=== PATIENT | female | born 2005 | race Caucasian/White ===

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

== ENCOUNTER → 2024-01-29 | Outpatient (CLI) | payer OTHER, SELFPAY ==
--- NOTE | 2024-01-29 10:20 | NM_ITS ---
CLINICAL: 18-year-old female with history of chronic diarrhea. SEMI-SOLID PHASE 99m Tc SULFUR COLLOID GASTRIC EMPTYING STUDY COMPARISON: None available FINDINGS: The patient was administered 1.2 mCi of 99m Tc sulfur colloid mixed with oatmeal and consumed per os. Image acquisitions in the anterior-posterior projections were obtained for 60 minutes. There is prompt visualization of the stomach. There is no gastroesophageal reflux identified. The T ? linear fit was calculated to be 44.07 minutes, (Normal: 12-56 minutes). NM/Gastric Emptying Study IMPRESSION: 1. NORMAL 99m Tc sulfur colloid semi-solid phase (oatmeal) gastric emptying imaging examination. A. There is normal and preserved semi-solid phase gastric emptying compared to normal controls. (James et al, J Nucl Med Tech 38: 186, 2010). Electronically Signed: Jignesh Lopez DO at 18:21 EST ,
== END | disposition home or self-care (01) ==
PROVIDERS: PCP Family Medicine; Referring Provider Family Medicine; Visit Provider Family Medicine
DX: R19.7 Diarrhea, unspecified (principal); R14.0 Abdominal distension (gaseous); K82.9 Disease of gallbladder, unspecified
CPT/HCPCS: 78264; A9541

== ENCOUNTER → 2024-01-31 | Outpatient (CLI) | payer OTHER, MEDICAID, SELFPAY ==
--- NOTE | 2024-01-31 13:02 | NM_ITS ---
CLINICAL: 18-year-old female with history of postprandial abdominal pain and diarrhea. RADIONUCLIDE HEPATOBILIARY SCINTIGRAPHY COMPARISON: None available FINDINGS: Following the intravenous administration of 6.0 mCi of 99m Tc Mebrofenin, hepatobiliary images reveal: 1. Relatively prompt and homogeneous radiopharmaceutical concentration is noted by a normal sized liver. No parenchymal defects are identified. 2. Gallbladder activity is identified at 15 minutes post radiopharmaceutical administration. 3. Small intestinal tract is and visualized prior to cholecystokinin administration. Small bowel is observed following CCK administration. 4. Washout of the radiopharmaceutical by the hepatic parenchyma appears qualitatively normal. Cholecystokinin (0.02 ug/kg) was administered intravenously over a 30-minute period. The post CCK gallbladder ejection fraction calculated at 20 minutes following Cholecystokinin administration was noted to be < 5 % (normal greater than 35%). There is scintigraphic evidence of post cholecystokinin duodenal-gastric reflux. AZ/Hepatobilliary Img w/Pharm Int IMPRESSION: 1. ABNORMAL 99m Tc Mebrofenin hepatobiliary imaging examination with Cholecystokinin. A. A gallbladder ejection fraction calculated to be less than 35% following the administration of Cholecystokinin is consistent with the presence of functional hepatobiliary disease (gallbladder and/or sphincter of Oddi dyskinesia) and/or organic hepatobiliary disease (chronic acalculous cholecystitis and/or cystic duct syndrome) in patients with intermediate to high pretest probabilities of hepatobiliary illness. (Raul Sanches et al, Journal of Nuclear Medicine 32:1695, 1990). B. There is scintigraphic evidence of post CCK duodenal-gastric reflux. (Kavita et al, Nucl Med Latoya Charu Press pg. 35, 1980). Electronically Signed: Jignesh Lopez, at 10:32 EST ,
== END | disposition home or self-care (01) ==
LOC: NM 12:58
PROVIDERS: PCP Family Medicine; Referring Provider Family Medicine; Visit Provider Family Medicine
DX: K82.9 Disease of gallbladder, unspecified (principal); R19.7 Diarrhea, unspecified
CPT/HCPCS: 78227; A9537; J2805

== ENCOUNTER 2024-02-04 08:35 | Emergency (ER) | payer OTHER, MEDICAID, SELFPAY ==
[2024-02-04 08:36] VITALS: BP 110/83; PULSE 117; RESP 16; TEMP 36.4; O2SAT 98; BMI 18.0
--- NOTE | 2024-02-04 09:07 | ED.VIS.GI ---
HPI HPI - GI History of Present Illness Chief Complaint: Abd Pain Informant: patient and parent Narrative Narrative: 18-year-old female presenting to the emergency room with vomiting diarrhea. Patient states that she has been experiencing diarrhea with meals for more than a month. She had an abnormal HIDA scan has been referred to general surgery. Last evening developed vomiting as well as a change in diarrhea. Described more now it is mucousy green and chunky. She had continued vomiting and diarrhea this morning. No reported fever. PFSH PFSH Medical History Spider bite COVID-19 Home Medications ?Medication ?Instructions ?Recorded ?Last Taken ?Type albuterol sulfate 90 mcg/actuation 2 inh inhalation Q4H PRN shortness 03/12/23 Unknown History aerosol inhaler of breath or wheezing medroxyprogesterone 150 mg/mL 150 mg IM [id number] #1 mL 03/28/23 Unknown Rx intramuscular suspension (Depo-Provera) doxycycline monohydrate 100 mg 100 mg PO BID #20 caps 06/26/23 Unknown Rx capsule methylprednisolone 4 mg tablets in See Rx Instructions PO PER PKG DIR 06/26/23 Unknown Rx a dose pack (Medrol (Jose)) #21 tabs ondansetron 4 mg disintegrating 4 mg PO Q6H PRN PRN Nausea #15 tabs 02/04/24 Unknown Rx tablet Allergy/AdvReac Type Severity Reaction Status Date / Time No Known Allergies Allergy Verified 02/04/24 08:36 Family History Mother Rheumatoid arthritis Heart palpitations Father Hemochromatosis Hypertension Surgical History History of tonsillectomy and adenoidectomy Social History household members: family housing: house current occupational exposures/hazards: No pets and animals: Yes pets and animals: cat(s), dog(s) and fish sexually active: Yes Smoking Status: Never smoker alcohol intake: never substance use type: does not use and tranquilizers caffeine: Yes seatbelt use: always ROS ROS ED Constitutional Constitutional ED: Denies chills, fever(s) or weight loss Eyes Eyes: Denies change in vision or diplopia ENT ENT ED: Denies ear pain, rhinorrhea or sore throat Cardiovascular Cardiovascular: Denies chest pain, orthopnea, palpitations or racing heartbeat Respiratory/Chest Respiratory/Chest: Denies cough, dyspnea or orthopnea Gastrointestinal Gastrointestinal: Reports abdominal pain, diarrhea, nausea and vomiting Genitourinary Genitourinary ED: Denies dysuria, hematuria or urinary frequency Musculoskeletal Musculoskeletal: Denies arthralgias or myalgias Integumentary Denies abscess or rash Neurologic Neurologic: Denies headache(s) or weakness Psychiatric Psychiatric: Denies anxiety, depression, suicidal ideation or suicidal thoughts Endocrine Endocrinology: Denies polydipsia, polyphagia or polyuria Allergic/Immunologic Allergic/Immunologic ED: Denies mouth swelling, tongue swelling or urticaria EXAM Physical Exam Const Vital Signs: 02/04/24 08:36 Temperature 97.6 F L Temperature Source Oral Pulse Rate 117 H Respiratory Rate 16 Blood Pressure 110/83 H Blood Pressure Mean 92 Pulse Ox 98 Oxygen Delivery Method Room Air Positive well nourished and well developed General Appearance ED: well developed HEENT Reports normocephalic, head/scalp atraumatic and moist mucous membranes Eyes PERRL and EOMs intact bilaterally Neck no lymphadenopathy, supple and no JVD Resp normal respiratory effort and clear to auscultation bilaterally Cardio regular rate, regular rhythm and no murmurs Rate: tachycardic GI non-distended GI Narrative: Abdomen is soft mildly tender. I would not characterize it as surgical Inspection: Negative for abdominal distention Auscultation: hyperactive bowel sounds Palpation: soft and tender LLQ and LUQ; Negative for guarding or rigid Back/Spine no CVA tenderness and normal ROM Extremity normal to inspection General Extremety ED: Negative for edema General Extremity: Negative for edema Neuro oriented x3 and CN's II-XII intact bilaterally Sensorium / Orientation: alert Motor Exam: strength 5/5 throughout Psych mental status grossly normal Mood & Affect: Negative for depressed or tearful Skin no rashes or lesions noted and no wounds MDM MDM MDM Narrative Medical decision making narrative: Differential diagnosis includes gastroenteritis colitis pancreatitis biliary colic dehydration electrolyte abnormalities. CBC BMP liver enzymes and pancreas demonstrated total bilirubin of 1.2 with a direct bilirubin 0.24 test is negative hemoglobin 16. Patient received IV fluids and Zofran. Repeat examination the patient states she feels significantly better. I think she most likely has a viral gastroenteritis. The patient has been unable to provide us a stool specimen while here. I will write for the patient to have Zofran at home. Patient to return if worsening with or concerns orally hydrate History & Record Review Discussion w/independent historian: Patient and Family Additional record(s) reviewed:: Prior outpatient record Lab Data Attestation: I reviewed the patient's lab results. Labs: Laboratory Results - last 24 hr 02/04/24 08:50 WBC 8.3 RBC 5.14 Hgb 16.0 H Hct 47.0 MCV 91.4 MCH 31.1 MCHC 34.0 RDW Std Deviation 39.1 RDW Coeff of Cj 11.6 Plt Count 162 MPV 10.6 Immature Gran % (Auto) 0.200 Neut % (Auto) 76.7 H Lymph % (Auto) 13.8 L Scott % (Auto) 5.3 Eos % (Auto) 3.6 Baso % (Auto) 0.4 Absolute Neuts (auto) 6.3 Absolute Lymphs (auto) 1.14 Nucleated RBC % 0 Sodium 141 Potassium 4.0 Chloride 108 H Carbon Dioxide 25.0 Anion Gap 7 BUN 17 Creatinine 0.95 Estim Creat Clear Calc 78.44 Est GFR (MDRD) Af Amer 97 Est GFR (MDRD) Non-Af 80 BUN/Creatinine Ratio 17.8 Glucose 95 Calcium 9.4 Total Bilirubin 1.20 H Direct Bilirubin 0.24 AST 14 L ALT 15 Alkaline Phosphatase 28 L Total Protein 8.0 Albumin 4.7 Globulin 3.3 Lipase 57 Serum , Qual NEGATIVE Discharge Plan Triage Chief Complaint: Abd Pain ED Provider: Madan Drummond Dx/Rx/DC Orders Clinical Impression: Gastroenteritis Instructions: ED Gastroenteritis, Viral (Adult) Prescriptions: New ondansetron 4 mg tablet,disintegrating 4 mg PO Q6H PRN PRN (Reason: Nausea) Qty: 15 0RF No Action medroxyprogesterone [Depo-Provera] 150 mg/mL suspension 150 mg IM [id number] Qty: 1 3RF methylprednisolone [Medrol (Jose)] 4 mg tablets,dose pack See Rx Instructions PO PER PKG DIR Qty: 21 0RF Rx Instructions: PO PER PKG DIR doxycycline monohydrate 100 mg capsule 100 mg PO BID Qty: 20 0RF albuterol sulfate 90 mcg/actuation HFA aerosol inhaler 2 inh inhalation Q4H PRN (Reason: shortness of breath or wheezing) Primary Care Provider: Elder Soto Referrals: Elder Soto DO [Primary Care Provider] - As Needed Print Language: Irish Disposition Disposition: Home, Self Care
[2024-02-04] MEDS: Ondansetron 4 MG/2 ML Vial IV (09:12)
[2024-02-04] MEDS: 0.9% Normal Saline (1000mL) 1,000 ML 999 ML IV (09:12)
[2024-02-04 09:19] LABS: Absolute Lymphocyte Count 1.14 X10^3/uL (0.83-4.51); Absolute Neutrophil Count 6.3 X10^3/uL (2.0-7.7); Basophil# 0.03 X10^3/uL; Basophil% 0.4 % (0-1); Eosinophils% 3.6 % (0-5); Lymphocyte # 1.14 X10^3/ul (0.83-4.51); Lymphocyte % 13.8 % (19-41); Mean Corpuscular Hgb 31.1 pg (27.0-32.0); Mean Corpuscular Volume 91.4 fL (81-99); Mean Platelet Vol. 10.6 fl (6.2-12.0); Monocyte# 0.44 X10^3/uL; Monocyte% 5.3 % (0-10); NRBC Flagged by Analyzer 0 % (0-5); Neutrophil # 6.33 X10^3/uL (2.7-7.7); Neutrophil % 76.7 % (47-70); Platelet Count 162 K/mm3 (150-450); RBC Distribution Width CV 11.6 % (11.6-14.6); RBC Distribution Width SD 39.1 fl (35.1-43.9); Red Blood Count 5.14 M/mm3 (4.2-5.4); White Blood Count 8.3 K/mm3 (4.4-11.0)
[2024-02-04 09:29] LABS: Internal QC Validated? YES +Cl - CLEAR BKGD; Pregnancy, Serum, hCG Quali. NEGATIVE Negative
[2024-02-04 09:36] LABS: AST(SGOT) 14 U/L (15-37); Alanine Aminotransfer ALT/SGPT 15 U/L (13-56); Albumin, Serum 4.7 g/dL (3.2-5.0); Alkaline Phosphatase 28 U/L (45-117); Anion Gap 7 (5-15); BUN 17 mg/dL (7-18); BUN/Creat Ratio 17.8 RATIO (10-20); Bilirubin, Direct 0.24 mg/dL (0.00-0.30); Calcium,Total 9.4 mg/dL (8.5-10.1); Chloride 108 mmol/L (98-107); Creatinine, Serum 0.95 mg/dL (0.55-1.02); EST Glomerular Filtration Rate 80 mL/min (>60); Est Glom Filt Rate - Afr Amer 97 mL/min (>60); Estimated Creatinine Clearance 78.44 ml/min; Globulin 3.3 g/dL (2.2-4.2); Glucose 95 mg/dL (74-106); Lipase 57 U/L (13-75); Sodium Level 141 mmol/L (136-145)
[2024-02-04 10:54] VITALS: BP 98/65; PULSE 86; RESP 16; TEMP 36.4; O2SAT 98
== END 2024-02-04 10:56 | disposition home or self-care (01) ==
PROVIDERS: Emergency Provider Emergency Medicine; PCP Family Medicine; Visit Provider Emergency Medicine
DX: K52.9 Noninfective gastroenteritis and colitis, unspecified (principal); Z86.16 Personal history of COVID-19
CPT/HCPCS: 80048; 80076; 83690; 84703; 85025; 96361; 96374; 99283; A4216; J2405

== ENCOUNTER 2024-02-25 11:29 | Day surgery (SDC) | payer OTHER, MEDICAID, SELFPAY ==
[2024-02-25] VITALS (11 sets, daily range): BP systolic 105–124; BP diastolic 67–93; PULSE 71–93; RESP 16–18; TEMP 36.3–37; O2SAT 97–100; BMI 18.6
--- NOTE | 2024-02-25 11:43 | HP.PCM_ITS ---
History and Physical Date of Admission: 02/25/24 Date of Service: 02/14/24 MR#: [id number] Acct: [id number] Name: JOAN BURGESS Rep #: [id number] : 2005 Provider: Dr. Norma Buckley MD Age/Sex: 18/F Location: [facility] Status: Signed Intake Vital Signs 02/04/2408:36 02/14/2508:57 Height 5 ft 7 in 5 ft 7 in Weight: 120 lb 4 oz BMI 18.8 BP 103/71 Blood Pressure Location Rt brachial Position Sitting Respiration 18 Pulse 76 Pulse Source Monitor Pulse Oximetry (%) 100 Oxygen Delivery Method room air Intake Visit Reasons: ABNORMAL HIDA Chief Complaint: Chronic diarrhea/biliary dyskinesia Fluid Power Mechanic Required: No Accompanied by: Mother Is patient in pain?: No Allergies No Known Allergies Allergy (Verified 02/14/24 09:59) Medications ?Medication ?Instructions ?Recorded ?Confirmed ?Type albuterol sulfate 90 mcg/actuation 2 inh inhalation Q4H PRN shortness 03/12/23 02/14/24 History aerosol inhaler of breath or wheezing medroxyprogesterone 150 mg/mL 150 mg IM [id number] #1 mL 03/28/23 02/14/24 Rx intramuscular suspension (Depo-Provera) ondansetron 4 mg disintegrating 4 mg PO Q6H PRN PRN Nausea #15 tabs 02/04/24 02/14/24 Rx tablet omeprazole 40 mg capsule,delayed 40 mg PO QDAY #30 caps 02/14/24 02/14/24 Rx release PFSH Medical History (Updated 02/14/24 @ 10:[address] Norma Buckley MD) Anxiety Chronic diarrhea Migraine Asthma Contraception management Abnormal uterine bleeding Biliary dyskinesia Spider bite COVID-19 Surgical History History of tonsillectomy and adenoidectomy Family History Mother Rheumatoid arthritis Heart palpitationsFather Hemochromatosis Hypertension Social History household members: family housing: house current occupational exposures/hazards: No pets and animals: Yes pets and animals: cat(s), dog(s) and fish sexually active: Yes Smoking Status: Never smoker alcohol intake: never substance use type: does not use and tranquilizers caffeine: Yes seatbelt use: always HPI HPI HPI: 18-year-old female presents due to abnormal HIDA scan less than 5% consistent with biliary dyskinesia. Patient also had a gastric emptying study which was normal. Patient has been having issues with diarrhea bloating and abdominal cramping for about 2 years has gotten worse more recently. Patient has not been able to really gain weight but has not lost weight either for the last several years. Patient did states she tried omeprazole for about 2 to 3 weeks and did state it cut her diarrhea down from 4 times a day to about 2 times a day. Patient is currently off omeprazole. Patient does have nausea does not vomit. Patient has been more cramping and bloating abdominal pain near her umbilicus not really right upper quadrant. Patient is in school starting February 17 that most of her classes are remote except for 1. ROS General General: Yes weight change and fatigue; No appetite, colon cancer or breast cancer HEENT HEENT: No difficulty swallowing, eye injury, eye surgery, swollen glands or hoarseness Endo Endocrine: No thyroid disease, diabetes mellitus, thyroid cancer, Hair loss, heat intolerance or cold intolerance Skin Skin: No rash or changing moles Musc Musculoskeletal: Yes back problems; No arthritis, rheumatoid arthritis, gout or joint pain Cardio Cardiovascular: No murmur, pacemaker, heart disease, atrial fibrillation, high blood pressure, heart attack, heart stent, palpitations, shortness of breat with exertion or chest pain Psych Psychiatric: Yes anxiety; No depression or hearing voices Resp Respiratory: No shortness of breath, No sleep apnea, No cough, No COPD, Yes asthma, No emphysema and No wheezing Gastro Gastrointestinal: Yes abdominal pain, Yes nausea or vomiting, Yes diarrhea, Yes constipation, No blood in stool, No acid reflux, Yes hemorrhoids, No ulcers, No gallbladder problem and No black,tarry stools Merrick Hematologic: No blood thinners, No blood disorders, No bleeding, No anemia and No blood clots Neuro Neurologic: No numbness and No tingling Exam Const General: cooperative, healthy appearing, comfortable and no acute distress HENMT Head: normocephalic and atraumatic Neck Neck: supple Resp Effort & Inspection: normal respiratory effort Cardio Rate: regular rate GI Inspection: non-distended Palpation: soft, no hernias and nontender Skin General: no rashes or lesions noted Neuro General: CN's II-XI intact bilaterally Extrem General: normal to inspection Psych Mental Status: mental status grossly normal Attitude: cooperative Assessment and Plan Assessment and Plan (1) Biliary dyskinesia: Status: Acute (2) Bloating symptom: Status: Acute (3) Chronic diarrhea: Status: Chronic Medications: New omeprazole swallow whole; do not crush, chew, dissolve, cut, break 40 mg PO QDAY 30 caps 5RF Plan Discussed with patient that since the omeprazole did improve the numbers of time and diarrhea and she does have the bloating symptoms well would recommend going back on the omeprazole initially. Patient may also need EGD and colonoscopy after a laparoscopic cholecystectomy if she still continues to have diarrhea and bloating. Patient and mom understand that all of her symptoms will likely not be resolved with laparoscopic cholecystectomy. Did review her HIDA scan and the results with patient and her mom. Reviewed the anatomy with the patient and discussed the procedure: laparoscopic cholecystectomy with possible cholangiograms, possible open. Review risks including but not limited to bleeding, infection, hernia, bile leak, retained gallstones requiring another procedure ERCP- Endoscopic Retrograde Cholangiopancreatography, injury to another organ (bile ducts, common bile duct, small bowel, etc.) and conversion to an open procedure. All questions were answered. Norma Buckley M.D. Pager: [phone] [facility] [address] [place] [address], [address] [place] [address] Office: [phone] Coding Level of Care Code Off vis,new,level 3 Diagnoses Biliary dyskinesia K82.8 Bloating symptom R14.0 Chronic diarrhea K52.9 02/14/24 1059 <Electronically signed by Norma Buckley MD> Date Norma Buckley MD
--- NOTE | 2024-02-25 11:46 | EKG12_ITS ---
Test Reason : PREOP Blood Pressure : */* mmHG Vent. Rate : 87 BPM Atrial Rate : 87 BPM P-R Int : 114 ms QRS Dur : 80 ms QT Int : 332 ms P-R-T Axes : 67 83 61 degrees QTcB Int : 399 ms Normal sinus rhythm Normal ECG No previous ECGs available Confirmed by CINDI TAPIA, DARLENE ([id number]), department editor JUAN GREENWOOD ([id number]) on 03/04/2024 6:25:02 AM Referred By: Norma Bucklye Confirmed By: DARLENE PUENTE MD
[2024-02-25 12:19] LABS: Internal QC Validated? YES +Cl - CLEAR BKGD; Pregnancy, Urine Negative Negative
[2024-02-25] MEDS: 0.9% Normal Saline (1000mL) 1,000 ML 15 ML IV (12:20)
--- NOTE | 2024-02-25 12:20 | RAD_ITS ---
STUDY: INTRAOPERATIVE CHOLANGIOGRAM. REASON FOR EXAM: Female, 18 years old. LAP GRETTA W/ IOC FLUOROSCOPY TIME (if supplied): ( 11 seconds ) minutes/seconds. 2.18 mGy. TECHNIQUE: Attempted Intraop Cholangiogram. COMPARISON: None. RAD/Cholangiogram/ O R,Initial IMPRESSION: Attempted intraoperative cholangiogram. Electronically Signed: Victoriano Kerr MD at 15:00 EST ,
--- NOTE | 2024-02-25 12:43 | PCM.PRE.AN2 ---
ASA Classification* ASA Classification ASA Classification: 2 Assessment & Plan Anesthesia* Anesthesia Assessment Anesthesia Assessment: Discussed sedation and/or anesthesia options, risks, benefits, and alternatives with patient/parents/legal guardian/POA. Questions invited. The patient/parents/legal guardian/POA seems to understand and agrees to proceed with anesthesia plan. Reviewed the physical assessment, medical history, allergy history and patient home medications list prior to surgery/procedure/anesthetic and documented any changes. Performed airway and anesthesia risk assessments. Procedural Plan Add'l anesthesia plan details: scop patch for PONV Anesthesia Type Anesthesia Type: General History Source History Obtained from:: Patient, Chart and Parent/ Guardian (mother at bedside, in agreement with plan) Anesthesia Focused Assessment* Temperature: 98.6 F Pulse Rate: 83 Blood Pressure: 111/67 Respiratory Rate: 17 Pulse Ox: 100 Oxygen Delivery Method: Room Air Airway Assessment Mouth opens: >3 cm Mallampati Score: I Teeth Condition: Intact (permanent retainer, underbite) Neck Range of motion (ROM): Full ROM Focused Labs Anesthesia Preop lab: CBC WBC 8.3 K/mm3 (4.4-11.0) 02/04/24 08:50 RBC 5.14 M/mm3 (4.2-5.4) 02/04/24 08:50 Hgb 16.0 g/dL (12.0-15.0) H 02/04/24 08:50 Hct 47.0 % (37-47) 02/04/24 08:50 Plt Count 162 K/mm3 (150-450) 02/04/24 08:50 CHEMISTRY Potassium 4.0 mmol/L (3.5-5.1) 02/04/24 08:50 Sodium 141 mmol/L (136-145) 02/04/24 08:50 BUN 17 mg/dL (7-18) 02/04/24 08:50 Creatinine 0.95 mg/dL (0.55-1.02) 02/04/24 08:50 Glucose 95 mg/dL (74-106) 02/04/24 08:50 TSH 1.790 uIU/mL (0.358-3.740) 10/11/23 14:04 COAG Urine Test Negative Negative 02/25/24 12:00 Tst Clinic Negative 03/28/23 15:29 Pre-Assessment Diagnosis/Proposed Procedure Planned Operative Procedure(s): JULIAN SWEET WITH GRAMS Anesthesia History Anesthesia History - armature winder helper repair: Anesthesia History - armature winder helper repair Hx Hospitalization No 02/21/24 14:51 Any Problems With Anesthesia No 02/21/24 14:51 Cholinesterase deficiency No 02/21/24 14:51 You/Your Family Experience No 02/21/24 14:51 fever (hyperthermia) with Relationship Recent Exposure to Contagious No 02/25/24 12:14 Disease Does patient have nerve No 02/21/24 14:51 stimulator Patient instructed to have device shut off --Does patient have Pacemaker No 02/25/24 12:14 or ICD? When Was Last Pacemaker Check QUESTION #4 FULL TEXT: You/Your Family Experience fever (hyperthermia) with Anesthesia Last Oral Intake Last Oral intake: Last Oral Intake NPO since 00:00 02/25/24 12:14 Meds taken in AM with sips of No 02/25/24 12:14 water? Meds patient instructed to take am of surgery PONV PONV - armature winder helper repair: PONV - armature winder helper repair Female Yes 02/21/24 14:51 HX of Motion Sickness No 02/21/24 14:51 HX of N/V After Surgery No 02/21/24 14:51 Non-Smoker Yes 02/21/24 14:51 Duration of Surgery greater No 02/21/24 14:51 than 60 minutes Number of Risk Factors 2 02/21/24 14:51 PONV Score Moderate Risk 02/21/24 14:51 Any additional information?: Yes Female: Yes HX of Motion Sickness: No HX of N/V After Surgery: Yes Non-Smoker: Yes Duration of Surgery greater than 60 minutes: Yes Number of Risk Factors: 4 PONV Score: Severe Risk Height & Weight Height & Weight: Anesthesia: Height & Weight Height 5 ft 7 in 02/25/24 12:14 Weight: 53.9 kg 02/25/24 12:14 Body Mass Index (BMI) 18.6 02/25/24 12:14 Respiratory Assessment Respiratory Assessment - armature winder helper repair: Respiratory Tract Infection Hx - armature winder helper repair Hx Respiratory Tract Infection No 02/21/24 14:51 STOP Sleep Apnea STOP Sleep Apnea - armature winder helper repair: STOP Sleep Apnea - armature winder helper repair Hx Hypertension No 02/21/24 14:51 Hx Sleep Apnea No 02/21/24 14:51 CPAP BIPAP Do you snore loudly (louder No 02/21/24 14:51 than talking or can be heard Do you often feel tired/ No 02/21/24 14:51 fatigued/ sleepy during daytime? Has anyone observed you stop No 02/21/24 14:51 breathing during sleep? STOP Results Negative 02/21/24 14:51 QUESTION #5 FULL TEXT : Do you snore loudly (louder than talking or can be heard through closed doors)? Tobacco Use History Tobacco Use History - armature winder helper repair: Tobacco Use History - armature winder helper repair Tobacco Use Smoking Status Never smoker 02/21/24 14:51 Hx Tobacco Use No 02/21/24 14:51 Years Smoking Packs Smoked per Day Smoking Cessation Date was within the last 15 years Hx Smoking Cessation Date Hx Smoking Cessation Counseling Hematologic Medial History Hematologic Hx - armature winder helper repair: Hematologic Medical Hx - oral surgery technician Hx of Blood Transfusion No 02/21/24 14:51 Hx of Transfusion in last 3 No 02/21/24 14:51 Months Date of Last Transfusion (if within last 3 months) Ever experience any problems No 02/21/24 14:51 with transfusion(s)? Specify any problems Hx of Preganancy in last 3 No 02/21/24 14:51 Months Nurse Filling Out Transfusion DSCHRIBER 02/21/24 14:51 & Questions: Date: 02/21/24 02/21/24 14:51 Time: 14:52 02/21/24 14:51 Patient unable to answer at this time (ie. confused, unrespo /Reproduction History /Reproductive History - armature winder helper repair: /Reproductive Hx- armature winder helper repair Hx Now No 02/21/24 14:51 Gestational Age (in weeks): EDC: Hx Hx Para Hx Section SAB No 02/21/24 14:51 Active Medications Active Medications: Current Medications Generic Name Dose Route Start Last Admin Trade Name Freq PRN Reason Stop Dose Admin Cefazolin Sodium 2 gm/ N/A 20 mls @ 400 mls/hr 02/25/24 13:20 IV 02/25/24 13:22 PREOP ONE Sodium Chloride 1,000 mls @ 15 mls/hr 02/25/24 11:50 02/25/24 12:20 IV 03/02/24 01:09 15 mls/hr .Q48H XENIA Administration Protocol [facility] Medical History Wears contact lenses Non-smoker Anxiety Chronic diarrhea Biliary dyskinesia Spider bite Abnormal uterine bleeding Contraception management Asthma Migraine COVID-19 Home Medications ?Medication ?Instructions ?Recorded ?Last Taken ?Type albuterol sulfate 90 mcg/actuation 2 inh inhalation Q4H PRN shortness 03/12/23 Unknown History aerosol inhaler of breath or wheezing medroxyprogesterone 150 mg/mL 150 mg IM [id number] #1 mL 03/28/23 Unknown Rx intramuscular suspension (Depo-Provera) omeprazole 40 mg capsule,delayed 40 mg PO QDAY #30 caps 02/14/24 02/25/24 Rx release Allergy/AdvReac Type Severity Reaction Status Date / Time No Known Allergies Allergy Verified 02/25/24 12:13 Family History Mother Rheumatoid arthritis Heart palpitations Father Hemochromatosis Hypertension Surgical History Hx of wisdom tooth extraction History of tonsillectomy and adenoidectomy Social History household members: family housing: house current occupational exposures/hazards: No pets and animals: Yes pets and animals: cat(s), dog(s) and fish sexually active: Yes Smoking Status: Never smoker alcohol intake: never substance use type: does not use and tranquilizers caffeine: Yes seatbelt use: always Review of Systems (Anesthesia) ROS Narrative System reviewed and no additional complaints, except as documented.
--- NOTE | 2024-02-25 13:20 | GALL_PTH ---
PATIENT: JOAN BURGESS LOC: [facility] U#:[id number] AGE/SX: 18/F ROOM: RE02/25/[address]: Dr. Norma Buckley MD : 2005 BED: DIS: 02/25/2024 SPEC #: [id number] RECD: 02/25/24 16:48 STATUS: FELICIA REZina #: [id number] MAHAD: 02/25/24 13:[address]: Norma Buckley DEPT: SURGICAL PATHOLOGY RECD BY: Ila Cruz ENTERED: 02/26/24 10:06 SP TYPE: CEASAR FAM DR: Dr. Elder Soto DO Tissues: Gallbladder, NOS Procedures: Surgery Specimen Level III HEADER OPERATION: Laparoscopic cholecystectomy PRE-OP DIAGNOSIS: Biliary dyskinesia, bloating symptom, chronic diarrhea TISSUE SUBMITTED: Gallbladder MICROSCOPIC DIAGNOSIS Gallbladder, cholecystectomy: Mild chronic cholecystitis. Regional lymph nodes showing reactive changes. PW.mr 02/27/2024 MICROSCOPIC DESCRIPTION Slides are reviewed. GROSS DESCRIPTION Received is one container labeled with the patient's name and designated gallbladder. The specimen consists of a gallbladder measuring 6.5 cm in length and ranging from 2 to 3cm in diameter. The external surface is smooth except where it has been dissected off of the liver. There are no stones floating in the fixative. The cystic duct is identified upon opening the gallbladder. The gallbladder contains dark-green viscous bile. The cystic duct is free of stones. A shave of duct proximal portion is taken. There are no stones present in the gallbladder. The mucosa is bile-stained and without any mass lesions. The gallbladder wall measures up to 0.2cm in thickness. Environmental Marketer sections from the gallbladder and the cystic duct are submitted in one cassette. / PW: 02/26/2024 TC:2 CPT: 05086
[2024-02-25] MEDS: Cefazolin 2 GM in Syringe IV (13:41)
[2024-02-25] MEDS: Bupivacaine Mpf 0.5% 30 ML VIAL (14:35)
--- NOTE | 2024-02-25 14:35 | PCM.OPRPT ---
Operative Report (Standard) Operative Information Date of Procedure: 02/25/24 Pre-Operative Diagnosis: Biliary dyskinesia Post-Operative Diagnosis: Same Surgery/Procedure Performed: Laparoscopic cholecystectomy with attempted cholangiograms community service technician: Yes Solutions Sales Executive: Don Bustos Tasks completed by assistant baseball coach: Opening & closing and Retracting Type of Anesthesia: General/Supplemental RN Documented Start/Stop Times: Operation Date: 02/25/24 13:20 Case Time Into Pre-Op 02/25/24 11:43 Out of Pre-Op 02/25/24 13:25 Anesthesia Start 02/25/24 13:30 Into Room 02/25/24 13:30 Procedure Start 02/25/24 13:49 Procedure End 02/25/24 14:43 Anesthesia End 02/25/24 14:49 Out of Room 02/25/24 14:49 Into Recovery 02/25/24 14:55 Out of Recovery 02/25/24 16:01 Into Phase II Recovery 02/25/24 16:02 Out of Phase II 02/25/24 17:50 Procedure Start Time: 13:49 Procedure Stop Time: 14:43 Select all DRAINS/GRAFTS/IMPLANTS that apply: None Special Medications: Ancef 2 g IV x 1 Estimated Blood Loss: < 10 cc Specimen collected: Yes Description of specimen(s) removed: Gallbladder Description of surgery: Indications: this is a 18 year-old female who developed abdominal pain/nausea/vomiting and on workup was found to have no cholelithiasis, biliary dyskinesia with less than 5% emptying fraction, HIDA, with a normal common bile duct. Laparoscopic cholecystectomy was elected. Description procedure: The patient was placed on operating table in supine position. A timeout was completed verifying correct patient, procedure, site, position and special equipment prior to beginning procedure. General Anesthesia was induced. The abdomen was prepped and draped in usual sterile fashion. An incision was made in the natural skin line below the umbilicus. The fascia was elevated and incised. The peritoneum was elevated and incised. Entry into the peritoneum was confirmed visually and no bowel was noted in the vicinity of the incision. Brown trocar was placed. The abdomen was insufflated with carbon dioxide to a pressure of 12-15 mmHg. Patient tolerated insufflation well. The laparoscope was then inserted and abdomen inspected. No injuries from initial trocar placement were noted. Additional trochars were then inserted in the following locations 5 mm trocar in the epigastrium and 2 more 5 mm trochars along the right costal margin. The abdomen was inspected no abnormalities were found. The table is placed in reverse Trendelenburg position with the right side up. The dome of the gallbladder was grasped with atraumatic grasper passed through the lateral port and retracted over the dome of the liver. Infundibulum was then grasped with atraumatic grasper through the midclavicular port and retracted to the right lower quadrant. This maneuver exposed Calot's triangle. The peritoneum overlying the gallbladder infundibulum was then incised and cystic duct and artery identified and circumferentially dissected. Smart catheter was attempted for cholangiograms; however were not completed due to extravasation of contrast. The cystic duct and artery were then doubly clipped and divided close to the gallbladder. The gallbladder then dissected from its peritoneal attachments by electrocautery. Hemostasis was checked and the gallbladder and contained stones were removed using the endoscopic retrieval bag through the umbilical port. The gallbladder is passed off table as specimen. The gallbladder fossa was irrigated with saline and hemostasis obtained. There is no evidence of bleeding from the gallbladder fossa or cystic artery leakage of bile from the cystic duct stump. Secondary trochars removed under direct vision. No bleeding was noted the trocar sites. The laparoscope was withdrawn and umbilical trocar removed. The abdomen was allowed to collapse. The fascia of the 12 mm trocar was closed with a [id number] 0 Vicryl suture. The skin was closed with sutures of 4-0 Monocryl and Steri-Strips. The patient was extubated. The patient tolerated procedure well and was taken to the postanesthesia care unit in stable condition. Surgical Findings: See operative report Complications Complications: No
--- NOTE | 2024-02-25 14:38 | EX.PCM.DISCH ---
Discharge Instructions Diet Discharge Diet: Light diet - advance as tolerated Activity Discharge Activity: May Not Drive (while taking narcotic pain medications.) May shower in (days): 1 Lifting Restrictions: no lifting >20 lbs x 2 wks, no strenuous exercise for 4 wks Dressing / Incision Call your doctor if your incision/area has: Continuous Slow Oozing, Sudden Increased Bleeding, Increased Pain/ Swelling, Increased Redness, Foul Smelling Discharge and Swelling at the incision site Call your doctor if you observe: Fever of 101 or Higher Remove Dressing in: 2 days Cleanse incision/area with: Soap & Water Additional Dressing/Incision Instructions:: Steri-Strips will fall off in 7 to 10 days, if they do not fall off okay to remove after 10 days. Follow Up Care Please Follow Up With: Norma Buckley MD When: Call the office for a follow-up appointment 2 weeks; after 5 PM and on the weekends call [phone] with any concerns. Test Results: Test results from this visit will be discussed in further detail at your follow-up appointment, if applicable. Discharge Plan Admission Attending Provider: Norma Buckley Primary Care Provider: Elder Soto Instructions Print Language: Setswana Discharge Orders/Prescriptions Prescriptions: New hydrocodone-acetaminophen 5-325 mg tablet 1 tab PO Q6H PRN (Reason: pain) 3 Days Qty: 10 0RF Continued medroxyprogesterone [Depo-Provera] 150 mg/mL suspension 150 mg IM [id number] Qty: 1 3RF omeprazole 40 mg capsule,delayed release(DR/EC) 40 mg PO QDAY Qty: 30 5RF Rx Instructions: swallow whole; do not crush, chew, dissolve, cut, break albuterol sulfate 90 mcg/actuation HFA aerosol inhaler 2 inh inhalation Q4H PRN (Reason: shortness of breath or wheezing) Referrals / Follow Up: Elder Soto DO [Primary Care Provider] - Disposition Disposition (needs filled in before D/C Order can be placed): Home, Self Care
--- NOTE | 2024-02-25 15:09 | PCM.POST.ANE ---
Anesthesia: Postop Eval I Current Vital Signs Temperature: 97.8 F Pulse Rate: 84 Blood Pressure: 115/86 Respiratory Rate: 16 Pulse Ox: 99 Oxygen Delivery Method: Room Air Assessment Airway patent: Yes Spontaneous unlabored respirations: Yes Mental status: Awake nausea: No Vomiting: No Anesthesia Complication: No Fluid Hydration Crystalloid volume administer (ml): 700 Total IV fluid infused: 700 Progress Note Anesthesia document: Postop Eval 1 completed: Yes
[2024-02-25] MEDS: Ketorolac 30 MG/ML Syringe IV (15:16)
[2024-02-25] MEDS: HYDROcodone Bitartrate/Apap 5/325 Tablet PO (16:36)
--- NOTE | 2024-02-25 18:03 | PCM.POSTANE2 ---
Anesthesia Postop Eval I Sum Postop Eval Completion status Anesthesia document: Postop Eval 1 completed: Yes Anesthesia Postop Eval I Summary Anesthesia Postop Eval I Summary: Anesthesia Postop Eval I: Assessment Summary Airway patent Yes 02/25/24 15:10 [email or web address] Spontaneous unlabored Yes 02/25/24 15:10 [email or web address] respirations Mental status Awake 02/25/24 15:10 [email or web address] nausea No 02/25/24 15:10 [email or web address] Vomiting No 02/25/24 15:10 [email or web address] Anesthesia Postop Eval I: Fluid Summary Crystalloid volume administer 700 02/25/24 15:10 [email or web address] (ml) Colloids volume administered ( ml) Blood Product volume administered (ml) Total IV fluid infused 700 02/25/24 15:10 [email or web address] Anesthesia Postop Eval I: Summary Notes Anesthesia Complication No 02/25/24 15:10 [email or web address] Anesthesia Complication Comment: Post-operative progress note Anesthesia: Postop Eval II Evaluation Mental status: Awake and Calm Pain Level: 4 nausea: No Vomiting: No Complications Anesthesia Complication: No
== END 2024-02-25 17:50 | disposition home or self-care (01) ==
LOC: SDC 11:33 → AC 11:35
PROVIDERS: Anesthesiology; PCP Family Medicine; Referring Provider Surgery; Visit Provider Surgery
PROC: (CPT 47610; principal; 2024-02-25 13:00)
DX: K81.1 Chronic cholecystitis (principal); K52.9 Noninfective gastroenteritis and colitis, unspecified
CPT/HCPCS: 47562; 00790; 74300; 76000; 81025; 88304; 93005; J2405

== ENCOUNTER → 2024-05-13 | Outpatient (CLI) | payer OTHER, MEDICAID, SELFPAY | END | disposition home or self-care (01) | LOC: LABSPEC 15:09 | PROVIDERS: PCP Family Medicine; Referring Provider Nurse Practitioner Women's Health; Visit Provider Nurse Practitioner Women's Health | DX: Z11.3 Encounter for screening for infections with a predominantly sexual mode of transmission (principal) | CPT/HCPCS: 87491; 87591 ==

== ENCOUNTER → 2024-05-15 | Outpatient (CLI) | payer OTHER, MEDICAID, SELFPAY ==
[2024-05-15 18:16] LABS: Erythrocyte Sedimentation Rate < 1 mm/hr (0-30)
[2024-05-15 18:17] LABS: Free T3 3.3 pg/mL (2.18-3.98)
[2024-05-15 18:18] LABS: CRP < 3.00 mg/L (0.0-3.0); Rheumatoid Factor < 10.0 IU/mL (<15)
[2024-05-19 08:08] LABS: ANTINUCLEAR ANTIBODIES DIRECT Negative (Negative)
== END | disposition home or self-care (01) ==
PROVIDERS: PCP Family Medicine; Visit Provider Family Medicine
DX: I73.00 Raynaud's syndrome without gangrene (principal); M79.10 Myalgia, unspecified site; M25.50 Pain in unspecified joint; E03.9 Hypothyroidism, unspecified
CPT/HCPCS: 36415; 84432; 84439; 84443; 84481; 85652; 86038; 86140; 86200; 86431; 86800

== ENCOUNTER 2024-06-09 08:24 | Day surgery (SDC) | payer OTHER, MEDICAID, SELFPAY ==
[2024-06-09] VITALS (7 sets, daily range): BP systolic 96–105; BP diastolic 56–74; PULSE 57–82; RESP 16; TEMP 36.2–37.3; O2SAT 97–100; BMI 18.8
[2024-06-09 08:54] LABS: Internal QC Validated? YES +Cl - CLEAR BKGD; Pregnancy, Urine Negative Negative
--- NOTE | 2024-06-09 09:03 | PCM.PRE.AN2 ---
ASA Classification* ASA Classification ASA Classification: 2 (Asthma, GERD, PONV) Assessment & Plan Anesthesia* Anesthesia Assessment Anesthesia Assessment: Discussed sedation and/or anesthesia options, risks, benefits, and alternatives with patient/parents/legal guardian/POA. Questions invited. The patient/parents/legal guardian/POA seems to understand and agrees to proceed with anesthesia plan. Reviewed the physical assessment, medical history, allergy history and patient home medications list prior to surgery/procedure/anesthetic and documented any changes. Performed airway and anesthesia risk assessments. Anesthesia Type Anesthesia Type: General History Source History Obtained from:: Patient and Chart Anesthesia Focused Assessment* Temperature: 99.1 F Pulse Rate: 82 Blood Pressure: 105/56 Respiratory Rate: 16 Pulse Ox: 100 Oxygen Delivery Method: Room Air Airway Assessment Mouth opens: >3 cm Mallampati Score: II Teeth Condition: Intact (braces) Neck Range of motion (ROM): Full ROM Focused Labs Anesthesia Preop lab: CBC WBC 8.3 K/mm3 (4.4-11.0) 02/04/24 08:50 02/04/24 RBC 5.14 M/mm3 (4.2-5.4) 02/04/24 08:50 02/04/24 Hgb 16.0 g/dL (12.0-15.0) H 02/04/24 08:50 02/04/24 Hct 47.0 % (37-47) 02/04/24 08:50 02/04/24 Plt Count 162 K/mm3 (150-450) 02/04/24 08:50 02/04/24 CHEMISTRY Potassium 4.0 mmol/L (3.5-5.1) 02/04/24 08:50 02/04/24 Sodium 141 mmol/L (136-145) 02/04/24 08:50 02/04/24 BUN 17 mg/dL (7-18) 02/04/24 08:50 02/04/24 Creatinine 0.95 mg/dL (0.55-1.02) 02/04/24 08:50 02/04/24 Glucose 95 mg/dL (74-106) 02/04/24 08:50 02/04/24 TSH 1.650 uIU/mL (0.500-4.300) 05/15/24 15:29 05/15/24 COAG Urine Test Negative Negative 06/09/24 08:35 06/09/24 Tst Clinic Negative 05/13/24 13:46 05/13/24 Pre-Assessment Diagnosis/Proposed Procedure Planned Operative Procedure(s): CSCOPE, EGD Anesthesia History Anesthesia History - community living specialist: Anesthesia History - community living specialist Hx Hospitalization No 06/03/24 13:32 Any Problems With Anesthesia No 06/03/24 13:32 Cholinesterase deficiency No 06/03/24 13:32 You/Your Family Experience No 06/03/24 13:32 fever (hyperthermia) with Relationship Recent Exposure to Contagious No 06/09/24 08:44 Disease Does patient have nerve No 06/03/24 13:32 stimulator Patient instructed to have device shut off --Does patient have Pacemaker No 06/09/24 08:44 or ICD? When Was Last Pacemaker Check QUESTION #4 FULL TEXT: You/Your Family Experience fever (hyperthermia) with Anesthesia Last Oral Intake Last Oral intake: Last Oral Intake NPO since Meds taken in AM with sips of water? Meds patient instructed to take am of surgery PONV PONV - community living specialist: PONV - community living specialist Female Yes 06/03/24 13:32 HX of Motion Sickness No 06/03/24 13:32 HX of N/V After Surgery Yes 06/03/24 13:32 Non-Smoker Yes 06/03/24 13:32 Duration of Surgery greater No 06/03/24 13:32 than 60 minutes Number of Risk Factors 3 06/03/24 13:32 PONV Score Moderate Risk 06/03/24 13:32 Height & Weight Height & Weight: Anesthesia: Height & Weight Height 5 ft 7 in 06/09/24 08:44 Weight: 54.522 kg 06/09/24 08:44 Body Mass Index (BMI) 18.8 06/09/24 08:44 Respiratory Assessment Respiratory Assessment - community living specialist: Respiratory Tract Infection Hx - community living specialist Hx Respiratory Tract Infection No 06/03/24 13:32 STOP Sleep Apnea STOP Sleep Apnea - community living specialist: STOP Sleep Apnea - community living specialist Hx Hypertension No 06/03/24 13:32 Hx Sleep Apnea No 06/03/24 13:32 CPAP BIPAP Do you snore loudly (louder No 06/03/24 13:32 than talking or can be heard Do you often feel tired/ No 06/03/24 13:32 fatigued/ sleepy during daytime? Has anyone observed you stop No 06/03/24 13:32 breathing during sleep? STOP Results Negative 06/03/24 13:32 QUESTION #5 FULL TEXT : Do you snore loudly (louder than talking or can be heard through closed doors)? Tobacco Use History Tobacco Use History - community living specialist: Tobacco Use History - community living specialist Tobacco Use Smoking Status Never smoker 06/03/24 13:32 Hx Tobacco Use No 06/03/24 13:32 Years Smoking Packs Smoked per Day Smoking Cessation Date was within the last 15 years Hx Smoking Cessation Date Hx Smoking Cessation Counseling Hematologic Medial History Hematologic Hx - community living specialist: Hematologic Medical Hx - caregivers homecare Hx of Blood Transfusion No 06/03/24 13:32 Hx of Transfusion in last 3 No 06/03/24 13:32 Months Date of Last Transfusion (if within last 3 months) Ever experience any problems No 06/03/24 13:32 with transfusion(s)? Specify any problems Hx of Preganancy in last 3 N/A 06/03/24 13:32 Months Nurse Filling Out Transfusion NBUCHER 06/03/24 13:32 & Questions: Date: 06/03/24 06/03/24 13:32 Time: 13:34 06/03/24 13:32 Patient unable to answer at this time (ie. confused, unrespo /Reproduction History /Reproductive History - community living specialist: /Reproductive Hx- community living specialist Hx Now No 06/03/24 13:32 Gestational Age (in weeks): EDC: Hx Hx Para Hx Section SAB No 06/03/24 13:32 Active Medications Active Medications: Current Medications Generic Name Dose Route Start Last Admin Trade Name Freq PRN Reason Stop Dose Admin Lactated Ringer's 1,000 mls @ 15 mls/hr 06/09/24 08:30 IV .Q48H XENIA PFSH Medical History (Updated 06/03/24 @ 13:35 by Ashley Snyder) PONV (postoperative nausea and vomiting) Wears contact lenses Non-smoker Anxiety Chronic diarrhea Biliary dyskinesia Spider bite Abnormal uterine bleeding Contraception management Asthma Migraine COVID-19 Home Medications ?Medication ?Instructions ?Recorded ?Last Taken ?Type albuterol sulfate 90 mcg/actuation 2 inh inhalation Q4H PRN shortness 03/12/23 Unknown History aerosol inhaler of breath or wheezing omeprazole 40 mg capsule,delayed 40 mg PO QDAY #30 caps 05/14/24 06/08/24 Rx release vitamin #56-iron 35 mg 1 cap PO QDAY 05/14/24 Unknown History and 5 mg-folic acid 1 mg-dha capsule Allergy/AdvReac Type Severity Reaction Status Date / Time No Known Allergies Allergy Verified 06/09/24 08:43 Family History Mother Rheumatoid arthritis Heart palpitations Father Hemochromatosis Hypertension Surgical History (Updated 06/03/24 @ 13:35 by Ashley Snyder) History of cholecystectomy S/P cholecystectomy Hx of wisdom tooth extraction History of tonsillectomy and adenoidectomy Social History household members: family housing: house current occupational exposures/hazards: No pets and animals: Yes pets and animals: cat(s), dog(s) and fish sexually active: Yes Smoking Status: Never smoker alcohol intake: never substance use type: does not use and tranquilizers caffeine: Yes seatbelt use: always Review of Systems (Anesthesia) ROS Narrative System reviewed and no additional complaints, except as documented. Physical Exam Const alert, oriented x3 and average body habitus Resp normal respiratory effort, normal air movement and clear to auscultation bilaterally Cardio regular rate, regular rhythm, no murmurs and diaphoretic
--- NOTE | 2024-06-09 09:17 | PCM.HP.BLA ---
History and Physical Date of Admission: 06/09/24 Date of Service: 05/14/24 MR#: [id number] Acct: [id number] Name: JOAN BURGESS Rep #: [id number] : 2005 Provider: Dr. Norma Buckley MD Age/Sex: 18/F Location: [facility] Status: Signed Intake Vital Signs 02/24/2511:14 05/13/2512:18 05/15/2511:55 Height 5 ft 7 in 5 ft 7 in 5 ft 7 in Weight: 119 lb 2 oz 121 lb BMI 18.6 18.9 BP 102/68 121/70 H Blood Pressure Location Rt brachial Position Sitting Respiration 14 Pulse 87 Pulse Source Monitor Temp 98.1 F Temp Source Oral Pulse Oximetry (%) 100 Oxygen Delivery Method room air Intake Visit Reasons: RECALL DISCUSS UPPER AND LOWER SCOPE Director Utilization Management Required: No Accompanied by: Self Is patient in pain?: No Allergies No Known Allergies Allergy (Verified 05/14/24 12:54) Medications ?Medication ?Instructions ?Recorded ?Confirmed ?Type albuterol sulfate 90 mcg/actuation 2 inh inhalation Q4H PRN shortness 03/12/23 05/14/24 History aerosol inhaler of breath or wheezing medroxyprogesterone 10 mg tablet 10 mg PO QDAY 5 days #5 tabs 05/13/24 05/14/24 Rx omeprazole 40 mg capsule,delayed 40 mg PO QDAY #30 caps 05/14/24 05/14/24 Rx release vitamin #56-iron 35 mg 1 cap PO QDAY 05/14/24 05/14/24 History and 5 mg-folic acid 1 mg-dha capsule PFS Medical History Wears contact lenses Non-smoker Anxiety Chronic diarrhea Biliary dyskinesia Spider bite Abnormal uterine bleeding Contraception management Asthma Migraine COVID-19 Surgical History S/P cholecystectomy Hx of wisdom tooth extraction History of tonsillectomy and adenoidectomy Family History Mother Rheumatoid arthritis Heart palpitationsFather Hemochromatosis Hypertension Social History household members: family housing: house current occupational exposures/hazards: No pets and animals: Yes pets and animals: cat(s), dog(s) and fish sexually active: Yes Smoking Status: Never smoker alcohol intake: never substance use type: does not use and tranquilizers caffeine: Yes seatbelt use: always HPI HPI HPI: 18-year-old female presents due to continued diarrhea and some abdominal burning after eating. Patient is status post laparoscopic cholecystectomy due to biliary dyskinesia. Patient states the nausea did improve after the cholecystectomy. Patient states the diarrhea has not really changed. Patient was initially put on omeprazole thought maybe she had a little less diarrhea at that time currently not on omeprazole. Patient has been able to eat does think she may have gained a little bit of weight since the laparoscopic cholecystectomy. ROS General General: Yes weight change and fatigue; No appetite, colon cancer or breast cancer HEENT HEENT: No difficulty swallowing, eye injury, eye surgery, swollen glands or hoarseness Endo Endocrine: No thyroid disease, diabetes mellitus, thyroid cancer, Hair loss, heat intolerance or cold intolerance Skin Skin: No rash or changing moles Musc Musculoskeletal: Yes back problems; No arthritis, rheumatoid arthritis, gout or joint pain Cardio Cardiovascular: No murmur, pacemaker, heart disease, atrial fibrillation, high blood pressure, heart attack, heart stent, palpitations, shortness of breath with exertion or chest pain Psych Psychiatric: Yes anxiety; No depression or hearing voices Resp Respiratory: No shortness of breath, No sleep apnea, No cough, No COPD, Yes asthma, No emphysema and No wheezing Gastro Gastrointestinal: Yes abdominal pain, Yes nausea or vomiting, Yes diarrhea, Yes constipation, No blood in stool, No acid reflux, Yes hemorrhoids, No ulcers, No gallbladder problem and No black,tarry stools [place] Hematologic: No blood thinners, No blood disorders, No bleeding, No anemia and No blood clots Neuro Neurologic: No numbness and No tingling Exam Const General: cooperative, healthy appearing, comfortable and no acute distress [facility] Head: normocephalic and atraumatic Neck Neck: supple Resp Effort & Inspection: normal respiratory effort Cardio Rate: regular rate GI Inspection: non-distended and incision (Well-healed from laparoscopic cholecystectomy) Palpation: soft, no hernias and nontender Skin General: no rashes or lesions noted Neuro General: CN's II-XI intact bilaterally Extrem General: normal to inspection Psych Mental Status: mental status grossly normal Attitude: cooperative Assessment and Plan Assessment and Plan (1) Chronic diarrhea: Status: Chronic (2) Abdominal discomfort: Status: Acute Comment: Mid abdomen?burning?after eating Medications: New omeprazole swallow whole; do not crush, chew, dissolve, cut, break 40 mg PO QDAY 30 caps 1RF Plan I have discussed the above with the patient. I have offered the patient esophagogastroduodenoscopy and colonoscopy for evaluation. I have explained the risks/benefits of the procedure and described the procedure. I have discussed the risks with the patient, including but not limited to: infection, bleeding, perforation of the GI tract requiring emergency surgery, inability to complete the procedure, injury to any internal organs, complications of anesthesia, etc. - the patient understands and agrees to proceed. I have answered all the patient's questions to the patient's satisfaction and the patient has no further questions. The patient has been given instructions for the colon cleansing preparation. 1 day of clears, MiraLAX Dulcolax prep. Norma Buckley M.D. Pager: [phone] [facility] [address] [place] [address], [facility], [address] [place] [address] Office: [phone] Coding Level of Care Code Off vis,est,level 3 Diagnoses Chronic diarrhea K52.9 Abdominal discomfort R10.9 05/14/24 1317 <Electronically signed by Norma Buckley MD> Date Norma Buckley MD
--- NOTE | 2024-06-09 09:45 | EGD_PTH ---
PATIENT: JOAN BURGESS LOC: EN U#:[id number] AGE/SX: 18/F ROOM: RE06/09/[address]: Dr. Norma Buckley MD : 2005 BED: DIS: 06/09/2024 SPEC #: [id number] RECD: 06/09/24 13:01 STATUS: FELICIA DAVID #: [id number] MAHAD: 06/09/24 09:[address]: Norma Buckley DEPT: SURGICAL PATHOLOGY RECD BY: Saji Bah ENTERED: 06/09/24 13:37 SP TYPE: EGD BIOPSY CRISTEL DR: Dr. Elder Soto DO Tissues: A - Gastric mucous membrane B - Esophagus, NOS C - COLON BIOPSY Procedures: Immunohistochemical Stains Surgery Specimen Level IV HEADER OPERATION: Colonoscopy with biopsy, EGD with biopsy PRE-OP DIAGNOSIS: Chronic diarrhea, abdominal discomfort TISSUE SUBMITTED: A- Antrum biopsy, B- Gastroesophageal junction biopsy, C- Random colon biopsy MICROSCOPIC DIAGNOSIS A. Stomach, antrum, biopsy: * Antral/transitional mucosa with mild chronic inflammation. * IHC negative for H pylori organisms. B. Gastroesophageal junction, biopsy: * Squamous mucosa with mild reactive change. * Columnar mucosa negative for goblet cell metaplasia. * Negative for dysplasia. C. Colon, random, biopsy: * No specific pathologic change. * The histologic features of microscopic colitis are not observed. MICROSCOPIC DESCRIPTION Slides are reviewed. All matched controls reacted appropriately. These tests were developed and their performance characteristics determined by [facility]. They may not have been cleared or approved by the U.S. Food and Drug Administration. The FDA has determined that such clearance or approval is not necessary. The above immunohistochemical/dualISH markers are ordered and reviewed by the Pathologist. GROSS DESCRIPTION A. Received in formalin in a container labeled with the patient's name, date of , and antrum biopsy for H. pylori and path is a 0.6 x 0.3 x 0.2 cm strip of falherty-pink mucosal tissue. Submitted in toto in A1. B. Received in formalin in a container labeled with the patient's name, date of , and GE junction biopsy is a 0.3 x 0.3 x 0.2 cm fragment of flaherty-pink mucosal tissue. Submitted in toto in B1. C. Received in formalin in a container labeled with the patient's name, date of , and random colon biopsy are 3 flaherty-pink fragments of mucosal tissue ranging from 0.3 x 0.2 x 0.2 cm to 0.5 x 0.2 x 0.2 cm. Submitted in toto in C1. [facility] 06-09-2024 CPT:28987y8,24628
--- NOTE | 2024-06-09 10:43 | OP.CCLET_ITS ---
06/09/2024 Elder Soto [address] [place] [address] Re : Upper GI endoscopy procedure for Corrine Moore Dear Dr. Soto This procedure was performed on Sunday, June 09, 2024. My impressions and recommendations are as follows: Impressions : - Z-line irregular, 40 cm from the incisors. Biopsied. - Normal examined duodenum. - Bilious gastric fluid. - Erythematous mucosa in the antrum. Biopsied. Recommendations : - Await pathology results. - Discharge patient to home. - Resume previous diet. - Use sucralfate tablets 1 gram PO QID for 2 weeks. - Continue present medications. My findings are described in the full procedure note, which is enclosed. If I can be of further assistance, please feel free to contact me at Doctor phone number(s): , Work: . Sincerely, MD Norma Ruiz MD 06/09/2024 10:42:48 AM This report has been signed electronically.
--- NOTE | 2024-06-09 10:43 | OP.EGD_ITS ---
Patient Name: Corrine Moore Procedure Date: 06/09/2024 9:58 AM Date of : 2005 Age: 18 Procedure: Upper GI endoscopy Indications: Generalized abdominal pain Providers: Norma Buckley MD Referring MD: Elder Soto Medicines: Monitored Anesthesia Care Patient Profile: This is a 18 year old female. Complications: No immediate complications. Procedure: Pre-Anesthesia Assessment: - Prior to the procedure, a History and Physical was performed, and patient medications and allergies were reviewed. The patient's tolerance of previous anesthesia was also reviewed. The risks and benefits of the procedure and the sedation options and risks were discussed with the patient. All questions were answered, and informed consent was obtained. Prior Anticoagulants: The patient has taken no anticoagulant or antiplatelet agents. ASA Grade Assessment: Per anesthesia. After reviewing the risks and benefits, the patient was deemed in satisfactory condition to undergo the procedure. After obtaining informed consent, the endoscope was passed under direct vision. Throughout the procedure, the patient's blood pressure, pulse, and oxygen saturations were monitored continuously. The Colonoscope was introduced through the mouth, and advanced to the second part of duodenum. The upper GI endoscopy was accomplished without difficulty. The patient tolerated the procedure well. Scope In: 10:05:56 AM Scope Out: 10:11:27 AM Total Procedure Duration Time 0 hours 5 minutes 31 seconds Findings: The Z-line was irregular and was found 40 cm from the incisors. Biopsies were taken with a cold forceps for histology. The cardia and gastric fundus were normal on retroflexion. The examined duodenum was normal. Bilious fluid was found in the entire examined stomach. Diffuse moderately erythematous mucosa without bleeding was found in the gastric antrum. Biopsies were taken with a cold forceps for histology. Biopsies were taken with a cold forceps for Helicobacter pylori cultures. Impression: - Z-line irregular, 40 cm from the incisors. Biopsied. - Normal examined duodenum. - Bilious gastric fluid. - Erythematous mucosa in the antrum. Biopsied. Recommendation: - Await pathology results. - Discharge patient to home. - Resume previous diet. - Use sucralfate tablets 1 gram PO QID for 2 weeks. - Continue present medications. Procedure Code(s): --- Professional --- 09494, PT, Esophagogastroduodenoscopy, flexible, transoral; with biopsy, single or multiple Diagnosis Code(s): --- Professional --- K22.89, Other specified disease of esophagus K31.89, Other diseases of stomach and duodenum R10.84, Generalized abdominal pain CPT copyright 2021 [employer]. All rights reserved. The codes documented in this report are preliminary and upon senior business development manager review may be revised to meet current compliance requirements. MD Norma Ruiz MD 06/09/2024 10:42:48 AM This report has been signed electronically. Number of Addenda: 0 Note Initiated On: 06/09/2024 9:58 AM
--- NOTE | 2024-06-09 10:44 | PCM.POST.ANE ---
Anesthesia: Postop Eval I Current Vital Signs Temperature: 98.2 F Pulse Rate: 57 Blood Pressure: 103/72 Respiratory Rate: 16 Pulse Ox: 98 Oxygen Delivery Method: Room Air Assessment Airway patent: Yes Spontaneous unlabored respirations: Yes Mental status: Asleep nausea: No Vomiting: No Anesthesia Complication: No Fluid Hydration Crystalloid volume administer (ml): 900 Total IV fluid infused: 900 Progress Note Anesthesia document: Postop Eval 1 completed: Yes
--- NOTE | 2024-06-09 10:46 | OP.CCLET_ITS ---
06/09/2024 Elder Soto [address] [place] [address] Re : Colonoscopy procedure for Corrine Moore Dear Dr. Soto This procedure was performed on Sunday, June 09, 2024. My impressions and recommendations are as follows: Impressions : - The entire examined colon is normal on direct and retroflexion views. - No specimens collected. Recommendations : - Discharge patient to home. - Resume previous diet. - Continue present medications. - Await pathology results. - Repeat colonoscopy at age 44. - Return to my office in 2 weeks?call for appointment. My findings are described in the full procedure note, which is enclosed. If I can be of further assistance, please feel free to contact me at Doctor phone number(s): , Work: . Sincerely, MD Norma Ruiz MD 06/09/2024 10:45:47 AM This report has been signed electronically.
--- NOTE | 2024-06-09 10:46 | OP.COLON_ITS ---
Patient Name: Corrine Moore Procedure Date: 06/09/2024 10:11 AM Date of : 2005 Age: 18 Procedure: Colonoscopy Indications: Generalized abdominal pain, Chronic diarrhea Providers: Norma Buckley MD Referring MD: Elder Soto Medicines: Monitored Anesthesia Care Patient Profile: This is a 18 year old female. This is a 18 year old female. Last Colonoscopy: none. The patient's first colonoscopy is today. Patient has symptoms of chronic global abdominal pain and chronic diarrhea. Complications: No immediate complications. Procedure: Pre-Anesthesia Assessment: - Prior to the procedure, a History and Physical was performed, and patient medications and allergies were reviewed. The patient's tolerance of previous anesthesia was also reviewed. The risks and benefits of the procedure and the sedation options and risks were discussed with the patient. All questions were answered, and informed consent was obtained. Prior Anticoagulants: The patient has taken no anticoagulant or antiplatelet agents. ASA Grade Assessment: Per anesthesia. After reviewing the risks and benefits, the patient was deemed in satisfactory condition to undergo the procedure. After I obtained informed consent, the scope was passed under direct vision. Throughout the procedure, the patient's blood pressure, pulse, and oxygen saturations were monitored continuously. The Colonoscope was introduced through the anus and advanced to the cecum, identified by the appendiceal orifice, ileocecal valve and palpation. The colonoscopy was performed without difficulty. The patient tolerated the procedure well. The quality of the bowel preparation was good. Scope In: 10:12:37 AM Scope Withdrawal Time 0 hours 8 minutes 18 seconds Scope Out: 10:33:48 AM Total Procedure Duration Time 0 hours 21 minutes 11 seconds Findings: The perianal and digital rectal examinations were normal. The entire examined colon appeared normal on direct and retroflexion views. Three random biopsies were obtained with cold forceps for histology. Impression: - The entire examined colon is normal on direct and retroflexion views. - No specimens collected. Recommendation: - Discharge patient to home. - Resume previous diet. - Continue present medications. - Await pathology results. - Repeat colonoscopy at age 44. - Return to my office in 2 weeks???call for appointment. MD Norma Ruiz MD 06/09/2024 10:45:47 AM This report has been signed electronically. Number of Addenda: 0 Note Initiated On: 06/09/2024 10:11 AM
--- NOTE | 2024-06-09 10:48 | PCM.POSTANE2 ---
Anesthesia Postop Eval I Sum Postop Eval Completion status Anesthesia document: Postop Eval 1 completed: Yes Anesthesia Postop Eval I Summary Anesthesia Postop Eval I Summary: Anesthesia Postop Eval I: Assessment Summary Airway patent Yes 06/09/24 10:45 [email or web address] Spontaneous unlabored Yes 06/09/24 10:45 [email or web address] respirations Mental status Asleep 06/09/24 10:45 [email or web address] nausea No 06/09/24 10:45 [email or web address] Vomiting No 06/09/24 10:45 [email or web address] Anesthesia Postop Eval I: Fluid Summary Crystalloid volume administer 900 06/09/24 10:45 [email or web address] (ml) Colloids volume administered ( ml) Blood Product volume administered (ml) Total IV fluid infused 900 06/09/24 10:45 [email or web address] Anesthesia Postop Eval I: Summary Notes Anesthesia Complication No 06/09/24 10:45 [email or web address] Anesthesia Complication Comment: Post-operative progress note Anesthesia: Postop Eval II Evaluation Mental status: Awake Pain Level: 0 nausea: No Vomiting: No Complications Anesthesia Complication: No
== END 2024-06-09 11:33 | disposition home or self-care (01) ==
LOC: EN 08:24 → AC 08:25
PROVIDERS: Anesthesiology; PCP Family Medicine; Referring Provider Family Medicine; Visit Provider Surgery
PROC: 0DJD8ZZ Inspection of Lower Intestinal Tract, Via Natural or Artificial Opening Endoscopic (ICD-10-PCS; CPT 45378; principal; 2024-06-09 09:40)
DX: K29.50 Unspecified chronic gastritis without bleeding (principal); K52.9 Noninfective gastroenteritis and colitis, unspecified; R10.84 Generalized abdominal pain; Z90.49 Acquired absence of other specified parts of digestive tract; J45.909 Unspecified asthma, uncomplicated; Z86.19 Personal history of other infectious and parasitic diseases
CPT/HCPCS: 45380; 43239; 81025; 88305; 88342; J2405

== ENCOUNTER → 2024-07-08 | Outpatient (CLI) | payer OTHER, MEDICAID, SELFPAY ==
[2024-07-10 13:08] LABS: Immunoglobulin A 193 mg/dL (87-352); t-Transglutaminase IgA <2 U/mL (0-3)
== END | disposition home or self-care (01) ==
LOC: LAB 11:53
PROVIDERS: PCP Family Medicine; Referring Provider Nurse Practitioner Acute Care; Visit Provider Nurse Practitioner Acute Care
DX: K58.0 Irritable bowel syndrome with diarrhea (principal); K29.60 Other gastritis without bleeding
CPT/HCPCS: 36415; 82784; 83516

== ENCOUNTER → 2024-07-15 | Outpatient (CLI) | payer OTHER, MEDICAID, SELFPAY ==
--- NOTE | 2024-07-15 08:52 | US_ITS ---
PROCEDURE: ABDOMEN LIMITED 07/15/2024 REASON FOR EXAM: ABDOMINAL PAIN COMPARISON: None FINDINGS: Liver: Grossly normal size and echotexture. Gallbladder: Surgically absent. Common bile duct: Normal measuring 3.4 mm . Pancreas: Normal Other: Visualized portions of the right kidney are unremarkable. No right upper quadrant ascites. US/Abdomen Limited IMPRESSION: Status post cholecystectomy. No acute abnormality is seen. Reading Location: [facility]
== END | disposition home or self-care (01) ==
LOC: OPUS 08:51
PROVIDERS: PCP Family Medicine; Referring Provider Nurse Practitioner Acute Care; Visit Provider Nurse Practitioner Acute Care
DX: R10.9 Unspecified abdominal pain (principal)
CPT/HCPCS: 76705

== ENCOUNTER → 2024-09-18 | Outpatient (CLI) | payer OTHER, MEDICAID, SELFPAY | END | disposition home or self-care (01) | LOC: LABSPEC 15:01 | PROVIDERS: PCP Family Medicine; Referring Provider Nurse Practitioner Acute Care; Visit Provider Nurse Practitioner Acute Care | DX: Z00.00 Encounter for general adult medical examination without abnormal findings (principal) ==

== ENCOUNTER → 2024-09-22 | Outpatient (CLI) | payer OTHER, MEDICAID, SELFPAY ==
[2024-09-25 08:09] LABS: Calprotectin, Stool 45 ug/g (0-120); Pancreatic Elastase, Fecal > 800 (>200)
== END | disposition home or self-care (01) ==
LOC: LABSPEC 11:32
PROVIDERS: PCP Family Medicine; Referring Provider Nurse Practitioner Acute Care; Visit Provider Nurse Practitioner Acute Care
DX: K58.9 Irritable bowel syndrome, unspecified (principal); R63.4 Abnormal weight loss; R10.13 Epigastric pain; R14.0 Abdominal distension (gaseous)
CPT/HCPCS: 82653; 83993; 87177; 87209; 87493; 87506

== ENCOUNTER → 2024-09-30 | Outpatient (CLI) | payer OTHER, MEDICAID, SELFPAY ==
--- NOTE | 2024-09-30 06:13 | CT_ITS ---
PROCEDURE: ABDOMEN/PELVIS WITH CONTRAST 09/30/2024 REASON FOR EXAM: LOWER ABDOMINAL PAIN, BLOATING, DIARRHEA TECHNIQUE: ABDOMEN/PELVIS WITH CONTRAST Coronal and Sagittal reconstruction series were provided. CONTRAST: Isovue 370 VOLUME: 100 mL One or more dose reduction techniques were used (e.g., Automated exposure control, adjustment of the mA and/or kV according to patient size, use of iterative reconstruction technique. RADIATION DOSE SUMMARY: CTDlvol: 11.5 mGy DLP: 329.53 mGycm COMPARISON: None FINDINGS: Lung bases: The lung bases are clear. Liver: Normal size. No mass. Gallbladder: Surgically absent. Spleen: Borderline splenomegaly. Pancreas: Normal size without evidence of mass surrounding inflammation or ductal dilation. Adrenals: Unremarkable Kidneys: Normal renal sizes. No hydronephrosis. Bladder: Unremarkable Reproductive Organs: Unremarkable Bowel: Nonspecific bowel gas pattern. Appendix: Unremarkable Lymph nodes: Unremarkable. Vasculature: The abdominal aorta and IVC are normal. Peritoneum / Retroperitoneum: Unremarkable Bones: Unremarkable CT/Abdomen/Pelvis WITH Contrast IMPRESSION: Status post cholecystectomy. Borderline splenomegaly. Reading Location: [id number]
--- OUTSIDE RECORDS SUMMARY | 2024-09-30 06:17 | XMS RPT_ITS | CCD ---
Author Organization [facility] Care Team Providers Care Fish And Wildlife Biologist Name Role Phone Josefina Miranda DO Primary Care Provider REFERRED, SELF Referring Unavailable NYA ALFRED Primary Care Unavailable NYA ALFRED Attending Unavailable JOSEFINA MIRANDA Primary Care Unavailable REFERRED, SELF Referring Unavailable REDICKDARLIN Attending Unavailable REDICKDARLIN Attending Unavailable REDICK, DARLIN Robertson Referring Unavailable JOSEFINA MIRANDA Primary Care Unavailable REFERRED, SELF Referring Unavailable NYA ALFRED Primary Care Unavailable NYA ALFRED Attending Unavailable Dr. Josefina Miranda Referring Provider [phone] ROXIE Hoover Attending Provider Dr. Nya Alfred Primary Care Provider Dr. Nya Alfred Referring Provider Dr. Gayatri Ramires Attending Provider [phone] Dr. Nya Alfred Primary Care Provider Dr. Nya Alfred Referring Provider TISHA George Attending Provider Dr. Nya Alfred Primary Care Provider Dr. Nya Alfred Referring Provider TISHA George Attending Provider Dr. Oliva Ball Primary Care Provider Dr. Oliva Ball Referring Provider Dr. Gayatri Ramires Attending Provider [phone] DR TAPAN MENJIVAR DO Attending Unavailab Dr. Oliva Reyes Primary Care Provider Dr. Oliva Ball Referring Provider Jorge PRICING SPECIALIST, PRICING SPECIALIST-C Margareth Attending Provider Unavailable Primary Care Provider Unavailabl e [facility] [place] Attending Unavailable [facility] [place] Referring Unavailable SELF Referring Unavailable [facility] Attending Unavailable Dr. Tapan Menjivar DO Primary Care Provider Quinn MOYER, Dr. Baptiste Attending Provider Quinn MOYER, Dr. Baptiste Referring Provider Bhanu MOYER, Dr. Hager Attending Provider Bhanu MOYER, Dr. Hager Emergency Provider Charles MOYER, Dr. Friedman Referring Provider Dr. Norma Buckley MD Attending Provider Dr. Norma Buckley MD Referring Provider Marcio TAPIA, Dr. Green Other Provider Petr TAPIA, Dr. Leigh Attending Provider Kingston TAPIA, Dr. Rosenbaum Referring Provider Josefina Camarena PA-C Attending Provider Jorge PRICING SPECIALIST-CMargareth Attending Provider Jorge PRICING SPECIALIST-CMargareth Referring Provider Dr. Tapan Menjivar DO Primary Care Provider Dr. Norma Buckley MD Attending Provider Dr. Tapan Menjivar DO Referring Provider Dr. Oliva Ball DO Attending Provider Dr. Tapan Menjivar DO Primary Care Provider Josefina Camarena PA-C Attending Provider Marcio TAPIA, Dr. Green Attending Provider [phone] Marcio TAPIA, Dr. Green Other Provider Charles MOYER, Dr. Friedman Primary Care Provider [phone] Charles MOYER, Dr. Friedman Referring Provider [phone] Garfield PRICING SPECIALIST-C, Gayatri Attending Provider Garfield PRICING SPECIALIST-C, Gayatri Referring Provider Quinn MOYER, Dr. Baptiste Primary Care Provider [phone] Quinn MOYER, Dr. Baptiste Referring Provider [phone] Trevor George Attending Provider Charles MOYER, Dr. Friedman Primary Care Provider [phone] Charles MYOER, Dr. Friedman Referring Provider [phone] Marcio TAPIA, Dr. Green Attending Provider Charles, Tapan Primary Care Unavailable Robi Onofre Referring Unavailable Reese uHmphreys Attending Unavailabl e Charles, Tapan Primary Care Unavailable Charles, Tapan Referring Unavailable Josefina Wiley Attending Unavailable Charles, Tapan Referring Unavailable Charles, Tapan Primary Care Unavailable Robotham, Norma Attending Unavailable Charles, Tapan Referring Unavailable Charles, Tapan Primary Care Unavailable Garfield, Gayatri Attending Unavailable Garfield, Gayatri Attending Unavailable Garfield, Gayatri Referring Unavailable Malys, Oliva Primary Care Unavailable Garfield, Gayatri Attending Unavailable Garfield, Gayatri Referring Unavailable Malys, Oliva Primary Care Unavailable Charles, Tapan Primary Care Unavailable Madan Drummond Attending Unavailable Charles, Tapan Primary Care Unavailable Robotham, Norma Consulting Unavailable Robotham, Norma Referring Unavailable Robotham, Norma Attending Unavailable Charles, Tapan Primary Care Unavailable Charles, Tapan Referring Unavailable Robotham, Norma Attending Unavailable Charles, Tapan Primary Care Unavailable Garfield, Gayatri Referring Unavailable Garfield, Gayatri Attending Unavailable Malys, Oliva Attending Unavailable Charles, Tapan Primary Care Unavailable Charles, Tapan Primary Care Unavailable Malys, Oliva Referring Unavailable Malys, Oliva Attending Unavailable Garfield, Gayatri Attending Unavailable Garfield, Gayatri Referring Unavailable Malys, Oliva Primary Care Unavailable [place] PRICING SPECIALIST, Margareth Referring Unavailable [place] PRICING SPECIALIST, Margareth Attending Unavailable Charles, Tapan Primary Care Unavailable Charles, Tapan Referring Unavailable Robotham, Norma Attending Unavailable Charles, Tapan Primary Care Unavailable Charles, Tapan Primary Care Unavailable Robotham, Norma Referring Unavailable Robotham, Norma Attending Unavailable Charles, Tapan Attending Unavailable Charles, Tapan Primary Care Unavailable Charles, Tapan Referring Unavailable Charles, Tapan Primary Care Unavailable Charles, Tapan Referring Unavailable Robotham, Norma Attending Unavailable Trevor George Attending Unavailable Malys, Oliva Referring Unavailable Malys, Oliva Primary Care Unavailable Charles, Tapan Primary Care Unavailable Malys, Oliva Referring Unavailable Malys, Oliva Attending Unavailable Gayatri Merrill Attending Unavailable GarfieldGayatri orourke Referring Unavailable Malys, Oliva Primary Care Unavailable Charles, Tapan Referring Unavailable Gayatri Merrill Attending Unavailable Malys, Oliva Primary Care Unavailable Charles, Tapan Primary Care Unavailable Charles, Tapan Referring Unavailable Jorge PRICING SPECIALIST, Margareth Attending Unavailable Charles, Tapan Referring Unavailable Robotham, Norma Attending Unavailable Charles, Tapan Primary Care Unavailable Gayatri Merrill Attending Unavailable Malys, Oliva Primary Care Unavailable Malys, Oliva Referring Unavailable Charles, Tapan Primary Care Unavailable Charles, Tapan Referring Unavailable Robotham, Norma Attending Unavailable Robotham, Norma Consulting Unavailable Medications Current Medications Medication Drug Class(es) Dates Sig (Normalized) Sig (Original) [id number] 200 actuat albuterol 0.09 mg/actuat metered dose inhaler (20 sources) beta2-Adrenergic Agonist Start: 03-12-2023 Albuterol Sulfate 90 mcg/actuation HFA aerosol inhaler Active 2 NMA INHALATION Q4H as needed for shortness of breath or wheezing March 12, 2023 1:00am Start: 03-12-2023 Albuterol Sulf ate Active 2 INH INHALATION Q4H March 12, 2023 1:00am Start: 03-06-2022 End: 01-09-2023 Albuterol Sulfate 90 mcg/act uation aero powdr breath act w/sensor Discontinued 2 NMA INHALATION EVERY 6 HOURS as needed for shortness of breath March 06, 2022 1:00am January 09, 2023 4:32pm Start: 03-06-2022 End: 01-09-2023 Albuterol Sulfate Discontinu ed 2 INH INHALATION EVERY 6 HOURS March 06, 2022 1:00am January 09, 2023 4:32pm Start: 09-06-2015 End: 11-27-2017 Albuterol Sulfate 1 INHALER inhaler Discontinued 1 - 2 NMA INHALATION EVERY 4 HOURS NEEDED as needed for Asthma September 06, 2015 12:00am November 27, 2017 1:17pm Start: 09-06-2015 End: 11-27-2017 take 1 puff(s) by inhalation every four hours as needed Albuterol Sulfate Discontinued 1 - 2 PUFF INHALATION EVERY 4 HOURS NEEDED September 06, 2015 12:00am November 27, 2017 1:17pm Start: 03-23-2011 take 2 puff(s) by in halation every six hours as needed albuterol HFA (PROAIR HFA) 90 mcg/Actuation INHALATION inhaler Inhale 2 Puffs as instructed every 6 hours as needed. 0 03/23/2011 Active Beclomethasone (4 sources) Corticosteroid Start: 03-23-2011 take 2 puff(s) by inhalation twice daily beclomethasone (QVAR) 40 mcg/Actuation INHALATION inhaler Inhale 2 Puffs as instructed twice daily. 0 03/23/2011 Active colestipol hydrochloride 1000 mg oral tablet (3 sources) Bile Acid Sequestrant Start: 09-16-2024 Colestipol 1 gram tablet Active 1 g PO THREE TIMES A DAY 90 1 September 16, 2024 12:00am etonogestrel 68 mg drug implant (1 source) Progestin Start: 03-21-2022 etonogestrel (NEXPLANON) 68 MG subdermal implant Inject 1 Implant (68 mg) into the skin once 0 03/21/2022 Active ferrous sulfate 325 mg oral tablet (3 sources) Start: 09-16-2024 take 1 tablet by mouth once daily Ferrous Sulfate (Feosol) 325 mg (65 mg iron) tablet Active 325 mg PO daily September 16, 2024 12:00am hyoscyamine sulfate 0.125 mg disintegrating oral tablet (11 sources) Start: 07-08-2024 End: 09-16-2024 Hyoscyamine Sulfate 0.125 mg tablet,disintegrat ing Active 0.125 mg SL 2 to 4 times per day as needed for dyspepsia 60 0 September 16, 2024 9:06am MULTI-VITAMIN ORAL (4 sources) take 1 tablet by mouth once daily MULTI-VITAMIN ORAL Take 1 tablet by mouth once daily. Active omeprazole 20 mg delayed release oral capsule (20 sources) Proton Pump Inhibitor Start: 09-16-2024 Omeprazole 20 mg capsule,delayed release(DR/EC) Active 20 mg PO daily 90 1 September 16, 2024 12:00am take once daily on an empty stomach 30 minutes before first meal Start: 02-14-2024 End: 09-16-2024 take 1 capsule by mouth once daily Omeprazole 40 mg capsule,delayed release(DR/EC) Discontinued 40 mg PO daily 30 1 May 14, 2024 12:00am September 16, 2024 8:39am swallow whole; do not crush, chew, dissolve, cut, break Completed/Discontinued Medications Medication Drug Class(es) Dates Sig (Normalized) Sig (Original) acetaminophen 325 mg / HYDROcodone bitartrate 5 mg oral tablet (13 sources) Opioid Agonist Start: 02-25-2024 End: 03-10-2024 Hydrocodone-Acetami nophen 5-325 mg tablet Discontinued 1 {tbl} PO EVERY 6 HOURS as needed for pain 10 3 0 February 25, 2024 March 10, 2024 1:52pm Postoperative pain Other acute postprocedural pain amoxicillin 875 mg / clavulanate 125 mg oral tablet (18 sources) Penicillin-class Antibacterial Start: 06-18-2018 End: 06-28-2018 Amoxicillin-Pot Clavulanate (Augmentin) 875-125 mg tablet Discontinued 1 {tbl} PO Q12H 20 10 0 June 18, 2018 12:00am June 27, 2018 12:00am June 28, 2018 12:08am Acute sinusitis, unspecified cetirizine hydrochloride 10 mg oral capsule (18 sources) Histamine-1 Receptor Antagonist Start: 11-27-2017 End: 07-19-2020 take 1 capsule by mouth once daily Cetirizine (All Day Allergy (Cetirizine)) 10 mg capsule Discontinued 10 mg PO DAILY November 27, 2017 12:00am July 19, 2020 10:56am sugar-free cholestyramine resin 4000 mg powder for oral suspension (13 sources) Bile Acid Sequestrant Start: 07-22-2024 End: 09-16-2024 take 1 dose by mouth once Cholestyramine 4 gram powder Discontinued 4 g PO before meals and at bedtime July 22, 2024 12:00am September 16, 2024 9:05am no meds 1 hr before/4-6 hr after dose Start: 07-08-2024 End: 07-22-2024 take 1 dose by mouth twice daily Cholestyramine (With Sugar) 4 gram powder in packet Discontinued 4 g PO TWICE A DAY 24 14 0 July 08, 2024 12:00am July 21, 2024 12:00am July 22, 2024 12:06am administer w/meal; avoid other meds within 1hr before or 4-6hr after dose dexamethasone 6 mg oral tablet (18 sources) Corticosteroid Start: 03-28-2021 End: 03-06-2022 take 1 tablet by mouth once daily Dexamethasone (Decadron) 6 mg tablet Discontinued 6 mg PO DAILY 5 0 March 28, 2021 1:00am March 06, 2022 4:10pm dicyclomine hydrochloride 20 mg oral tablet (19 sources) Anticholinergic Start: 07-04-2024 End: 07-08-2024 take 1 tablet by mouth four times daily 30 minutes before bedtime Dicyclomine 20 mg tablet Discontinued 20 mg PO .qid 120 July 04, 2024 8:52am July 08, 2024 11:41am Take 30 minutes before meals or at bedtime. Start: 06-20-2024 End: 07-04-2024 take 1 tablet by mouth twice daily 30 minutes before bedtime Dicyclomine 20 mg tablet Discontinued 20 mg PO TWICE A DAY 60 1 June 20, 2024 12:00am July 04, 2024 8:53am Take 30 minutes before meals or at bedtime. Okay to take before breakfast and lunch for lunch and dinner whichever meals seem to affect you the most. doxycycline monohydrate 100 mg oral capsule (13 sources) Tetracycline-class Drug Start: 06-26-2023 End: 02-14-2024 take 1 capsule by mouth twice daily Doxycycline Monohydrate 100 mg capsule Discontinued 100 mg PO TWICE A DAY 20 June 26, 2023 12:00am February 14, 2024 11:00am Norethin-E.Estrad iol Triphasic (18 sources) Estrogen Start: 07-19-2020 End: 03-06-2022 take 1 tablet by mouth once daily Norethin-E.Estrad iol Triphasic (Ortho-Novum (28)) 0.5/0.75/1 mg- 35 mcg tablet Discontinued 1 {tbl} PO DAILY July 19, 2020 12:00am March 06, 2022 4:09pm Start: 07-19-2020 End: 03-06-2022 take 1 tablet by mouth once daily Norethin-E.Estradiol Triphasic (Ortho-Novum (28)) 0.5/0.75/1 mg- 35 mcg tablet Discontinued 1 TABLET PO DAILY July 18, 2020 11:00pm March 06, 2022 3:09pm Start: 07-19-2020 End: 03-06-2022 take 1 tablet by mouth once daily Norethin-E.Estradiol Triphasic (Ortho-Novum (28)) 0.5/0.75/1 mg- 35 mcg tablet Discontinued 1 TABLET PO DAILY July 19, 2020 12:00am March 06, 2022 4:09pm Norgestimate-Ethinyl Estradiol (15 sources) Progestin, Estrogen Start: 01-09-2023 End: 03-28-2023 take 1 tablet by mouth once daily Norgestimate-Ethinyl Estradiol (Tri-Sprintec (28)) 0.18/0.215/0.25 mg-35 mcg (28) tablet Discontinued 1 {tbl} PO DAILY 84 January 09, 2023 1:00am March 28, 2023 4:29pm take active pills only Start: 01-09-2023 End: 03-28-2023 take 1 tablet by mouth once daily Norgestimate-Ethinyl Estradiol (Tri-Sprintec (28)) 0.18/0.215/0.25 mg-35 mcg (28) tablet Discontinued 1 {tbl} PO DAILY 84 January 09, 2023 1:00am March 28, 2023 4:29pm take active pills only Start: 01-09-2023 End: 03-28-2023 take 1 tablet by mouth once daily Norgestimate-Ethinyl Estradiol (Tri-Sprintec (28)) 0.18/0.215/0.25 mg-35 mcg (28) tablet Discontinued 1 TABLET PO DAILY January 09, 2023 1:00am March 28, 2023 4:29pm take active pills only Start: 01-09-2023 take 1 tablet by cisco th once daily Norgestimate-Ethinyl Estradiol (Tri-Sprintec (28)) 0.18/0.215/0.25 mg-35 mcg (28) tablet Active 1 TABLET PO DAILY January 09, 2023 12:00am take active pills only ibuprofen 200 mg oral tablet (20 sources) Nonsteroidal Anti-inflammatory Drug Start: 11-29-2021 End: 01-09-2023 take 1 tablet by mouth every six hours as needed Ibuprofen 200 mg tablet Discontinued 200 mg PO EVERY 6 HOURS as needed November 29, 2021 12:00am January 09, 2023 4:32pm Start: 11-27-2017 End: 07-19-2020 take 1 capsule by mouth three times daily as needed Ibuprofen 200 mg capsule Discontinued 200 mg PO THREE TIMES A DAY as needed November 27, 2017 12:00am July 19, 2020 10:57am medroxyPROGESTERone acetate 10 mg oral tablet (20 sources) Progestin Start: 05-13-2024 End: 05-18-2024 take 1 tablet by mouth once daily Medroxyprogesterone 10 mg tablet Discontinued 10 mg PO daily 5 5 0 May 13, 2024 12:00am May 17, 2024 12:00am May 18, 2024 12:05am Start: 12-18-2023 medroxyPROGEST ERone (DEPO-PROVERA) 150 mg/mL 12/18/2023 Active Start: 03-28-2023 End: 05-13-2024 inject 150 mg by intramuscular injection every three months Medroxyprogesterone (Depo-Provera) 150 mg/mL suspension Discontinued 150 mg IM every 3 months 3 March 28, 2023 1:00am May 13, 2024 1:21pm methylPREDNISolone 4 mg oral tablet (13 sources) Corticosteroid Start: 06-26-2023 End: 01-09-2025 take 1 tablet by mouth once Methylprednisolone (Medrol (Jose)) 4 mg tablets,dose pack Discontinued 0 PO per package directions 21 June 26, 2023 12:00am February 14, 2024 10:59am PO PER PKG DIR nitrofurantoin, macrocrystals 25 mg / nitrofurantoin, monohydrate 75 mg oral capsule (18 sources) Nitrofuran Antibacterial Start: 07-19-2020 End: 07-26-2020 take 1 capsule by mouth every twelve hours at mealtime Nitrofurantoin Monohyd/M-Cryst (Macrobid) 100 mg capsule Discontinued 100 mg PO Q12H 14 7 0 July 19, 2020 12:00am July 25, 2020 12:00am July 26, 2020 12:01am must administer with a meal/food ondansetron 4 mg disintegrating oral tablet (20 sources) Serotonin-3 Receptor Antagonist Start: 02-04-2024 End: 02-21-2024 take 1 tablet by mouth every six hours as needed for nausea Ondansetron 4 mg tablet,disintegrating Discontinued 4 mg PO EVERY 6 HOURS NEEDED as needed for Nausea 15 0 February 04, 2024 1:00am February 21, 2024 3:49pm Start: 10-26-2022 End: 01-09-2023 take 1 tablet by mouth every eight hours as needed for nausea and vomiting Ondansetron Hcl 8 mg tablet Discontinued 8 mg PO Q8H as needed for nausea and vomiting 14 0 October 26, 2022 12:00am January 09, 2023 4:32pm Pnv #[id number] Acid-Dha 35 mg iron-5 mg iron-1 mg capsule (13 sources) Start: 05-14-2024 End: 09-16-2024 Pnv #79-Llgs-[id number] Acid-Dha 35 mg iron-5 mg iron-1 mg capsule Discontinued 1 NMA PO daily May 14, 2024 12:00am September 16, 2024 8:35am Start: 05-14-2024 Pnv #56-Iron-F olic Acid-Dha 35 mg iron-5 mg iron-1 mg capsule Active 1 NMA PO daily May 14, 2024 12:00am predniSONE 10 mg oral tablet (20 sources) Start: 07-17-2024 End: 07-29-2024 Prednisone 10 mg tablet Discontinued 10 mg PO As Directed 30 12 0 July 17, 2024 12:00am July 28, 2024 12:00am July 29, 2024 12:07am Unspecified contact dermatitis, unspecified cause Take 4 tabs once daily days 1-3 3 tabs once daily days 4-6 2 tabs once daily days 7-9 and 1 tab once daily days 10-12. Start: 10-26-2020 End: 11-07-2020 Prednisone 10 mg tablet Disc ontinued 10 mg PO daily 30 12 0 October 26, 2020 12:00am November 06, 2020 12:00am November 07, 2020 12:01am Unspecified contact dermatitis, unspecified cause Take 4 tabs once daily days 1-3 3 tabs once daily days 4-6 2 tabs once daily days 7-9 and 1 tab once daily days -. sucralfate 1000 mg oral tablet (11 sources) Aluminum Complex Start: 06-09-2024 End: 06-20-2024 take 1 tablet by mouth four times daily 1 hour(s) before bedtime Sucralfate 1 gram tablet Discontinued 1 g PO 4 TIMES DAILY 56 0 June 09, 2024 12:00am June 20, 2024 1:22pm Take 1 hour before meals and at bedtime sulfacetamide sodium 100 mg/ml ophthalmic solution (18 sources) Sulfonamide Antibacterial Start: 11-27-2017 End: 12-04-2017 Sulfacetamide Sodium (Bleph-10) 10 % drops Discontinued 1 NMA OPHTHALMIC Q3H 15 7 0 November 27, 2017 12:00am December 03, 2017 12:00am December 04, 2017 12:12am Start: 11-27-2017 End: 12-04-2017 Sulfacetamide Sodium (Bleph- 10) 10 % drops Discontinued 1 DRP OPHTHALMIC Q3H 15 7 November 27, 2017 12:00am December 04, 2017 12:12am SUMAtriptan 25 mg oral tablet (18 sources) Serotonin-1b and Serotonin-1d Receptor Agonist Start: 11-29-2021 End: 03-06-2022 Sumatriptan Succinate (Imitrex) 25 mg tablet Discontinued mg PO November 29, 2021 12:00am March 06, 2022 4:10pm Problems Active Problems Problem Classification Problem Date Documented Da te Episodic/Chronic Abdominal pain (20 sources) Generalized abdominal pain; Translations: [Generalized abdominal pain] Onset: 07-22-2024 04-13-2022 Episodic Comment on above: Mid abdomen burning after eating Allergic reactions (2 sources) Eczema; Translations: [Dermatitis, unspecified] Onset: 12-15-2015 12-15-2015 Episodic Asthma (19 sources) Intermittent asthma; Translations: [Mild intermittent asthma, uncomplicated] Onset: 11-02-2011 03-30-2022 Chronic Comment on above: PRN INHALER Disorders of teeth and jaw (3 sources) Malocclusion of teeth; Translations: [Malocclusion, unspecified] Onset: 02-18-2024 02-18-2024 Episodic Disorders usually diagnosed in infancy, childhood, or adolescence (1 source) Separation anxiety; Translations: [Separation anxiety disorder of childhood] Onset: 02-13-2012 04-28-2012 Chronic Gastritis and duodenitis (20 sources) Bile-induced gastritis; Translations: [Other gastritis without bleeding] Onset: 07-08-2024 06-21-2024 Episodic Headache; including migraine (18 sources) Migraine; Translations: [Migraine, unspecified, not intractable, without status migrainosus] 11-29-2021 Chronic Comment on above: OCC Hemorrhage during ; abruptio placenta; placenta previa (1 source) Antepartum hemorrhage; Translations: [Hemorrhage in early , unspecified] 03-12-2023 Episodic Inflammation; infection of eye (except that caused by tuberculosis or sexually transmitteddisease) (4 sources) Conjunctivitis; Translations: [Unspecified conjunctivitis] 11-27-2017 Episodic Menstrual disorders (1 source) Amenorrhea, unspecified; Translations: [Amenorrhea, unspecified] Onset: 05-14-2024 Chronic Other circulatory disease (3 sources) Raynaud's syndrome without gangrene; Translations: [Raynaud's syndrome without gangrene] Onset: 05-08-2023 Chronic Other female genital disorders (20 sources) Abnormal uterine bleeding; Translations: [Abnormal uterine and vaginal bleeding, unspecified] 01-09-2023 Chronic Other female genital disorders (3 sources) Abnormal uterine and vaginal bleeding, unspecified; Translations: [Unspecified disorders of menstruation and other abnormal bleeding from female genital tract] Onset: 05-14-2024 01-09-2023 Chronic Other gastrointestinal disorders (9 sources) Irritable bowel syndrome; Translations: [Irritable bowel syndrome without diarrhea] Chronic Other gastrointestinal disorders (20 sources) Irritable bowel syndrome with diarrhea; Translations: [Irritable bowel syndrome with diarrhea] 07-08-2024 Chronic Other gastrointestinal disorders (1 source) Irritable bowel syndrome without diarrhea; Translations: [Irritable bowel syndrome, unspecified] Onset: 09-24-2024 Chronic Other gastrointestinal disorders (1 source) Irritable bowel syndrome with diarrhea; Translations: [Irritable bowel syndrome with diarrhea] Onset: 07-10-2024 Chronic Other gastrointestinal disorders (18 sources) Abdominal bloating; Translations: [Abdominal distension (gaseous)] 05-13-2024 Episodic Other gastrointestinal disorders (1 source) Abdominal distension (gaseous); Translations: [Abdominal distension (gaseous)] Onset: 09-16-2024 Episodic Other nervous system disorders (3 sources) Atypical facial pain; Translations: [Atypical facial pain] 02-18-2024 Episodic Other nervous system disorders (1 source) Atypical facial pain; Translations: [Atypical facial pain] Onset: 03-20-2024 Episodic Other nutritional; endocrine; and metabolic disorders (6 sources) Weight decreased; Translations: [Abnormal weight loss] 09-16-2024 Episodic Other nutritional; endocrine; and metabolic disorders (2 sources) Abnormal weight loss; Translations: [Abnormal weight loss] Onset: 09-16-2024 Episodic Other skin disorders (6 sources) Eruption; Translations: [Rash and other nonspecific skin eruption] 07-17-2024 Episodic Other upper respiratory disease (1 source) Allergic rhinitis; Translations: [Allergic rhinitis, unspecified] Onset: 08-29-2010 12-07-2014 Chronic Other upper respiratory infections (12 sources) Acute sinusitis; Translations: [Acute sinusitis, unspecified] 02-06-2019 Episodic Poisoning by nonmedicinal substances (13 sources) Spider bite wound; Translations: [Toxic effect of unspecified spider venom, accidental (unintentional), initial encounter] 05-13-2024 Episodic Thyroid disorders (1 source) Hypothyroidism, unspecified; Translations: [Hypothyroidism, unspecified] Onset: 10-31-2023 Chronic Unclassified (1 source) K58.9 - Irritable bowel syndrome, unspecified Urinary tract infections (4 sources) Urinary tract infectious disease; Translations: [Urinary tract infection, site not specified] 07-19-2020 Episodic Viral infection (20 sources) Disease caused by 2019-nCoV; Translations: [COVID-19] 03-28-2021 Episodic Past or Other Problems Problem Classification Problem Date Documented Da te Episodic/Chronic Biliary tract disease (17 sources) Biliary dyskinesia; Translations: [Other specified diseases of gallbladder] Onset: 02-27-2024 02-14-2024 Episodic Contraceptive and procreative management (20 sources) Patient encounter status; Translations: [Encounter for contraceptive management, unspecified] Onset: 05-14-2024 03-14-2022 Episodic Comment on above: No PA needed for zarina la IUD 05/14/24 Immunizations and screening for infectious disease (13 sources) Contact with and (suspected) exposure to infections with a predominantly sexual mode of transmission; Translations: [Contact with or exposure to venereal diseases] Onset: 05-14-2024 03-28-2023 Episodic Noninfectious gastroenteritis (20 sources) Gastroenteritis; Translations: [Noninfective gastroenteritis and colitis, unspecified] Onset: 06-25-2024 10-26-2022 Episodic Other gastrointestinal disorders (1 source) Diarrhea, unspecified; Translations: [Diarrhea, unspecified] Onset: 02-29-2024 Episodic Results Test Name Value Interpretation Reference Range Facility Calprotectin, Stoolon [address] 45 ug/g Normal 0-120 [facility] Comment on above: Result Comment: Conc entration Interpretation Follow-Up < 5 - 50 ug/g Normal None >50 -120 ug/g Borderline Re-evaluate in 4-6 weeks >120 ug/g Abnormal Repeat as clinically indicated Performed at: - [facility] [id number] [employer] Professor: Gaurav Escalante MD, Phone: [phone] Performed By: #### M [id number] #### [facility] [address] [place], [address] [id number] 09-25-2024 P ELASTASE,FECA > 800 Normal >200 [facility] Comment on above: Result Comment: Resu lt Units: ug Elast./g Severe Pancreatic Insufficiency: <100 Moderate Pancreatic Insufficiency: 100 - 200 Normal: >200 Performed at: [facility] [id number] [employer] Professor: Gaurav Escalante MD, Phone: [phone] Performed By: #### P IMHI #### [facility] [address] [facility] [address] [place], [place], [id number] CDIFF (PCR)on 09-22-2024 CDIFF A positive C. diffic ile molecular test does not differentiate between an active C. difficile infection and C. difficile colonization. Use clinical judgement and paired toxin/antigen testing to identify true infection and need for treatment. C diff DNA Spec Ql LINDA+probe Reference Range: Negative Palingenpert: polymerase chain reaction (PCR) 027 027 [id number] Presumptive Negative *for epidemiolologic???use C. Diff PCR A Positive-Toxigenic C. Difficile Detected A Normal [facility] Comment on above: Performed By: #### P IMHI #### [facility] [address] [facility] [address] [place], [place], [id number] Clostridium Diff Toxin/Agon 09-22-2024 CDIFF (EIA) Interpretation of C. diff by EIA Method C diff Stl Ql POS for Antigen and NEG for Toxin = Positive for toxigenic C. Difficile gene but the active toxin production NOT detected. May be a colonized carrier or toxin level is below limit of detection. C. difficile Antigen A Positive C. diff A/B Antigen A C. difficile Toxin Negative C. diff Toxin Normal [facility] Comment on above: Performed By: #### P IMHI #### [facility] [address] [facility] [address] [place], [place], [id number] Clostridium difficile detect ion by polymerase chain reactionOrdered By: Gayatri Merrill on 09-22-2024 C. difficile DNA LINDA+probe Ql (Unsp spec) [facility] ENTERIC PATHOGEN PANEL STOOL on 09-22-2024 EP PANEL Normal Reference Ran ge = Not Detected Nucleic acid amplification test method Not detected for Campylobacter group, Salmonella species, Shigella species, Vibrio Group, Yersinia enterocolitica, EHEC (Shiga Toxin 1, Shiga Toxin 2), Norovirus Gl/Gll, and Rotavirus A. Other common stool pathogens are not detected on this panel include: Aeromonas/Plesiomonas or parasites. Order testing for these organisms separately if suspected. This is an amplified DNA test which makes it both specific and sensitive. CAMPYLOBACTER Not Detected Norovirus Not Detected Rotavirus Not Detected Salmonella Not Detected Shiga Toxin Not Detected Shigella sp. Not Detected VIBRIO Not Detected Yersinia Not Detected Normal [facility] Comment on above: Performed By: #### P IMHI #### [facility] [address] [place], [address] Stool Clostridium difficile detectionOrdered By: Gayatri Merrill on 09-22-2024 C. difficile Ql (Stl) [facility] Gastroenterology Visit Repor ton 09-16-2024 Gastroenterology Visit Report [facility] [address] [place] [address] OFFICE VISIT Date of Service: 09/16/24 MR#: [id number] Acct: [id number] Name: JOAN MOORE Rep #: [id number] : 2005 Provider: HENRI sosa Age/Sex: 18/F Location: [facility] Status: Signed Intake Vital Signs 07/22/24 11:39 09/16/24 08:41 Height 5 ft 7 in 5 ft 7 in Weight: 127 lb 6 oz 124 lb 4 oz BMI 19.9 19.4 BP 109/75 100/64 Respiration 16 16 Pulse 102 H 70 Temp 97.4 F L 97.4 F L Temp Source Temporal Temporal Pulse Oximetry (%) 98 94 Oxygen Delivery Method room air room air Intake Visit Reasons: MEDICATION NEXT STEPS Chief Complaint: abdominal pain and diarrhea Stroboroma Operator Required: No Accompanied by: Self Is patient in pain?: No Allergies No Known Allergies Allergy (Verified 07/22/24 11:35) Medications ???Medication ???Instructions ???Recorded ???Confirmed ???Type albuterol sulfate 90 mcg/actuation 2 inh inhalation Q4H PRN shortne ss 03/12/23 09/16/24 History aerosol inhaler of breath or wheezing colestipol 1 gram tablet 1 g PO TID #90 tabs 09/16/2409/16 Rx ferrous sulfate 325 mg (65 mg 325 mg PO QDAY 09/16/24 09/16/24 H istory iron) tablet (Feosol) hyoscyamine sulfate 0.125 mg 0.125 mg sublingual BID-QID PRN 09/16/24 Rx disintegrating tablet dyspepsia #60 tabs omeprazole 20 mg capsule,delayed 20 mg PO QDAY #90 caps 09/16/24 Rx release Nurse's Note: Tried the FodMap diet but it didn't really help. She stopped taking the omeprazole completely about a week after she was last here. It's hard for her to take the cholestyramine because of her schedule. [facility] Medical History PONV (postoperative nausea and vomiting) Wears contact lenses Non-smoker Anxiety Chronic diarrhea Biliary dyskinesia Spider bite Abnormal uterine bleeding Contraception management Asthma Migraine COVID-19 Surgical History History of cholecystectomy S/P cholecystectomy Hx of wisdom tooth extraction History of tonsillectomy and adenoidectomy Family History Mother Rheumatoid arthritis Heart palpitations Father Hemochromatosis Hypertension Social History household members: family housing: house current occupational exposures/hazards: No pets and animals: Yes pets and animals: cat(s), dog(s) and fish sexually active: Yes Smoking Status: Never smoker alcohol intake: never substance use type: does not use and tranquilizers caffeine: Yes seatbelt use: always HPI HPI Chief Complaint: abdominal pain and diarrhea Details: OV 07/08/2024 18y/o female presents for consultation with complaints of abdominal pain and diarrhea. Symptoms began approximately two years ago with inability to gain weight and chronic diarrhea; fecal calprotectin borderline (56). GES negative January 2024. HIDA with EF <5% and underwent CCX February 2024. Bidirectional endoscopies were performed 06/09/2024; biopsies negative for Jones's, H. pylori and microscopic colitis. TSH, CRP and ESR were recently unremarkable. She reports an increase in abdominal pain with sucralfate and is uncertain if daily Omeprazole has provided much symptomatic relief. I have ordered an ABD US and she will complete labs to r/o celiac disease. I have also started her on cholestyramine and swapped dicyclomine for hyoscyamine. She will follow-up in two weeks. Note: [employer] speech recognition helicopter technician software was used to create portions of this document. Sound-alike and misspelled words, as well as other helicopter technician errors may be contained in the documentation. Patient Instructions: Complete labs today - r/o celiac disease Complete ABD US - call [phone] to schedule Continue Omeprazole 40mg daily Discontinue Dicyclomine Start Hyoscyamine PRN for abdominal cramping/pain Start Cholestyramine - administer w/meal; avoid other meds within 1hr before or 4-6hr after dose Follow-up in the office in 2 weeks OV 07/22/2024 18y/o female presents for two week follow-up of burning/cramping abdominal pain and diarrhea. She reports 1/2 pkt BID of Cholestyramine has not shown any improvement in symptoms. However, hyoscyamine has slowed down the urgency after melas. Frequency of stools remains 3-4x a day and ranges from loose to soft. She decreased PPI to QOD with no change in symptoms and will now discontinue. I have recommended increasing Cholestyramine to 1pkt BID and trialing a FODMAP diet. She will send portal message in 10 days with symptom update. Patient Instructions: Discontinue Omeprazole FODMAP (more content not included)... Normal [facility] Gastroenterology Visit Repor ton 07-22-2024 Gastroenterology Visit Report [facility]astroenter[facility] [address] [place] [address] OFFICE VISIT Date of Service: 07/22/24 MR#: [id number] Acct: [id number] Name: JOAN MOORE Rep #: [id number] : 2005 Provider: HENRI sosa Age/Sex: 18/F Location: [facility] Status: Signed Intake Vital Signs 07/08/24 11:23 07/22/24 11:39 Height 5 ft 7 in 5 ft 7 in Weight: 127 lb 6 oz BMI 19.9 BP 109/75 Respiration 16 Pulse 102 H Temp 97.4 F L Temp Source Temporal Pulse Oximetry (%) 98 Oxygen Delivery Method room air Intake Visit Reasons: 2 W FU Chief Complaint: abdominal pain and diarrhea Stroboroma Operator Required: No Accompanied by: Self Is patient in pain?: Yes Allergies No Known Allergies Allergy (Verified 07/22/24 11:35) Medications ???Medication ???Instructions ???Recorded ???Confirmed ???Type albuterol sulfate 90 mcg/actuation 2 inh inhalation Q4H PRN shortne ss 03/12/23 07/22/24 History aerosol inhaler of breath or wheezing omeprazole 40 mg capsule,delayed 40 mg PO QDAY #30 caps 05/14/24 Rx release vitamin #56-iron 35 mg 1 cap PO QDAY 05/14/24 07/22/24 Hi story and 5 mg-folic acid 1 mg-dha capsule hyoscyamine sulfate 0.125 mg 0.125 mg sublingual BID-QID PRN 07/22/24 Rx disintegrating tablet dyspepsia #60 tabs prednisone 10 mg tablet 10 mg PO DIRECTED 12 days #30 0 07/17/24 07/22/24 Rx tabs cholestyramine 4 gram oral powder 4 g PO QACHS 07/22/24 07/22/24 Hi story PFSH Medical History PONV (postoperative nausea and vomiting) Wears contact lenses Non-smoker Anxiety Chronic diarrhea Biliary dyskinesia Spider bite Abnormal uterine bleeding Contraception management Asthma Migraine COVID-19 Surgical History History of cholecystectomy S/P cholecystectomy Hx of wisdom tooth extraction History of tonsillectomy and adenoidectomy Family History Mother Rheumatoid arthritis Heart palpitations Father Hemochromatosis Hypertension Social History household members: family housing: house current occupational exposures/hazards: No pets and animals: Yes pets and animals: cat(s), dog(s) and fish sexually active: Yes Smoking Status: Never smoker alcohol intake: never substance use type: does not use and tranquilizers caffeine: Yes seatbelt use: always HPI HPI Chief Complaint: abdominal pain and diarrhea Details: JOAN MOORE, is a 18 F who presents to the office today for OV 07/08/2024 18y/o female presents for consultation with complaints of abdominal pain and diarrhea. Symptoms began approximately two years ago with inability to gain weight and chronic diarrhea; fecal calprotectin borderline (56). GES negative January 2024. HIDA with EF <5% and underwent CCX February 2024. Bidirectional endoscopies were performed 06/09/2024; biopsies negative for Jones's, H. pylori and microscopic colitis. TSH, CRP and ESR were recently unremarkable. She reports an increase in abdominal pain with sucralfate and is uncertain if daily Omeprazole has provided much symptomatic relief. I have ordered an ABD US and she will complete labs to r/o celiac disease. I have also started her on cholestyramine and swapped dicyclomine for hyoscyamine. She will follow-up in two weeks. Note: [employer] speech recognition helicopter technician software was used to create portions of this document. Sound-alike and misspelled words, as well as other helicopter technician errors may be contained in the documentation. Patient Instructions: Complete labs today - r/o celiac disease Complete ABD US - call [phone] to schedule Continue Omeprazole 40mg daily Discontinue Dicyclomine Start Hyoscyamine PRN for abdominal cramping/pain Start Cholestyramine - administer w/meal; avoid other meds within 1hr before or 4-6hr after dose Follow-up in the office in 2 weeks - celiac labs were negative - ABD US was unremarkable - weight is stable - sucralfate caused terrible abdominal cramping and burning - dicyclomine did not help in the past - feels hyoscyamine does work much better - cholestyramine has not shown much improvement in frequency of stools or consistency - burning intestinal pain and cramping before a BM - Hyoscyamine 2-4x a day helped slow down stools, going 4x a day, has a stool almost every meal, not waking at HS - stools range from soft to loose - she was having diarrhea prior to CCX and states this was thought to be due to back up of the bile acid - reports it was her understanding if the GB was removed the diarrhea would improve - sinc (more content not included)... Normal [facility] Urgent Care Visit Reporton 0 07-17-2024 Urgent Care Visit Report [facility] [address], [address] [place] [address] OFFICE VISIT Date of Service: 07/17/24 MR#: [id number] Acct: [id number] Name: JOAN MOORE Rep #: [id number] : 2005 Provider: TISHA Antoine Age/Sex: 18/F Location: [facility] Status: Signed Intake Vital Signs 07/08/24 11:23 07/17/24 12:59 Height 5 ft 7 in Weight: 127 lb 8 oz BMI 20.0 BP 122/75 H 100/62 Blood Pressure Location Lt brachial Position Sitting Respiration 16 15 Pulse 78 92 Pulse Source NIBP Temp 98.1 F Temp Source Oral Pulse Oximetry (%) 98 98 Oxygen Delivery Method room air room air Intake Visit Reasons: Rash Chief Complaint: rash Stroboroma Operator Required: No Is patient in pain?: No Allergies No Known Allergies Allergy (Verified 07/17/24 13:00) Is last menstrual period known: No Post menopausal: No Patient : No Have you fallen in the past year?: No Nurse's Note: flesh colored rash to left neck, left rib area, right collar bone, left leg x 3-4 days and spreading. + itching noted. PFSH Medical History PONV (postoperative nausea and vomiting) Wears contact lenses Non-smoker Anxiety Chronic diarrhea Biliary dyskinesia Spider bite Abnormal uterine bleeding Contraception management Asthma Migraine COVID-19 Surgical History (Updated 06/03/24 @ 13:35 by Ashley Snyder) History of cholecystectomy S/P cholecystectomy Hx of wisdom tooth extraction History of tonsillectomy and adenoidectomy Family History Mother Rheumatoid arthritis Heart palpitations Father Hemochromatosis Hypertension Social History household members: family housing: house current occupational exposures/hazards: No pets and animals: Yes pets and animals: cat(s), dog(s) and fish sexually active: Yes Smoking Status: Never smoker alcohol intake: never substance use type: does not use and tranquilizers caffeine: Yes seatbelt use: always HPI HPI Chief Complaint: rash Details: JOAN MOORE, is a 18 F who presents to the office today for complaint of rash. Patient states that she was going on the [place] and then the next day started having a rash around her flank and abdomen. Patient is unaware of any specific contact with poison sydnie or oak. No new foods, medicines or detergents. She denies shortness of breath, difficulty breathing or chest pain. No lip/tongue/throat swelling. No other associated symptoms or alleviating/aggravating factors. ROS Const Constitutional: No other (As above) Exam Const General: cooperative and healthy appearing [facility] Head: normocephalic and atraumatic Ears: hearing grossly normal bilaterally Nose: external nose normal Face and sinus: normal facial exam and face symmetric Resp Effort Inspection: normal respiratory effort Auscultation: Bilateral: Clear to Auscultation Cardio Rate: regular rate Rhythm: regular rhythm Skin Other: Grouped erythematous lesions from bilateral flanks. Neuro General: patient alert Psych Appearance: grossly normal Mental Status: mental status grossly normal Coding Level of Care Code Off vis,est,level 3 Diagnoses Rash R21 Assessment and Plan Assessment and Plan (1) Rash: Plan: Prednisone as prescribed today. Encouraged to get plenty of rest, drink lots of clear liquids, and use Benadryl for comfort. Patient also educated on other symptomatic management techniques. To be seen in 7-10 days if no improvement; sooner if worsening of symptoms. Patient advised of potential red flags and when appropriate to report to the ED. Patient verbalized understanding and agreement with all the above. Medications: New prednisone Take 4 tabs once daily days 1-3 3 tabs once daily days 4-6 2 tabs once daily days 7-9 and 1 tab once daily days 10-12. 10 mg PO DIRECTED 12 days 30 tabs 0RF L25.9 - Unspecified contact dermatitis, unspecified cause Clinical Quality Measures Falls Risk Screening/Assistive Devices Have you fallen in the past year?: No 07/17/24 1731 Date Trevor GILES Cosigner Signature: Date (if applicable) CC: Normal [facility] Abdomen Limitedon 07-15-2024 Abdomen Limited [facility] [address] [place], [place] [id number] Abdomen Limited MR#: [id number] Acct: [id number] Name: JOAN MOORE Rep #: [id number] : 2005 F 18 From: Victoriano epperson MD PCP: Dr. Oliva Ball DO Status: REG CLI Study: Abdomen Limited Date of Exam: 07/15/24 Exam# [id number] Ordering Dr: Gayatri Merrill PRICING SPECIALISTRishabh Beckwith PROCEDURE: ABDOMEN LIMITED 07/15/2024 REASON FOR EXAM: ABDOMINAL PAIN COMPARISON: None FINDINGS: Liver: Grossly normal size and echotexture. Gallbladder: Surgically absent. Common bile duct: Normal measuring 3.4 mm . Pancreas: Normal Other: Visualized portions of the right kidney are unremarkable. No right upper quadrant ascites. US/Abdomen Limited IMPRESSION: Status post cholecystectomy. No acute abnormality is seen. Reading Location: [place] [address] CC: PRICING SPECIALIST-Amena Merrill; Dr. Oliva Ball DO Hospital Education Coordinator: Signed Normal [facility] Immunoglobulin Aon 5 IMMUNOGLOB A QN 193 mg/dL Normal 87-352 [facility] Comment on above: Order Comment: N Result Comment: Perf ormed at: - [facility] [address] [id number] [employer] Professor: Dm Perez PhD, Phone: [phone] Performed By: #### P IMHI #### [facility] [address] [place], [place], [address] t-Transglutaminase IgAon tTG IGA <2 Normal 0-3 [facility] Comment on above: Result Comment: Nega tive 0 - 3 Weak Positive 4 - 10 Positive >10 Tissue Transglutaminase (tTG) has been identified as the endomysial antigen. Studies have demonstr- ated that endomysial IgA antibodies have over 99% specificity for gluten sensitive enteropathy. Performed By: #### P IMHI #### [facility] [address] [place], [place], [id number] Gastroenterology Visit Repor ton 07-08-2024 Gastroenterology Visit Report [facility] Gastroenterology [address] [place] [address] OFFICE VISIT Date of Service: 07/08/24 MR#: [id number] Acct: [id number] Name: JOAN MOORE Rep #: [id number] : 2005 Provider: HENRI sosa Age/Sex: 18/F Location: [facility] Status: Signed Intake Vital Signs 06/09/24 08:44 07/08/24 11:23 Height 5 ft 7 in 5 ft 7 in Weight: 127 lb 8 oz BMI 20.0 BP 122/75 H Respiration 16 Pulse 78 Pulse Oximetry (%) 98 Oxygen Delivery Method room air Intake Visit Reasons: Irritable bowel syndrome Chief Complaint: diarrhea, abdominal pain Stroboroma Operator Required: No Accompanied by: Self Is patient in pain?: Yes Allergies No Known Allergies Allergy (Verified 07/08/24 11:13) Medications ???Medication ???Instructions ???Recorded ???Confirmed ???Type albuterol sulfate 90 mcg/actuation 2 inh inhalation Q4H PRN shortne ss 03/12/23 07/08/24 History aerosol inhaler of breath or wheezing omeprazole 40 mg capsule,delayed 40 mg PO QDAY #30 caps 05/14/24 Rx release vitamin #56-iron 35 mg 1 cap PO QDAY 05/14/24 07/08/24 Hi story and 5 mg-folic acid 1 mg-dha capsule cholestyramine (with sugar) 4 gram 4 g PO BID 2 weeks #24 ea 07/08/24 Rx powder for susp in a packet hyoscyamine sulfate 0.125 mg 0.125 mg sublingual BID-QID PRN 07/08/24 Rx disintegrating tablet dyspepsia #60 tabs Nurse's Note: LLQ pain, feels like gas moving and is sharp. Bowels go back and forth between constipation and diarrhea. Gaining weight, was 114lbs a month ago. [facility] Medical History PONV (postoperative nausea and vomiting) Wears contact lenses Non-smoker Anxiety Chronic diarrhea Biliary dyskinesia Spider bite Abnormal uterine bleeding Contraception management Asthma Migraine COVID-19 Surgical History (Updated 06/03/24 @ 13:35 by Ashley Snyder) History of cholecystectomy S/P cholecystectomy Hx of wisdom tooth extraction History of tonsillectomy and adenoidectomy Family History Mother Rheumatoid arthritis Heart palpitations Father Hemochromatosis Hypertension Social History household members: family housing: house current occupational exposures/hazards: No pets and animals: Yes pets and animals: cat(s), dog(s) and fish sexually active: Yes Smoking Status: Never smoker alcohol intake: never substance use type: does not use and tranquilizers caffeine: Yes seatbelt use: always HPI HPI Chief Complaint: diarrhea, abdominal pain Details: JOAN MOORE, is a 18 F who presents to the office today for EGD 06/09/2024 neg. Jones's and H. pylori - Z-line irregular, 40 cm from the incisors. Biopsied. - Normal examined duodenum. - Bilious gastric fluid. - Erythematous mucosa in the antrum. Biopsied. Recommendation: - Await pathology results. - Discharge patient to home. - Resume previous diet. - Use sucralfate tablets 1 gram PO QID for 2 weeks. COLON 06/09/2024 neg. for microscopic colitis - The entire examined colon is normal on direct and retroflexion views. - No specimens collected. - symptoms began 2 years ago with inability to gain weight, was having diarrhea 4-5x a day - CCX February 2024 secondary to HIDA with EF <5% GES normal - tenesmus - she reports she is on Omeprazole for bile acid - reports she was instructed to wean herself off in a couple weeks - dicyclomine 20mg 1-2x a day before meals - reports she trialed sucralfate for 1-2 weeks but states this caused stomach to cramp - she is uncertain if Omeprazole has caused any change in symptoms - thinks maybe a slight increase in regurgitation since starting Omeprazole - stabbing, sharp pain, doubled over at times, - other times she has mild cramping - she reports stools have had more form to them in the past week, but still having multiple stools per week - sharp abdominal pain, intermittent, improves with a BM - reports she only eats 1-2x a day - reports she is having stools after meals- denies any nocturnal stools - reports she was having trouble gaining weight on control - reports she has not had a menstrual cycle in the past several months - she is not sexually active - Fecal Calprotectin mildly elevated 56 in 2022 - reports diarrhea dates back this long - TSH, CRP and ESR were recently negative - denies any family h/o celiac disease - denies any family h/o IBD - c/o weight gain in the past few weeks - she has increased her protein intake - 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 Normal [facility] Serum or plasma IgA measurem ent (mass/volume)Ordered By: Gayatri Merrill on 07-08-2024 IgA [Mass/Vol] 193 mg/dL 87-352 [facility] Comment on above: Performed at: [address] [id number] Director: Dm Perez PhD, Phone: [phone] Serum tissue transglutaminas e (tTG) IgA antibody assay (units/volume)Ordered By: Gayatri Merrill on 07-08-2024 tTG IgA Qn (S) <2 U/mL 0-3 [facility] Comment on above: Negative 0 - 3 Weak Positive 4 - 10 Positive >10 Tissue Transglutaminase (tTG) has been identified as the endomysial antigen. Studies have demonstr- ated that endomysial IgA antibodies have over 99% specificity for gluten sensitive enteropathy. Surgery Visit Reporton 07-04 Surgery Visit Report [facility] [address] [place] [address] OFFICE VISIT Date of Service: 07/04/24 MR#: [id number] Acct: [id number] Name: JOAN MOORE Rep #: [id number] : 2005 Provider: Dr. Norma crow MD Age/Sex: 18/F Location: [facility] [address] Status: Signed Intake Vital Signs 06/09/24 08:44 Height 5 ft 7 in Intake Visit Reasons: MED CHECK S/P SCOPES Chief Complaint: med check Is patient in pain?: No Allergies No Known Allergies Allergy (Verified 07/04/24 08:44) Medications ???Medication ???Instructions ???Recorded ???Confirmed ???Type albuterol sulfate 90 mcg/actuation 2 inh inhalation Q4H PRN shortne ss 03/12/23 07/04/24 History aerosol inhaler of breath or wheezing omeprazole 40 mg capsule,delayed 40 mg PO QDAY #30 caps 05/14/24 Rx release vitamin #56-iron 35 mg 1 cap PO QDAY 05/14/24 07/04/24 Hi story and 5 mg-folic acid 1 mg-dha capsule dicyclomine 20 mg tablet 20 mg PO .qid #120 tabs 07/04/24 0 07/04/24 Rx Subjective Details: 18-year-old female presents status post EGD and colonoscopy for follow-up and status post previous laparoscopic cholecystectomy for biliary dyskinesia. Patient continues to be on the omeprazole due to the bile reflux seen during EGD and has started to take the Bentyl takes it 3-4 times a day and states it does decrease her urgency of needing to use the restroom and she has been having some more solid stools with it. But states she still does have the need to go to the bathroom after eating. 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 Chronic diarrhea K52.9 Abdominal discomfort R10.9 [facility] Medical History PONV (postoperative nausea and vomiting) Wears contact lenses Non-smoker Anxiety Chronic diarrhea Biliary dyskinesia Spider bite Abnormal uterine bleeding Contraception management Asthma Migraine COVID-19 Surgical History (Updated 06/03/24 @ 13:35 by Ashley Snyder) History of cholecystectomy S/P cholecystectomy Hx of wisdom tooth extraction History of tonsillectomy and adenoidectomy Family History Mother Rheumatoid arthritis Heart palpitations Father Hemochromatosis Hypertension Social History household members: family housing: house current occupational exposures/hazards: No pets and animals: Yes pets and animals: cat(s), dog(s) and fish sexually active: Yes Smoking Status: Never smoker alcohol intake: never substance use type: does not use and tranquilizers caffeine: Yes seatbelt use: always Assessment and Plan (No Qualifiers) Assessment and Plan (1) Bile reflux gastritis: Status: Acute (2) Chronic diarrhea: Status: Chronic (3) Abdominal discomfort: Status: Acute Comment: Mid abdomen???burning???after eating Plan Patient symptoms have improved after taking Bentyl but still has symptoms. Plan for referral to GI as if there is any other suggestions. Recommend patient stay on the omeprazole for 1 to 2 months due to the bile reflux seen at time of EGD. And then can try coming off of it if first symptoms do not return. Patient is agreeable with plan. Follow-up as needed. Norma Buckley M.D. Pager: [phone] [facility] [address] [place] [address], [address] [place] [address] Office: [phone] 07/04/24 1109 Date Norma Buckley MD Cosigner Signature: Date (if applicable) CC: Dr. Tapan Menjivar, ; Tim Calderon, Normal [facility] Surgery Visit Reporton 06-20 Surgery Visit Report [facility] [address] [place] [address] OFFICE VISIT Date of Service: 06/20/24 MR#: [id number] Acct: [id number] Name: JOAN MOORE Rep #: [id number] : 2005 Provider: Dr. Norma crow MD Age/Sex: 18/F Location: [facility] Status: Signed Intake Vital Signs 06/09/24 08:44 Height 5 ft 7 in Intake Visit Reasons: MED CHECK S/P SCOPES Chief Complaint: med check Accompanied by: Mother Is patient in pain?: Yes (abdominal cramping) Allergies No Known Allergies Allergy (Verified 06/20/24 13:18) Medications ???Medication ???Instructions ???Recorded ???Confirmed ???Type albuterol sulfate 90 mcg/actuation 2 inh inhalation Q4H PRN shortne ss 03/12/23 06/20/24 History aerosol inhaler of breath or wheezing omeprazole 40 mg capsule,delayed 40 mg PO QDAY #30 caps 05/14/24 Rx release vitamin #56-iron 35 mg 1 cap PO QDAY 05/14/24 06/20/24 Hi story and 5 mg-folic acid 1 mg-dha capsule dicyclomine 20 mg tablet 20 mg PO BID #60 tabs 06/20/24 Rx PFSH Medical History PONV (postoperative nausea and vomiting) Wears contact lenses Non-smoker Anxiety Chronic diarrhea Biliary dyskinesia Spider bite Abnormal uterine bleeding Contraception management Asthma Migraine COVID-19 Surgical History (Updated 06/03/24 @ 13:35 by Ashley Snyder) History of cholecystectomy S/P cholecystectomy Hx of wisdom tooth extraction History of tonsillectomy and adenoidectomy Family History Mother Rheumatoid arthritis Heart palpitations Father Hemochromatosis Hypertension Social History household members: family housing: house current occupational exposures/hazards: No pets and animals: Yes pets and animals: cat(s), dog(s) and fish sexually active: Yes Smoking Status: Never smoker alcohol intake: never substance use type: does not use and tranquilizers caffeine: Yes seatbelt use: always HPI HPI HPI: 18-year-old female presents status post EGD and colonoscopy due to abdominal pain and diarrhea. Patient was started on omeprazole as well as Carafate. Patient states her diarrhea has improved but she does seem to still have crampy abdominal pain after eating and multiple looser stools daily. Patient states that she feels like with the Carafate she has some crampy discomfort when she takes at her rectum. Patient's EGD did show bile reflux in her stomach with irritation due to this. Biopsies were negative for H. pylori. Patient states that since March she has been able to gain about 5 pounds. Exam Const General: cooperative, healthy appearing, comfortable and no acute distress Resp Effort Inspection: normal respiratory effort Cardio Rate: regular rate GI Inspection: non-distended Palpation: soft Assessment and Plan Assessment and Plan (1) Abdominal discomfort: Status: Acute Comment: Mid abdomen???burning???after eating (2) Bile reflux gastritis: Status: Acute Medications: New dicyclomine Take 30 minutes before meals or at bedtime. Okay to take before breakfast and lunch for lunch and dinner whichever meals seem to affect you the most. 20 mg PO BID 60 tabs 1RF Discontinued sucralfate Take 1 hour before meals and at bedtime Discontinued Reason: Order Changed 1 g PO 4X/DAY 56 tabs 0RF Plan Discussed with patient and her mom we will plan for trial of dicyclomine as her symptoms seem like IBS. Will have patient follow-up in 2 weeks. Patient agreeable plan. Patient stopped the Carafate but continue the omeprazole. Norma Buckley M.D. Pager: [phone] [facility] [address] [place] [address], [facility] [address] [place] [address] Office: 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 Tapan Menjivar DO Normal [facility] Colonoscopy Reporton 025 Colonoscopy Report [facility] Medical Records Department [address] [place] [address] Colonoscopy Report MR#: [id number] Acct: [id number] Name: JOAN MOORE Rep #: [id number] : 2005 18 From: Norma Buckley MD PCP: Dr. Tapan Menjivar, Status:[facility] Patient Name: Joan Moore Procedure Date: 06/09/2024 10:11 AM Date of : 2005 Age: 18 Procedure: Colonoscopy Indications: Generalized abdominal pain, Chronic diarrhea Providers: Norma Buckley MD Referring MD: Tapan Menjivar Medicines: Monitored Anesthesia Care Patient Profile: This is a 18 year old female. This is a 18 year old female. Last Colonoscopy: none. The patient's first colonoscopy is today. Patient has symptoms of chronic global abdominal pain and chronic diarrhea. Complications: No immediate complications. Procedure: Pre-Anesthesia Assessment: - Prior to the procedure, a History and Physical was performed, and patient medications and allergies were reviewed. The patient's tolerance of previous anesthesia was also reviewed. The risks and benefits of the procedure and the sedation options and risks were discussed with the patient. All questions were answered, and informed consent was obtained. Prior Anticoagulants: The patient has taken no anticoagulant or antiplatelet agents. ASA Grade Assessment: Per anesthesia. After reviewing the risks and benefits, the patient was deemed in satisfactory condition to undergo the procedure. After I obtained informed consent, the scope was passed under direct vision. Throughout the procedure, the patient's blood pressure, pulse, and oxygen saturations were monitored continuously. The Colonoscope was introduced through the anus and advanced to the cecum, identified by the appendiceal orifice, ileocecal valve and palpation. The colonoscopy was performed without difficulty. The patient tolerated the procedure well. The quality of the bowel preparation was good. Scope In: 10:12:37 AM Scope Withdrawal Time 0 hours 8 minutes 18 seconds Scope Out: 10:33:48 AM Total Procedure Duration Time 0 hours 21 minutes 11 seconds Findings: The perianal and digital rectal examinations were normal. The entire examined colon appeared normal on direct and retroflexion views. Three random biopsies were obtained with cold forceps for histology. Impression: - The entire examined colon is normal on direct and retroflexion views. - No specimens collected. Recommendation: - Discharge patient to home. - Resume previous diet. - Continue present medications. - Await pathology results. - Repeat colonoscopy at age 44. - Return to my office in 2 weeks???call for appointment. MD Norma Ruiz MD 06/09/2024 10:45:47 AM This report has been signed electronically. Number of Addenda: 0 Note Initiated On: 06/09/2024 10:11 AM 06/09/24 1046 Date Norma Buckley MD Cosigner Signature: Date (if indicated) CC: Dr. Tapan Menjivar DO; Dr. Norma Buckley MD Date Dictated: 06/09/24 1011 Date Transcribed: Hospital Education Coordinator: TR Signed Normal [facility] EGD Reporton 06-09-2024 EGD Report [facility] Medical Records Department [address] [place] [address] EGD Report MR#: [id number] Acct: [id number] Name: JOAN MOORE Rep #: [id number] : 2005 18 From: Norma Buckley MD PCP: Dr. Tapan Menjivar, DO Status:[facility] Patient Name: Joan Moore Procedure Date: 06/09/2024 9:58 AM Date of : 2005 Age: 18 Procedure: Upper GI endoscopy Indications: Generalized abdominal pain Providers: Norma Buckley MD Referring MD: Tapan Menjivar Medicines: Monitored Anesthesia Care Patient Profile: This is a 18 year old female. Complications: No immediate complications. Procedure: Pre-Anesthesia Assessment: - Prior to the procedure, a History and Physical was performed, and patient medications and allergies were reviewed. The patient's tolerance of previous anesthesia was also reviewed. The risks and benefits of the procedure and the sedation options and risks were discussed with the patient. All questions were answered, and informed consent was obtained. Prior Anticoagulants: The patient has taken no anticoagulant or antiplatelet agents. ASA Grade Assessment: Per anesthesia. After reviewing the risks and benefits, the patient was deemed in satisfactory condition to undergo the procedure. After obtaining informed consent, the endoscope was passed under direct vision. Throughout the procedure, the patient's blood pressure, pulse, and oxygen saturations were monitored continuously. The Colonoscope was introduced through the mouth, and advanced to the second part of duodenum. The upper GI endoscopy was accomplished without difficulty. The patient tolerated the procedure well. Scope In: 10:05:56 AM Scope Out: 10:11:27 AM Total Procedure Duration Time 0 hours 5 minutes 31 seconds Findings: The Z-line was irregular and was found 40 cm from the incisors. Biopsies were taken with a cold forceps for histology. The cardia and gastric fundus were normal on retroflexion. The examined duodenum was normal. Bilious fluid was found in the entire examined stomach. Diffuse moderately erythematous mucosa without bleeding was found in the gastric antrum. Biopsies were taken with a cold forceps for histology. Biopsies were taken with a cold forceps for Helicobacter pylori cultures. Impression: - Z-line irregular, 40 cm from the incisors. Biopsied. - Normal examined duodenum. - Bilious gastric fluid. - Erythematous mucosa in the antrum. Biopsied. Recommendation: - Await pathology results. - Discharge patient to home. - Resume previous diet. - Use sucralfate tablets 1 gram PO QID for 2 weeks. - Continue present medications. Procedure Code(s): --- Professional --- 39210, PT, Esophagogastroduodenoscopy, flexible, transoral; with biopsy, single or multiple Diagnosis Code(s): --- Professional --- K22.89, Other specified disease of esophagus K31.89, Other diseases of stomach and duodenum R10.84, Generalized abdominal pain CPT copyright 2021 [employer]. All rights reserved. The codes documented in this report are preliminary and upon manager employee relations review may be revised to meet current compliance requirements. MD Norma Ruiz MD 06/09/2024 10:42:48 AM This report has been signed electronically. Number of Addenda: 0 Note Initiated On: 06/09/2024 9:58 AM 06/09/24 1042 Date Norma Buckley MD Cosigner Signature: Date (if indicated) CC: Dr. Tapan Menjivar, ; Dr. Norma Buckley MD Date Dictated: 06/09/24 0958 Date Transcribed: Hospital Education Coordinator: JANY Signed [facility] Immunohistochemical Stainson 06-09-2024 Immunohistochemical Stains Patient Age/Sex Location Account Attending Physician JENIFERJOAN ROSENDA EN [id number] Dr. Norma Buckley MD Specimen: [id number] Received: 06/09/24 Status: FELICIA Bustos Num: [id number] Spec Type: EGD BIOPSY Subm Dr: Dr. Norma Buckley MD HEADER OPERATION: Colonoscopy with biopsy, EGD with biopsy PRE-OP DIAGNOSIS: Chronic diarrhea, abdominal discomfort TISSUE SUBMITTED: A- Antrum biopsy, B- Gastroesophageal junction biopsy, C- Random colon biopsy MICROSCOPIC DIAGNOSIS A. Stomach, antrum, biopsy: * Antral/transitional mucosa with mild chronic inflammation. * IHC negative for H pylori organisms. B. Gastroesophageal junction, biopsy: * Squamous mucosa with mild reactive change. * Columnar mucosa negative for goblet cell metaplasia. * Negative for dysplasia. C. Colon, random, biopsy: * No specific pathologic change. * The histologic features of microscopic colitis are not observed. MICROSCOPIC DESCRIPTION Slides are reviewed. All matched controls reacted appropriately. These tests were developed and their performance characteristics determined by [facility]. They may not have been cleared or approved by the U.S. Food and Drug Administration. The FDA has determined that such clearance or approval is not necessary. The above immunohistochemical/dualISH markers are ordered and reviewed by the Pathologist. GROSS DESCRIPTION A. Received in formalin in a container labeled with the patient's name, date of , and antrum biopsy for H. pylori and path is a 0.6 x 0.3 x 0.2 cm strip of flaherty-pink mucosal tissue. Submitted in toto in A1. B. Received in formalin in a container labeled with the patient's name, date of , and GE junction biopsy is a 0.3 x 0.3 x 0.2 cm fragment of flaherty-pink mucosal tissue. Submitted in toto in B1. C. Received in formalin in a container labeled with the patient's name, date of , and random colon biopsy are 3 flaherty-pink fragments of mucosal tissue ranging from 0.3 x 0.2 x 0.2 cm to 0.5 x 0.2 x 0.2 cm. Submitted in toto in C1. Patient Age/Sex Location Account Attending Physician JOAN MOORE / EN [id number] Dr. Norma Buckley MD [facility] 06-09-2024 CPT:[id number] Patient Age/Sex Location Account Attending Physician JOAN MOORE EN [id number] Dr. Norma Buckley MD Signed (signature on file) Dr. Cely Amaya MD 06/17/24 0844 Normal [facility] Comment on above: Performed By: #### P RUBÉN #### [facility] [address] [place], [address] MR/POSTOP.ANEon 06-09-2024 MR/POSTOP.ANE [facility] Medical Records Department [address] [place] [address] Anesthesia Postop Eval I 06/09/24 1044 MR#: [id number] Acct: [id number] Name: JOAN MOORE ROSENDA Rep #: [id number] : 2005 18 From: Lux Fernandez PCP: Dr. Tapan Menjivar, DO Status:REG SD[facility] Y Race: C Location: [place] [address] Anesthesia: Postop Eval I Current Vital Signs Temperature: 98.2 F Pulse Rate: 57 Blood Pressure: 103/72 Respiratory Rate: 16 Pulse Ox: 98 Oxygen Delivery Method: Room Air Assessment Airway patent: Yes Spontaneous unlabored respirations: Yes Mental status: Asleep nausea: No Vomiting: No Anesthesia Complication: No Fluid Hydration Crystalloid volume administer (ml): 900 Total IV fluid infused: 900 Progress Note Anesthesia document: Postop Eval 1 completed: Yes 06/09/241044 Date Lux Cullen Signature: Date CC: Signed Normal [facility] [id number] 06-09-2024 MR/POSTOPAN2 [facility] Medical Records Department [address] [facility] [place] [address] Anesthesia Postop Eval II 06/09/24 1048 MR#: [id number] Acct: [id number] Name: JOAN MOORE ROSENDA Rep #: [id number] : 2005 18 From: Armando Michael MD PCP: Dr. Tapan Menjivar, DO Status:REG SDC Y Race: C Location: AC AC16-1 Anesthesia Postop Eval I Sum Postop Eval Completion status Anesthesia document: Postop Eval 1 completed: Yes Anesthesia Postop Eval I Summary Anesthesia Postop Eval I Summary: Anesthesia Postop Eval I: Assessment Summary Airway patent Yes 06/09/24 10:45 [email or web address] Spontaneous unlabored Yes 06/09/24 10:45 [email or web address] respirations Mental status Asleep 06/09/24 10:45 [email or web address] nausea No 06/09/24 10:45 [email or web address] Vomiting No 06/09/24 10:45 [email or web address] Anesthesia Postop Eval I: Fluid Summary Crystalloid volume administer 900 06/09/24 10:45 [email or web address] (ml) Colloids volume administered ( ml) Blood Product volume administered (ml) Total IV fluid infused 900 06/09/24 10:45 [email or web address] Anesthesia Postop Eval I: Summary Notes Anesthesia Complication No 06/09/24 10:45 [email or web address] Anesthesia Complication Comment: Post-operative progress note Anesthesia: Postop Eval II Evaluation Mental status: Awake Pain Level: 0 nausea: No Vomiting: No Complications Anesthesia Complication: No 06/09/24 1048 Date Armando Michael MD Cosigner Signature: Date CC: Signed Normal [facility] ,Urineon 06-09-2024 Beta HCG ( test) Ql (U) Negative Normal [facility] Comment on above: Result Comment: Very dilute urine specimens, as indicated by a low specific gravity, may not contain claim service representative levels of hCG. If is still suspected, a first morning urine specimen should be collected 48 hours later and tested. Performed By: #### P [facility] #### [facility] [address] [place], [place] [address] [place], [address] Urine testOrdered By: Lance Mccullough on 06-09-2024 HCG ( test) Ql (U) Negative [facility] Comment on above: Very dilute urine sp ecimens, as indicated by a low specificgravity, may not contain claim service representative levels of hCG. If is still suspected, a first morning urinespecimen should be collected 48 hours later and tested. CCP IgG Antibodieson 025 CCP IgG Ab. 10 units Normal 0-19 [facility] Comment on above: Result Comment: Nega tive <20 Weak positive 20 - 39 Moderate positive 40 - 59 Strong positive >59 Performed By: #### L 4600.0100, L501.6710, L505.7010, L3300.6820, L501.27213, L3100.5450, L501.9520, L506.0400, L101.9900 ####[facility] [address] [place], [place], [id number] Thyroglobulin w/Anti-TG ABon 05-29-2024 Anti-TG AB 1.9 IU/mL High 0.0-0.9 [facility] Comment on above: Result Comment: Thyr oglobulin Antibody measured by [employer] [facility] [employer] Method[employer] It should be noted that the presence of thyroglobulin antibodies may not be pathogenic nor diagnostic, especially at very low levels. The assay store detective has found that four percent of individuals without evidence of thyroid disease or autoimmunity will have positive TgAb levels up to 4 IU/mL. Performed By: #### L 4600.0100, L501.6710, L505.7010, L3300.6820, L501.33707, L3100.5450, L501.9520, L506.0400, L101.9900 ####[facility] [address] [place], [place], [id number] TG-CHANEL 6.7 ng/mL Normal . [facility] Comment on above: Result Comment: This test was developed and its performance characteristics determined by [employer]. It has not been cleared or approved by the Food and Drug Administration. Reference Range: Pubertal Children and Adults: <40 According to the National Academy of Clinical Biochemistry, the reference interval for Thyroglobulin (TG) should be related to euthyroid patients and not for patients who underwent thyroidectomy. TG reference intervals for these patients depend on the residual mass of the thyroid tissue left after surgery. Establishing a post-operative baseline is recommended. The assay quantitation limit is 2.0 ng/mL. Performed at: [facility] [address] [id number] [employer] Professor: mD Perez PhD, Phone: [phone] Performed at: [facility] [address] [place] [id number] [employer] Professor: Benji Stark MD, Phone: [phone] Performed By: #### L 4600.0100, L501.6710, L505.7010, L3300.6820, L501.36083, L3100.5450, L501.9520, L506.0400, L101.9900 ####[facility] [address] [place], [address] JOHNATHAN w/ Reflex Mult Confirmon 05-19-2024 JOHNATHAN,DIRECT Negative Normal Negative [facility] Comment on above: Result Comment: Perf ormed at: [facility] [address] [id number] [employer] Professor: Dm Perez PhD, Phone: [phone] Performed By: #### L 4600.0100, L501.6710, L505.7010, L3300.6820, L501.15461, L3100.5450, L501.9520, L506.0400, L101.9900 ####[facility] [address] [place], [place], [id number] JOHNATHAN serumOrdered By: Oliva hanson on 05-15-2024 Anti-Nuclear Antibody Screen Negative Negative [facility] Comment on above: Performed at: [employer] [address] [id number] Director: Dm Perez PhD, Phone: [phone] CRPon 05-15-2024 C-REACTIVE PROT < 3.00 Normal 0.0-3.0 [facility] Comment on above: Performed By: #### L 4600.0100, L501.6710, L505.7010, L3300.6820, L501.12196, L3100.5450, L501.9520, L506.0400, L101.9900 ####[facility] [address] [place], [place], [id number] CRP [Mass/Vol]Ordered By: Amber Ball on 05-15-2024 C-Reactive Protein Extended Range < 3.00 mg/L 0.0-3.0 [facility] [employer] [facility] antibody assayO rdered By: Oliva Ball on 05-15-2024 Centromere B Antibody [facility] Comment on above: Test not performed Chromatin antibody assayOrde red By: Oliva Ball on 05-15-2024 Antichromatin Antibodies [facility] Comment on above: Test not performed DNA double strand Ab Qn (S)O rdered By: Oliva Ball on 05-15-2024 Anti-Double Strand DNA Antibody [facility] Comment on above: Test not performed Erythrocyte Sed Rateon 05-15 SED RATE < 1 Normal 0-30 [facility] Comment on above: Performed By: #### L 4600.0100, L501.6710, L505.7010, L3300.6820, L501.34833, L3100.5450, L501.9520, L506.0400, L101.9900 ####[facility] [id number] [place], [place], [id number] Erythrocyte sedimentation ra teOrdered By: Oliva Ball on 05-15-2024 ESR (Bld) [Velocity] mm/h 0-30 [facility] Free T3on 05-15-2024 Free T3 [Mass/Vol] 3.3 pg/mL Normal 2.18-3.98 [facility] Comment on above: Performed By: #### L 4600.0100, L501.6710, L505.7010, L3300.6820, L501.97932, L3100.5450, L501.9520, L506.0400, L101.9900 ####[facility] [id number] [place], [place], [address] Free V5Tmrefvt By: Oliva burnett on 05-15-2024 Free T3 [Mass/Vol] 3.3 pg/mL 2.18-3.98 [facility] Free Triiodothyronine (T3) pg/dL 3.3 pg/mL 2.18-3.98 [facility] May-1 antibody assayOrdered B y: Oliva Ball on 05-15-2024 MAY-1 Antibody [facility] Comment on above: Test not performed ORTHOTIC PRACTITIONER abOrdered By: Oliva Ball on 05-15-2024 ORTHOTIC PRACTITIONER Antibody [facility] Comment on above: Test not performed Rheumatoid Factoron 05-16-19 RHEUMATOID FAC < 10.0 Normal <15 [facility] Comment on above: Performed By: #### L 4600.0100, L501.6710, L505.7010, L3300.6820, L501.54757, L3100.5450, L501.9520, L506.0400, L101.9900 ####[facility] [id number] [place], [place], [address] Rheumatoid factor Ql (S)Orde red By: Oliva Ball on 05-15-2024 Rheumatoid Factor < 10.0 IU/mL <15 [facility] SCL-70 extractable nuclear A b Qn (S)Ordered By: Oliva Ball on 05-15-2024 Scl-70 (Scleroderma) Antibody [facility] Comment on above: Test not performed SS-A IgG antibody assayOrder ed By: Oliva Ball on 05-15-2024 SS-A/Ro IgG Antibody [facility] Comment on above: Test not performed SS-B IgG antibody assayOrder ed By: Oliva Ball on 05-15-2024 SS-B/La IgG Antibody [facility] Comment on above: Test not performed Serum DNA double strand anti body assay (units/volume)Ordered By: Oliva Ball on 05-15-2024 DNA double strand Ab Qn (S) [facility] Comment on above: Test not performed Serum Scl-70 antibody assay (units/volume)Ordered By: Oliva Ball on 05-15-2024 SCL-70 extractable nuclear Ab Qn (S) [facility] Comment on above: Test not performed Serum or plasma C reactive p rotein measurement (mass/volume)Ordered By: Oliva Ball on 05-15-2024 CRP [Mass/Vol] mg/L 0.0-3.0 [facility] Serum or plasma cyclic citru llinated peptide IgG antibody assay (units/volume)Ordered By: Oliva Ball on 05-15-2024 Cyclic citrullinated peptide IgG Qn 10 units 0-19 [facility] Comment on above: Negative <20 Weak po sitive 20 - 39 Moderate positive 40 - 59 Strong positive >59 Serum rheumatoid factor dete ctionOrdered By: Oliva Ball on 05-15-2024 Rheumatoid factor Ql (S) < 10.0 IU/mL <15 [facility] Advenport antibody assayOrdered By: Oliva Ball on 05-15-2024 SM Antibody [facility] Comment on above: Test not performed T4 Free Directon 05-15-2024 T4 FREE DIRECT 1.20 ng/dL Normal 0.76-1.46 [facility] Comment on above: Performed By: #### L 4600.0100, L501.6710, L505.7010, L3300.6820, L501.62605, L3100.5450, L501.9520, L506.0400, L101.9900 ####[facility] [id number] [place], [address] T4 freeOrdered By: Oliva burnett on 05-15-2024 Free T4 [Mass/Vol] 1.20 ng/dL 0.76-1.46 [facility] TSH DL <= 0.005 mIU/L QnOrde red By: Oliva Ball on 05-15-2024 Thyroid Stimulating Hormone (TSH) 1.650 uIU/mL 0.500-4.30 0 [facility] TSH Qn 1.650 uIU/mL 0.500-4.30 0 [facility] Thyroglobulin measurement by radioimmunoassay (CHANEL)Ordered By: Oliva Ball on 05-15-2024 Thyroglobulin Ab CHANEL Qn (S) 6.7 ng/mL . [facility] Comment on above: This test was develo ped and its performance characteristicsdetermined by [employer]. It has not been cleared or approvedby the Food and Drug Administration.Reference Range:Pubertal Childrenand Adults: <40According to the National Academy of Clinical Biochemistry,the reference interval for Thyroglobulin (TG) should berelated to euthyroid patients and not for patients whounderwent thyroidectomy. TG reference intervals for thesepatients depend on the residual mass of the thyroid tissueleft after surgery. Establishing a post-operative baselineis recommended. The assay quantitation limit is 2.0 ng/mL.Performed at: [facility] [id number] Director: Dm Perez PhD, Phone: [phone] at: [facility] [address] [id number] Director: Benji Stark MD, Phone: [phone] Thyroid Stim Hormone (TSH)on 05-15-2024 TSH 1.650 uIU/mL Normal 0.500-4.30 0 [facility] Comment on above: Performed By: #### L 4600.0100, L501.6710, L505.7010, L3300.6820, L501.25358, L3100.5450, L501.9520, L506.0400, L101.9900 ####[facility] [address] [place], [address] Surgery Visit Reporton 05-14 Surgery Visit Report [facility] [address] [place] [address] OFFICE VISIT Date of Service: 05/14/24 MR#: [id number] Acct: [id number] Name: JOAN MOORE Rep #: [id number] : 2005 Provider: Dr. Norma crow MD Age/Sex: 18/F Location: [facility] [address] Status: Signed Intake Vital Signs 02/25/24 12:14 05/13/24 13:18 05/14/24 12:55 Height 5 ft 7 in 5 ft 7 in 5 ft 7 in Weight: 119 lb 2 oz 121 lb BMI 18.6 18.9 BP 102/68 121/70 H Blood Pressure Location Rt brachial Position Sitting Respiration 14 Pulse 87 Pulse Source Monitor Temp 98.1 F Temp Source Oral Pulse Oximetry (%) 100 Oxygen Delivery Method room air Intake Visit Reasons: RECALL DISCUSS UPPER AND LOWER SCOPE Stroboroma Operator Required: No Accompanied by: Self Is patient in pain?: No Allergies No Known Allergies Allergy (Verified 05/14/24 12:54) Medications ???Medication ???Instructions ???Recorded ???Confirmed ???Type albuterol sulfate 90 mcg/actuation 2 inh inhalation Q4H PRN shortne ss 03/12/23 05/14/24 History aerosol inhaler of breath or wheezing medroxyprogesterone 10 mg tablet 10 mg PO QDAY 5 days #5 tabs 05/1305/14/24 Rx omeprazole 40 mg capsule,delayed 40 mg PO QDAY #30 caps 05/14/24 Rx release vitamin #56-iron 35 mg 1 cap PO QDAY 05/14/24 05/14/24 Hi story and 5 mg-folic acid 1 mg-dha capsule PFSH Medical History Wears contact lenses Non-smoker Anxiety Chronic diarrhea Biliary dyskinesia Spider bite Abnormal uterine bleeding Contraception management Asthma Migraine COVID-19 Surgical History S/P cholecystectomy Hx of wisdom tooth extraction History of tonsillectomy and adenoidectomy Family History Mother Rheumatoid arthritis Heart palpitations Father Hemochromatosis Hypertension Social History household members: family housing: house current occupational exposures/hazards: No pets and animals: Yes pets and animals: cat(s), dog(s) and fish sexually active: Yes Smoking Status: Never smoker alcohol intake: never substance use type: does not use and tranquilizers caffeine: Yes seatbelt use: always HPI HPI HPI: 18-year-old female presents due to continued diarrhea and some abdominal burning after eating. Patient is status post laparoscopic cholecystectomy due to biliary dyskinesia. Patient states the nausea did improve after the cholecystectomy. Patient states the diarrhea has not really changed. Patient was initially put on omeprazole thought maybe she had a little less diarrhea at that time currently not on omeprazole. Patient has been able to eat does think she may have gained a little bit of weight since the laparoscopic cholecystectomy. ROS General General: Yes weight change and fatigue; No appetite, colon cancer or breast cancer HEENT HEENT: No difficulty swallowing, eye injury, eye surgery, swollen glands or hoarseness Endo Endocrine: No thyroid disease, diabetes mellitus, thyroid cancer, Hair loss, heat intolerance or cold intolerance Skin Skin: No rash or changing moles Musc Musculoskeletal: Yes back problems; No arthritis, rheumatoid arthritis, gout or joint pain Cardio Cardiovascular: No murmur, pacemaker, heart disease, atrial fibrillation, high blood pressure, heart attack, heart stent, palpitations, shortness of breath with exertion or chest pain Psych Psychiatric: Yes anxiety; No depression or hearing voices Resp Respiratory: No shortness of breath, No sleep apnea, No cough, No COPD, Yes asthma, No emphysema and No wheezing Gastro Gastrointestinal: Yes abdominal pain, Yes nausea or vomiting, Yes diarrhea, Yes constipation, No blood in stool, No acid reflux, Yes hemorrhoids, No ulcers, No gallbladder problem and No black,tarry stools [place] Hematologic: No blood thinners, No blood disorders, No bleeding, No anemia and No blood clots Neuro Neurologic: No numbness and No tingling Exam Const General: cooperative, healthy appearing, comfortable and no acute distress [facility] Head: normocephalic and atraumatic Neck Neck: supple Resp Effort Inspection: normal respiratory effort Cardio Rate: regular rate GI Inspection: non-distended and incision (Well-healed from laparoscopic cholecystectomy) Palpation: soft, no hernias and nontender Skin General: no rashes or lesions noted Neuro General: CN's II-XI intact bilaterally Extrem General: normal to inspection Psych Mental Status: mental status grossly normal Attitude: cooperative Assessment and Plan Assessment an (more content not included)... Normal [facility] Chlamydia and Neisseria gono rrhoeae detection by PCROrdered By: Margareth Patel on 05-13-2024 Chlamydia/Neisseria (PCR) [facility] Laboratory - Chemistry and C hemistry - challengeOrdered By: Margareth Patel on 05-13-2024 HCG ( test) Ql (U) Negative [facility] M8200.2203on 05-13-2024 M8200.2203 Pending Chlamydia Trachomatis PCR NEGATIVE for Chlamydia trachomatis N. gonorrhoeae PCR Negative for N. gonorrhoeae Normal [facility] Comment on above: Performed By: #### M 8200.2203 #### [facility] [address] 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) Chief Complaint: Annual Stroboroma Operator Required: No Is patient in pain?: No Allergies No Known Allergies Allergy (Verified 05/13/24 13:24) Medications ???Medication ???Instructions ???Recorded ???Confirmed ???Type albuterol sulfate 90 mcg/actuation 2 inh inhalation Q4H PRN shortne ss 03/12/23 05/13/24 History aerosol inhaler of breath or wheezing medroxyprogesterone 10 mg tablet 10 mg PO QDAY 5 days #5 tabs 05/1305/13/24 Rx Is last menstrual period known: No Post menopausal: No Patient : No : No PFSH Medical History (Updated 05/13/24 @ 13:36 by Margareth Patel PRICING SPECIALIST, PRICING SPECIALIST-C) Wears contact lenses Non-smoker Anxiety Chronic diarrhea Biliary dyskinesia Spider bite Abnormal uterine bleeding Contraception management Asthma Migraine COVID-19 Surgical History S/P cholecystectomy Hx of wisdom tooth extraction History of tonsillectomy and adenoidectomy Family History Mother Rheumatoid arthritis Heart palpitations Father Hemochromatosis Hypertension Social History household members: family housing: house current occupational exposures/hazards: No pets and animals: Yes pets and animals: cat(s), dog(s) and fish sexually active: Yes Smoking Status: Never smoker alcohol intake: never substance use type: does not use and tranquilizers caffeine: Yes seatbelt use: always HPI Encounter for routine gynecological examination Details: JOAN MOORE is a 18 year old who presents for annual exam. Last depo was in Dec 2023. Not sexually currently but has had new partner since last exam. Only light spotting in March and that is only bleeding since last depo. She would like an IUD. Last PAP: age 20 ROS Const Constitutional: Denies fatigue, weight gain or weight loss Cardio Card: Denies chest pain Resp Resp: Denies cough or dyspnea on exertion GI GI: Denies abdominal pain, bloating, change in stool character, constipation or vomiting : Reports as per HPI; Denies difficulty voiding, pelvic pain, urinary frequency, urinary incontinence, urinary urgency, vaginal discharge or vaginal pruritus Exam Const General: cooperative, healthy appearing, no acute distress and well developed Orientation: alert, oriented to person and oriented to place [facility]KS Head: normal to inspection Neck Neck: normal visual inspection Thyroid: thyroid normal Lymphatic: no lymphadenopathy noted Resp Effort Inspection: normal respiratory effort GI Palpation: soft, no masses and nontender Rectal Exam: deferred Neuro General: patient alert and patient oriented x3 Psych Affect: normal affect Results POC Urine Office , Urine Negative Last Edit by Jeniffer Farias on 05/13/24 13:46 Coding Level of Care Code Off vis,est,prev 18-39yrs Diagnoses Encounter for gynecological examination with abnormal finding Z01.411 Gynecological examination findings: abnormal findings PRESENT Abnormal uterine bleeding N93.9 Encounter for initial prescription of injectable contraceptive Z30.013 Contraceptive encounter type: initial prescription Contraceptive type: injectable Possible exposure to STD Z20.2 Assessment and Plan Assessment and Plan (1) Encounter for routine gynecological examination: Qualifiers: Gynecological examination findings: abnormal findings PRESENT Qualified Code(s): Z01.411 - Encounter for gynecological examination (general) (routine) with abnormal findings (2) Abnormal uterine bleeding: Status: Acute (3) Contraception management: Status: Acute Qualifiers: Contraceptive encounter type: initial prescription Contraceptive type: injectable Qualified Code(s): Z30.013 - Encounter for initial prescription of injectable contraceptive Comment: TISHA villaltaa IUD (4) Possible exposure to STD: Orders: Orders POC Urine Today N91.2 - Amenorrhea, unspecified Chlamydia/Neisseria PCR Today Z11.3 - Encounter for screening for infections with a predominantly sexual mode of transmission Medications: New medroxyprogesterone 10 mg PO QDAY 5 tabs 0RF 5 days Plan Breast and pelvic exam not clinically indicated and defer (more content not included)... Normal [facility] CT FACIAL BONE/JAMIL WO IVCON on 03-20-2024 CT FACIAL BONE/JAMIL WO IVCON * * *Final Report* * * DATE OF EXAM: Mar 20 2024 8:57AM [facility] 0507 - CT FACIAL BONE/JAMIL WO IVCON / PROCEDURE REASON: Atypical facial pain * * * * Physician Interpretation * * * * EXAMINATION: CT FACIAL BONE/JAMIL WO IVCON Clinical history: As provided by the ordering clinician via order question entries: Maxillofacial pain. Atypical facial pain. Please get facial CT for planning of orthognathic (jaw) surgery. Please make sure highest definition possible, with slices less 1 mm. I need to see from just above the hyoid bone up to the top of the frontal bone. Patient needs to be in centric relation, mouth closed with tongue touching the posterior part of the palate (pt instructed how to do this). Technique: Spiral high resolution axial unenhanced images were obtained through the facial bones with sagittal and coronal planar reconstructions. MQ: CTMFWO_1 Dose-Length Product (DLP): 437 mGy*cm. CT Dose Reduction Employed: Automated exposure control (AEC) and iterative recon Comparison: None available RESULT: FACIAL BONES: Soft Tissues: No significant superficial soft tissue swelling. Facial bones: No apparent acute or chronic facial bone fracture. No suspicious osteolytic or osteoblastic lesions. 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 Orbits: No orbital fracture. The globes are intact. The soft tissue planes of the orbits are maintained. Paranasal Sinuses and nasal passages: The paranasal sinuses are clear. Conchal bullosa of the right middle nasal turbinate and slight aeration of the left middle nasal turbinate strut otherwise. Intact and predominantly midline nasal septum. Foreign Bodies: Retained metallic barbell piercings in the right antihelix, right tragus, and cymba of the right ayse. Respiratory Clinician (topogram) images: Noncontributory IMPRESSION: Preoperative planning CT with mild mandibular prognathism. Hospital Education Coordinator: PATRIC Transcribe Date/Time: Mar 20 2024 11:06A Dictated by : SUE FARMER MD This examination was interpreted and the report reviewed and electronically signed by: SUE FARMER MD on Mar 20 2024 11:17AM EST [id number] Normal [facility] CT Facial bones WO contrasto n 03-20-2024 IMPRESSION: Preoperative planning CT with mild mandibular prognathism. Hospital Education Coordinator: PATRIC Transcribe Date/Time: Mar 20 2024 11:06A Dictated by : SUE FARMER MD This examination was interpreted and the report reviewed and electronically signed by: SUE FARMER MD on Mar 20 2024 11:17AM EST DIVISION OF RADIOLOGY * * *Final Report* * * DATE OF EXAM: Mar 20 2024 8:57AM [facility] 0507 - CT FACIAL BONE/JAMIL WO IVCON / PROCEDURE REASON: Atypical facial pain * * * * Physician Interpretation * * * * EXAMINATION: CT FACIAL BONE/JAMIL WO IVCON Clinical history: As provided by the ordering clinician via order question entries: Maxillofacial pain. Atypical facial pain. Please get facial CT for planning of orthognathic (jaw) surgery. Please make sure highest definition possible, with slices less 1 mm. I need to see from just above the hyoid bone up to the top of the frontal bone. Patient needs to be in centric relation, mouth closed with tongue touching the posterior part of the palate (pt instructed how to do this). Technique: Spiral high resolution axial unenhanced images were obtained through the facial bones with sagittal and coronal planar reconstructions. MQ: CTMFWO_1 Dose-Length Product (DLP): 437 mGy*cm. CT Dose Reduction Employed: Automated exposure control (AEC) and iterative recon Comparison: None available RESULT: FACIAL BONES: Soft Tissues: No significant superficial soft tissue swelling. Facial bones: No apparent acute or chronic facial bone fracture. No suspicious osteolytic or osteoblastic lesions. 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 Orbits: No orbital fracture. The globes are intact. The soft tissue planes of the orbits are maintained. Paranasal Sinuses and nasal passages: The paranasal sinuses are clear. Conchal bullosa of the right middle nasal turbinate and slight aeration of the left middle nasal turbinate strut otherwise. Intact and predominantly midline nasal septum. Foreign Bodies: Retained metallic barbell piercings in the right antihelix, right tragus, and cymba of the right ayse. Respiratory Clinician (topogram) images: Noncontributory DIVISION OF RADIOLOGY Provider, [facility] - 03/20/2024 * * *Final Report* * * DATE OF EXAM: Mar 20 2024 8:57AM [facility] 0507 - CT FACIAL BONE/JAMIL WO IVCON / PROCEDURE REASON: Atypical facial pain * * * * Physician Interpretation * * * * EXAMINATION: CT FACIAL BONE/JAMIL WO IVCON Clinical history: As provided by the ordering clinician via order question entries: Maxillofacial pain. Atypical facial pain. Please get facial CT for planning of orthognathic (jaw) surgery. Please make sure highest definition possible, with slices less 1 mm. I need to see from just above the hyoid bone up to the top of the frontal bone. Patient needs to be in centric relation, mouth closed with tongue touching the posterior part of the palate (pt instructed how to do this). Technique: Spiral high resolution axial unenhanced images were obtained through the facial bones with sagittal and coronal planar reconstructions. MQ: CTMFWO_1 Dose-Length Product (DLP): 437 mGy*cm. CT Dose Reduction Employed: Automated exposure control (AEC) and iterative recon Comparison: None available RESULT: FACIAL BONES: Soft Tissues: No significant superficial soft tissue swelling. Facial bones: No apparent acute or chronic facial bone fracture. No suspicious osteolytic or osteoblastic lesions. 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 Orbits: No orbital fracture. The globes are intact. The soft tissue planes of the orbits are maintained. Paranasal Sinuses and nasal passages: The paranasal sinuses are clear. Conchal bullosa of the right middle nasal turbinate and slight aeration of the left middle nasal turbinate strut otherwise. Intact and predominantly midline nasal septum. Foreign Bodies: Retained metallic barbell piercings in the right antihelix, right tragus, and cymba of the right ayse. Respiratory Clinician (topogram) images: Noncontributory IMPRESSION IMPRESSION: Preoperative planning CT with mild mandibular prognathism. Hospital Education Coordinator: PSCB Transcribe Date/Time: Mar 20 2024 11:06A Dictated by : SUE FARMER MD This examination was interpreted and the report reviewed and electronically signed by: SUE FARMER MD on Mar 20 2024 11:17AM EST [facility] Study observation (narrative) [facility] CT Facial bones WO contrastO rdered By: Cclamont Provider on 03-20-2024 [facility] Surgery Visit Reporton 03-10 Surgery Visit Report [facility] [address] [place] [address] OFFICE VISIT Date of Service: 03/10/24 MR#: [id number] Acct: [id number] Name: JOAN MOORE Rep #: 60 : 2005 Provider: SCHUYLER rose Age/Sex: 18/F Location: [facility] Status: Signed Intake Vital Signs 02/25/24 12:14 Height 5 ft 7 in Intake Visit Reasons: LAP GRETTA 1-20 Chief Complaint: lap gretta Is patient in pain?: No Allergies No Known Allergies Allergy (Verified 03/10/24 12:52) Medications ???Medication ???Instructions ???Recorded ???Confirmed ???Type albuterol sulfate 90 mcg/actuation 2 inh inhalation Q4H PRN shortne ss 03/12/23 02/25/24 History aerosol inhaler of breath or wheezing medroxyprogesterone 150 mg/mL 150 mg IM [id number] #1 mL 03/28/23 02/25/24 Rx intramuscular suspension (Depo-Provera) omeprazole 40 mg capsule,delayed 40 mg PO QDAY #30 caps 02/14/24 Rx release Subjective Details: Patient is a 18 y/o F I am following s/p laparoscopic cholecystectomy with attempted cholangiogram by Dr. Buckley on 02/25/24. Patient tolerated the procedure well. Patient notes some of her symptoms have resolved since her procedure. She notes having some nausea and looser stools, however this was going on prior to the procedure. She notes her abdominal cramping has improved. Pathology demonstrated mild chronic cholecystitis. No stones are noted within the specimen. Objective Details: Abdomen- soft, nontender Coding Level of Care Code Global Post Op Diagnoses S/P cholecystectomy Z90.49 Chronic diarrhea K52.9 PFSH Medical History Wears contact lenses Non-smoker Anxiety Chronic diarrhea Biliary dyskinesia Spider bite Abnormal uterine bleeding Contraception management Asthma Migraine COVID-19 Surgical History (Updated 03/10/24 @ 12:52 by Sheryl Anthony LPN) S/P cholecystectomy Hx of wisdom tooth extraction History of tonsillectomy and adenoidectomy Family History Mother Rheumatoid arthritis Heart palpitations Father Hemochromatosis Hypertension Social History household members: family housing: house current occupational exposures/hazards: No pets and animals: Yes pets and animals: cat(s), dog(s) and fish sexually active: Yes Smoking Status: Never smoker alcohol intake: never substance use type: does not use and tranquilizers caffeine: Yes seatbelt use: always Assessment and Plan (No Qualifiers) Assessment and Plan (1) S/P cholecystectomy: Status: Acute Plan: Recommend no lifting greater than 20 pounds for 2 weeks (2) Chronic diarrhea: Status: Chronic Plan: Recommend if diarrhea and nausea are not improved in 2 months; follow-up with Dr. Buckley at that time to determine if a colonoscopy and EGD are appropriate to pursue. Patient was agreeable to this plan. I have also discussed with the patient that there are bile-binding medications that can help with loose stools s/p cholecystectomy. 03/12/24 1051 Date Josefina Camarena TISHA Conleyer Signature: Date (if applicable) CC: Normal [facility] 12 Lead EKGon 02-25-2024 12 Lead EKG [facility] Cardiovascular Services [address] [place] [address] 12 Lead EKG 02/25/24 1150 MR#: [id number] Acct: [id number] Name: JOAN MOORE Rep #: [id number] : 2005 18 From: Reese Humphreys MD Attending Dr: Dr. Norma Buckley MD Status: D EP SD Ordering Dr: Lance Mccullough MD Date: 02/25/24 [place] [facility] [place]: F C Admitted: Test Reason : PREOP Blood Pressure : */* mmHG Vent. Rate : 87 BPM Atrial Rate : 87 BPM P-R Int : 114 ms QRS Dur : 80 ms QT Int : 332 ms P-R-T Axes : 67 83 61 degrees QTcB Int : 399 ms Normal sinus rhythm Normal ECG No previous ECGs available Confirmed by PETR TAPIA, DARLENE ([id number]), visual effects editor JUAN GREENWOOD ([id number]) on 03/04/2024 6:25:02 AM Referred By: Norma Buckley Confirmed By: DARLENE HUMPHREYS MD 03/04/24624 Date Reese Humphreys MD CC: Dr. Lance Mccullough MD; Dr. Tapan Menjivar DO; Dr. Norma Buckley MD Signed Normal [facility] Cholangiogram/ O R,Initialon 02-25-2024 Cholangiogram/ O R,Initial [facility] Imaging Services [address] [place] [address] Cholangiogram/ O R,Initial MR#: [id number] Acct: [id number] Name: JOAN MOORE Rep #: [id number] : 2005 F 18 From: Victoriano epperson MD PCP: Dr. Tapan Menjivar DO Status: [facility] Study: Cholangiogram/ O R,Initial Date of Exam: 02/24 Exam# [id number] Ordering Dr: Norma Buckley MD [id number] STUDY: INTRAOPERATIVE CHOLANGIOGRAM. REASON FOR EXAM: Female, 18 years old. LAP GRETTA W/ IOC FLUOROSCOPY TIME (if supplied): ( 11 seconds ) minutes/seconds. 2.18 mGy. TECHNIQUE: Attempted Intraop Cholangiogram. COMPARISON: None. RAD/Cholangiogram/ O R,Initial IMPRESSION: Attempted intraoperative cholangiogram. Electronically Signed: Victoriano Kerr MD at 15:00 EST , CC: Dr. Tapan Menjivar DO; Dr. Norma Buckley MD Hospital Education Coordinator: Signed Normal [facility] Discharge Instructionon 02-06 Discharge Instruction [facility] Medical Records Department [address] [place] [address] Instructions for Home/Discharge Instructions 02/25/24 1438 MR#: [id number] Acct: [id number] Name: JOAN MOORE Rep #: [id number] : 2005 18 From: Norma Buckley MD PCP: Dr. Tapan Menjivar DO [place] [facility] [place]charge Instructions Diet Discharge Diet: Light diet - advance as tolerated Activity Discharge Activity: May Not Drive (while taking narcotic pain medications.) May shower in (days): 1 Lifting Restrictions: no lifting >20 lbs x 2 wks, no strenuous exercise for 4 wks Dressing / Incision Call your doctor if your incision/area has: Continuous Slow Oozing, Sudden Increased Bleeding, Increased Pain/ Swelling, Increased Redness, Foul Smelling Discharge and Swelling at the incision site Call your doctor if you observe: Fever of 101 or Higher Remove Dressing in: 2 days Cleanse incision/area with: Soap Water Additional Dressing/Incision Instructions:: Steri-Strips will fall off in 7 to 10 days, if they do not fall off okay to remove after 10 days. Follow Up Care Please Follow Up With: Norma Buckley MD When: Call the office for a follow-up appointment 2 weeks; after 5 PM and on the weekends call [phone] with any concerns. Test Results: Test results from this visit will be discussed in further detail at your follow-up appointment, if applicable. Discharge Plan Admission Attending Provider: Norma Buckley Primary Care Provider: Tapan Menjivar Instructions Print Language: Armenian Discharge Orders/Prescriptions Prescriptions: New hydrocodone-acetaminophen 5-325 mg tablet 1 tab PO Q6H PRN (Reason: pain) 3 Days Qty: 10 0RF Continued medroxyprogesterone [Depo-Provera] 150 mg/mL suspension 150 mg IM [id number] Qty: 1 3RF omeprazole 40 mg capsule,delayed release(DR/EC) 40 mg PO QDAY Qty: 30 5RF Rx Instructions: swallow whole; do not crush, chew, dissolve, cut, break albuterol sulfate 90 mcg/actuation HFA aerosol inhaler 2 inh inhalation Q4H PRN (Reason: shortness of breath or wheezing) Referrals / Follow Up: Tapan Menjivar DO [Primary Care Provider] - Disposition Disposition (needs filled in before D/C Order can be placed): Home, Self Care 02/25/24 3144 oNrma Buckley MD CC: Dr. Tapan Menjivar DO Signed [facility] MR/POSTOP.ANEon 02-25-2024 MR/POSTOP.ANE [facility] Medical Records Department [address] [place] [address] Anesthesia Postop Eval I 02/25/24 1509 MR#: [id number] Acct: [id number] Name: JENIFERJOANRA HERZOG Rep #: [id number] : 2005 From: Lux Fernandez PCP: Dr. Tapan Menjivar, DO Status:[facility] Y Race: C Location: [place] [address] Anesthesia: Postop Eval I Current Vital Signs Temperature: 97.8 F Pulse Rate: 84 Blood Pressure: 115/86 Respiratory Rate: 16 Pulse Ox: 99 Oxygen Delivery Method: Room Air Assessment Airway patent: Yes Spontaneous unlabored respirations: Yes Mental status: Awake nausea: No Vomiting: No Anesthesia Complication: No Fluid Hydration Crystalloid volume administer (ml): 700 Total IV fluid infused: 700 Progress Note Anesthesia document: Postop Eval 1 completed: Yes 02/25/24 1510 Date Lux Cullen Signature: Date CC: Signed [facility] MR/[id number] 02-25-2024 MR/POSTOPAN2 [facility] Medical Records Department [address] [place] [address] Anesthesia Postop Eval II 02/25/24 1803 MR#: [id number] Acct: [id number] Name: JOAN MOORE Rep #: [id number] : 2005 18 From: Henri Benjamin MD PCP: Dr. Tapan Menjivar, DO Status:DEP [facility] Y Race: C [place] [facility] Anesthesia Postop Eval I Sum Postop Eval Completion status Anesthesia document: Postop Eval 1 completed: Yes Anesthesia Postop Eval I Summary Anesthesia Postop Eval I Summary: Anesthesia Postop Eval I: Assessment Summary Airway patent Yes 02/25/24 15:10 [email or web address] Spontaneous unlabored Yes 02/25/24 15:10 [email or web address] respirations Mental status Awake 02/25/24 15:10 [email or web address] nausea No 02/25/24 15:10 [email or web address] Vomiting No 02/25/24 15:10 [email or web address] Anesthesia Postop Eval I: Fluid Summary Crystalloid volume administer 700 02/25/24 15:10 [email or web address] (ml) Colloids volume administered ( ml) Blood Product volume administered (ml) Total IV fluid infused 700 02/25/24 15:10 [email or web address] Anesthesia Postop Eval I: Summary Notes Anesthesia Complication No 02/25/24 15:10 [email or web address] Anesthesia Complication Comment: Post-operative progress note Anesthesia: Postop Eval II Evaluation Mental status: Awake and Calm Pain Level: 4 nausea: No Vomiting: No Complications Anesthesia Complication: No 02/25/24 1803 Date Henri Benjamin MD Cosigner Signature: Date CC: Signed Normal [facility] Operative Reporton 5 Operative Report [facility] Medical Records Department [address] [place] [address] Operative Report 02/25/24 1435 MR#: [id number] Acct: [id number] Name: JOAN MOORE ROSENDA Rep #: [id number] : 2005 18 From: Norma Buckley MD PCP: Dr. Tapan Menjivar, DO Status:[facility] [place] [facility] Operative Report (Standard) Operative Information Date of Procedure: 02/25/24 Pre-Operative Diagnosis: Biliary dyskinesia Post-Operative Diagnosis: Same Surgery/Procedure Performed: Laparoscopic cholecystectomy with attempted cholangiograms cardiology clinical consultant: Yes Cat Cracker Operator: Don Bustos Tasks completed by horticultural nursery assistant: Opening closing and Retracting Type of Anesthesia: General/Supplemental RN Documented Start/Stop Times: Operation Date: 02/25/24 13:20 Case Time Into Pre-Op 02/25/24 11:43 Out of Pre-Op 02/25/24 13:25 Anesthesia Start 02/25/24 13:30 Into Room 02/25/24 13:30 Procedure Start 02/25/24 13:49 Procedure End 02/25/24 14:43 Anesthesia End 02/25/24 14:49 Out of Room 02/25/24 14:49 Into Recovery 02/25/24 14:55 Out of Recovery 02/25/24 16:01 Into Phase II Recovery 02/25/24 16:02 Out of Phase II 02/25/24 17:50 Procedure Start Time: 13:49 Procedure Stop Time: 14:43 Select all DRAINS/GRAFTS/IMPLANTS that apply: None Special Medications: Ancef 2 g IV x 1 Estimated Blood Loss: < 10 cc Specimen collected: Yes Description of specimen(s) removed: Gallbladder Description of surgery: Indications: this is a 18 year-old female who developed abdominal pain/nausea/vomiting and on workup was found to have no cholelithiasis, biliary dyskinesia with less than 5% emptying fraction, HIDA, with a normal common bile duct. Laparoscopic cholecystectomy was elected. Description procedure: The patient was placed on operating table in supine position. A timeout was completed verifying correct patient, procedure, site, position and special equipment prior to beginning procedure. General Anesthesia was induced. The abdomen was prepped and draped in usual sterile fashion. An incision was made in the natural skin line below the umbilicus. The fascia was elevated and incised. The peritoneum was elevated and incised. Entry into the peritoneum was confirmed visually and no bowel was noted in the vicinity of the incision. Brown trocar was placed. The abdomen was insufflated with carbon dioxide to a pressure of 12-15 mmHg. Patient tolerated insufflation well. The laparoscope was then inserted and abdomen inspected. No injuries from initial trocar placement were noted. Additional trochars were then inserted in the following locations 5 mm trocar in the epigastrium and 2 more 5 mm trochars along the right costal margin. The abdomen was inspected no abnormalities were found. The table is placed in reverse Trendelenburg position with the right side up. The dome of the gallbladder was grasped with atraumatic grasper passed through the lateral port and retracted over the dome of the liver. Infundibulum was then grasped with atraumatic grasper through the midclavicular port and retracted to the right lower quadrant. This maneuver exposed Calot's triangle. The peritoneum overlying the gallbladder infundibulum was then incised and cystic duct and artery identified and circumferentially dissected. Smart catheter was attempted for cholangiograms; phipps jennifer were not completed due to extravasation of contrast. The cystic duct and artery were then doubly clipped and divided close to the gallbladder. The gallbladder then dissected from its peritoneal attachments by electrocautery. Hemostasis was checked and the gallbladder and contained stones were removed using the endoscopic retrieval bag through the umbilical port. The gallbladder is passed off table as specimen. The gallbladder fossa was irrigated with saline and hemostasis obtained. There is no evidence of bleeding from the gallbladder fossa or cystic artery leakage of bile from the cystic duct stump. Secondary trochars removed under direct vision. No bleeding was noted the trocar sites. The laparoscope was withdrawn and umbilical trocar removed. The abdomen was allowed to collapse. The fascia of the 12 mm trocar was closed with a [id number] 0 Vicryl suture. The skin was closed with sutures of 4-0 Monocryl and Steri-Strips. The patient was extubated. The patient tolerated procedure well and was taken to the postanesthesia care unit in stable condition. Surgical Findings: See operative report Complications Complications: No 02/26/24 1252 Cosigner Signature (if applicable): CC: Dr. Tapan Menjivar DO; Dr. Norma Buckley MD Signed Normal [facility] ,Urineon 02-25-2024 Beta HCG ( test) Ql (U) Negative Normal [facility] Comment on above: Result Comment: Very dilute urine specimens, as indicated by a low specific gravity, may not contain claim service representative levels of hCG. If is still suspected, a first morning urine specimen should be collected 48 hours later and tested. Performed By: #### L [id number] ####[facility] [id number] [place], [address] Surgery Specimen Level IIIon 02-25-2024 Surgery Specimen Level III Patient Age/Sex Location Account Attending Physician JOAN MOORE [facility] [id number] [place]. Norma Buckley MD Specimen: [id number] Received: 02/25/24 Status: FELICIA Bustos Num: [id number] Spec Type: GALLBLADDChe Reynaga Dr: Dr. Norma Buckley MD HEADER OPERATION: Laparoscopic cholecystectomy PRE-OP DIAGNOSIS: Biliary dyskinesia, bloating symptom, chronic diarrhea TISSUE SUBMITTED: Gallbladder MICROSCOPIC DIAGNOSIS Gallbladder, cholecystectomy: Mild chronic cholecystitis. Regional lymph nodes showing reactive changes. PW.mr 02/27/2024 MICROSCOPIC DESCRIPTION Slides are reviewed. GROSS DESCRIPTION Received is one container labeled with the patient's name and designated gallbladder. The specimen consists of a gallbladder measuring 6.5 cm in length and ranging from 2 to 3cm in diameter. The external surface is smooth except where it has been dissected off of the liver. There are no stones floating in the fixative. The cystic duct is identified upon opening the gallbladder. The gallbladder contains dark-green viscous bile. The cystic duct is free of stones. A shave of duct proximal portion is taken. There are no stones present in the gallbladder. The mucosa is bile-stained and without any mass lesions. The gallbladder wall measures up to 0.2cm in thickness. Php Web Developer sections from the gallbladder and the cystic duct are submitted in one cassette. / PW:mr 02/26/2024 TC:2 CPT: 54936 Patient Age/Sex Location Account Attending Physician JOAN MOORE [facility] [id number] Dr. Norma Buckley MD Signed (signature on file) Dr. Zahraa Billings MD 02/27/24 1337 Normal [facility] Comment on above: Performed By: #### P IMMO #### [facility] [address] [place], [place], [id number] Urine testOrdered By: Robi Onofre on 02-25-2024 HCG ( test) Ql (U) Negative [facility] Comment on above: Very dilute urine sp ecimens, as indicated by a low specificgravity, may not contain claim service representative levels of hCG. If is still suspected, a first morning urinespecimen should be collected 48 hours later and tested. CNOVon 02-18-2024 CNOV Office Visit (PLASMN ) JOAN MOORE ([id number]) 3 F Date Time Provider Department 02/18/24 10:00 AM JANETH COYLE PLASMN During your visit today, we recorded the following information about you: Pulse Blood pressure Weight Height 81/minute 99/65 53.1 kg 1.702 m Janeth Coyle MD 04/02/2024 3:28 PM Addendum Plastic Surgery Note HPI: Joan is a 18 year old female who presents today for evaluation of her jaw. Patient has had braces 3 times. Does not currently have braces on. Surgical Attendant name: Masha Penaloza DMD, MS Surgical Attendant phone: [phone] (email: [email or web address]) Chief complaint: [x]Chewing []Eating []Swallowing []Speaking []Breathing [x]TMJ pain [x]TMJ popping/clicking Overall PAIN Now 0[] 1[] 2[x] 3[] 4[] 5[] 6[] 7[] 8[] 9[] 10[] Average 0[] 1[] 2[] 3[] 4[] 5[x] 6[] 7[] 8[] 9[] 10[] Rest 0[] 1[] 2[x] 3[] 4[] 5[] 6[] 7[] 8[] 9[] 10[] Function 0[] 1[] 2[] 3[] 4[] 5[] 6[] 7[] 8[x] 9[] 10[] Quality [x]sharp []dull [x]aching []sore []taut []pulled []torsion [x]shooting []pricking []pressing []lacerating []pinching []squeezing []drilling []spasm [] throbbing []burning []cramping []cutting []heavy []itchy []radiating [] electrical []stinging Systemic inflammatory diseases yes [] no [x] []RA []Gout []Other........... Connective tissue disease yes [] no [x] []Marfan []Scleroderma []Lupus []Other........... Extraction Maxillary third molars yes [x] no [] September 2022 Extraction Mandibular third molars yes [x] no [] September 2022 History of snoring: yes [] no [x] History of grinding: yes [] no [x] Sleep study: yes [] no [x] AHI:..... STOP BANG Questionnaire 3 or more is considered high pretest probability with 90% and 93% sensitivity/specificity to correlated with AHI > 15 (moderate range MARIUSZ or higher) on a sleep study. Yes/No with Yes = 1 and No = 0 S - Snoring loudly: [] T - Tired, fatigue or sleepy : [x] O - Observed apnea - stopping to breath/choking gasping: [] P - High BP or on medications: [] B - BMI > 35: [] A - Age > 50: [] N - Neck size > 16 in. for females/17 in. for males: [] G - Gender male: [] No results found for: HBA1C No data found for this vital: BP No data to display No data to display YES NO Smoking, vaping, nicotine, cannabis [] [x] Cigarettes/ day.... ? Hormone replacement (contraceptive, post menopause hormone treatment) [x] [] Medication....Depot shots every 3 months Diabetes [] [x] []Type 1? []Type 2 ?Last A1c:..... Systemic inflammatory diseases [] [x] []RA []Gout []Other... Hypertension [] [x] Meds:....... Heart disease or pacemaker [] [x] ............ Family history blood clots [] [x] Personal history blood clots [] [x] Anticoagulation (aspirin, coumadin, xarelto,etc) [] [x] What........... Reason:........... Immunosuppressants (steroid, biologic meds infusion, etc) [] [x] What........... Reason:........... Pt AGAINST blood transfusion? [] [x] ROS: All negative except for: GENERAL: []weight loss []malaise []fevers HEENT: []frequent or significant headaches []changes in hearing []change in vision []nose bleeds []other nasal problems NECK: []lumps []goiter []pain and significant neck swelling RESPIRATORY: []cough []hemoptysis []wheezing []COPD []dyspnea []shortness of breath CARDIOVASCULAR: []chest pain []leg swelling []hypertension []CHF []palpitations GI: []nausea []vomiting []diarrhea MUSCULOSKELETAL: see HPI SKIN: [] skin lesions []rash []itching PSYCH: []sleep disturbance []mood disorder []recent psychosocial stressors HEMATOLOGY/LYMPHOLOGY: []prolonged bleeding []bruising easily []swollen nodes ENDOCRINE: []cold intolerance []heat intolerance []polyuria []polydipsia []goiter Objective: BP 99/65 Pulse 81 Ht 170.2 cm (5' 7) Wt 53.1 kg (117 lb) BMI 18.32 kg/m? No past medical history on file. No past surgical history on file. Current Outpatient Medications Medication Sig Dispense Refill omeprazole (PRILOSEC) 40 mg capsule medroxyPROGESTERone (DEPO-PROVERA) 150 mg/mL MULTI-VITAMIN ORAL Take 1 tablet by mouth once daily. albuterol HFA (PROAIR HFA) 90 mcg/Actuation INHALATION inhaler Inhale 2 Puffs as instructed every 6 hours as needed. 0 beclomethasone (QVAR) 40 mcg/Actuation INHALATION inhaler Inhale 2 Puffs as instructed twice daily. 0 No current facility-administered medications for this visit. ALLERGIES No Known Allergies PE: Alert, awake in NAD Mandibular angle more prominent EXAM: OCCLUSION CLASS RIGHT FIRST MOLAR 1[] 2[] 3[x] CANINE 1[] 2[] 3[] LEFT FIRST MOLAR 1[] 2[] 3[x] CANINE 1[] 2[] 3[] Skeletal class 3 (R) [x]CROSSBITE (L) []CROSSBITE OPEN BITE []ANTERIOR []POSTERIOR []RIGHT LATERAL []LEFT LATERAL Anterior cross bite UPPER INCISOR SHOW AT REST .....3......MM UPPER INCISOR SHOW AT HIGHSMILE .....7.......MM OVERBITE.... (more content not included)... Normal [facility] Surgery Visit Reporton 02-13 Surgery Visit Report [facility] [address] [place] [address]. [address] [place], [place] [address] OFFICE VISIT Date of Service: 02/14/24 MR#: [id number] Acct: [id number] Name: JOAN MOORE Rep #: [id number] : 2005 Provider: Dr. Norma crow MD Age/Sex: 18/F Location: [facility] Status: Signed Intake Vital Signs 02/04/24 08:36 02/14/24 09:57 Height 5 ft 7 in 5 ft 7 in Weight: 120 lb 4 oz BMI 18.8 BP 103/71 Blood Pressure Location Rt brachial Position Sitting Respiration 18 Pulse 76 Pulse Source Monitor Pulse Oximetry (%) 100 Oxygen Delivery Method room air Intake Visit Reasons: ABNORMAL HIDA Chief Complaint: Chronic diarrhea/biliary dyskinesia Stroboroma Operator Required: No Accompanied by: Mother Is patient in pain?: No Allergies No Known Allergies Allergy (Verified 02/14/24 09:59) Medications ???Medication ???Instructions ???Recorded ???Confirmed ???Type albuterol sulfate 90 mcg/actuation 2 inh inhalation Q4H PRN shortness 03/12/23 02/14/24 History aerosol inhaler of breath or wheezing medroxyprogesterone 150 mg/mL 150 mg IM [id number] #1 mL 03/28/23 02/14/24 Rx intramuscular suspension (Depo-Provera) ondansetron 4 mg disintegrating 4 mg PO Q6H PRN PRN Nausea #15 tabs 02/04/24 02/14/24 Rx tablet omeprazole 40 mg capsule,delayed 40 mg PO QDAY #30 caps 02/14/24 02/14/24 Rx release PFSH Medical History (Updated 02/14/24 @ 10:[address] Norma Buckley MD) Anxiety Chronic diarrhea Migraine Asthma Contraception management Abnormal uterine bleeding Biliary dyskinesia Spider bite COVID-19 Surgical History History of tonsillectomy and adenoidectomy Family History Mother Rheumatoid arthritis Heart palpitations Father Hemochromatosis Hypertension Social History household members: family housing: house current occupational exposures/hazards: No pets and animals: Yes pets and animals: cat(s), dog(s) and fish sexually active: Yes Smoking Status: Never smoker alcohol intake: never substance use type: does not use and tranquilizers caffeine: Yes seatbelt use: always HPI HPI HPI: 18-year-old female presents due to abnormal HIDA scan less than 5% consistent with biliary dyskinesia. Patient also had a gastric emptying study which was normal. Patient has been having issues with diarrhea bloating and abdominal cramping for about 2 years has gotten worse more recently. Patient has not been able to really gain weight but has not lost weight either for the last several years. Patient did states she tried omeprazole for about 2 to 3 weeks and did state it cut her diarrhea down from 4 times a day to about 2 times a day. Patient is currently off omeprazole. Patient does have nausea does not vomit. Patient has been more cramping and bloating abdominal pain near her umbilicus not really right upper quadrant. Patient is in school starting February 17 that most of her classes are remote except for 1. ROS General General: Yes weight change and fatigue; No appetite, colon cancer or breast cancer HEENT HEENT: No difficulty swallowing, eye injury, eye surgery, swollen glands or hoarseness Endo Endocrine: No thyroid disease, diabetes mellitus, thyroid cancer, Hair loss, heat intolerance or cold intolerance Skin Skin: No rash or changing moles Musc Musculoskeletal: Yes back problems; No arthritis, rheumatoid arthritis, gout or joint pain Cardio Cardiovascular: No murmur, pacemaker, heart disease, atrial fibrillation, high blood pressure, heart attack, heart stent, palpitations, shortness of breat with exertion or chest pain Psych Psychiatric: Yes anxiety; No depression or hearing voices Resp Respiratory: No shortness of breath, No sleep apnea, No cough, No COPD, Yes asthma, No emphysema and No wheezing Gastro Gastrointestinal: Yes abdominal pain, Yes nausea or vomiting, Yes diarrhea, Yes constipation, No blood in stool, No acid reflux, Yes hemorrhoids, No ulcers, No gallbladder problem and No black,tarry stools Merrick Hematologic: No blood thinners, No blood disorders, No bleeding, No anemia and No blood clots Neuro Neurologic: No numbness and No tingling Exam Const General: cooperative, healthy appearing, comfortable and no acute distress [facility] Head: normocephalic and atraumatic Neck Neck: supple Resp Effort Inspection: normal respiratory effort Cardio Rate: regular rate GI Inspection: non-distended Palpation: soft, no hernias and nontender Skin General: no rashes or lesions noted Neuro General: CN's II-XI intact bilaterally Extrem General: normal to inspection Psych Mental Status: mental (more content not included)... Normal [facility] Absolute neutrophil countOrd ered By: Madan [facility] [address] on 02-04-2024 Neutrophils (Bld) [#/Vol] 6.3 10*3/uL 2.0-7.7 [facility] Basic Metabolic Profile (BMP )on 02-04-2024 BUN/CRE 17.8 RATIO Normal 10-20 [facility] Comment on above: Performed By: #### M 8200.2203 #### [facility] Laboratory [address] [place], [address] CA,Total 9.4 mg/dL Normal 8.5-10.1 [facility] Comment on above: Performed By: #### M 8200.220 #### [facility] [address] [place], [address] Chloride [Moles/Vol] 108 mmol/L High 98-107 [facility] Comment on above: Performed By: #### 8200.220 #### [facility] [address] [place], [address] CO2 [Moles/Vol] 25.0 mmol/L Normal 21.0-32.0 [facility] Comment on above: Performed By: #### 8200.2203 #### [facility] Laboratory [address] [place], [address] Creatinine [Mass/Vol] 0.95 mg/dL Normal 0.55-1.02 [facility] Comment on above: Result Comment: The validity of the calculated GFR GFRAA in patients over 70 years has not been determined. Clinical correlation is essential. Performed By: #### M 8200.2203 #### [facility] [address] [place], [address] ECRCL 78.44 ml/min Normal [facility] Comment on above: Performed By: #### M 8200.2203 #### [facility] [address] [place], [address] EST GFR - AA 97 mL/min Normal >60 [facility] Comment on above: Result Comment: Afri can Guamanian GFR Calc Performed By: #### M 8200.2203 #### [facility] [address] [place], [address] GAP 7 Normal 5-15 [facility] Comment on above: Performed By: #### M 8200.2203 #### [facility] [address] [place], [address] GFR/1.73 sq M.predicted among non-blacks MDRD (S/P/Bld) [Vol rate/Area] 80 mL/min/{1.73_m2} Normal >60 [facility] Comment on above: Result Comment: Non- GFR Calc Performed By: #### M 8200.2203 #### [facility] [address] [place], [address] Glucose [Mass/Vol] 95 mg/dL Normal 74-106 [facility] Comment on above: Performed By: #### M 8200.2203 #### [facility] [address] [place], [address] Potassium [Moles/Vol] 4.0 mmol/L Normal 3.5-5.1 [facility] Comment on above: Performed By: #### M 8200.2203 #### [facility] [address] [place], [address] Sodium [Moles/Vol] 141 mmol/L Normal 136-145 [facility] Comment on above: Performed By: #### M 8200.2203 #### [facility] [address] [place], [address] Urea nitrogen [Mass/Vol] 17 mg/dL Normal 7-18 [facility] Comment on above: Performed By: #### M 8200.220 #### [facility] [address] [place], [address] Basophil percentageOrdered B y: Madan Bhanu on 02-04-2024 Basophils/100 WBC (Bld) 0.4 % 0-1 [facility] Beta HCG ( test) Ql Ordered By: Madan Drummond on 02-04-2024 Serum Test, Qualitative Negative [facility] Bilirubin directOrdered By: Madan Drummond on 02-04-2024 Bilirubin.direct [Mass/Vol] 0.24 mg/dL 0.00-0.30 [facility] Bilirubin, totalOrdered By: Madan Drummond on 02-04-2024 Bilirubin [Mass/Vol] 1.20 mg/dL High 0.20-1.00 [facility] Comment on above: For patients on eltr ombopag therapy, use of Dimension [place] TBIL is not recommended. Blood urea nitrogen (BUN)/cr eatinine ratioOrdered By: Madan Drummond on 02-04-2024 Urea nitrogen/Creatinine [Mass ratio] 17.8 mg/mg 10-20 [facility] CBC W/Diff, Automatedon --2023 Absolute Lymph 1.14 X10 3/uL Normal 0.83-4.51 [facility] Comment on above: Performed By: #### M 8200.2203 #### [facility] Laboratory [address] [place], [address] Absolute Neut 6.3 X10 3/uL Normal 2.0-7.7 [facility] Comment on above: Performed By: #### Kimi [id number] #### [facility] [address] [place], [address] Basophils/100 WBC (Bld) 0.4 % Normal 0-1 [facility] Comment on above: Performed By: #### M 8200.2203 #### [facility] [address] [place], [address] Eosinophils/100 WBC (Bld) 3.6 % Normal 0-5 [facility] Comment on above: Performed By: #### M 8200.2203 #### [facility] [address] [place], [address] Erythrocyte distribution width (RBC) [Ratio] 11.6 % Normal 11.6-14.6 [facility] Comment on above: Performed By: #### M 8200.2203 #### [facility] [address] [place], [address] Hematocrit (Bld) [Volume fraction] 47.0 % Normal 37-47 [facility] Comment on above: Performed By: #### 8200.220 #### [facility] [address] [place], [address] Hemoglobin (Bld) [Mass/Vol] 16.0 g/dL High 12.0-15.0 [facility] Comment on above: Performed By: #### 8200.2203 #### [facility] [address] [place], [address] IG% 0.200 Normal 0.0-0.9 [facility] Comment on above: Result Comment: IG% - Immature Granulocytes (promyelocytes, myelocytes and metamyelocytes) > 1% indicates that a LEFT SHIFT is Present. Performed By: #### M 8200.2203 #### [facility] [address] [place], [address] Lymphocytes/100 WBC (Bld) 13.8 % Low 19-41 [facility] Comment on above: Performed By: #### M 8200.2203 #### [facility] [address] [place], [address] MCH (RBC) [Entitic mass] 31.1 pg Normal 27.0-32.0 [facility] Comment on above: Performed By: #### M [id number] #### [facility] [address] [place], [address] MCHC (RBC) [Mass/Vol] 34.0 g/dL Normal 32-36 [facility] Comment on above: Performed By: #### 8200.220 #### [facility] [address] [place], [address] MCV (RBC) [Entitic vol] 91.4 fL Normal 81-99 [facility] Comment on above: Performed By: #### 8200.220 #### [facility] [address] [place], [address] Monocytes/100 WBC (Bld) 5.3 % Normal 0-10 [facility] Comment on above: Performed By: #### 8200.220 #### [facility] [address] [place], [address] Neutrophils/100 WBC (Bld) 76.7 % High 47-70 [facility] Comment on above: Performed By: #### 8200.2202 #### [facility] Laboratory [address] [place], [address] Nucleated RBC (Bld) [#/Vol] 0 10*3/uL Normal 0-5 [facility] Comment on above: Performed By: #### 8200.2202 #### [facility] Laboratory [address] [place], [address] Platelet mean volume (Bld) [Entitic vol] 10.6 fL Normal 6.2-12.0 [facility] Comment on above: Performed By: #### 8200.2202 #### [facility] Laboratory [address] [place], [address] Platelets (Bld) [#/Vol] 162 10*3/uL Normal 150-450 [facility] Comment on above: Performed By: #### M 8200.220 #### [facility] Laboratory [address] [place], [address] RBC (Bld) [#/Vol] 5.14 10*6/uL Normal 4.2-5.4 [facility] Comment on above: Performed By: #### M 8200.2203 #### [facility] Laboratory [address] [place], [address] RDW SD 39.1 fl Normal 35.1-43.9 [facility] Comment on above: Performed By: #### M 8200.2203 #### [facility] Laboratory [address] [place], [address] WBC (Bld) [#/Vol] 8.3 10*3/uL Normal 4.4-11.0 [facility] Comment on above: Performed By: #### M 8200.2203 #### [facility] Laboratory [address] [place], [address] Carbon dioxide measurementOr dered By: Madan Drummond on 02-04-2024 CO2 [Moles/Vol] 25.0 mmol/L 21.0-32.0 [facility] Chloride measurementOrdered By: Madan Drummond on 02-04-2024 Chloride [Moles/Vol] 108 mmol/L High 98-107 [facility] Emergency Department Summary on 02-04-2024 Emergency Department Summary [facility] Medical Records Department [address] [place] [address] Emergency Department Summary 02/04/24 MR#: [id number] Acct: [id number] Name: JOAN MOORE Rep #: [id number] : 2005 18 From: Madan Drummond DO PCP: Dr. Tapan Menjivar, DO Status:DEP ER Location: ED HPI HPI - GI History of Present Illness Chief Complaint: Abd Pain Informant: patient and parent Narrative Narrative: 18-year-old female presenting to the emergency room with vomiting diarrhea. Patient states that she has been experiencing diarrhea with meals for more than a month. She had an abnormal HIDA scan has been referred to general surgery. Last evening developed vomiting as well as a change in diarrhea. Described more now it is mucousy green and chunky. She had continued vomiting and diarrhea this morning. No reported fever. PFSH PFS Medical History Spider bite COVID-19 Home Medications ???Medication ???Instructions ???Recorded ???Last Taken ???Type albuterol sulfate 90 mcg/actuation 2 inh inhalation Q4H PRN shortness 03/12/23 Unknown History aerosol inhaler of breath or wheezing medroxyprogesterone 150 mg/mL 150 mg IM [id number] #1 mL 03/28/23 Unknown Rx intramuscular suspension (Depo-Provera) doxycycline monohydrate 100 mg 100 mg PO BID #20 caps 06/26/23 Unknown Rx capsule methylprednisolone 4 mg tablets in See Rx Instructions PO PER PKG DIR 06/26/23 Unknown Rx a dose pack (Medrol (Jose)) #21 tabs ondansetron 4 mg disintegrating 4 mg PO Q6H PRN PRN Nausea #15 tabs 02/04/24 Unknown Rx tablet Allergy/AdvReac Type Severity Reaction Status Date / Time No Known Allergies Allergy Verified 02/04/24 08:36 Family History Mother Rheumatoid arthritis Heart palpitations Father Hemochromatosis Hypertension Surgical History History of tonsillectomy and adenoidectomy Social History household members: family housing: house current occupational exposures/hazards: No pets and animals: Yes pets and animals: cat(s), dog(s) and fish sexually active: Yes Smoking Status: Never smoker alcohol intake: never substance use type: does not use and tranquilizers caffeine: Yes seatbelt use: always ROS ROS ED Constitutional Constitutional ED: Denies chills, fever(s) or weight loss Eyes Eyes: Denies change in vision or diplopia ENT ENT ED: Denies ear pain, rhinorrhea or sore throat Cardiovascular Cardiovascular: Denies chest pain, orthopnea, palpitations or racing heartbeat Respiratory/Chest Respiratory/Chest: Denies cough, dyspnea or orthopnea Gastrointestinal Gastrointestinal: Reports abdominal pain, diarrhea, nausea and vomiting Genitourinary Genitourinary ED: Denies dysuria, hematuria or urinary frequency Musculoskeletal Musculoskeletal: Denies arthralgias or myalgias Integumentary Denies abscess or rash Neurologic Neurologic: Denies headache(s) or weakness Psychiatric Psychiatric: Denies anxiety, depression, suicidal ideation or suicidal thoughts Endocrine Endocrinology: Denies polydipsia, polyphagia or polyuria Allergic/Immunologic Allergic/Immunologic ED: Denies mouth swelling, tongue swelling or urticaria EXAM Physical Exam Const Vital Signs: 02/04/24 08:36 Temperature 97.6 F L Temperature Source Oral Pulse Rate 117 H Respiratory Rate 16 Blood Pressure 110/83 H Blood Pressure Mean 92 Pulse Ox 98 Oxygen Delivery Method Room Air Positive well nourished and well developed General Appearance ED: well developed HEENT Reports normocephalic, head/scalp atraumatic and moist mucous membranes Eyes PERRL and EOMs intact bilaterally Neck no lymphadenopathy, supple and no JVD Resp normal respiratory effort and clear to auscultation bilaterally Cardio regular rate, regular rhythm and no murmurs Rate: tachycardic GI non-distended GI Narrative: Abdomen is soft mildly tender. I would not characterize it as surgical Inspection: Negative for abdominal distention Auscultation: hyperactive bowel sounds Palpation: soft and tender LLQ and LUQ; Negative for guarding or rigid Back/Spine no CVA tenderness and normal ROM Extremity normal to inspection General Extremety ED: Negative for edema General Extremity: Negative for edema Neuro oriented x3 and CN's II-XII intact bilaterally Sensorium / Orientation: alert Motor Exam: strength 5/5 throughout Psych mental status grossly normal Mood Affect: Negative for depressed or tearful Skin no rashes or lesions noted and no wounds MDM MDM MDM Narrative Medical decision making narrative: Differen (more content not included)... Normal [facility] Eosinophil percentageOrdered By: Madan Drummond on 02-04-2024 Eosinophils/100 WBC (Bld) 3.6 % 0-5 [facility] Erythrocyte distribution wid th (RBC) [Ratio]Ordered By: Madan Drummond on 02-04-2024 Erythrocyte distribution width (RBC) [Entitic vol] 39.1 fL 35.1-43.9 [facility] Erythrocyte distribution wid th ratioOrdered By: Madan Drummond on 02-04-2024 Erythrocyte distribution width (RBC) [Ratio] 11.6 % 11.6-14.6 [facility] Estimated glomerular filtrat ion rate (GFR) AmericanOrdered By: Madan Drummond on 02-04-2024 Estimated GFR (MDRD) Amer 97 mL/min >60 [facility] Comment on above: GFR Calc Estimation of creatinine marcus aranceOrdered By: Madan Drummond on 02-04-2024 Estimated Creatinine Clearance Calc 78.44 ml/min [facility] Glomerular filtration rate ( GFR) estimationOrdered By: Madan Drummond on 02-04-2024 Estimated GFR (MDRD) Non-Af Amer 80 mL/min >60 [facility] Comment on above: Non- GFR Calc Glucose measurementOrdered B y: Madan Drummond on 02-04-2024 Glucose [Mass/Vol] 95 mg/dL 74-106 [facility] Hematocrit Auto (Bld) [Volum e fraction]Ordered By: Madan Drummond on 02-04-2024 Hematocrit (Bld) [Volume fraction] 47.0 % 37-47 [facility] Hemoglobin measurementOrdere d By: Madan Drummond on 02-04-2024 Hemoglobin (Bld) [Mass/Vol] 16.0 g/dL High 12.0-15.0 [facility] Immature granulocytes/100 WB C Auto (Bld)Ordered By: Madan Drummond on 02-04-2024 Immature granulocytes/100 WBC (Bld) 0.200 % 0.0-0.9 [facility] Comment on above: IG% - Immature Granu locytes (promyelocytes, myelocytes and metamyelocytes) > 1% indicates that a LEFT SHIFT is Present. Laboratory - Chemistry and C hemistry - challengeOrdered By: Madan Drummond on 02-04-2024 AST [Catalytic activity/Vol] 14 U/L Low 15-37 [facility] Lipaseon 02-04-2024 Lipase [Catalytic activity/Vol] 57 U/L Normal 13-75 [facility] Comment on above: Result Comment: Lucretia nassar note: LIPASE revised reference range effective 22. New Lipase methodology. Expected to produce lower values than the previous assay method. NEW Reference Range: 13 - 75 U/L Performed By: #### M 8200.2203 #### [facility] Laboratory [address] [place], [address] Lipase measurementOrdered By : Madan Drummond on 02-04-2024 Lipase [Catalytic activity/Vol] 57 U/L 13-75 [facility] Comment on above: Please note:LIPASE r evised reference range effective 22. New Lipase methodology. Expected to produce lower values than the previous assay method. NEW Reference Range: 13 - 75 U/L Liver Profileon 02-04-2024 Albumin [Mass/Vol] 4.7 g/dL Normal 3.2-5.0 [facility] Comment on above: Performed By: #### M 8200.2203 #### [facility] Laboratory [address] [place], [address] ALK P 28 U/L Low 45-117 [facility] Comment on above: Performed By: #### M 8200.2203 #### [facility] Laboratory [address] [place], [address] ALT [Catalytic activity/Vol] 15 U/L Normal 13-56 [facility] Comment on above: Performed By: #### M 8200.2203 #### [facility] [address] [place], [address] AST [Catalytic activity/Vol] 14 U/L Low 15-37 [facility] Comment on above: Performed By: #### M 8200.2203 #### [facility] [address] [place], [address] Bilirubin [Mass/Vol] 1.20 mg/dL High 0.20-1.00 [facility] Comment on above: Result Comment: For patients on eltrombopag therapy, use of Dimension [place] TBIL is not recommended. Performed By: #### M 8200.2203 #### [facility] [address] [place], [address] Bilirubin.direct [Mass/Vol] 0.24 mg/dL Normal 0.00-0.30 [facility] Comment on above: Performed By: #### M 8200.2203 #### [facility] [address] [place], [address] Globulin (S) [Mass/Vol] 3.3 g/dL Normal 2.2-4.2 [facility] Comment on above: Performed By: #### M 8200.2203 #### [facility] [address] [place], [address] T PROT 8.0 g/dL Normal 6.4-8.2 [facility] Comment on above: Performed By: #### M 8200.2203 #### [facility] Laboratory [address] [place], [place], [id number] Lymphocytes Auto (Unsp spec) [#/Vol]Ordered By: Madan Drummond on 02-04-2024 Lymphocytes (Bld) [#/Vol] 1.14 10*3/uL 0.83-4.51 [facility] Lymphocytes/100 WBC Auto (Un sp spec)Ordered By: Madan Drummond on 02-04-2024 Lymphocytes/100 WBC (Bld) 13.8 % Low 19-41 [facility] MCV (mean corpuscular volume ) determinationOrdered By: Madan Drummond on 02-04-2024 MCV (RBC) [Entitic vol] 91.4 fL 81-99 [facility] Mean corpuscular hemoglobin (MCH) determinationOrdered By: Madan Drummond on 02-04-2024 MCH (RBC) [Entitic mass] 31.1 pg 27.0-32.0 [facility] Mean corpuscular hemoglobin concentration (MCHC) determinationOrdered By: Madan Drummond on 02-04-2024 MCHC (RBC) [Mass/Vol] 34.0 g/dL 32-36 [facility] Mean platelet volume determi nationOrdered By: Madan Drummond on 02-04-2024 Platelet mean volume (Bld) [Entitic vol] 10.6 fL 6.2-12.0 [facility] Monocyte percentageOrdered B y: Madan Drummond on 02-04-2024 Monocytes/100 WBC (Bld) 5.3 % 0-10 [facility] Neutrophil percentageOrdered By: Madan Drummond on 02-04-2024 Neutrophils/100 WBC (Bld) 76.7 % High 47-70 [facility] Nucleated red blood cell per centageOrdered By: Madan Drummond on 02-04-2024 Nucleated RBC/100 WBC (Bld) [Ratio] 0 % 0-5 [facility] Platelet countOrdered By: Eleazar Drummond on 02-04-2024 Platelets (Bld) [#/Vol] 162 10*3/uL 150-450 [facility] Potassium measurementOrdered By: Madan Drummond on 02-04-2024 Potassium [Moles/Vol] 4.0 mmol/L 3.5-5.1 [facility] ,Serum,hCG Quali.on 02-04-2024 HCG, SERUM QUAL Negative Normal [facility] Comment on above: Performed By: #### M 8200.2203 #### [facility] Laboratory [address] [place] [address], [id number] RBC Auto (Bld) [#/Vol]Ordere d By: Madan Drummond on 02-04-2024 RBC (Bld) [#/Vol] 5.14 10*6/uL 4.2-5.4 [facility] Serum anion gap measurementO rdered By: Madan Drummond on 02-04-2024 Anion gap [Moles/Vol] 7 mmol/L 5-15 [facility] Serum globulin measurementOr dered By: Madan Drummond on 02-04-2024 Globulin (S) [Mass/Vol] 3.3 g/dL 2.2-4.2 [facility] Serum or plasma alanine johnson otransferase (ALT) measurementOrdered By: Madan Drummond on 02-04-2024 ALT [Catalytic activity/Vol] 15 U/L 13-56 [facility] Serum or plasma albumin james urement (mass/volume)Ordered By: Madan Drummond on 02-04-2024 Albumin [Mass/Vol] 4.7 g/dL 3.2-5.0 [facility] Serum or plasma alkaline aba sphatase measurementOrdered By: Madan Drummond on 02-04-2024 ALP [Catalytic activity/Vol] 28 U/L Low 45-117 [facility] Serum or plasma calcium james urement (mass/volume)Ordered By: Madan Drummond on 02-04-2024 Calcium [Mass/Vol] 9.4 mg/dL 8.5-10.1 [facility] Serum or plasma creatinine m easurement (mass/volume)Ordered By: Madan Drummond on 02-04-2024 Creatinine [Mass/Vol] 0.95 mg/dL 0.55-1.02 [facility] Comment on above: The validity of the calculated GFR & GFRAA in patients over 70 years has not been determined. Clinical correlation is essential. Serum or plasma urea nitroge n measurement (mass/volume)Ordered By: Madan Drummond on 02-04-2024 Urea nitrogen [Mass/Vol] 17 mg/dL 7-18 [facility] Sodium levelOrdered By: Noe Drummond on 02-04-2024 Sodium [Moles/Vol] 141 mmol/L 136-145 [facility] Total proteinOrdered By: Cedrick Drummond on 02-04-2024 Protein [Mass/Vol] 8.0 g/dL 6.4-8.2 [facility] White blood cell (WBC) count Ordered By: Madan Drummond on 02-04-2024 WBC (Bld) [#/Vol] 8.3 10*3/uL 4.4-11.0 [facility] Hepatobilliary Img w/Pharm I nton 01-31-2024 Hepatobilliary Img w/Pharm Int [facility] [address] [place] [address] Hepatobilliary Img w/Pharm Int MR#: [id number] Acct: [id number] Name: JOAN MOORE Rep #: [id number] : 2005 F 18 From: Jignesh Metcalf PCP: Dr. Tapan Menjivar, DO Status: REG CLI Study: Hepatobilliary Img w/Pharm Int Date of Exam: 1 04/02/23 Exam# [id number] Ordering Dr: Oliva Ball DO [id number] CLINICAL: 18-year-old female with history of postprandial abdominal pain and diarrhea. RADIONUCLIDE HEPATOBILIARY SCINTIGRAPHY COMPARISON: None available FINDINGS: Following the intravenous administration of 6.0 mCi of 99m Tc Mebrofenin, hepatobiliary images reveal: 1. Relatively prompt and homogeneous radiopharmaceutical concentration is noted by a normal sized liver. No parenchymal defects are identified. 2. Gallbladder activity is identified at 15 minutes post radiopharmaceutical administration. 3. Small intestinal tract is and visualized prior to cholecystokinin administration. Small bowel is observed following CCK administration. 4. Washout of the radiopharmaceutical by the hepatic parenchyma appears qualitatively normal. Cholecystokinin (0.02 ug/kg) was administered intravenously over a 30-minute period. The post CCK gallbladder ejection fraction calculated at 20 minutes following Cholecystokinin administration was noted to be < 5 % (normal greater than 35%). There is scintigraphic evidence of post cholecystokinin duodenal-gastric reflux. NM/Hepatobilliary Img w/Pharm Int IMPRESSION: 1. ABNORMAL 99m Tc Mebrofenin hepatobiliary imaging examination with Cholecystokinin. A. A gallbladder ejection fraction calculated to be less than 35% following the administration of Cholecystokinin is consistent with the presence of functional hepatobiliary disease (gallbladder and/or sphincter of Oddi dyskinesia) and/or organic hepatobiliary disease (chronic acalculous cholecystitis and/or cystic duct syndrome) in patients with intermediate to high pretest probabilities of hepatobiliary illness. (Raul Sanches et al, Journal of Nuclear Medicine 32:1695, 1990). B. There is scintigraphic evidence of post CCK duodenal-gastric reflux. (Kavita et al, Nucl Med Latoya Charu Press pg. 35, 1980). Electronically Signed: Jignesh Lopez DO at 10:32 EST , CC: Dr. Oliva Ball DO; Dr. Tapan Menjivar DO Hospital Education Coordinator: Signed Normal [facility] Gastric Emptying Studyon Gastric Emptying Study [facility] Imaging Services [address] [place] [address] Gastric Emptying Study MR#: [id number] Acct: [id number] Name: JOAN MOORE Rep #: [id number] : 2005 F 18 From: Jignesh Metcalf PCP: Dr. Tapan Menjivar DO Status: REG CLI Study: Gastric Emptying Study Date of Exam: 01/29/24 Exam# [id number] Ordering Dr: Oliva Ball DO 2:[id number] CLINICAL: 18-year-old female with history of chronic diarrhea. SEMI-SOLID PHASE 99m Tc SULFUR COLLOID GASTRIC EMPTYING STUDY COMPARISON: None available FINDINGS: The patient was administered 1.2 mCi of 99m Tc sulfur colloid mixed with oatmeal and consumed per os. Image acquisitions in the anterior-posterior projections were obtained for 60 minutes. There is prompt visualization of the stomach. There is no gastroesophageal reflux identified. The T ? linear fit was calculated to be 44.07 minutes, (Normal: 12-56 minutes). NM/Gastric Emptying Study IMPRESSION: 1. NORMAL 99m Tc sulfur colloid semi-solid phase (oatmeal) gastric emptying imaging examination. A. There is normal and preserved semi-solid phase gastric emptying compared to normal controls. (James et al, J Nucl Med Tech 38: 186, 2010). Electronically Signed: Jignesh Lopez DO at 18:21 EST , CC: Dr. Oliva Ball DO; Dr. Tapan Menjivar DO Hospital Education Coordinator: Signed Normal [facility] Thyroid Antibodieson 024 TG AB 1.3 IU/mL High 0.0-0.9 [facility] Comment on above: Result Comment: Thyr oglobulin Antibody measured by [facility] Methodology It should be noted that the presence of thyroglobulin antibodies may not be pathogenic nor diagnostic, especially at very low levels. The assay store detective has found that four percent of individuals without evidence of thyroid disease or autoimmunity will have positive TgAb levels up to 4 IU/mL. Performed at: [address] [id number] [employer] Professor: Dm Perez PhD, Phone: [phone] Performed By: #### L 501.49139, L500.4050, L3300.6750, L100.0100, L501.9520, L506.0400 #### [facility] Laboratory [address] [place], [address] THYR PEROX AB < 9 Normal 0-26 [facility] Comment on above: Performed By: #### L 501.87319, L500.4050, L3300.6750, L100.0100, L501.9520, L506.0400 #### [facility] [address] [place], [address] CBC W/Diff, Automatedon 09-0 5-4 Absolute Lymph 1.85 X10 3/uL Normal 0.83-4.51 [facility] Comment on above: Performed By: #### L 501.51260, L500.4050, L3300.6750, L100.0100, L501.9520, L506.0400 #### [facility] [address] [place], [address] Absolute Neut 2.7 X10 3/uL Normal 2.0-7.7 [facility] Comment on above: Performed By: #### L 501.53485, L500.4050, L3300.6750, L100.0100, L501.9520, L506.0400 #### [facility] [address] [place], [address] Basophils/100 WBC (Bld) 0.6 % Normal 0-1 [facility] Comment on above: Performed By: #### L 501.78484, L500.4050, L3300.6750, L100.0100, L501.9520, L506.0400 #### [facility] [address] [place], [address] Eosinophils/100 WBC (Bld) 4.6 % Normal 0-5 [facility] Comment on above: Performed By: #### L 501.34413, L500.4050, L3300.6750, L100.0100, L501.9520, L506.0400 #### [facility] [address] [place], [address] Erythrocyte distribution width (RBC) [Ratio] 11.8 % Normal 11.6-14.6 [facility] Comment on above: Performed By: #### L 501.38783, L500.4050, L3300.6750, L100.0100, L501.9520, L506.0400 #### [facility] [address] [place], [address] Hematocrit (Bld) [Volume fraction] 42.7 % Normal 37-47 [facility] Comment on above: Performed By: #### L 501.80157, L500.4050, L3300.6750, L100.0100, L501.9520, L506.0400 #### [facility] [address] [place], [address] Hemoglobin (Bld) [Mass/Vol] 14.2 g/dL Normal 12.0-15.0 [facility] Comment on above: Performed By: #### L 501.03630, L500.4050, L3300.6750, L100.0100, L501.9520, L506.0400 #### [facility] [address] [place], [address] IG% 0.400 Normal 0.0-0.9 [facility] Comment on above: Result Comment: IG% - Immature Granulocytes (promyelocytes, myelocytes and metamyelocytes) > 1% indicates that a LEFT SHIFT is Present. Performed By: #### L 501.82723, L500.4050, L3300.6750, L100.0100, L501.9520, L506.0400 #### [facility] [address] [place], [address] Lymphocytes/100 WBC (Bld) 35.2 % Normal 19-41 [facility] Comment on above: Performed By: #### L 501.00209, L500.4050, L3300.6750, L100.0100, L501.9520, L506.0400 #### [facility] [address] [place], [address] MCH (RBC) [Entitic mass] 30.9 pg Normal 27.0-32.0 [facility] Comment on above: Performed By: #### L 501.70900, L500.4050, L3300.6750, L100.0100, L501.9520, L506.0400 #### [facility] [address] [place], [address] MCHC (RBC) [Mass/Vol] 33.3 g/dL Normal 32-36 [facility] Comment on above: Performed By: #### L 501.03790, L500.4050, L3300.6750, L100.0100, L501.9520, L506.0400 #### [facility] [address] [place], [address] MCV (RBC) [Entitic vol] 92.8 fL Normal 81-99 [facility] Comment on above: Performed By: #### L 501.51163, L500.4050, L3300.6750, L100.0100, L501.9520, L506.0400 #### [facility] [address] [place], [address] Monocytes/100 WBC (Bld) 7.8 % Normal 0-10 [facility] Comment on above: Performed By: #### L 501.81615, L500.4050, L3300.6750, L100.0100, L501.9520, L506.0400 #### [facility] [address] [place], [address] Neutrophils/100 WBC (Bld) 51.4 % Normal 47-70 [facility] Comment on above: Performed By: #### L 501.44298, L500.4050, L3300.6750, L100.0100, L501.9520, L506.0400 #### [facility] [address] [place], [address] Nucleated RBC (Bld) [#/Vol] 0 10*3/uL Normal 0-5 [facility] Comment on above: Performed By: #### L 501.91473, L500.4050, L3300.6750, L100.0100, L501.9520, L506.0400 #### [facility] [address] [place], [address] Platelet mean volume (Bld) [Entitic vol] 11.3 fL Normal 6.2-12.0 [facility] Comment on above: Performed By: #### L 501.56258, L500.4050, L3300.6750, L100.0100, L501.9520, L506.0400 #### [facility] [address] [place], [address] Platelets (Bld) [#/Vol] 186 10*3/uL Normal 150-450 [facility] Comment on above: Performed By: #### L 501.93140, L500.4050, L3300.6750, L100.0100, L501.9520, L506.0400 #### [facility] [address] [place], [address] RBC (Bld) [#/Vol] 4.60 10*6/uL Normal 4.2-5.4 [facility] Comment on above: Performed By: #### L 501.49363, L500.4050, L3300.6750, L100.0100, L501.9520, L506.0400 #### [facility] [address] [place], [address] RDW SD 40.1 fl Normal 35.1-43.9 [facility] Comment on above: Performed By: #### L 501.11336, L500.4050, L3300.6750, L100.0100, L501.9520, L506.0400 #### [facility] [address] [place], [address] WBC (Bld) [#/Vol] 5.3 10*3/uL Normal 4.4-11.0 [facility] Comment on above: Performed By: #### L 501.48880, L500.4050, L3300.6750, L100.0100, L501.9520, L506.0400 #### [facility] [address] [place], [address] Comprehensive Metabolic Prof [facility] 10-11-2023 Albumin [Mass/Vol] 4.2 g/dL Normal 3.2-5.0 [facility] Comment on above: Order Comment: N Performed By: #### L 501.03292, L500.4050, L3300.6750, L100.0100, L501.9520, L506.0400 #### [facility] [address] [place], [address] Albumin/Globulin [Mass ratio] 1.3 {ratio} Normal 0.9-2.4 [facility] Comment on above: Order Comment: N Performed By: #### L 501.46664, L500.4050, L3300.6750, L100.0100, L501.9520, L506.0400 #### [facility] [address] [place], [address] ALK P 25 U/L Low 45-117 [facility] Comment on above: Order Comment: N Performed By: #### L 501.29221, L500.4050, L3300.6750, L100.0100, L501.9520, L506.0400 #### [facility] [address] [place], [address] ALT [Catalytic activity/Vol] 10 U/L Low 13-56 [facility] Comment on above: Order Comment: N Performed By: #### L 501.03747, L500.4050, L3300.6750, L100.0100, L501.9520, L506.0400 #### [facility] [address] [place], [address] AST [Catalytic activity/Vol] 11 U/L Low 15-37 [facility] Comment on above: Order Comment: N Performed By: #### L 501.55300, L500.4050, L3300.6750, L100.0100, L501.9520, L506.0400 #### [facility] [address] [place], [address] Bilirubin [Mass/Vol] 0.60 mg/dL Normal 0.20-1.00 [facility] Comment on above: Order Comment: N Result Comment: For patients on eltrombopag therapy, use of Dimension [place] TBIL is not recommended. Performed By: #### L 501.37640, L500.4050, L3300.6750, L100.0100, L501.9520, L506.0400 #### [facility] [address] [place], [address] BUN/CRE 17.5 RATIO Normal 10-20 [facility] Comment on above: Order Comment: N Performed By: #### L 501.40472, L500.4050, L3300.6750, L100.0100, L501.9520, L506.0400 #### [facility] [address] [place], [address] CA,Total 9.4 mg/dL Normal 8.5-10.1 [facility] Comment on above: Order Comment: N Performed By: #### L 501.11494, L500.4050, L3300.6750, L100.0100, L501.9520, L506.0400 #### [facility] [address] [place], [address] Chloride [Moles/Vol] 109 mmol/L High 98-107 [facility] Comment on above: Order Comment: N Performed By: #### L 501.24895, L500.4050, L3300.6750, L100.0100, L501.9520, L506.0400 #### [facility] [address] [place], [address] CO2 [Moles/Vol] 25.0 mmol/L Normal 21.0-32.0 [facility] Comment on above: Order Comment: N Performed By: #### L 501.65194, L500.4050, L3300.6750, L100.0100, L501.9520, L506.0400 #### [facility] [address] [place], [address] Creatinine [Mass/Vol] 0.74 mg/dL Normal 0.55-1.02 [facility] Comment on above: Order Comment: N Result Comment: The validity of the calculated GFR GFRAA in patients over 70 years has not been determined. Clinical correlation is essential. Performed By: #### L 501.57136, L500.4050, L3300.6750, L100.0100, L501.9520, L506.0400 #### [facility] [address] [place], [address] EST GFR - AA 130 mL/min Normal >60 [facility] Comment on above: Order Comment: N Result Comment: Afri can Guamanian GFR Calc Performed By: #### L 501.49644, L500.4050, L3300.6750, L100.0100, L501.9520, L506.0400 #### [facility] [address] [place], [address] GAP 7 Normal 5-15 [facility] Comment on above: Order Comment: N Performed By: #### L 501.47323, L500.4050, L3300.6750, L100.0100, L501.9520, L506.0400 #### [facility] [address] [place], [address] GFR/1.73 sq M.predicted among non-blacks MDRD (S/P/Bld) [Vol rate/Area] 107 mL/min/{1.73_m2} Normal >60 [facility] Comment on above: Order Comment: N Result Comment: Non- GFR Calc Performed By: #### L 501.48334, L500.4050, L3300.6750, L100.0100, L501.9520, L506.0400 #### [facility] [address] [place], [address] Globulin (S) [Mass/Vol] 3.2 g/dL Normal 2.2-4.2 [facility] Comment on above: Order Comment: N Performed By: #### L 501.95370, L500.4050, L3300.6750, L100.0100, L501.9520, L506.0400 #### [facility] [address] [place], [address] Glucose [Mass/Vol] 78 mg/dL Normal 74-106 [facility] Comment on above: Order Comment: N Performed By: #### L 501.19872, L500.4050, L3300.6750, L100.0100, L501.9520, L506.0400 #### [facility] [address] [place], [address] Potassium [Moles/Vol] 3.9 mmol/L Normal 3.5-5.1 [facility] Comment on above: Order Comment: N Performed By: #### L 501.09869, L500.4050, L3300.6750, L100.0100, L501.9520, L506.0400 #### [facility] [address] [place], [address] Sodium [Moles/Vol] 141 mmol/L Normal 136-145 [facility] Comment on above: Order Comment: N Performed By: #### L 501.22962, L500.4050, L3300.6750, L100.0100, L501.9520, L506.0400 #### [facility] [address] [place], [address] T PROT 7.4 g/dL Normal 6.4-8.2 [facility] Comment on above: Order Comment: N Performed By: #### L 501.92906, L500.4050, L3300.6750, L100.0100, L501.9520, L506.0400 #### [facility] [address] [place], [address] Urea nitrogen [Mass/Vol] 13 mg/dL Normal 7-18 [facility] Comment on above: Order Comment: N Performed By: #### L 501.82607, L500.4050, L3300.6750, L100.0100, L501.9520, L506.0400 #### [facility] [address] [place], [address] Free T3on 10-11-2023 Free T3 [Mass/Vol] 3.0 pg/mL Normal 2.18-3.98 [facility] Comment on above: Order Comment: N Performed By: #### L 501.85512, L500.4050, L3300.6750, L100.0100, L501.9520, L506.0400 #### [facility] [address] [place], [place], [address] T4 Free Directon 10-11-2023 T4 FREE DIRECT 0.95 ng/dL Normal 0.76-1.46 [facility] Comment on above: Order Comment: N Performed By: #### L 501.11485, L500.4050, L3300.6750, L100.0100, L501.9520, L506.0400 #### [facility] [address] [place], [place], [address] Thyroid Stim Hormone (TSH)on 10-11-2023 TSH 1.790 uIU/mL Normal 0.358-3.74 0 [facility] Comment on above: Order Comment: N Performed By: #### L 501.54929, L500.4050, L3300.6750, L100.0100, L501.9520, L506.0400 #### [facility] [address] [place], [place], [address] ESRon 05-08-2023 Erythrocyte Sed Rate <1 Normal 0-20 [facility] ([place]) Comment on above: Performed By: #### Che SR #### Chantel Pearce [address], [place] [address] Erythrocyte sedimentation ra teOrdered By: Tapan Menjivar on 05-08-2023 ESR (Bld) [Velocity] mm/h 0-30 [facility] Comment on above: TESTING PERFORMED AT [facility]. ORIGINAL REPORT ON FILE IN LAB CONTAINS ADDITIONAL TEST SITE INFORMATION. LABORATORYOrdered By: Regina Polk on 05-08-2023 ESR Photometric method (Bld) [Velocity] mm/hr Normal 0 - 20 mm/hr AO Man Heme SS No Panel InformationOrdered By: Tapan Menjivar on 05-08-2023 Anti-Nuclear Antibody Screen Negative Negative [facility] Comment on above: Performed at: [place] [id number] Director: Dm Perez PhD, Phone: [phone] C-Reactive Protein Extended Range < 2.90 mg/L 0.0-3.0 [facility] Comment on above: C-Reactive Protein ( CRP) provides useful information for thediagnosis, therapy and monitoring of inflammatory processesand associated diseases. For the evaluation of Relative Riskfor Cardiovascular Disease, a High Sensitivity CRP (HSCRP)should be ordered. Centromere B Antibody Not Reportable [facility] MAY-1 Antibody Not Reportable [facility] ORTHOTIC PRACTITIONER Antibody Not Reportable [facility] SM Antibody Not Reportable [facility] SS-A/Ro IgG Antibody Not Reportable [facility] SS-B/La IgG Antibody Not Reportable [facility] Serum DNA double strand anti body assay (units/volume)Ordered By: Tapan Menjivar on 05-08-2023 DNA double strand Ab Qn (S) Not Reportable [facility] Serum Scl-70 antibody assay (units/volume)Ordered By: Tapan Menjivar on 05-08-2023 SCL-70 extractable nuclear Ab Qn (S) Not Reportable [facility] Chlamydia trachomatis rRNA d etection by probe and target amplification methodOrdered By: Margareth Patel on 03-28-2023 C. trachomatis rRNA LINDA+probe Ql (Unsp spec) Negative Negative [facility] Laboratory - Chemistry and C hemistry - challengeon 03-28-2023 HCG ( test) Ql (U) Negative [facility] - Microbiology an d Antimicrobial susceptibilityOrdered By: Margareth Patel on 03-28-2023 N. gonorrhoeae DNA LINDA+probe Ql (Unsp spec) Negative Negative [facility] Comment on above: Performed at: =[facility] [address] [place], [place] [id number] Director: Lilly George MD, Phone: [phone] No Panel Informationon 03-28 POC Trichomonas (Rapid) Negative [facility] Absolute lymphocyte countOrd ered By: ED PROVIDER on 03-12-2023 Lymphocytes Auto (Unsp spec) [#/Vol] 2.13 10*3/uL 0.83-4.51 [facility] Automated lymphocyte count a s percentage of total leukocytesOrdered By: ED PROVIDER on 03-12-2023 Lymphocytes/100 WBC Auto (Unsp spec) 37.8 % 25-45 [facility] Basophil percentageOrdered B y: ED PROVIDER on 03-12-2023 Basophils/100 WBC (Bld) 0.7 % 0-1 [facility] Bilirubin [Mass/Vol] 0.60 mg/dL 0.20-1.00 [facility] Comment on above: For patients on eltr ombopag therapy, use of Dimension [place] TBIL is not recommended. Chloride [Moles/Vol] 107 mmol/L 98-107 [facility] Eosinophils/100 WBC (Bld) 4.1 % 0-3 [facility] Glucose [Mass/Vol] 79 mg/dL 74-106 [facility] Hemoglobin (Bld) [Mass/Vol] 15.4 g/dL 12.0-15.0 [facility] Monocytes/100 WBC (Bld) 6.9 % 3-6 [facility] Neutrophils (Bld) [#/Vol] 2.8 10*3/uL 2.0-7.7 [facility] Neutrophils/100 WBC (Bld) 50.3 % 34-64 [facility] Potassium [Moles/Vol] 3.9 mmol/L 3.5-5.1 [facility] Protein [Mass/Vol] 8.1 g/dL 6.4-8.2 [facility] Sodium [Moles/Vol] 142 mmol/L 136-145 [facility] WBC (Bld) [#/Vol] 5.6 10*3/uL 4.5-13.0 [facility] Basophil percentage 0 SEEN /hpf 0-5 [facility] Bilirubin Test strip Ql (U)O rdered By: ED PROVIDER on 03-12-2023 Bilirubin Ql (U) Negative Negative [facility] Determination of erythrocyte mean corpuscular volume (MCV)Ordered By: ED PROVIDER on 03-12-2023 MCV (RBC) [Entitic vol] 90.3 fL 78-96 [facility] Erythrocyte distribution wid th ratioOrdered By: ED PROVIDER on 03-12-2023 Erythrocyte distribution width (RBC) [Ratio] 12.3 % 11.6-14.6 [facility] Erythrocyte distribution wid th standard deviationOrdered By: ED PROVIDER on 03-12-2023 Erythrocyte distribution width (RBC) [Entitic vol] 39.9 fL 35.1-43.9 [facility] Hematocrit Auto (Bld) [Volum e fraction]Ordered By: ED PROVIDER on 03-12-2023 Hematocrit (Bld) [Volume fraction] 45.5 % 37-46 [facility] Immature granulocytes/100 WB C Auto (Bld)Ordered By: ED PROVIDER on 03-12-2023 Immature granulocytes/100 WBC (Bld) 0.200 % 0.0-0.9 [facility] Comment on above: IG% - Immature Granu locytes (promyelocytes, myelocytes and metamyelocytes) > 1% indicates that a LEFT SHIFT is Present. Ketones Test strip Ql (U)Ord ered By: ED PROVIDER on 03-12-2023 Ketones Ql (U) Negative Negative [facility] Laboratory - Chemistry and C hemistry - challengeOrdered By: ED PROVIDER on 03-12-2023 Albumin/Globulin [Mass ratio] 1.0 {ratio} 0.9-2.4 [facility] ALP [Catalytic activity/Vol] 17 U/L 47-119 [facility] ALT [Catalytic activity/Vol] 27 U/L 13-56 [facility] CO2 [Moles/Vol] 27.0 mmol/L 21.0-32.0 [facility] Globulin (S) [Mass/Vol] 4.0 g/dL 2.2-4.2 [facility] Urea nitrogen/Creatinine [Mass ratio] 19.2 mg/mg 10-20 [facility] Laboratory - Hematology and Cell countsOrdered By: ED PROVIDER on 03-12-2023 MCH (RBC) [Entitic mass] 30.6 pg 25.0-35.0 [facility] MCHC (RBC) [Mass/Vol] 33.8 g/dL 32-36 [facility] Nucleated RBC/100 WBC (Bld) [Ratio] 0 % 0-5 [facility] Platelets (Bld) [#/Vol] 201 10*3/uL 150-450 [facility] Mucus LM Ql (Urine sed)Order ed By: ED PROVIDER on 03-12-2023 Mucus Ql (Urine sed) 0 SEEN /hpf [facility] Nitrite Test strip Ql (U)Ord ered By: ED PROVIDER on 03-12-2023 Nitrite Ql (U) Negative Negative [facility] No Panel InformationOrdered By: ED PROVIDER on 03-12-2023 Estimated Creatinine Clearance Calc 109.04 ml/min [facility] Estimated GFR (MDRD) Amer 145 mL/min >60 [facility] Comment on above: GFR Calc Estimated GFR (MDRD) Non-Af Amer 120 mL/min >60 [facility] Comment on above: Non- GFR Calc Urine RBC 25-50 SEEN /hpf 0-5 [facility] Platelet mean volume [place]-Ec ker (Bld) [Entitic vol]Ordered By: ED PROVIDER on 03-12-2023 Platelet mean volume (Bld) [Entitic vol] 11.1 fL 6.2-12.0 [facility] Protein Test strip Ql (U)Ord ered By: ED PROVIDER on 03-12-2023 Protein Ql (U) 15 mg/dl Negative [facility] RBC Auto (Bld) [#/Vol]Ordere d By: ED PROVIDER on 03-12-2023 RBC (Bld) [#/Vol] 5.04 10*6/uL 4.1-4.8 [facility] Serum or plasma calcium james urement (mass/volume)Ordered By: ED PROVIDER on 03-12-2023 Calcium [Mass/Vol] 9.5 mg/dL 8.5-10.1 [facility] Serum or plasma choriogonado tropin detectionOrdered By: ED PROVIDER on 03-12-2023 HCG ( test) Ql Negative [facility] Serum or plasma creatinine m easurement (mass/volume)Ordered By: ED PROVIDER on 03-12-2023 Creatinine [Mass/Vol] 0.68 mg/dL 0.55-1.02 [facility] Comment on above: The validity of the calculated GFR & GFRAA in patients over 70 years has not been determined. Clinical correlation is essential. Serum or plasma urea nitroge n measurement (mass/volume)Ordered By: ED PROVIDER on 03-12-2023 Urea nitrogen [Mass/Vol] 13 mg/dL 7-18 [facility] Squamous epithelial cells de tection in urine sediment by light microscopyOrdered By: ED PROVIDER on 03-12-2023 Epithelial cells.squamous LM Ql (Urine sed) 0-5 SEEN /hpf 5-10 [facility] Thin prep Papanicolaou smear with manual screeningOrdered By: ED PROVIDER on 03-12-2023 Thin prep Papanicolaou smear with manual screening 4.1 g/dL 3.2-5.0 [facility] Thin prep Papanicolaou smear with manual screening 11 U/L 15-37 [facility] Thin prep Papanicolaou smear with manual screening 8 5-15 [facility] Urine blood detectionOrdered By: ED PROVIDER on 03-12-2023 RBC Ql (U) 250 /ul Negative [facility] Urine clarityOrdered By: ED PROVIDER on 03-12-2023 Clarity (U) Sl. Cloudy Clear [facility] Urine color determinationOrd ered By: ED PROVIDER on 03-12-2023 Color (U) Yellow Yellow [facility] Urine glucose detectionOrder ed By: ED PROVIDER on 03-12-2023 Glucose Ql (U) Normal mg/dl Normal [facility] Urine leukocyte esterase det ection by dipstickOrdered By: ED PROVIDER on 03-12-2023 Leukocyte esterase Test strip Ql (U) Negative Negative [facility] Urine pHOrdered By: ED PROVI ALLI on 03-12-2023 pH (U) 5.0 [pH] 5.0 - 8.0 [facility] Urine sediment bacteria coun t by microscopy (number/high power field)Ordered By: ED PROVIDER on 03-12-2023 Bacteria LM.HPF (Urine sed) [#/Area] 1 /[HPF] None Seen [facility] Urine specific gravity measu rementOrdered By: ED PROVIDER on 03-12-2023 Specific gravity (U) [Rel density] 1.025 1.002-1.03 0 [facility] Urine urobilinogen measureme ntOrdered By: ED PROVIDER on 03-12-2023 Urobilinogen Ql (U) Normal mg/dl Normal [facility] Absolute lymphocyte countOrd ered By: Madan Drummond on 12-26-2022 Lymphocytes Auto (Unsp spec) [#/Vol] 3.07 10*3/uL 0.83-4.51 [facility] Basophil percentageOrdered B y: Madan Drummond on 12-26-2022 Basophil percentage 5-10 SEEN /hpf 0-5 [place] Basophils/100 WBC (Bld) 0.6 % 0-1 [facility] Bilirubin [Mass/Vol] 0.20 mg/dL 0.20-1.00 [facility] Comment on above: For patients on eltr ombopag therapy, use of Dimension [place] TBIL is not recommended. Chloride [Moles/Vol] 107 mmol/L 98-107 [facility] Eosinophils/100 WBC (Bld) 4.2 % 0-3 [facility] Glucose [Mass/Vol] 92 mg/dL 74-106 [facility] Neutrophils (Bld) [#/Vol] 4.2 10*3/uL 2.0-7.7 [facility] Neutrophils/100 WBC (Bld) 50.9 % 34-64 [facility] Potassium [Moles/Vol] 3.9 mmol/L 3.5-5.1 [facility] Protein [Mass/Vol] 7.8 g/dL 6.4-8.2 [facility] Sodium [Moles/Vol] 139 mmol/L 136-145 [facility] WBC (Bld) [#/Vol] 8.3 10*3/uL 4.5-13.0 [facility] Beta hCG serum qualOrdered B y: Madan Drummond on 12-26-2022 Beta HCG ( test) Ql Negative [facility] Bilirubin Test strip Ql (U)O rdered By: Madan Drummond on 12-26-2022 Bilirubin Ql (U) Negative Negative [facility] Blood erythrocytes count (nu mber/volume)Ordered By: Madan Drummond on 12-26-2022 RBC (Bld) [#/Vol] 4.71 10*6/uL 4.1-4.8 [facility] Blood hemoglobin measurement (mass/volume)Ordered By: Madan Drummond on 12-26-2022 Hemoglobin (Bld) [Mass/Vol] 14.4 g/dL 12.0-15.0 [facility] Blood lymphocytes/100 leukoc ytesOrdered By: Madan Drummond on 12-26-2022 Lymphocytes/100 WBC (Bld) 36.9 % 25-45 [facility] Blood monocytes/100 leukocyt esOrdered By: Madan Drummond on 12-26-2022 Monocytes/100 WBC (Bld) 7.2 % 3-6 [facility] Blood platelet mean volumeOr dered By: Madan Drummond on 12-26-2022 Platelet mean volume (Bld) [Entitic vol] 10.6 fL 6.2-12.0 [facility] Determination of erythrocyte mean corpuscular volume (MCV)Ordered By: Madan Drummond on 12-26-2022 MCV (RBC) [Entitic vol] 90.4 fL 78-96 [facility] Hematocrit Auto (Bld) [Volum e fraction]Ordered By: Madan Drummond on 12-26-2022 Hematocrit (Bld) [Volume fraction] 42.6 % 37-46 [facility] Ketones Test strip Ql (U)Ord ered By: Madan Drummond on 12-26-2022 Ketones Ql (U) Negative Negative [facility] Laboratory - Chemistry and C hemistry - challengeOrdered By: Madan Drummond on 12-26-2022 ALP [Catalytic activity/Vol] 36 U/L 47-119 [facility] ALT [Catalytic activity/Vol] 15 U/L 13-56 [facility] CO2 [Moles/Vol] 31.0 mmol/L 21.0-32.0 [facility] Globulin (S) [Mass/Vol] 3.6 g/dL 2.2-4.2 [facility] Urea nitrogen/Creatinine [Mass ratio] 15.1 mg/mg 10-20 [facility] Laboratory - Hematology and Cell countsOrdered By: Madan Drummond on 12-26-2022 Erythrocyte distribution width (RBC) [Entitic vol] 38.5 fL 35.1-43.9 [facility] Erythrocyte distribution width (RBC) [Ratio] 11.7 % 11.6-14.6 [facility] Immature granulocytes/100 WBC (Bld) 0.200 % 0.0-0.9 [facility] Comment on above: IG% - Immature Granu locytes (promyelocytes, myelocytes and metamyelocytes) > 1% indicates that a LEFT SHIFT is Present. MCH (RBC) [Entitic mass] 30.6 pg 25.0-35.0 [facility] Nucleated RBC/100 WBC (Bld) [Ratio] 0 % 0-5 [facility] MCHC Auto (RBC) [Mass/Vol]Or dered By: Madan Drummond on 12-26-2022 MCHC (RBC) [Mass/Vol] 33.8 g/dL 32-36 [facility] Mucus LM Ql (Urine sed)Order ed By: Madan Drummond on 12-26-2022 Mucus Ql (Urine sed) 0 SEEN /hpf [facility] Nitrite Test strip Ql (U)Ord ered By: Madan Drummond on 12-26-2022 Nitrite Ql (U) Negative Negative [facility] No Panel InformationOrdered By: Madan Drummond on 12-26-2022 Estimated Creatinine Clearance Calc 102.47 ml/min [facility] Estimated GFR (MDRD) Amer 134 mL/min >60 [facility] Comment on above: GFR Calc Estimated GFR (MDRD) Non-Af Amer 110 mL/min >60 [facility] Comment on above: Non- GFR Calc Platelets bldOrdered By: Cedrick Drummond on 12-26-2022 Platelets (Bld) [#/Vol] 208 10*3/uL 150-450 [facility] Protein Test strip Ql (U)Ord ered By: Madan Drummond on 12-26-2022 Protein Ql (U) Negative Negative [facility] Serum or plasma albumin james urement (mass/volume)Ordered By: Madan Drummond on 12-26-2022 Albumin [Mass/Vol] 4.2 g/dL 3.2-5.0 [facility] Serum or plasma albumin/glob ulin mass ratioOrdered By: Madan Drummond on 12-26-2022 Albumin/Globulin [Mass ratio] 1.2 {ratio} 0.9-2.4 [facility] Serum or plasma calcium james urement (mass/volume)Ordered By: Madan Drummond on 12-26-2022 Calcium [Mass/Vol] 9.3 mg/dL 8.5-10.1 [facility] Serum or plasma creatinine m easurement (mass/volume)Ordered By: Madan Drummond on 12-26-2022 Creatinine [Mass/Vol] 0.73 mg/dL 0.55-1.02 [facility] Comment on above: The validity of the calculated GFR & GFRAA in patients over 70 years has not been determined. Clinical correlation is essential. Serum or plasma urea nitroge n measurement (mass/volume)Ordered By: Madan Drummond on 12-26-2022 Urea nitrogen [Mass/Vol] 11 mg/dL 7-18 [facility] Squamous epithelial cells de tection in urine sediment by light microscopyOrdered By: Madan Drummond on 12-26-2022 Epithelial cells.squamous LM Ql (Urine sed) 10-25 SEEN /hpf 5-10 [facility] Thin prep Papanicolaou smear with manual screeningOrdered By: Madan Drummond on 12-26-2022 Thin prep Papanicolaou smear with manual screening 9 U/L 15-37 [facility] Thin prep Papanicolaou smear with manual screening 1 5-15 [facility] Urine blood detectionOrdered By: Madan Drummond on 12-26-2022 RBC Ql (U) 150 /ul Negative [facility] RBC Ql (U) 0 SEEN /hpf 0-5 [facility] Urine clarityOrdered By: Cedrick Drummond on 12-26-2022 Clarity (U) Sl. Cloudy Clear [facility] Urine color determinationOrd ered By: Madan Drummond on 12-26-2022 Color (U) Yellow Yellow [facility] Urine glucose detectionOrder ed By: Madan Drummond on 12-26-2022 Glucose Ql (U) Normal mg/dl Normal [facility] Urine leukocyte esterase det ection by dipstickOrdered By: Madan Drummond on 12-26-2022 Leukocyte esterase Test strip Ql (U) 500 /ul Negative [facility] Urine pHOrdered By: Madan leone on 12-26-2022 pH (U) 7.0 [pH] 5.0 - 8.0 [facility] Urine sediment bacteria coun t by microscopy (number/high power field)Ordered By: Madan Drummond on 12-26-2022 Bacteria LM.HPF (Urine sed) [#/Area] 1 /[HPF] None Seen [facility] Urine specific gravity measu rementOrdered By: Madan Drummond on 12-26-2022 Specific gravity (U) [Rel density] 1.010 1.002-1.03 0 [facility] Urobilinogen Auto test strip Ql (U)Ordered By: Madan Drummond on 12-26-2022 Urobilinogen Ql (U) Normal mg/dl Normal [facility] Basophil percentageOrdered B y: Oliva Ball on 11-13-2022 Basophil percentage Not Reportable [facility] Erythrocyte sedimentation ra teOrdered By: Oliva Ball on 11-13-2022 ESR (Bld) [Velocity] mm/h 0-30 [facility] Laboratory - Chemistry and C hemistry - challengeOrdered By: Oliva Ball on 11-13-2022 Free T4 [Mass/Vol] 0.94 ng/dL 0.76-1.46 [facility] No Panel InformationOrdered By: Oliva Ball on 11-13-2022 Anti-Nuclear Antibody Screen Negative Negative [facility] Comment on above: Performed at: [facility] [address] [id number] Director: Dm Perez PhD, Phone: [phone] Centrome[employer] B Antibody Not Reportable [facility] Free Triiodothyronine (T3) pg/dL 2.7 pg/mL 2.18-3.98 [facility] Parathyroid Hormone (Intact) 21.2 pg/mL 18.4-80.1 [facility] ORTHOTIC PRACTITIONER Antibody Not Reportable [facility] Thyroglobulin Antibody 2.0 IU/mL 0.0-0.9 [facility] Comment on above: Thyroglobulin Antibo dy measured by ClinkedMethodologyPerformed at: CB - [facility] [address] [id number] Director: Dm Perez PhD, Phone: [phone] Thyroid Stimulating Hormone (TSH) 1.31 uIU/mL 0.358-3.74 [facility] Serum DNA double strand anti body assay (units/volume)Ordered By: Oliva Ball on 11-13-2022 DNA double strand Ab Qn (S) Not Reportable [facility] Serum May-1 antibody assay (u nits/volume)Ordered By: Oliva Ball on 11-13-2022 May-1 extractable nuclear Ab Qn (S) Not Reportable [facility] Serum Scl-70 extractable nuc lear antibody assay (units/volume)Ordered By: Oliva Ball on 11-13-2022 SCL-70 extractable nuclear Ab Qn (S) Not Reportable [facility] Serum [place] extractable nucl ear antibody detectionOrdered By: Oliva Ball on 11-13-2022 [place] extractable nuclear Ab Ql (S) Not Reportable [facility] Serum or plasma prolactin me asurement (mass/volume)Ordered By: Oliva Ball on 11-13-2022 Prolactin [Mass/Vol] 15.9 ng/mL [facility] Comment on above: NORMAL REFERENCE RAN GES FEMALE NON- 2.2 - 30.3 ng/mL 8.1 - 347.6 ng/mL POST-MENOPAUSAL 0.7 - 31.5 ng/mL MALE 2.5 - 17.4 ng/mL Serum or plasma thyroperoxid ase antibody assay (units/volume)Ordered By: Oliva Ball on 11-13-2022 TPO Ab Qn 15 [IU]/mL 0-26 [facility] Transglutaminase IgAon 04-18 Transglutaminase IgA <1.60 Normal 0.00-8.99 [facility] Comment on above: Order Comment: Relea se to patient->Automatic 05383&Blood Result Comment: NEGATIVE Interpretation of Results: Negative: <9.0 AU/mL Equivocal: 9.0-16.0 AU/mL Positive: >16.0 AU/mL Method: The anti-tTG antibodies were determined using an MATTHEW-based commercially available kit (Eu[facility]tTG [facility]). Performed By: #### T RGLA #### [address] [address] EP PanelOrdered By: Darlin lange on 04-15-2022 Gastrointestinal pathogens panel LINDA+probe (Stl) [facility] No Panel InformationOrdered By: Darlin Puckett on 04-14-2022 Stool Calprotectin 56 ug/g 0-120 [facility] Comment on above: Concentration Interp retation Follow-Up<16 - 50 ug/g Normal None>50 -120 ug/g Borderline Re-evaluate in 4-6 weeks >120 ug/g Abnormal Repeat as clinically indicatedPerformed at: [facility] [id number] Director: Gaurav Escalante MD, Phone: [phone] C-Reactive Proteinon 023 CRP [Mass/Vol] mg/L Normal 0.0-1.0 [facility] Comment on above: Order Comment: Relea se to patient->Automatic 28387&Blood Result Comment: CRP determinations in neonates should be interpreted with caution. CRP may be elevated in circumstances not associated with inflammation (e.g. difficult delivery, pneumothorax). In premature neonates CRP levels may not rise to abnormal levels even if sepsis is present; some speculate that immature liver function decreases the ability to generate a CRP response. Performed By: #### C RP #### [address] [id number] C-reactive proteinon 023 CRP [Mass/Vol] mg/L 0.0 - 1.0 mg/dL [facility] Comment on above: CRP determinations i n neonates should be interpreted with caution. CRP may be elevated in circumstances not associated with inflammation (e.g. difficult delivery, pneumothorax). In premature neonates CRP levels may not rise to abnormal levels even if sepsis is present; some speculate that immature liver function decreases the ability to generate a CRP response. Comp Metabolic Panelon 04-13 Chloride [Moles/Vol] 104 mmol/L Normal 96-108 [facility] Comment on above: Order Comment: Relea se to patient->Automatic 89201&Blood Performed By: #### C MP #### [address] [address] Potassium [Moles/Vol] 4.6 mmol/L Normal 3.3-5.1 [facility] Comment on above: Order Comment: Relea se to patient->Automatic 11720&Blood Performed By: #### C MP #### [address] [address] Sodium [Moles/Vol] 141 mmol/L Normal 133-145 [facility] Comment on above: Order Comment: Relea se to patient->Automatic 76462&Blood Performed By: #### C MP #### [address] [address] Glucose [Mass/Vol] 84 mg/dL Normal 70-99 [facility] Comment on above: Order Comment: Relea se to patient->Automatic 17292&Blood Result Comment: Crit eria for Diagnosis of Diabetes: Fasting Specimen (no caloric intake for at least 8 hours): <100 mg/dL Normal 100-125 mg/dL Increased risk for Diabetes >125 mg/dL Diagnostic for Diabetes Random Glucose (any time of day without regard to last meal): > or = 200 mg/dL plus Classic Symptoms of Diabetes Performed By: #### C MP #### [place] [address] Protein [Mass/Vol] 7.2 g/dL Normal 6.0-8.0 [facility] Comment on above: Order Comment: Relea se to patient->Automatic 84534&Blood Performed By: #### C MP #### [address] [address] Urea nitrogen [Mass/Vol] 12 mg/dL Normal 4-19 [facility] Comment on above: Order Comment: Relea se to patient->Automatic 25809&Blood Performed By: #### C MP #### [place] [address] [place] [address] Albumin [Mass/Vol] 4.9 g/dL High 3.2-4.5 [facility] Comment on above: Order Comment: Relea se to patient->Automatic 19911&Blood Performed By: #### C MP #### [address] [address] ALP [Catalytic activity/Vol] 21 U/L Low 43-83 [facility] Comment on above: Order Comment: Relea se to patient->Automatic 75842&Blood Performed By: #### C MP #### [address] [address] ALT [Catalytic activity/Vol] 9 U/L Normal 0-34 [facility] Comment on above: Order Comment: Relea se to patient->Automatic 66244&Blood Performed By: #### C MP #### [address] [address] AST [Catalytic activity/Vol] 20 U/L Normal 0-31 [facility] Comment on above: Order Comment: Relea se to patient->Automatic 67508&Blood Performed By: #### C MP #### [address] [address] Bili,Total 0.8 mg/dL Normal 0.0-1.0 [facility] Comment on above: Order Comment: Relea se to patient->Automatic 72208&Blood Performed By: #### C MP #### [address] [address] Calcium [Mass/Vol] 10.1 mg/dL Normal 7.6-11.0 [facility] Comment on above: Order Comment: Relea se to patient->Automatic 02839&Blood Performed By: #### C MP #### [address] [address] CO2 [Moles/Vol] 23.2 mmol/L Normal 22.0-29.0 [facility] Comment on above: Order Comment: Relea se to patient->Automatic 28515&Blood Performed By: #### C MP #### [address] [address] Creatinine [Mass/Vol] 0.79 mg/dL Normal 0.50-1.00 [facility] Comment on above: Order Comment: Relea se to patient->Automatic 63771&Blood Performed By: #### C MP #### [address] [address] Complete Blood Counton 04-13 Differential Complete Automated Normal [facility] Comment on above: Order Comment: Relea se to patient->Automatic 20269&Blood Performed By: #### C BC #### [address] [address] Basophils/100 WBC (Bld) 0.80 % Normal 0.00-1.00 [facility] Comment on above: Order Comment: Relea se to patient->Automatic 84897&Blood Performed By: #### C BC #### [address] [address] Eosinophils/100 WBC (Bld) 4.10 % High 0.00-3.00 [facility] Comment on above: Order Comment: Relea se to patient->Automatic 66386&Blood Performed By: #### C BC #### [address] [address] Erythrocyte distribution width (RBC) [Ratio] 11.9 % Normal 0.0-14.4 [facility] Comment on above: Order Comment: Relea se to patient->Automatic 83416&Blood Performed By: #### C BC #### [address] [address] Hematocrit (Bld) [Volume fraction] 41.0 % Normal 37.0-46.0 [facility] Comment on above: Order Comment: Relea se to patient->Automatic 14934&Blood Performed By: #### C BC #### [place] [address] Hemoglobin (Bld) [Mass/Vol] 14.4 g/dL Normal 12.0-15.0 [facility] Comment on above: Order Comment: Relea se to patient->Automatic 18141&Blood Performed By: #### C BC #### [address] [address] Immature granulocytes/100 WBC (Bld) 0.20 % Normal [facility] Comment on above: Order Comment: Relea se to patient->Automatic 43174&Blood Result Comment: Racquel ture Granulocyte Percent includes promyelocytes, myelocytes, and metamyelocytes. IG% > 1.0 indicates a left shift is present. With automated differentials, bands are included in the neutrophil count and not in the Immature Granulocyte Percent. Performed By: #### C BC #### [address] [address] Lymphocytes/100 WBC (Bld) 44.6 % Normal 25.0-45.0 [facility] Comment on above: Order Comment: Relea se to patient->Automatic 11704&Blood Performed By: #### C BC #### [address] [id number] MCH (RBC) [Entitic mass] 31.0 pg Normal 25.0-35.0 [facility] Comment on above: Order Comment: Relea se to patient->Automatic 98272&Blood Performed By: #### C BC #### [address] [address] MCHC 35.1 % Normal 31.0-37.0 [facility] Comment on above: Order Comment: Relea se to patient->Automatic 47319&Blood Performed By: #### C BC #### [address] [address] MCV (RBC) [Entitic vol] 88.4 fL Normal 78.0-96.0 [facility] Comment on above: Order Comment: Relea se to patient->Automatic 24926&Blood Performed By: #### C BC #### [address] [address] Monocytes/100 WBC (Bld) 8.60 % High 3.00-6.00 [facility] Comment on above: Order Comment: Relea se to patient->Automatic 61323&Blood Performed By: #### C BC #### [address] [address] Neutrophils (Bld) [#/Vol] 2.5 10*3/uL Normal 1.8-7.5 [facility] Comment on above: Order Comment: Relea se to patient->Automatic 15933&Blood Performed By: #### C BC #### [address] [address] Neutrophils/100 WBC (Bld) 41.7 % Normal 34.0-64.0 [facility] Comment on above: Order Comment: Relea se to patient->Automatic 37491&Blood Performed By: #### C BC #### [address] [address] Nucleated RBC/100 WBC (Bld) [Ratio] 0.0 % Normal -1.0-0.0 [facility] Comment on above: Order Comment: Relea se to patient->Automatic 00750&Blood Performed By: #### C BC #### [address] [id number] Platelet mean volume (Bld) [Entitic vol] 11.6 fL Normal [facility] Comment on above: Order Comment: Relea se to patient->Automatic 20307&Blood Result Comment: MPV is platelet range and age dependent Performed By: #### C BC #### [address] [id number] Platelets (Bld) [#/Vol] 152 10*3/uL Normal 150-450 [facility] Comment on above: Order Comment: Relea se to patient->Automatic 28683&Blood Performed By: #### C BC #### [address] [address] RBC 4.64 10E12/L Normal 4.10-4.80 [facility] Comment on above: Order Comment: Relea se to patient->Automatic 53095&Blood Performed By: #### C BC #### [address] [id number] WBC (Bld) [#/Vol] 5.9 10*3/uL Normal 4.5-13.0 [facility] Comment on above: Order Comment: Relea se to patient->Automatic 09379&Blood Performed By: #### C BC #### [address] [address] Complete Blood Count with Di fferentialon 04-13-2022 Basophils/100 WBC (Bld) 0.8 % 0.00 - 1.00 % [facility] Differential Complete Automated [facility] Eosinophils/100 WBC (Bld) 4.10 % High 0.00 - 3.00 % [facility] Erythrocyte distribution width (RBC) [Ratio] 11.9 % 0.0 - 14.4 % [facility] Hematocrit (Bld) [Volume fraction] 41.0 % 37.0 - 46.0 % [facility] Hemoglobin (Bld) [Mass/Vol] 14.4 g/dL 12.0 - 15.0 g/dl [facility] Immature granulocytes/100 WBC (Bld) 0.2 % [facility] Comment on above: Immature Granulocyte Percent includes promyelocytes, myelocytes, and metamyelocytes. IG% > 1.0 indicates a left shift is present. With automated differentials, bands are included in the neutrophil count and not in the Immature Granulocyte Percent. Interpretation and review of laboratory results Abnormal [facility] Lymphocytes/100 WBC (Bld) 44.6 % 25.0 - 45.0 % [facility] MCH (RBC) [Entitic mass] 31.0 pg 25.0 - 35.0 pg [facility] MCHC 35.1 % 31.0 - 37.0 % [facility] MCV (RBC) [Entitic vol] 88.4 fL 78.0 - 96.0 fl [facility] Monocytes/100 WBC (Bld) 8.60 % High 3.00 - 6.00 % [facility] Neutrophils (Bld) [#/Vol] 2.5 10*3/uL [facility] Neutrophils/100 WBC (Bld) 41.7 % 34.0 - 64.0 % [facility] Nucleated RBC/100 WBC (Bld) [Ratio] 0 % -1.0 - 0.0 % [facility] Platelet mean volume (Bld) [Entitic vol] 11.6 fL [facility] Comment on above: MPV is platelet range and age dependent Platelets (Bld) [#/Vol] 152 10*3/uL [facility] RBC (Bld) [#/Vol] 4.64 10*6/uL [facility] WBC (Bld) [#/Vol] 5.9 10*3/uL [facility] Release to patient->[facility] Comprehensive metabolic pane amy 04-13-2022 Albumin [Mass/Vol] 4.9 g/dL High 3.2 - 4.5 g/dL [facility] ALP [Catalytic activity/Vol] 21 U/L Low 43 - 83 U/L [facility] ALT [Catalytic activity/Vol] 9 U/L 0 - 34 U/L [facility] AST [Catalytic activity/Vol] 20 U/L 0 - 31 U/L [facility] Bilirubin [Mass/Vol] 0.8 mg/dL 0.0 - 1 .0 mg/dL [facility] Calcium [Mass/Vol] 10.1 mg/dL 7.6 - 11. 0 mg/dL [facility] Chloride [Moles/Vol] 104 mmol/L 96 - 10 8 mmol/L [facility] CO2 [Moles/Vol] 23.2 mmol/L 22.0 - 29.0 mmol/L [facility] Creatinine [Mass/Vol] 0.79 mg/dL 0.50 - 1.00 mg/dL [facility] Glucose [Mass/Vol] 84 mg/dL 70 - 99 mg/dL [facility] Comment on above: Criteria for Diagnos is of Diabetes: Fasting Specimen (no caloric intake for at least 8 hours): <100 mg/dL Normal 100-125 mg/dL Increased risk for Diabetes >125 mg/dL Diagnostic for Diabetes Random Glucose (any time of day without regard to last meal): > or = 200 mg/dL plus Classic Symptoms of Diabetes Interpretation and review of laboratory results Abnormal [facility] Potassium [Moles/Vol] 4.6 mmol/L 3.3 - 5.1 mmol/L [facility] Protein [Mass/Vol] 7.2 g/dL 6.0 - 8.0 g/dL [facility] Sodium [Moles/Vol] 141 mmol/L 133 - 145 mmol/L [facility] Urea nitrogen [Mass/Vol] 12 mg/dL 4 - 19 mg/dL [facility] Immunoglobulin Aon 3 Immunoglobulin A 182 mg/dL Normal 61-348 [facility] Comment on above: Order Comment: Relea se to patient->Automatic [id number]&Blood Performed By: #### I GA #### [place] [address] Immunoglobulin A 182 mg/dL 61 - 348 mg/dL [facility] Lipaseon 04-13-2022 Lipase [Catalytic activity/Vol] 35 U/L Normal 13-95 [facility] Comment on above: Order Comment: Relea se to patient->Automatic [id number]&Blood Performed By: #### L IPAS #### [facility] [address] [place] [id number] Lipase [Catalytic activity/Vol] 35 U/L 13 - 95 U/L [facility] No Panel Informationon 04-13 Release to patient->[facility] Progress Noteon 04-13-2022 Market Research Analyst Authentication Interface Message Text Patient ID: Joan Moore is a 16 y.o. female. Her chief complaint(s) include: Diarrhea (Loss of appetite and weight loss [id number]. Patient also had birthcontrol implant placed 03/21 and wanted to talk about that. ) Assessment 1. Abdominal pain, generalized 2. Diarrhea, unspecified type 3. Weight loss Plan Joan was seen today for diarrhea. Diagnoses and associated orders for this visit: Abdominal pain, generalized - Cancel: Basic Metabolic Panel; Future - C-reactive protein; Future - Immunoglobulin A; Future - Transglutaminase IgA; Future - Complete Blood Count with Differential; Future - Comprehensive metabolic panel; Future - Lipase; Future - TSH with Reflex to T4, Free; Future Diarrhea, unspecified type - Calprotectin - Stool Enteric culture Weight loss Plan: will order stool cultures and fecal calprotectin. Will order blood work and have drawn today. Patient instructed to cut out dairy for 2 weeks, and to keep a food journal. Discussed nutrition and ensuring meals/snacks are balances with protein and healthy fats and not just carbohydrates. Also recommend that Joan touch base with women's health provider to ask about any association between nexplanon and diarrhea. Will inform of lab results and stool culture results. Follow up dependant on results: if normal labs and no resolution with dairy elimination then may consider GI referral versus abdominal imaging. Return if symptoms worsen or fail to improve. Subjective HPI Comments: 2 weeks of diarrhea and appetite loss. Never constipated. Diarrhea 4-5 times a day. Unsure if blood yesterday once was from stool or from vagina No mucous in stools, no formed stools in last 2-3 weeks, liquid is brown or greenish, occasional foul smelling No known food intolerances Family eats healthy at home- sometimes Joan will prefer to eat out, has her license now Appetite decreased- eating small amounts- chips/animal crackers Drinking fluids fine- water throughout the school day, occasional brandon mist and work Occasional milk but not regularly Some anxiousness but not affecting daily living and doesn't seem correlated to mood No one else at home has stomach issues Paternal gma hx of diverticulitis, no known family hx of chrohn's or IBS She is accompanied by her father. Independent history obtained from father. Diarrhea The course is unchanging. Her food intake is decreased. Her fluid intake is normal. The patient's associated symptoms have included: fatigue, abdominal pain (started bleeding yesterday so unsure if dt that), nausea (nausea once or twice, eating makes her nauseous) and diarrhea. The patient has no fever, no cough, no vomiting, no urinary frequency or no dysuria. (dad states that she seems to get colds often, last sick 2-3 months ago). The contributing factors are stress at school. Review of Systems Gastrointestinal: Positive for diarrhea. Objective Vital Signs 04/13/22 0816 Temp: 36.3 C (97.3 F) TempSrc: Temporal Weight: 51.5 kg There is no height or weight on file to calculate BMI. Physical Exam Constitutional: She appears well. She is active. No distress. HENT: Head: Atraumatic. Ears: Right Ear: Tympanic membrane and external ear normal. Left Ear: Tympanic membrane and external ear normal. Nose: Nose normal. Mouth/Throat: Mucous membranes are moist. Dentition is normal. No pharynx erythema. Eyes: EOM are normal. Pupils are equal, round, and reactive to light. Right eyelid exhibits no discharge. Left eyelid exhibits no discharge. Neck: Neck supple. Thyroid normal. Cardiovascular: Normal rate, regular rhythm, S1 normal and S2 normal. Pulses are palpable. Pulmonary/Chest: Effort normal and breath sounds normal. Abdominal: Soft. Bowel sounds are normal. She exhibits no distension and no mass. There is abdominal tenderness (mild tenderness to periumbilical area with deep palpation). Genitourinary: Did not examine. Musculoskeletal: Cervical back: Normal range of motion and neck supple. General: No deformity. Lymphadenopathy: No right anterior and posterior cervical adenopathy present. No left anterior and posterior cervical adenopathy present. Neurological: She is alert. She has normal strength. She exhibits normal muscle tone. Skin: Skin is warm and dry. Skin is not pale and cyanotic. Findings: No rash. Vitals reviewed: Temperature 36.3 C (97.3 F), temperature source Temporal, weight 51.5 kg. Normal [facility] TSH with Reflex to T4, Freeo n 04-13-2022 TSH with reflex to T4, Free 1.6 [facility] Release to patient->[facility] TSH with reflex T4FRon 04-13 TSH with reflex T4FR 1.600 uIU/mL Normal 0.500-4 .30 0 [facility] Comment on above: Order Comment: Relea se to patient->Automatic [id number]&Blood Performed By: #### T SHR #### [place] [address] Laboratory - Chemistry and C hemistry - challengeon 03-21-2022 HCG ( test) Ql (U) Negative [facility] Progress Noteon 12-30-2021 Market Research Analyst Authentication Interface Message Text Patient ID: Joan Moore is a 16 y.o. female. Her chief complaint(s) include: 16 YEAR WELL CHILD Assessment 1. Encounter for routine child health examination without abnormal findings 2. Exercise counseling 3. Encounter for dietary counseling and surveillance Plan Joan was seen today for 16 year well child. Diagnoses and associated orders for this visit: Encounter for routine child health examination without abnormal findings - PHQ9 Assessment With Score - Health Risk Assessment - NANCY Exercise counseling Encounter for dietary counseling and surveillance Growth and development reviewed Declined flu vaccine Call for ay questions/concerns/problems /changes All questions answered Return in about 1 year (around 12/30/2022) for well check. Subjective She is accompanied by her mother. Independent history obtained from mother. 16 YEAR WELL CHILD Home: Joan eats meals with family. Education: Joan is in 11th grade and is doing well. Eating: Joan eats regular meals including fruits and vegetables. Activities & Sports: Joan has friends, has a job, performs at least 1 hour of physical activity daily, plays individual sports and plays recreational sports. Menstruation Menstruation: regular periods Output Urine and Stool Pattern: Urine and Stool Pattern: Normal stool pattern, normal urine pattern. Sleep Sleeping Difficulty: no difficulty sleeping Screenings Previous Vaccine Reactions: No. Hearing Vision Concerns: The caregiver has no concerns about the patient's hearing. The caregiver has no concerns about the patient's vision. Joan Moore is a 16 y.o. female patient. PHQ9 Assessment With Score Performed by: Nya Alfred MD Authorized by: Nya Alfred MD PHQ-9 See PHQ9 Flowsheet Feeling down, depressed, irritable or hopeless: Not at all Little interest or pleasure in doing things: Several days Trouble falling or staying sleep, or sleeping too much: Several days Poor appetite, weight loss, or overeating: Several days Feeling tired or having little energy: Several days Feeling bad about yourself - or feeling that you are a failure, or have let yourself or your family down: Not at all Trouble concentrating on things, like school work, reading or watching TV: Several days Moving or speaking so slowly that other people could have noticed. Or the opposite - being so fidgety or restless that you were moving around a lot more than usual: Not at all Thoughts that you would be better off , or of hurting yourself in some way: Not at all In the past year have you felt depressed or sad most days, even if you felt OK sometimes?: Yes If you are experiencing any of the problems on this form, how difficult have these problems made it for you to do your work, take care of things at home or get along with other people?: Not difficult at all Has there been a time in the past month when you have had serious thoughts about ending your life?: No Have you ever, in your whole life, tried to kill yourself or made a suicide attempt?: No PHQ-9 Total Score: 5 Health Risk Assessment - CRAFFT Authorized by: Nya Alfred MD CRAFFT Results: 1. Drink more than a few sips of beer, wine, or any drink containing alcohol? Put 0 if none.: 0 2. Use any marijuana (weed, oil, or hash by smoking, vaping, or in food) or synthetic marijuana (like K2, Spice)? Put 0 if none.: 0 3. Use anything else to get high (like other illegal drugs, prescription or ixzb-uvy-kyejwqi medications, and things that you sniff, butts, or vape)? Put 0 if none.: 0 4. Use any tobacco or nicotine products (for example, cigarettes, e-cigarettes, hookahs or smokeless tobacco)?: 0 5. Have you ever ridden in a CAR driven by someone (including yourself) who was high or had been using alcohol or drugs?: No Electronically signed by: Nya Alfred MD Primary Care Review of Systems Objective Vital Signs 12/30/21 1416 BP: 110/64 Pulse: 73 Weight: 53.2 kg Height: 171.9 cm Body mass index is 18 kg/m . Physical Exam Nursing note reviewed. Constitutional: She appears well. She is active. No distress. HENT: Head: Atraumatic. Ears: Right Ear: Tympanic membrane normal. Left Ear: Tympanic membrane normal. Mouth/Throat: Mucous membranes are moist. Eyes: Conjunctivae are normal. Cardiovascular: Normal rate and regular rhythm. Heart murmur not heard. Pulmonary/Chest: Breath sounds normal. There is normal air entry. Neurological: She is alert. Vitals reviewed: Blood pressure 110/64, pulse 73, height 171.9 cm, weight 53.2 kg, last menstrual period 12/19/2021. Normal [facility] Progress Noteon 12-02-2021 Market Research Analyst Authentication Interface Message Text Patient ID: Joan oMore is a 16 y.o. female. Her chief complaint(s) include: Headache (Follow up Sunday/Received Torodal, Phenergan, Benadryl) Assessment 1. Follow-up examination 2. Migraine with status migrainosus, not intractable, without aura Plan Joan was seen today for headache. Diagnoses and associated orders for this visit: Follow-up examination Comments: Seen in 3 days ago for migraine Migraine with status migrainosus, not intractable, without aura Comments: first migraine. Discussed red flags and reasons to return to ED or make office visit. Recommended continuing monitoring, migraine triggers, and supportive/symptomatic care if develops another migraine. If patient continues to have migraines will discuss other management options. No need for changes to control given no aura. Follow up as needed. Anne Holbrook DO Pediatric Resident, PGY-3 12/02/2021 12:25 PM Subjective She is accompanied by her mother. ED Follow Up The course is improving. The patient was discharged 3 days ago. Location of ER/Hospital: [facility]. Diagnosis: migraine without aura. The discharge summary was not available at the time of visit. Migraine The onset has been acute. The duration has been 5 days. The course is improving. (First migraine). Time of Day: developed sunday evening and was persistent until sunday. The symptoms are described as interferring with normal daily activities, interfering with school and interfering with work (patient had to come home from school on Sunday and Sunday and had to call off of work on Sunday). These symptoms occur on behind the eyes, in the frontal area and bilaterally. The patient's headache has no known triggers. Symptoms are aggravated by: bright light. Relieved by: tried Tylenol and Caffeine without relief. At was given IM Benadryl, Phergan, and Toradol with improvement. Patient was then able to sleep and migraine resolved. The patient's associated symptoms include: photophobia. The patient has no vomiting and no neck stiffness. The patient does not experience aura. The contributing factors have included family history of migraines (other and paternal grandmother). The contributing factors have not included stress at school and recent head trauma. (Patient has good sleep hygiene, only intermittently drinks caffeine, and drinks plenty of water. No recent increase in stress. Completed menses ~1 week before start of migraine. ). There have been no previous evaluations. Primary Care Review of Systems Objective Vital Signs 12/02/21 1159 BP: 129/58 Pulse: 95 Temp: 37.1 C (98.8 F) TempSrc: Temporal Weight: 53.8 kg There is no height or weight on file to calculate BMI. Physical Exam Nursing note reviewed. Constitutional: She appears well. She is active. No distress. HENT: Ears: Right Ear: External ear normal. Left Ear: External ear normal. Nose: Nose normal. Mouth/Throat: Oropharynx is clear. Eyes: EOM are normal. Pupils are equal, round, and reactive to light. Right eyelid exhibits no discharge. Left eyelid exhibits no discharge. Right conjunctiva is not injected. Left conjunctiva is not injected. Neck: Neck supple. Cardiovascular: Normal rate, regular rhythm, S1 normal and S2 normal. Pulses are strong. Heart murmur not heard. Pulmonary/Chest: Effort normal and breath sounds normal. No respiratory distress. Abdominal: Soft. She exhibits no distension. There is no abdominal tenderness. Musculoskeletal: Cervical back: Normal range of motion and neck supple. Lymphadenopathy: No right anterior cervical adenopathy present. No left anterior cervical adenopathy present. Neurological: She is alert. She has normal strength. No cranial nerve deficit. She exhibits normal muscle tone. Gait normal. Skin: Capillary refill takes less than 3 seconds. Skin is warm. Skin is not pale. Findings: No rash. Vitals reviewed: Blood pressure 129/58, pulse 95, temperature 37.1 C (98.8 F), temperature source Temporal, weight 53.8 kg, last menstrual period 11/22/2021. Hospitalist Attending I reviewed the history and performed a pertinent physical examination at [facility]. I agree with the findings described in the note above except for changes as noted by or addition. Management of the patient has been carried out in accordance with my plans. Plan discussed with caregiver(s) and questions addressed. Nya Alfred MD [facility] Vital Signs Date Time Vital Sign Value Performing Clinician Rhina burgess 09-16-2024 08:41-0400 Body height 170.[address] Tapan Menjivar DO Work Phone: [facility] 09-16-2024 08:41-0400 Body mass index (BMI) [Percentile] Per age and sex 19.9 % Dr. Tapan Menjivar DO Work Phone: [facility] 09-16-2024 08:41-0400 Body mass index (BMI) [Ratio] 19.4 kg/m2 Dr. Tapan Menjivar DO Work Phone: [facility] 09-16-2024 08:41-0400 Body temperature 97.4 [degF] Dr. Tapan Menjivar DO Work Phone: [facility] 09-16-2024 08:41-0400 Body weight 56.[address] Tapan Menjivar DO Work Phone: [facility] 09-16-2024 08:41-0400 Diastolic blood pressure 64 mm[Hg] Dr. Tapan Menjivar DO Work Phone: [facility] 09-16-2024 08:41-0400 Heart rate 70 /min Dr. Tapan Menjivar DO Work Phone: [facility] 09-16-2024 08:41-0400 Respiratory rate 16 /min Dr. Tapan Menjivar DO Work Phone: [facility] 09-16-2024 08:41-0400 SaO2% (BldA) [Mass fraction] 94 % Dr. Tapan Menjivar DO Work Phone: [facility] 09-16-2024 08:41-0400 Systolic blood pressure 100 mm[Hg] Dr. Tapan Menjivar DO Work Phone: [facility] 07-22-2024 11:39-0400 Body height 170.[address] Tapan Menjivar DO Work Phone: [facility] 07-22-2024 11:39-0400 Body mass index (BMI) [Percentile] Per age and sex 26.5 % Dr. Tapan Menjivar DO Work Phone: [facility] 07-22-2024 11:39-0400 Body mass index (BMI) [Ratio] 19.9 kg/m2 Dr. Tapan Menjivar DO Work Phone: [facility] 07-22-2024 11:39-0400 Body temperature 97.4 [degF] Dr. Tapan Menjivar DO Work Phone: [facility] 07-22-2024 11:39-0400 Body weight 57.[address] Tapan Menjivar DO Work Phone: [facility] 07-22-2024 11:39-0400 Diastolic blood pressure 75 mm[Hg] Dr. Tapan Menjivar DO Work Phone: [facility] 07-22-2024 11:39-0400 Heart rate 102 /min Dr. Tapan Menjivar DO Work Phone: [facility] 07-22-2024 11:39-0400 Respiratory rate 16 /min Dr. Tapan Menjivar DO Work Phone: [facility] 07-22-2024 11:39-0400 SaO2% (BldA) [Mass fraction] 98 % Dr. Tapan Menjivar DO Work Phone: [facility] 07-22-2024 11:39-0400 Systolic blood pressure 109 mm[Hg] Dr. Tapan Menjivar DO Work Phone: [facility] 07-17-2024 12:59-0400 Body temperature 98.1 [degF] Dr. Tapan Menjivar DO Work Phone: [facility] 07-17-2024 12:59-0400 Diastolic blood pressure 62 mm[Hg] Dr. Tapan Menjivar DO Work Phone: [facility] 07-17-2024 12:59-0400 Heart rate 92 /min Dr. Tapan Menjivar DO Work Phone: [facility] 07-17-2024 12:59-0400 Respiratory rate 15 /min Dr. Tapan Menjivar DO Work Phone: [facility] 07-17-2024 12:59-0400 SaO2% (BldA) [Mass fraction] 98 % Dr. Tapan Menjivar DO Work Phone: [facility] 07-17-2024 12:59-0400 Systolic blood pressure 100 mm[Hg] Dr. Tapan Menjivar DO Work Phone: [facility] 07-08-2024 11:23-0400 Body height 170.[address] Tapan Menjivar DO Work Phone: [facility] 07-08-2024 11:23-0400 Body mass index (BMI) [Percentile] Per age and sex 27.8 % Dr. Tapan Menjivar DO Work Phone: [facility] 07-08-2024 11:23-0400 Body mass index (BMI) [Ratio] 20 kg/m2 Dr. Tapan Menjivar DO Work Phone: [facility] 07-08-2024 11:23-0400 Body weight 57.[address] Tapan Menjivar DO Work Phone: [facility] 07-08-2024 11:23-0400 Diastolic blood pressure 75 mm[Hg] Dr. Tapan Menjivar DO Work Phone: [facility] 07-08-2024 11:23-0400 Heart rate 78 /min Dr. Tapan Menjivar DO Work Phone: [facility] 07-08-2024 11:23-0400 Respiratory rate 16 /min Dr. Tapan Menjivar DO Work Phone: [facility] 07-08-2024 11:23-0400 SaO2% (BldA) [Mass fraction] 98 % Dr. Tapan Menjivar DO Work Phone: [facility] 07-08-2024 11:23-0400 Systolic blood pressure 122 mm[Hg] Dr. Tapan Menjivar DO Work Phone: [facility] 06-09-2024 11:00-0400 Body temperature 97.1 [degF] Dr. Tapan Menjivar DO Work Phone: [facility] 06-09-2024 11:00-0400 Diastolic blood pressure 62 mm[Hg] Dr. Tapan Menjivar DO Work Phone: [facility] 06-09-2024 11:00-0400 Heart rate 71 /min Dr. Tapan Menjivar DO Work Phone: [facility] 06-09-2024 11:00-0400 Respiratory rate 16 /min Dr. Tapan Menjivar DO Work Phone: [facility] 06-09-2024 11:00-0400 SaO2% (BldA) [Mass fraction] 97 % Dr. Tapan Menjivar DO Work Phone: [facility] 06-09-2024 11:00-0400 Systolic blood pressure 100 mm[Hg] Dr. Tapan Menjivar DO Work Phone: [facility] 06-09-2024 08:44-0400 Body height 170.[address] Tapan Menjivar DO Work Phone: [facility] 06-09-2024 08:44-0400 Body mass index (BMI) [Percentile] Per age and sex 13.2 % Dr. Tapan Menjivar DO Work Phone: [facility] 06-09-2024 08:44-0400 Body mass index (BMI) [Ratio] 18.8 kg/m2 Dr. Tapan Menjivar DO Work Phone: [facility] 06-09-2024 08:44-0400 Body weight 54.[address] Tapan Menjivar DO Work Phone: [facility] 05-14-2024 12:55-0400 Body height 170.[address] Tapan Menjivar DO Work Phone: [facility] 05-14-2024 12:55-0400 Body mass index (BMI) [Percentile] Per age and sex 14.3 % Dr. Tapan Menjivar DO Work Phone: [facility] 05-14-2024 12:55-0400 Body mass index (BMI) [Ratio] 18.9 kg/m2 Dr. Tapan Menjivar DO Work Phone: [facility] 05-14-2024 12:55-0400 Body temperature 98.1 [degF] Dr. Tapan Menjivar DO Work Phone: [facility] 05-14-2024 12:55-0400 Body weight 54.[address] Tapan Menjivar DO Work Phone: [facility] 05-14-2024 12:55-0400 Diastolic blood pressure 70 mm[Hg] Dr. Tapan Menjivar DO Work Phone: [facility] 05-14-2024 12:55-0400 Heart rate 87 /min Dr. Tapan Menjivar DO Work Phone: [facility] 05-14-2024 12:55-0400 Respiratory rate 14 /min Dr. Tapan Menjivar DO Work Phone: [facility] 05-14-2024 12:55-0400 SaO2% (BldA) [Mass fraction] 100 % Dr. Tapan Menjivar DO Work Phone: [facility] 05-14-2024 12:55-0400 Systolic blood pressure 121 mm[Hg] Dr. Tapan Menjivar DO Work Phone: [facility] 05-13-2024 13:18-0400 Body mass index (BMI) [Percentile] Per age and sex 11.2 % Dr. Tapan Menjivar DO Work Phone: [facility] 05-13-2024 13:18-0400 Body mass index (BMI) [Ratio] 18.6 kg/m2 Dr. Tapan Menjivar DO Work Phone: [facility] 05-13-2024 13:18-0400 Body weight 54.[address] Tapan Menjivar DO Work Phone: [facility] 05-13-2024 13:18-0400 Diastolic blood pressure 68 mm[Hg] Dr. Tapan Menjivar DO Work Phone: [facility] 05-13-2024 13:18-0400 Systolic blood pressure 102 mm[Hg] Dr. Tapan Menjivar DO Work Phone: [facility] 02-25-2024 17:48-0500 Body temperature 97.6 [degF] Dr. Tapan Menjivar DO Work Phone: [facility] 02-25-2024 17:48-0500 Diastolic blood pressure 76 mm[Hg] Dr. Tapan Menjivar DO Work Phone: [facility] 02-25-2024 17:48-0500 Heart rate 80 /min Dr. Tapan Menjivar DO Work Phone: [facility] 02-25-2024 17:48-0500 Respiratory rate 16 /min Dr. Tapan Menjivar DO Work Phone: [facility] 02-25-2024 17:48-0500 SaO2% (BldA) [Mass fraction] 100 % Dr. Tapan Menjivar DO Work Phone: [facility] 02-25-2024 17:48-0500 Systolic blood pressure 119 mm[Hg] Dr. Tapan Menjivar DO Work Phone: [facility] 02-25-2024 12:14-0500 Body mass index (BMI) [Percentile] Per age and sex 11.4 % Dr. Tapan Menjivar DO Work Phone: [facility] 02-25-2024 12:14-0500 Body mass index (BMI) [Ratio] 18.6 kg/m2 Dr. Tapan Menjivar DO Work Phone: [facility] 02-25-2024 12:14-0500 Body weight 53.[address] Tapan Menjivar DO Work Phone: [facility] 02-18-2024 09:41-0500 Body height 170.2 cm Janeth Marion MD Work Phone: [facility] 02-18-2024 09:41-0500 Body mass index (BMI) [Ratio] 18.32 kg/m2 Janeth Marion MD Work Phone: [facility] 02-18-2024 09:41-0500 Body weight 53.07 kg Janeth Marion MD Work Phone: [facility] 02-18-2024 09:41-0500 Diastolic blood pressure 65 mm[Hg] Janeth Marion MD Work Phone: [facility] 02-18-2024 09:41-0500 Heart rate 81 /min Janeth Marion MD Work Phone: [facility] 02-18-2024 09:41-0500 Systolic blood pressure 99 mm[Hg] Janeth Marion MD Work Phone: [facility] 02-14-2024 09:57-0500 Body mass index (BMI) [Percentile] Per age and sex 13.5 % Dr. Tapan Menjivar DO Work Phone: [facility] 02-14-2024 09:57-0500 Body mass index (BMI) [Ratio] 18.8 kg/m2 Dr. Tapan Menjivar DO Work Phone: [facility] 02-14-2024 09:57-0500 Body weight 54.[address] Tapan Menjivar DO Work Phone: [facility] 02-14-2024 09:57-0500 Diastolic blood pressure 71 mm[Hg] Dr. Tapan Menjivar DO Work Phone: [facility] 02-14-2024 09:57-0500 Heart rate 76 /min Dr. Tapan Menjivar DO Work Phone: [facility] 02-14-2024 09:57-0500 Respiratory rate 18 /min Dr. Tapan Menjivar DO Work Phone: [facility] 02-14-2024 09:57-0500 SaO2% (BldA) [Mass fraction] 100 % Dr. Tapan Menjivar DO Work Phone: [facility] 02-14-2024 09:57-0500 Systolic blood pressure 103 mm[Hg] Dr. Tapan Menjivar DO Work Phone: [facility] 02-04-2024 10:54-0500 Body temperature 97.5 [degF] Dr. Tapan Menjivar DO Work Phone: [facility] 02-04-2024 10:54-0500 Diastolic blood pressure 65 mm[Hg] Dr. Tapan Menjivar DO Work Phone: [facility] 02-04-2024 10:54-0500 Heart rate 86 /min Dr. Tapan Menjivar DO Work Phone: [facility] 02-04-2024 10:54-0500 Respiratory rate 16 /min Dr. Tapan Menjivar DO Work Phone: [facility] 02-04-2024 10:54-0500 SaO2% (BldA) [Mass fraction] 98 % Dr. Tapan Menjivar DO Work Phone: [facility] 02-04-2024 10:54-0500 Systolic blood pressure 98 mm[Hg] Dr. Tapan Menjivar DO Work Phone: [facility] 02-04-2024 08:36-0500 Body mass index (BMI) [Percentile] Per age and sex 6.3 % Dr. Tapan Menjivar DO Work Phone: [facility] 02-04-2024 08:36-0500 Body mass index (BMI) [Ratio] 18 kg/m2 Dr. Tapan Menjivar DO Work Phone: [facility] 02-04-2024 08:36-0500 Body weight 52.[address] Tapan Menjivar DO Work Phone: [facility] 03-28-2023 15:17-0500 Body height 170.[address] Oliva Ball Work Phone: [facility] 03-28-2023 15:17-0500 Body mass index (BMI) [Percentile] Per age and sex 8.2 % Dr. Oliva Ball Work Phone: [facility] 03-28-2023 15:17-0500 Body mass index (BMI) [Ratio] 18.1 kg/m2 Dr. Oliva Ball Work Phone: [facility] 03-28-2023 15:17-0500 Body weight 52.[address] Oliva Ball Work Phone: [facility] 03-28-2023 15:17-0500 Diastolic blood pressure 70 mm[Hg] Dr. Oliva Ball Work Phone: [facility] 03-28-2023 15:17-0500 Systolic blood pressure 110 mm[Hg] Dr. Oliva Ball Work Phone: [facility] 03-12-2023 15:17-0500 Respiratory rate 16 /min Dr. Oliva Ball Work Phone: [facility] 03-12-2023 10:39-0500 Body height 170.[address] Oliva Ball Work Phone: [facility] 03-12-2023 10:39-0500 Body mass index (BMI) [Percentile] Per age and sex 5.3 % Dr. Oliva Ball Work Phone: [facility] 03-12-2023 10:39-0500 Body mass index (BMI) [Ratio] 17.7 kg/m2 Dr. Oliva Ball Work Phone: [facility] 03-12-2023 10:39-0500 Body temperature 97.2 [degF] Dr. Oliva Ball Work Phone: [facility] 03-12-2023 10:39-0500 Body weight 51.[address] Oliva Ball Work Phone: [facility] 03-12-2023 10:39-0500 Diastolic blood pressure 84 mm[Hg] Dr. Oliva Ball Work Phone: [facility] 03-12-2023 10:39-0500 Heart rate 79 /min Dr. Oliva Ball Work Phone: [facility] 03-12-2023 10:39-0500 SaO2% (BldA) [Mass fraction] 98 % Dr. Oliva Ball Work Phone: [facility] 03-12-2023 10:39-0500 Systolic blood pressure 119 mm[Hg] Dr. Oliva Ball Work Phone: [facility] 01-09-2023 15:32-0500 Body mass index (BMI) [Percentile] Per age and sex 8.7 % Dr. Oliva Ball Work Phone: [facility] 01-09-2023 15:32-0500 Body mass index (BMI) [Ratio] 18.1 kg/m2 Dr. Oliva Ball Work Phone: [facility] 01-09-2023 15:32-0500 Body weight 52.[address] Oliva Ball Work Phone: [facility] 01-09-2023 15:32-0500 Diastolic blood pressure 72 mm[Hg] Dr. Oliva Ball Work Phone: [facility] 01-09-2023 15:32-0500 Systolic blood pressure 126 mm[Hg] Dr. Oliva Ball Work Phone: [facility] 12-26-2022 21:01-0500 Diastolic blood pressure 62 mm[Hg] Dr. Nya Alfred Work Phone: [facility] 12-26-2022 21:01-0500 Heart rate 71 /min Dr. Nya Alfred Work Phone: [facility] 12-26-2022 21:01-0500 Respiratory rate 15 /min Dr. Nya Alfred Work Phone: [facility] 12-26-2022 21:01-0500 SaO2% (BldA) [Mass fraction] 97 % Dr. Nya Alfred Work Phone: [facility] 12-26-2022 21:01-0500 Systolic blood pressure 100 mm[Hg] Dr. Nya Alfred Work Phone: [facility] 12-26-2022 16:14-0500 Body height 170.[address] Nya Alfred Work Phone: 4(549)075-203369 [place] [address] 12-26-2022 16:14-0500 Body mass index (BMI) [Percentile] Per age and sex 7.1 % Dr. Nya Alfred Work Phone: [facility] 12-26-2022 16:14-0500 Body mass index (BMI) [Ratio] 17.9 kg/m2 Dr. Nya Alfred Work Phone: 5(242)244-178709 [address] 12-26-2022 16:14-0500 Body temperature 98 [degF] Dr. Nya Alfred Work Phone: 1(375)804-941309 [address] 12-26-2022 16:14-0500 Body weight 51.[address] Nya Alfred Work Phone: 7(068)494-366709 [address] 10-26-2022 15:36-0400 Body temperature 99.2 [degF] Dr. Nya Alfred Work Phone: 3(208)016-203209 [address] 10-26-2022 15:36-0400 Diastolic blood pressure 60 mm[Hg] Dr. Nya Alfred Work Phone: 1(234)670-501969 [place] [address] 10-26-2022 15:36-0400 Heart rate 105 /min Dr. Nya Alfred Work Phone: 5(297)876-153809 [address] 10-26-2022 15:36-0400 Respiratory rate 14 /min Dr. Nya Alfred Work Phone: 9(758)204-824109 [address] 10-26-2022 15:36-0400 SaO2% (BldA) [Mass fraction] 98 % Dr. Nya Alfred Work Phone: [facility] 10-26-2022 15:36-0400 Systolic blood pressure 98 mm[Hg] Dr. Nya Alfred Work Phone: [facility] 03-21-2022 10:13-0500 Body height 172.[address] Josefina Miranda Work Phone: [facility] 03-21-2022 10:13-0500 Body mass index (BMI) [Percentile] Per age and sex 13 % Dr. Josefina Miranda Work Phone: [facility] 03-21-2022 10:13-0500 Body mass index (BMI) [Ratio] 18.3 kg/m2 Dr. Josefina Miranda Work Phone: 3(413)[phone] [place] [address] 03-21-2022 10:13-0500 Body weight 54.[address] Josefina Miranda Work Phone: 3(426)814-624242 [place] [address] 03-21-2022 10:13-0500 Diastolic blood pressure 76 mm[Hg] Dr. Josefina Miranda Work Phone: 1(694)507-143570 [address] 03-21-2022 10:13-0500 Systolic blood pressure 118 mm[Hg] Dr. Josefina Miranda Work Phone: 9(915)583-043470 [address] 03-06-2022 15:06-0500 Body mass index (BMI) [Percentile] Per age and sex 25.7 % Dr. Josefina Miranda Work Phone: 6(520)516-949242 [place] [address] 03-06-2022 15:06-0500 Body mass index (BMI) [Ratio] 19.3 kg/m2 Dr. Josefina Miranda Work Phone: 8(087)450-624042 [place] [address] 03-06-2022 15:06-0500 Body weight 55.[address] Josefina Miranda Work Phone: 5(258)078-801042 [place] [address] 03-06-2022 15:06-0500 Diastolic blood pressure 77 mm[Hg] Dr. Josefina Miranda Work Phone: 1(262)681-369142 [place] [address] 03-06-2022 15:06-0500 Systolic blood pressure 127 mm[Hg] Dr. Josefina Miranda Work Phone: [facility] Encounters Encounter Date Encounter Type Care Provider Facility Start: 09-23-2024 Encounter for genera l adult medical examination without abnormal findings Gayatri Merrill [facility] Start: 09-22-2024 End: 09-22-[address] Tapan Menjivar DO Work Phone: -Laboratory Specimen Start: 09-22-2024 End: 09-22-2024 Patient encounter procedure Gayatri Merrill PRICING SPECIALIST-C -Laboratory Specimen Work Phone: Start: 09-22-2024 End: 09-22-2024 ambulatory Gayatri Merrill Facility:[facility] Start: 09-18-2024 End: 09-18-[address] Tapan Menjivar DO Work Phone: -Laboratory Specimen Start: 09-18-2024 End: 09-18-2024 Patient encounter procedure Gayatri Galloony PRICING SPECIALIST-C -Laboratory Specimen Work Phone: Start: 09-18-2024 End: 09-18-2024 ambulatory Gayatri Merrill Facility:[facility] Start: 09-16-2024 End: 09-16-2024 Patient encounter procedure Gayatri Garfield PRICING SPECIALIST-C -[facility] Work Phone: Start: 09-16-2024 End: 09-16-[address] Tapan Menjivar DO Work Phone: -[facility] Start: 07-22-2024 End: 07-22-2024 Patient encounter procedure Gayatri Merrill PRICING SPECIALIST-C -[facility] Work Phone: Start: 07-22-2024 End: 07-22-[address] Tapan Menjivar DO Work Phone: [facility] Work Phone: Start: 07-17-2024 End: 07-17-2024 Patient encounter procedure Trevor Carrasquillo [place] -[facility] Work Phone: Start: 07-17-2024 End: 07-17-[address] Tapan Menjivar DO Work Phone: [facility] Work Phone: Start: 07-15-2024 End: 07-15-[address] Tapan Menjivar DO Work Phone: [facility] Work Phone: Start: 07-15-2024 End: 07-15-2024 Patient encounter procedure Gayatri Merrill PRICING SPECIALIST-C -[facility] Work Phone: Start: 07-15-2024 End: 07-15-2024 ambulatory Gayatrinilda Merrill Facility:[facility] Start: 07-08-2024 End: 07-08-2024 Patient encounter procedure Gayatri Garfield PRICING SPECIALIST-C -[facility] Work Phone: Start: 07-08-2024 End: 07-08-[address] Tapan Menjivar DO Work Phone: [facility] Work Phone: Start: 07-08-2024 End: 07-08-2024 ambulatory [facility] Start: 07-04-2024 End: 07-04-[address] Norma Buckley MD -[facility] Work Phone: Start: 07-04-2024 End: 07-04-[address] Tapan Menjivar DO Work Phone: [facility] Work Phone: Start: 06-25-2024 Encounter for other preprocedural examination Norma Buckley [facility] Start: 06-20-2024 End: 06-20-[address] Norma Buckley MD -[facility] Work Phone: Start: 06-20-2024 End: 06-20-[address] Tapan Menjivar DO Work Phone: [facility] Work Phone: Start: 06-09-2024 Non-patient / Non-visit Dr. José Luis Buckley MD -[facility] Start: 06-09-2024 End: 06-09-2024 Admission to same day surgery center Dr. Norma Buckley MD -Endoscopy Work Phone: Start: 06-09-2024 End: 06-09-2024 [facility]ulatory [facility] Start: 05-15-2024 End: 05-15-[address] Tapan Menjivar DO Work Phone: [facility] Work Phone: Start: 05-15-2024 End: 05-15-[address] Oliva Ball DO -Laboratory, [facility] Start: 05-14-2024 Encounter for gynecological examination (general) (routine) with abnormal findings Margareth Riveramargot [facility] Start: 05-14-2024 End: 05-14-[address] Norma Buckley MD -[facility] Work Phone: Start: 05-14-2024 End: 05-15-2024 ambulatory Oliva Ball Facility:[facility] Start: 05-13-2024 End: 05-13-[address] Tapan Menjivar DO Work Phone: [facility] Work Phone: Start: 05-13-2024 End: 05-13-2024 Patient encounter procedure Margareth Patel MARY ANNE-C -Laboratory, Specimen Work Phone: Start: 05-13-2024 End: 05-13-2024 Patient encounter procedure Margareth Patel PRICING SPECIALIST-C -[facility] Work Phone: Start: 05-13-2024 End: 05-13-2024 Patient encounter status Margareth Patel PRICING SPECIALIST-C [facility] Start: 05-13-2024 End: 05-13-2024 ambulatory Tapan Menjivar Facility:[facility] Start: 05-12-2024 End: 05-12-2024 Admission to same day surgery center Janeth Marion MD Work Phone: Plastic Surgery Comment on above: Malocclusion (Primar y Dx) Start: 05-12-2024 End: 05-13-2024 ambulatory JANETH MARION Facility:[facility] Start: 05-12-2024 End: 05-12-2024 Telemedicine consultation with patient Janeth Marion MD Work Phone: Plastic Surgery Start: 03-20-2024 End: 03-20-2024 ambulatory JANETH MARION Facility:[facility] Start: 03-20-2024 End: 03-20-2024 Subsequent hospital visit by physician Manasa [facility] ([facility]) Work Phone: Cat Scan Comment on above: Atypical facial pain [G50.1] Start: 03-10-2024 End: 03-10-2024 Patient encounter procedure Josefina Camarena PA-C -[facility] Work Phone: Start: 03-10-2024 End: 03-10-2024 ambulatory [facility] Facility:[facility] Start: 02-25-2024 End: 02-25-2024 Non-patient / Non-visit Dr. Reese Humphreys MD -[facility] Work Phone: Start: 02-25-2024 End: 02-25-2024 Admission to same day surgery center Dr. Norma Buckley MD -[facility] Start: 02-25-2024 End: 02-25-2024 ambulatory [facility] Facility:[facility] Start: 02-18-2024 End: 02-18-2024 Chart abstracting Janeth Marion MD Work Phone: Plastic Surgery Comment on above: PHOTOS TAKEN Start: 02-18-2024 End: 02-18-2024 Patient encounter procedure Janeth Marion MD Work Phone: Plastic Surgery Comment on above: Malocclusion (Primar y Dx); Atypical facial pain Start: 02-18-2024 End: 02-18-2024 ambulatory SELF Facility:[facility] Start: 02-14-2024 End: 02-14-[address] Norma Buckley MD -[facility] Work Phone: Start: 02-14-2024 End: 02-14-2024 ambulatory [facility] Facility:[facility] Start: 02-04-2024 End: 02-04-2024 Emergency department patient visit Dr. Madan Drummond DO -Emergency Department Work Phone: Start: 01-31-2024 End: 01-31-[address] Oliva Ball DO -Nuclear Medicine, [facility] Work Phone: Start: 01-31-2024 End: 01-31-2024 ambulatory Tapan Charles Facility:[facility] Start: 01-29-2024 End: 01-29-[address] Oliva Ball DO -Nuclear Mamie, [facility] Work Phone: Start: 01-29-2024 End: 01-29-2024 ambulatory Tapan [facility] Facility:[facility] Start: 10-11-2023 End: 10-11-2023 ambulatory [facility] Facility:[facility] Start: 05-08-2023 End: 05-13-[address] TAPAN MENJIVAR DO Facility:[facility] Start: 05-08-2023 End: 05-12-[address] TAPAN MENJIVAR DO [facility] Start: 05-08-2023 End: 05-08-[address] Oliva Ball Work Phone: [facility] Work Phone: Start: 05-08-2023 End: 05-08-[address] [facility] Start: 03-28-2023 End: 03-28-[address] [facility] Work Phone: Start: 03-28-2023 End: 03-28-[address] Oliva Ball Work Phone: [facility] Work Phone: Start: 03-12-2023 End: 03-12-2023 Emergency department patient [facility] Work [facility] Start: 01-09-2023 End: 01-09-[address] Oliva Ball Work Phone: [facility] Work Phone: Start: 12-26-2022 End: 12-26-2022 Emergency department patient visit Dr. Nya Alfred [facility] Work [facility]: Start: 11-13-2022 End: 11-13-[address] Nya Alfred Work Phone: [facility] Work Phone: Start: 11-13-2022 End: 11-13-[address] Nya Alfred [facility] Start: 10-26-2022 End: 10-26-[address] Nya Alfred Work Phone: [facility] Work Phone: Start: 04-14-2022 End: 04-14-[address] Josefina Miranda Work Phone: [facility] Work Phone: Start: 04-14-2022 End: 04-14-[address] Josefina Miranda [facility] Start: 04-13-2022 End: 04-14-2022 ambulatory [facility] Start: 04-13-2022 End: 04-13-2022 ambulatory [facility] Start: 04-13-2022 End: 04-13-2022 Subsequent hospital visit by physician Darlin Puckett STEAM TABLE ATTENDANT-BOARDER HAND Work Phone: [facility] Comment on above: Abdominal pain, gene ralized Start: 03-21-2022 End: 03-21-[address] Josefina Miranda Work Phone: [facility] Start: 03-06-2022 End: 03-06-[address] Josefina Miranda Work Phone: [facility] Start: 12-30-2021 End: 12-30-2021 ambulatory S[facility]F REFERRED [facility] Start: 12-02-2021 End: 12-02-2021 ambulatory [facility] REFERRED [facility] Procedures Date Procedure Procedure Detail Performing Clinician Start: 09-22-[address] Tapan Menjivar DO Work Phone: Start: 09-22-[address] Tapan Menjivar DO Work Phone: Start: 09-22-2024 Iadna-dna/rna gi pthgn multiplex probe tq 6-11 Dr. Tapan Menjivar DO Work Phone: Start: 07-15-[address] Tapan yu DO Work Phone: Start: 05-15-[address] Tapan Menjivar DO Work Phone: Comment on above: Performed at: [address] Director: Dm Perez PhD, Phone: [phone] Start: 05-15-2024 Antibody to centromere measurement Dr. Tapan Menjivar DO Work Phone: Comment on above: Test not performed Start: 05-15-2024 Antibody to extractable nuclear antigen measurement Dr. Tapan Menjivar DO Work Phone: Comment on above: Test not performed Start: 05-15-2024 Antibody to MAY-[address] Tapan Albert DO Work Phone: Comment on above: Test not performed Start: 05-15-2024 Antibody to lupus La protein measurement Dr. Tapan Menjivar DO Work Phone: Comment on above: Test not performed Start: 05-15-2024 Antibody to SS-A measurement Dr. Tapan Albert DO Work Phone: Comment on above: Test not performed Start: 05-15-[address] Tapan buchanan DO Work Phone: Comment on above: Test not performed Start: 05-15-2024 ORTHOTIC PRACTITIONER antibody measurement Dr. Tapan buchanan DO Work Phone: Comment on above: Test not performed Start: 05-15-[address] Tapan Menjivar DO Work Phone: Comment on above: Thyroglobulin Antibody measured by Beckm an CoulterMethodologyIt should be noted that the presence of thyroglobulinantibodies may not be pathogenic nor diagnostic, especiallyat very low levels. The assay store detective has found thatfour percent of individuals without evidence of thyroiddisease or autoimmunity will have positive TgAb levels upto 4 IU/mL. Start: 05-13-2024 End: 05-13-2024 Polymerase chain reaction analysis Dr. Tapan Menjivar DO Work Phone: Start: 03-20-2024 Ct maxillofacial w/o contrast material Janeth Marion MD Work Phone: Start: 02-25-[address] Tapan Menjivar DO Work Phone: Start: 02-25-[address] Tapan Menjivar DO Work Phone: Start: 01-31-2024 Radionuclide study of abdomen Dr. Tapan hemphill DO Work Phone: Start: 01-29-2024 Radionuclide gastric emptying study Dr. Tapan Menjivar DO Work Phone: Start: 12-26-[address] Nya Alfred Work Phone: Start: 04-13-2022 C-reactive protein Darlin A Redick STEAM TABLE ATTENDANT-BOARDER HAND Work Phone: Start: 04-13-2022 COMPLETE BLOOD COUNT WITH DIFFERENTIAL Darlin Puckett STEAM TABLE ATTENDANT-[employer]ER HAND Work Phone: Start: 04-13-2022 Comprehensive metabolic panel Darlin lange STEAM TABLE ATTENDANT-BOARDER HAND Work Phone: Enteric Bacteriology Dr. Moraima Miranda Work Phone: History of cholecystectomy S/P cholecyste ctomy Josefina Camarena PA-C Plan of Treatment Date Care Activity Detail Author Start: 08-24-2027 Tetanus Diphtheria and Pertussis Vaccines (8 - Td or Tdap) Tetanus Diphtheria and Pertussis Vaccines (8 - Td or Tdap) [facility] Start: 08-24-2027 Urine microalbumin profile DTaP,Tdap,Td Vaccine (8 - Td or Tdap) [facility] Start: 09-30-2024 ambulatory Ambulatory Facility:[facility] Start: 09-22-2024 Ova and Parasites Ova and Parasites [facility] Start: 09-22-2024 Elastase.pancreatic [Presence] in Stool [facility] Start: 09-22-2024 Ova OR parasites identification [facility] Start: 09-22-2024 Protein measurement [facility] Start: 07-04-2024 Patient referral [facility] Work Phone: Start: 06-09-2024 Colonoscopy w/biopsy single/multiple COLONOSCOPY AND BIOPSY [facility] Start: 06-09-2024 Egd transoral biopsy single/multiple EGD BIOPSY SINGLE/MULTIPLE [facility] Start: 06-09-2024 Patient discharge [facility] Start: 02-25-2024 Patient discharge [facility] Start: 02-25-2024 Anes intraperitoneal upper abdomen w/laps nos ANES IPER UPR ABD NOS [facility] Start: 02-25-2024 Laparoscopy surg cholecystectomy LAPAROSCOPIC CHOLECYSTECTOMY [facility] Start: 02-04-2024 [facility] Start: 02-04-2024 Enteric precautions [facility] Start: 2023 Covid-19 Vaccine ( season) Covid-19 Vaccine () [facility] Start: 2023 Influenza vaccination Influenza Vaccine (#1) [facility] Start: 03-12-2023 [facility] Start: 12-30-2022 Well Visit Well Visit [facility] Start: 12-26-2022 [facility] Start: 2022 Anxiety Screening Anxiety Screening [facility] Start: 2022 Depression Screening Depression Screening [facility] Start: 2022 GC (Gonorrhea) Screening (18-24) GC (Gonorrhea) Screening (18-24) [facility] Start: 2022 Hepatitis C screening Hepatitis C Screening [facility] Start: 2022 HIV screening HIV Screening [facility] Start: 2022 Screening for Chlamydia trachomatis Chlamydia Screening () [facility] Start: 10-06-2021 FLU (#1) FLU (#1) [facility] Start: 2020 MenB (1 of 2 - MenB 2-Dose Series Bexsero) MenB (1 of 2 - MenB 2-Dose Series Bexsero) [facility] Start: 2020 Meningococcal B Vaccine (1 of 2 - Standard) Meningococcal B Vaccine (1 of 2 - Standard) [facility] Start: 2020 Meningococcal B Vaccine: Consider Based On Risk (1 of 2 - Patient Seeks Protection) Meningococcal B Vaccine: Consider Based On Risk (1 of 2 - Patient Seeks Protection) [facility] Start: 10-08-2019 Hearing Screening Hearing Screening [facility] Start: 10-08-2019 Vision Screening Vision Screening [facility] Start: 2018 Peds To Adult Transition Annual Assessment [facility]eds To Adult Transition Annual Assessment [facility] Start: 2016 Peds To Adult Transition Initial Discussion Peds To Adult Transition Initial Discussion [facility] Start: 04-06-2005 COVID-19 (#1) COVID-19 (#1) [facility] Clostridioides diffi cile DNA [Presence] in Unspecified specimen by LINDA with probe detection [facility] Colonoscopy [facility] CT Abdomen and Pelvi s W contrast IV [facility] End: 03-19-2025 CT Facial bones WO contrast CT FACIAL BONE/JAMIL WO IVCON Radiology Routine Atypical facial pain 1 Occurrences starting 02/18/2024 until 03/19/2025 [facility] Work Phone: Comment on above: 1 Occurrences starting 02/18/2024 until 03/19/2025 Cyclic citrullinated peptide IgG Ab [Units/volume] in Serum or Plasma [facility] Elastase.pancreatic [Presence] in Stool [facility] IgA [Mass/volume] in Serum or Plasma [facility] Nuclear Ab [Presence ] in Serum [facility] Nucleic acid assay [facility] Ova OR parasites identification [facility] Patient Education [facility] Work Phone: Patient referral [facility] Work Phone: Polymerase chain angle ction analysis [facility] Protein measurement [facility] Thyroglobulin antibo dy measurement [facility] Tissue transglutamin ase IgA Ab [Units/volume] in Serum [facility] Transglutaminase IgA Transglutam inase IgA Lab Routine Abdominal pain, generalized 04/13/2022 9:10 AM EST [facility] Work Phone: US Abdomen limited [facility] Immunizations Immunization Date Immunization Notes Care Provider Risa malik 12-27-2020 meningococcal polysaccharide (groups A, C, Y and W-135) diphtheria toxoid conjugate vaccine (MCV4P) Darlin Redick STEAM TABLE ATTENDANT-BOARDER HAND Work Phone: [facility] 12-25-2019 influenza, injectabl e, quadrivalent, preservative free Darlin Redick STEAM TABLE ATTENDANT-BO[employer]ER [employer] Work Phone: [facility] 12-25-2019 influenza virus vacc ine, unspecified formulation Janeth Marion MD Work Phone: [facility] 12-23-2018 Human Papillomavirus 9-valent vaccine Darlin Redick STEAM TABLE ATTENDANT-BO[employer]ER [employer] Work Phone: [facility] 12-23-2018 influenza, injectabl e, quadrivalent, preservative free Darlin Redick STEAM TABLE ATTENDANT-BO[employer]ER [employer] Work Phone: [facility] 12-20-2017 influenza, injectabl e, quadrivalent, preservative free Darlin Redick STEAM TABLE ATTENDANT-BOARDER [employer] Work Phone: [facility] 08-23-2017 Human Papillomavirus 9-valent vaccine Dariln Redick STEAM TABLE ATTENDANT-BOARDER HAND Work Phone: [facility] 08-23-2017 meningococcal polysaccharide (groups A, C, Y and W-135) diphtheria toxoid conjugate vaccine (MCV4P) Darlin Redick STEAM TABLE ATTENDANT-BOARDER HAND Work Phone: [facility] 08-23-2017 tetanus toxoid, redu pavel diphtheria toxoid, and acellular pertussis vaccine, adsorbed Darlin Redick STEAM TABLE ATTENDANT-BOARDER HAND Work Phone: [facility] 12-15-2016 influenza, injectabl e, quadrivalent, preservative free Darlin Redick STEAM TABLE ATTENDANT-BOARDER HAND Work Phone: [facility] 12-15-2015 influenza, injectabl e, quadrivalent, preservative free Darlin Redick STEAM TABLE ATTENDANT-BOARDER HAND Work Phone: [facility] 12-15-2015 meningococcal polysaccharide (groups A, C, Y and W-135) diphtheria toxoid conjugate vaccine (MCV4P) Darlin Redick STEAM TABLE ATTENDANT-BOARDER HAND Work Phone: [facility] 12-15-2015 tetanus toxoid, redu pavel diphtheria toxoid, and acellular pertussis vaccine, adsorbed Darlin Redick STEAM TABLE ATTENDANT-BOARDER HAND Work Phone: [facility] 12-07-2014 influenza, injectabl e, quadrivalent, preservative free Darlin Redick STEAM TABLE ATTENDANT-BOARDER HAND Work Phone: [facility] 12-03-2013 influenza, injectabl e, quadrivalent, preservative free Darlin Redick STEAM TABLE ATTENDANT-BOARDER HAND Work Phone: [facility] 11-25-2012 Influenza Vaccine 0. 5 mL >= 3 Yr Trivalent Darlin Redick STEAM TABLE ATTENDANT-BO[employer]ER [employer] Work Phone: [facility] 11-25-2012 influenza, seasonal, injectable Darlin Redick STEAM TABLE ATTENDANT-BO[employer]ER HAND Work Phone: [facility] 11-01-2011 influenza virus vacc ine, split virus (incl. purified surface antigen) Darlin Redick STEAM TABLE ATTENDANT-BOARDER HAND Work Phone: [facility] 11-01-2011 influenza, seasonal, injectable Darlin Redick STEAM TABLE ATTENDANT-BOARDER HAND Work Phone: [facility] 12-24-2010 influenza virus vacc ine, split virus (incl. purified surface antigen) Darlin Redick STEAM TABLE ATTENDANT-BOARDER HAND Work Phone: [facility] 12-24-2010 influenza, seasonal, injectable Darlin Redick STEAM TABLE ATTENDANT-BOARDER HAND Work Phone: [facility] 11-27-2009 influenza virus vacc ine, split virus (incl. purified surface antigen) Darlin Redick STEAM TABLE ATTENDANT-BOARDER HAND Work Phone: [facility] 11-27-2009 influenza virus vacc ine, whole virus Darlin Redick STEAM TABLE ATTENDANT-BOARDER HAND Work Phone: [facility] 10-20-2009 diphtheria, tetanus toxoids and acellular pertussis vaccine Darlin Redick STEAM TABLE ATTENDANT-BOARDER HAND Work Phone: [facility] 10-20-2009 measles, mumps, rube lla, and varicella virus vaccine Darlin Redick STEAM TABLE ATTENDANT-BOARDER HAND Work Phone: [facility] 10-20-2009 poliovirus vaccine, inactivated Darlin Redick STEAM TABLE ATTENDANT-BOARDER HAND Work Phone: [facility] 11-04-2008 influenza virus vacc ine, unspecified formulation Darlin Redick STEAM TABLE ATTENDANT-BOARDER HAND Work Phone: [facility] 11-04-2008 influenza virus vacc ine, whole virus Darlin Redick STEAM TABLE ATTENDANT-BOARDER HAND Work Phone: [facility] 11-27-2006 influenza virus vacc ine, unspecified formulation Darlin Redick STEAM TABLE ATTENDANT-BOARDER HAND Work Phone: [facility] 11-27-2006 influenza virus vacc ine, whole virus Darlin Redick STEAM TABLE ATTENDANT-BOARDER HAND Work Phone: [facility] 10-10-2006 hepatitis A vaccine, pediatric/adolescent dosage, 2 dose schedule Darlin Redick STEAM TABLE ATTENDANT-BOARDER HAND Work Phone: [facility] 04-11-2006 diphtheria, tetanus toxoids and acellular pertussis vaccine Darlin Redick STEAM TABLE ATTENDANT-BOARDER HAND Work Phone: [facility] 04-11-2006 diphtheria, tetanus toxoids and acellular pertussis vaccine, unspecified formulation Darlin Redick STEAM TABLE ATTENDANT-BOARDER HAND Work Phone: [facility] 02-01-2006 influenza virus vacc ine, unspecified formulation Darlin Redick STEAM TABLE ATTENDANT-BOARDER HAND Work Phone: [facility] 02-01-2006 influenza virus vacc ine, whole virus Darlin Redick STEAM TABLE ATTENDANT-BOARDER [employer] Work Phone: [facility] 02-01-2006 pneumococcal conjuga te vaccine, 7 valent Darlin Redick STEAM TABLE ATTENDANT-BOARDER [employer] Work Phone: [facility] 02-01-2006 varicella virus vaccine Lydi a Redick STEAM TABLE ATTENDANT-BOARDER HAND Work Phone: [facility] 12-06-2005 influenza virus vacc ine, unspecified formulation Darlin Redick STEAM TABLE ATTENDANT-BOARDER [employer] Work Phone: [facility] 12-06-2005 influenza virus vacc ine, whole virus Darlin Redick STEAM TABLE ATTENDANT-BOARDER [employer] Work Phone: [facility] 11-01-2005 haemophilus influenz ae type b conjugate and Hepatitis B vaccine Darlin Redick STEAM TABLE ATTENDANT-BOARDER [employer] Work Phone: [facility] 11-01-2005 hepatitis A vaccine, pediatric/adolescent dosage, 2 dose schedule Darlin Redick STEAM TABLE ATTENDANT-BO[employer]ER [employer] Work Phone: [facility] 11-01-2005 measles, mumps and rubella virus vaccine Darlin Redick STEAM TABLE ATTENDANT-BO[employer]ER [employer] Work Phone: [facility] 10-26-2005 poliovirus vaccine, inactivated Darlin Redick STEAM TABLE ATTENDANT-BO[employer]ER [employer] Work Phone: [facility] 04-19-2005 diphtheria, tetanus toxoids and acellular pertussis vaccine Darlin Redick STEAM TABLE ATTENDANT-BOARDER [employer] Work Phone: [facility] 04-19-2005 diphtheria, tetanus toxoids and acellular pertussis vaccine, unspecified formulation Darlin Redick STEAM TABLE ATTENDANT-BOARDER [employer] Work Phone: [facility] 04-19-2005 haemophilus influenz ae type b vaccine, PRP-T conjugate Darlin Redick STEAM TABLE ATTENDANT-BO[employer]ER [employer] Work Phone: [facility] 04-19-2005 pneumococcal conjuga te vaccine, 7 valent Darlin Redick STEAM TABLE ATTENDANT-BOARDER [employer] Work Phone: [facility] 02-15-2005 diphtheria, tetanus toxoids and acellular pertussis vaccine Darlin Redick STEAM TABLE ATTENDANT-BOARDER [employer] Work Phone: [facility] 02-15-2005 diphtheria, tetanus toxoids and acellular pertussis vaccine, unspecified formulation Darlin Redick STEAM TABLE ATTENDANT-BOARDER [employer] Work Phone: [facility] 02-15-2005 haemophilus influenz ae type b vaccine, PRP-T conjugate Darlin Redick STEAM TABLE ATTENDANT-BOARDER [employer] Work Phone: [facility] 02-15-2005 pneumococcal conjuga te vaccine, 7 valent Darlin Redick STEAM TABLE ATTENDANT-BOARDER [employer] Work Phone: [facility] 02-15-2005 poliovirus vaccine, inactivated Darlin Redick STEAM TABLE ATTENDANT-BOARDER [employer] Work Phone: [facility] 2004 diphtheria, tetanus toxoids and acellular pertussis vaccine Darlin Redick STEAM TABLE ATTENDANT-BOARDER HAND Work Phone: [facility] 2004 diphtheria, tetanus toxoids and acellular pertussis vaccine, unspecified formulation Darlin Redick STEAM TABLE ATTENDANT-BOARDER HAND Work Phone: [facility] 2004 haemophilus influenz ae type b conjugate and Hepatitis B vaccine Darlin Italo STEAM TABLE ATTENDANT-BOARDER HAND Work Phone: [facility] 2004 pneumococcal conjuga te vaccine, 7 valent Darlinhudson Puckett STEAM TABLE ATTENDANT-BOARDER HAND Work Phone: [facility] 2004 poliovirus vaccine, inactivated Darlin Italo STEAM TABLE ATTENDANT-BOARDER HAND Work Phone: [facility] 2004 hepatitis B vaccine, pediatric or pediatric/adolescent dosage Darlin Italo STEAM TABLE ATTENDANT-BOARDER HAND Work Phone: [facility] Payers Date Payer Category Payer Medicaid [id number] 2023 Medicaid [id number] 2023 Self-pay [id number] 2023 Private Health Insurance [id number] 2023 Unknown [id number] 2022 Unknown [facility]ET[facility] [id number] 2022-Present [phone] [address] [place] [address] [id number] 2015 Unknown [id number] 1976 Unknown [id number] 2.16.840.1.847638.3.579.2.4 79 1976 Unknown [id number] 2.16.840.1.579676.3.579.2.4 79 1976 Unknown [id number] 2.16.840.1.950999.3.579.2.4 79 1976 Unknown [id number] 2.16.840.1.537935.3.579.2.4 79 Unknown [id number] 2.16.840.1.213321.3.579.2.6 27 Unknown [id number] 2.16.840.1.871345.3.579.2.4 62 Unknown [id number] 2.16.840.1.552045.3.579.2.4 62 Unknown [id number] 2.16.840.1.387868.3.579.2.4 62 Unknown [id number] 2.16.840.1.600712.3.579.2.4 62 Unknown [id number] 2.16.840.1.754124.3.579.2.4 62 Unknown [id number] 2.16.840.1.460301.3.579.2.4 62 Unknown [id number] 2.16.840.1.604953.3.579.2.4 62 Unknown [id number] 2.16.840.1.725221.3.579.2.4 62 Unknown [id number] 2.16.840.1.176761.3.579.2.4 62 Unknown [id number] 2.16.840.1.013201.3.579.2.4 62 Unknown [id number] 2.16.840.1.333363.3.579.2.4 62 Unknown [id number] 2.16.840.1.094714.3.579.2.4 62 Unknown [id number] 2.16.840.1.034624.3.579.2.4 62 Unknown [id number] 2.16.840.1.277352.3.579.2.4 62 Unknown [id number] 2.16.840.1.675710.3.579.2.4 62 Unknown [id number] 2.16.840.1.251746.3.579.2.4 62 Unknown [id number] 2.16.840.1.361746.3.579.2.4 62 Unknown [id number] 2.16.840.1.278202.3.579.2.4 62 Unknown [id number] 2.16.840.1.828178.3.579.2.4 62 Unknown [id number] 2.16.840.1.131082.3.579.2.4 62 Unknown [id number] 2.16.840.1.562991.3.579.2.4 62 Unknown [id number] 2.16.840.1.789490.3.579.2.4 62 Unknown [id number] 2.16.840.1.631450.3.579.2.4 62 Unknown [id number] 2.16.840.1.648352.3.579.2.4 62 Unknown [id number] 2.16.840.1.768912.3.579.2.4 62 Unknown [id number] 2.16.840.1.043324.3.579.2.4 62 Social History Date Type Detail Facility Start: 12-02-2021 End: 09-16-2024 Tobacco smoking status NHIS Never smoked tobacco [facility] Start: 03-23-2011 End: 12-02-2021 Tobacco use and exposure Smokeless tobacco non-user [facility] Start: 04-13-2022 End: 05-12-2024 Alcohol intake Not Asked [facility] Start: 04-13-2022 End: 05-12-2024 History of Social function [facility] Start: 04-13-2022 End: 05-12-2024 Tobacco use panel [facility] Adolescent depressio n screening assessment 5 [facility] Start: 2005 Sex Assigned At Not on file A [facility] Start: 03-06-2022 End: 03-28-2023 Tobacco smoking status NHIS Unknown if ever smoked [facility] Start: 2005 Sex Assigned At Female [place] [facility] Tobacco smoking status No Smokin g Status Entered [facility] Start: 05-16-2024 End: 05-20-2024 Sex Female (finding) [facility] NEGATED: Highlighted row Not [facility] Medical Equipment Procedure Code Equipment Code Equipment Original Text Equipment Identifier Dates Total cholecystectomy with exploration of common bile duct CLIP,REZA FLOWERS FDA Start: 02-25-2024 Total cholecystectomy with exploration of common bile duct CLIP,HEMYVONNE FLOWERS FDA Start: 02-25-2024 Total cholecystectomy with exploration of common bile duct CLIP,HEMYVONNE FLOWERS FDA Start: 02-25-2024 Total cholecystectomy with exploration of common bile duct CLIP,HEMYVONNE FLOWERS FDA Start: 02-25-2024 Total cholecystectomy with exploration of common bile duct CLIP,HEMYVONNE FLOWERS FDA Start: 02-25-2024 Total cholecystectomy with exploration of common bile duct CLIP,REZA FLOWERS FDA Start: 02-25-2024 Total cholecystectomy with exploration of common bile duct CLIP,REZA FLOWERS FDA Start: 02-25-2024 Total cholecystectomy with exploration of common bile duct CLIP,REZA FLOWERS FDA Start: 02-25-2024 Total cholecystectomy with exploration of common bile duct CLIP,REZA FLOWERS FDA Start: 02-25-2024 Total cholecystectomy with exploration of common bile duct CLIP,HEMYVONNE FLOWERS FDA Start: 02-25-2024 Total cholecystectomy with exploration of common bile duct CLIP,REZA FLOWERS FDA Start: 02-25-2024 Total cholecystectomy with exploration of common bile duct CLIP,HEMYVONNE FLOWERS FDA Start: 02-25-2024 Total cholecystectomy with exploration of common bile duct CLIP,HEMYVONNE FLOWERS FDA Start: 02-25-2024 Total cholecystectomy with exploration of common bile duct CLIP,HEMYVONNE FLOWERS FDA Start: 02-25-2024 Total cholecystectomy with exploration of common bile duct CLIP,HEMYVONNE FLOWERS FDA Start: 02-25-2024 Total cholecystectomy with exploration of common bile duct CLIP,HEMYVONNE FLOWERS FDA Start: 02-25-2024 Total cholecystectomy with exploration of common bile duct CLIP,HEMYVONNE FLOWERS FDA Start: 02-25-2024 Total cholecystectomy with exploration of common bile duct CLIP,REZA FLOWERS FDA Start: 02-25-2024 Total cholecystectomy with exploration of common bile duct CLIP,HEMYVONNE FLOWERS FDA Start: 02-25-2024 Total cholecystectomy with exploration of common bile duct CLIP,HEMYVONNE FLOWERS FDA Start: 02-25-2024 Total cholecystectomy with exploration of common bile duct CLIP,HEMYVONNE FLOWERS FDA Start: 02-25-2024 Total cholecystectomy with exploration of common bile duct CLIP,HEMYVONNE FLOWERS FDA Start: 02-25-2024 Total cholecystectomy with exploration of common bile duct CLIP,REZA FLOWERS FDA Start: 02-25-2024 Total cholecystectomy with exploration of common bile duct CLIP,HEMYVONNE FLOWERS FDA Start: 02-25-2024 Total cholecystectomy with exploration of common bile duct CLIP,HEMYVONNE FLOWERS FDA Start: 02-25-2024 Total cholecystectomy with exploration of common bile duct CLIP,REZA FLOWERS FDA Start: 02-25-2024 Goals Date Patient Goal Desired Activity /State Functional Status Date Assessment Result Facility 06-22-2014 Are you deaf, or do you have serious difficulty hearing No 06/22/2014 10:29 AM EDT Luz Barbosa LPN No [facility] 06-22-2014 Are you blind, or do you have serious difficulty seeing, even when wearing glasses No 06/22/2014 10:29 AM EDT Luz Barbosa LPN No [facility] 06-22-2014 Do you have serious difficulty walking or climbing stairs No 06/22/2014 10:29 AM EDT Luz Barbosa LPN No [facility] 06-22-2014 Do you have difficul ty dressing or bathing No 06/22/2014 10:29 AM EDT Luz Barbosa LPN No [facility] Mental Status Date Assessment Result Facility 06-09-2024 Cognitive function Touch/Shaking [facility] Work Phone: 06-09-2024 Cognitive function Patient Orien tation Person;Place [facility] Work Phone: 02-25-2024 Cognitive function Voice/Name [facility] Work Phone: 06-22-2014 Because of a physica l, mental, or emotional condition, do you have serious difficulty concentrating, remembering, or making decisions No 06/22/2014 10:29 AM EDT Luz Barbosa LPN No [facility] Clinical Notes 12-26-2022 to 07-15-2024 Note Date & Type Note Facility 07-15-2024 Radiology Diagnostic study note [facility] Imaging Services [address] [place], [place] [address] Abdomen Limited MR#: [id number] Acct: [id number] Name: JOAN MOORE Rep #: [id number] : 2005 F 18 From: Eleuterio Kerr MD PCP: Dr. Oliva Ball DO Status: REG CLI Study:Abdomen Limited Date of Exam: 07/06 Exam# [id number] Ordering Dr: Gayatri Merrill PROCEDURE: ABDOMEN LIMITED 07/15/2024 REASON FOR EXAM: ABDOMINAL PAIN COMPARISON: None FINDINGS: Liver: Grossly normal size and echotexture. Gallbladder: Surgically absent. Common bile duct: Normal measuring 3.4 mm . Pancreas: Normal Other: Visualized portions of the right kidney are unremarkable. No right upperquadrant ascites. US/Abdomen Limited IMPRESSION: Status post cholecystectomy. No acute abnormality is seen. Reading Location: [place] [address] CC: PRICING SPECIALISTRebeca Merrill; Dr. Oliva Ball DO ~ Hospital Education Coordinator: Signed [facility] 06-20-2024 Evaluation note Diagnosis Onset Date Resolution Abdominal discomfort acute June 20, 2024 1:08pm Bile reflux gastritis acute June 20, 2024 1:08pm Abdominal discomfort acute July 04, 2024 8:40am Bile reflux gastritis acute July 04, 2024 8:40am Chronic diarrhea chronic June 8:40am Bile reflux gastritis acute Boni 2024 10:53am Irritable bowel syndrome with diarrhea acute July 08, 2024 10:53am Abdominal pain inactive July 08, 2024 10:53am Irritable bowel syndrome noneactive July 08, 2024 1 0:53am Rash noneactive July 17 1:05pm Irritable bowel syndrome with diarrhea acute July 11:24am Weight loss acute September 16, 2024 8:28am Bloating symptom resolved September 052024 8:28am Abdominal pain inactive September 8:28am [facility] Work Phone: 1(190) 864-812905-05-2025 [facility] Medical Records Department [address] [place] [address] History Physical Exam 06/09/24916 MR#: [id number] Acct: [id number] Name: JOAN MOORE Rep #: [id number] : 2005 18 From: Norma Buckley MD PCP: Dr. Tapan Menjivar DO Status:[facility] Location: [place] [address] History and Physical Date of Admission: 06/09/24 Date of Service: 05/14/24 MR#: [id number] Acct: [id number] Name: JOAN MOORE Rep #: [id number] : 2005 Provider: Dr. Norma Buckley MD Age/Sex: 18/F Location: [facility] [address] Status: Signed Intake Vital Signs 02/24/2511:14 05/13/2512:18 05/15/2511:55 Height 5 ft 7 in 5 ft 7 in 5 ft 7 in Weight: 119 lb 2 oz 121 lb BMI 18.6 18.9 BP 102/68 121/70 H Blood Pressure Location Rt brachial Position Sitting Respiration 14 Pulse 87 Pulse Source Monitor Temp 98.1 F Temp Source Oral Pulse Oximetry (%) 100 Oxygen Delivery Method room air Intake Visit Reasons: RECALL DISCUSS UPPER AND LOWER SCOPE Stroboroma Operator Required: No Accompanied by: Self Is patient in pain?: No Allergies No Known Allergies Allergy (Verified 05/14/24 12:54) Medications ???Medication ???Instructions ???Recorded ???Confirmed ???Type albuterol sulfate 90 mcg/actuation 2 inh inhalation Q4H PRN shortness 03/12/23 History aerosol inhaler of breath or wheezing medroxyprogesterone 10 mg tablet 10 mg PO QDAY 5 days #5 tabs 05/13/24 05/14/24 Rx omeprazole 40 mg capsule,delayed 40 mg PO QDAY #30 caps 05/14/24 05/14/24 Rx release vitamin #56-iron 35 mg 1 cap PO QDAY 05/14/24 05/14/24 History and 5 mg-folic acid 1 mg-dha capsule PFS Medical History Wears contact lenses Non-smoker Anxiety Chronic diarrhea Biliary dyskinesia Spider bite Abnormal uterine bleeding Contraception management Asthma Migraine COVID-19 Surgical History S/P cholecystectomy Hx of wisdom tooth extraction History of tonsillectomy and adenoidectomy Family History Mother Rheumatoid arthritis Heart palpitationsFather Hemochromatosis Hypertension Social History household members: family housing: house current occupational exposures/hazards: No pets and animals: Yes pets and animals: cat(s), dog(s) and fish sexually active: Yes Smoking Status: Never smoker alcohol intake: never substance use type: does not use and tranquilizers caffeine: Yes seatbelt use: always HPI HPI HPI: 18-year-old female presents due to continued diarrhea and some abdominal burning after eating. Patient is status post laparoscopic cholecystectomy due to biliary dyskinesia. Patient states the nausea did improve after the cholecystectomy. Patient states the diarrhea has not really changed. Patient was initially put on omeprazole thought maybe she had a little less diarrhea at that time currently not on omeprazole. Patient has been able to eat does think she may have gained a little bit of weight since the laparoscopic cholecystectomy. ROS General General: Yes weight change and fatigue; No appetite, colon cancer or breast cancer HEENT HEENT: No difficulty swallowing, eye injury, eye surgery, swollen glands or hoarseness Endo Endocrine: No thyroid disease, diabetes mellitus, thyroid cancer, Hair loss, heat intolerance or cold intolerance Skin Skin: No rash or changing moles Musc Musculoskeletal: Yes back problems; No arthritis, rheumatoid arthritis, gout or joint pain Cardio Cardiovascular: No murmur, pacemaker, heart disease, atrial fibrillation, high blood pressure, heart attack, heart stent, palpitations, shortness of breath with exertion or chest pain Psych Psychiatric: Yes anxiety; No depression or hearing voices Resp Respiratory: No shortness of breath, No sleep apnea, No cough, No COPD, Yes asthma, No emphysema and No wheezing Gastro Gastrointestinal: Yes abdominal pain, Yes nausea or vomiting, Yes diarrhea, Yes constipation, No blood in stool, No acid reflux, Yes hemorrhoids, No ulcers, No gallbladder problem and No black,tarry stools [place] Hematologic: No blood thinners, No blood disorders, No bleeding, No anemia and No blood clots Neuro Neurologic: No numbness and No tingling Exam Const General: cooperative, healthy appearing, comfortable and no acute distress HENMT Head: normocephalic and atraumatic Neck Neck: supple Resp Effort Inspection: normal respiratory effort Cardio Rate: regular (more content not included)...[facility]04-08-2025 Evaluation note* Diagnosis Onset Date Resolution Status Admit Date Abnormal uterine bleeding acute May 13, 2024 1:09pm Contraception management acute May 13, 2024 1:09pm Possible exposure to STD noneactive May 13, 2024 1:09pm Encounter for routine gynecological examination noneactive May 13, 2024 1:09pm Abdominal discomfort acute Apri l 2024 12:45pm Chronic diarrhea chronic May 12:45pm Abdominal discomfort acute June 20, 2024 1:08pm Bile reflux gastritis acute June 20, 2024 1:08pm Abdominal discomfort acute July 04, 2024 8:40am Bile reflux gastritis acute July 04, 2024 8:40am Chronic diarrhea chronic June 8:40am Bile reflux gastritis acute Jul 10:53am Irritable bowel syndrome wit h diarrhea acute July 08, 2024 1 0:53am Abdominal pain inactive July 08, 2024 10:53am Irritable bowel syndrome noneactive July 08, 2024 10:53am [facility] Work Phone: 1(689) 427-447604-08-2025 Evaluation note* Diagnosis Onset Date Resolution Status Admit Date Abnormal uterine bleeding acute May 13, 2024 1:09pm Contraception management acute May 13, 2024 1:09pm Possible exposure to STD noneactive May 13, 2024 1:09pm Encounter for routine gynecological examination noneactive May 13, 2024 1:09pm Abdominal discomfort acute Apri l , 2025 12:45pm Chronic diarrhea chronic May 12:45pm Abdominal discomfort acute June 20, 2024 1:08pm Bile reflux gastritis acute June 20, 2024 1:08pm Abdominal discomfort acute July 04, 2024 8:40am Bile reflux gastritis acute July 04, 2024 8:40am Chronic diarrhea chronic June 8:40am Bile reflux gastritis acute Jul 10:53am Irritable bowel syndrome wit h diarrhea acute July 08, 2024 1 0:53am Abdominal pain inactive July 08, 2024 10:53am Irritable bowel syndrome noneactive July 08, 2024 10:53am Rash noneactive July 17 1:05pm [facility] Work Phone: [phone]) 575-894504-08-2025 Evaluation note* Diagnosis Onset Date Resolution Status Admit Date Abnormal uterine bleeding acute May 13, 2024 1:09pm Contraception management acute May 13, 2024 1:09pm Possible exposure to STD noneactive May 13, 2024 1:09pm Encounter for routine gynecological examination noneactive May 13, 2024 1:09pm Abdominal discomfort acute 2024 12:45pm Chronic diarrhea chronic May 12:45pm Abdominal discomfort acute June 20, 2024 1:08pm Bile reflux gastritis acute June 20, 2024 1:08pm Abdominal discomfort acute July 04, 2024 8:40am Bile reflux gastritis acute July 04, 2024 8:40am Chronic diarrhea chronic June 8:40am Bile reflux gastritis acute Jul 10:53am Irritable bowel syndrome wit h diarrhea acute July 08, 2024 1 0:53am Abdominal pain inactive July 08, 2024 10:53am Irritable bowel syndrome noneactive July 08, 2024 10:53am Rash noneactive July 17 1:05pm Irritable bowel syndrome wit h diarrhea acute July 22, 2024 11:24am [facility] Work Phone: [phone]) 458-203604-07-2025 History of Present illness Narrative* Janeth Coyle MD - 05/12/2024 1:00 PM EDT Images from the original note were not included. Plastic Surgery Note Virtual Visit I have communicated my name and active licensure. The patient's identity and physical location wereverified at the time of this visit. Either the patient or their legal claim service representative has been informed of the risks and benefits of -- and alternatives to -- treatment through a remote evaluation andconsents to proceed with the evaluation remotely. HPI: Joan is a 18 year old female who presents today for evaluation of her jaw. Patient has had braces 3 times. Does not currently have braces on. She has been approved for double jaw surgery and genioplasty. CT scan done. Surgical Attendant name: Dr. Tobar (taking over for Dr. Penaloza since she left the practice) Surgical Attendant phone: [phone] (email: [email or web address] Chief complaint: [x]Chewing []Eating []Swallowing []Speaking []Breathing [x]TMJ pain [x]TMJ popping/clicking Overall PAIN Now 0[] 1[] 2[x] 3[] 4[] 5[] 6[] 7[] 8[] 9[] 10[] Average 0[] 1[] 2[] 3[] 4[] 5[x] 6[] 7[] 8[] 9[] 10[] Rest 0[] 1[] 2[x] 3[] 4[] 5[] 6[] 7[] 8[] 9[] 10[] Function 0[] 1[] 2[] 3[] 4[] 5[] 6[] 7[] 8[x] 9[] 10[] Quality [x]sharp []dull [x]aching []sore []taut []pulled []torsion [x]shooting []pricking []pressing []lacerating []pinching []squeezing []drilling []spasm [] throbbing []burning []cramping []cutting []heavy []itchy []radiating [] electrical []stinging Systemic inflammatory diseases yes [] no [x] []RA []Gout []Other........... Connective tissue disease yes [] no [x] []Marfan []Scleroderma []Lupus []Other........... Extraction Maxillary third molars yes [x] no [] September 2022 Extraction Mandibular third molars yes [x] no [] September 2022 History of snoring: yes [] no [x] History of grinding: yes [] no [x] Sleep study: yes [] no [x] AHI:..... STOP BANG Questionnaire 3 or more is considered high pretest probability with 90% and 93% sensitivity/specificity to correlated with AHI > 15 (moderate range MARIUSZ or higher) on a sleep study. Yes/No with Yes = 1 and No = 0 S - Snoring loudly: [] T - Tired, fatigue or sleepy : [x] O - Observed apnea - stopping to breath/choking gasping: [] P - High BP or on medications: [] B - BMI > 35: [] A - Age > 50: [] N - Neck size > 16 in. for females/17 in. for males: [] G - Gender male: [] No results found for: HBA1C No data found for this vital: BP No data to display No data to display YES NO Smoking, vaping, nicotine, cannabis [] [x] Cigarettes/ day.... ? Hormone replacement (contraceptive, post menopause hormone treatment) [x] [] Medication....Depot shots every 3 months Diabetes [] [x] []Type 1? []Type 2 ?Last A1c:..... Systemic inflammatory diseases [] [x] []RA []Gout []Other... Hypertension [] [x] Meds:....... Heart disease or pacemaker [] [x] ............ Family history blood clots [] [x] Personal history blood clots [] [x] Anticoagulation (aspirin, coumadin, xarelto,etc) [] [x] What........... Reason:........... Immunosuppressants (steroid, biologic meds infusion, etc) [] [x] What........... Reason:........... Pt AGAINST blood transfusion? [] [x] ROS: All negative except for: GENERAL: []weight loss []malaise []fevers HEENT: []frequent or significant headaches []changes in hearing []change in vision []nose bleeds []other nasal problems NECK: []lumps []goiter []pain and significant neck swelling RESPIRATORY: []cough []hemoptysis []wheezing []COPD []dyspnea []shortness of breath CARDIOVASCULAR: []chest pain []leg swelling []hypertension []CHF []palpitations GI: []nausea []vomiting []diarrhea MUSCULOSKELETAL: see HPI SKIN: [] skin lesions []rash []itching PSYCH: []sleep disturbance []mood disorder []recent psychosocial stressors HEMATOLOGY/LYMPHOLOGY: []prolonged bleeding []bruising easily []swollen nodes ENDOCRINE: []cold intolerance []heat intolerance []polyuria []polydipsia []goiter Objective: There were no vitals taken for this visit. No past medical history on file. No past surgical history on file. Current Outpatient Medications Medication Sig Dispense Refill omeprazole (PRILOSEC) 40 mg capsule medroxyPROGESTERone (DEPO-PROVERA) 150 mg/mL MULTI-VITAMIN ORAL Take 1 tablet by mouth once daily. albuterol HFA (PROAIR HFA) 90 mcg/Actuation INHALATION inhaler Inhale 2 Puffs as instructed every 6hours as needed. 0 beclomethasone (QVAR) 40 mcg/Actuation INHALATION inhaler Inhale 2 Puffs as instructed twice daily.0 No current facility-administered medications for this visit. ALLERGIES No Known Allergies PE: Alert, awake in NAD Mandibular angle more prominent EXAM: OCCLUSION CLASS RIGHT FIRST MOLAR 1[] 2[] 3[x] CANINE 1[] 2[] 3[] LEFT FIRST MOLAR 1[] 2[] 3[x] CANINE 1[] 2[] 3[] Skeletal class 3 (R) [x]CROSSBITE (L) []CROSSBITE OPEN BITE []ANTERIOR []POSTERIOR []RIGHT LATERAL []LEFT LATERAL Anterior cross bite UPPER INCISOR SHOW AT REST .....3......MM UPPER INCISOR SHOW AT HIGHSMILE .....7.......MM OVERBITE.....-3........MM OVERJET.......-2.......MM MAXILLARY MIDLINE.....midline, maybe 1 mm to the left......... MANDIBULAR MIDLINE....1 mm to the left of the maxillary midline......... MAXILLARY CANT (CANINE LEVEL) []RIGHT SIDE UP [x]LEFT SIDE UP .....1......mm MANDIBULAR CANT (CANINE LEVEL) []RIGHT SIDE UP [x]LEFT SIDE UP .....1......mm MENTALIS STRAIN []no [x]yes Glabella to True vertical line (through subnasale): .....2-3........mm Pogonion to TVL: ...5 mm... Maxillary yaw deformity [x]no []yes Mandibular yaw deformity [x]no []yes TMJ: MAXIMUM INTERINCISAL OPENING........44........MM MAXIMUM INTERINCISAL OPENING WITHOUT PAIN......40.....MM (R) LATERAL EXCURSION ......12.........MM (L) LATERAL EXCURSION.........14.......MM PROTRUSION........9-10........MM DEVIATION ON OPENING []no [x]Yes to the left JOINT NOISE OPENING POP (R)[]no [x]yes (L)[]no [x]yes CLOSING POP (R)[]no [x]yes (L)[]no [x]yes CREPITATION (R)[]no []yes (L)[]no []yes Tenderness to palpation TMJ ? (R)[]no [x]yes ? (L)[]no [x]yes R>L MASSETER ? (R)[]no [x]yes ? (L)[]no [x]yes TEMPORALIS ? (R)[x]no []yes ? (L)[x]no []yes MEDIAL PTERYGOID ? (R)[]no [x]yes ? (L)[x]no []yes LATERAL PTERYGOID ? (R)[x]no []yes ? (L)[x]no []yes ANTERIOR NECK ? (R)[x]no []yes ? (L)[x]no []yes STERNOCLEIDOMASTOID ? (R)[x]no []yes ? (L)[x]no []yes POSTERIOR NECK ? (R)[x]no []yes ? (L)[x]no []yes Periodontal status (gross examination): [x]Good []Fair []Poor FRONTAL VIEW 1 Vertical Range Patient Possible ways to normalize vertical Overbite 3 mm LF1 BSSO [place] length change Orthodontics crown torque change Upper lip height 19-22 mm Lip length surgery Interlabial gap 1-5 mm LF1 BSSO Overbite correction Lip posture change Lip length surgery Lower lip height 42-48 mm LF1 BSSO Overbite correction Lip posture change Chin osteotomy Lower 1/3 height 60-68 mm LF1 BSSO Overbite correction Submental lipectomy Chin osteotomy Mx incision exposure (relaxed) 1-5 mm LF1 [place] length change Lip length surgery crown torque change Mx incision exposure (smile) 8 crown to 2 gingiva LF1 Full Partial [place] length change Lip length surgery gingivectomy Closed lip Strainless touch []Strain []Redudancy LF1 BSSO Overbite correction Mx height change Lip length surgery Mx incisor height 9.5- 11.5 mm [place] length change gingivectomy Upper vermilio 6-9 mm Lip reconstruction procedure Lower vermilion 8-12 mm Lip reconstruction procedure Middle 1/3 60-68 mm 2 Vertical planning Mx 1 plan-relaxed lip Current relaxed exposure .+/- desired change =goal (> 5mm advan anticipated? increase impaction) Mx 1 plan-smile lip Current smile exposure .+/- desired change =goal (> 5mm advan anticipated? increase impaction) Anterior facial plan +/- Mx1 height change +/- overbite change ..+/-chin height change ..=net ..ok outline-interlabial gap 3 Midlines Patient Possible ways to normalize facial midlines Nasal tip []to right []Midline []to left LF1 LF1 shorten septum Isolated septoplasty Philtrum []to right []Midline []to left Soft tissue midline which dental midlines are measured to Mx 11 []to right []Midline []to left LF1 orthodontics Canine cant change Md 11 []to right []Midline []to left BSSO Orthodontics Canine cant change Chin []to right []Midline []to left BSSO Chin osteotomy Canine cant change 4 Facial levels Patient Possible ways to normalize facial levels Eyes []R down []same []L down None Mx canine []R down []same []L down LF1 Orthodontics Md canine []R down []same []L down BSSO Orthodontics Md body level []R down []same []L down BSSO Heat treated GARCIA augmentation Chin level []R down []same []L down BSSO Chin osteotomy 5 outline Patient Possible ways to normalize outline General []Round []wide []narrow []long []short []normal LF1 BSSO Overbite change Chin osteotomy- change height Buccal or submental lipectomy Zygomatic arch R []Larger []wide []normal []narrow L []larger []wide []normal []narrow GARCIA augmentation Reduction osteoplasty Md angle R [x]larger []wide []normal []narrow L []larger []wide []normal []narrow BSSO Midline rotation Canine cant correction Cold cure GARCIA graft Md body R [x]Larger []wide []normal []narrow L []larger []wide []normal []narrow BSSO Midline rotation Canine cant correction Cold cure GARCIA graft Buccal lipectomy Chin [x]Wide []normal []narrow []Flat []angular []Short []long Posture change Chin osteotomy Cold cure GARCIA Buccal lipectomy Alar base width Alar base width....mm intercanthal width....mm Alar base cinch Surgical narrowing 6 other options Patient Treatment Occlusal plane []Steep []normal []flat []CCW []maintain []CW LF1 []Mx expansion []Mx lengthening []Mx advancement LF1 []1-piece []2-piece []3-piece []4-piece GARCIA cheekbones []Flat asymmetric: larger []R []L []Small []medium []large Larger []R []L Chin Iliac crest Fat Tooth anatomy PROFILE 1 High midface projection Patient Ways to normalize midface projection Glabella []retruded []normal []protruded osteoplasty Orbital rim []flat []soft []normal []prominent []R larger []L larger Heat cured GARCIA augmentation Cheekbone []flat []soft []normal []prominent []R larger []L larger Heat cured GARCIA augmentation Reduction osteoplasty Subpupil []flat []soft []normal []prominent []R larger []L larger LF1 (MSLF1 advances more than LF1) Heat cured GARCIA 2 Maxillary projection Patient Ways to normalize soft tissue nasal base- upper lip projection Nasal base []concave []flat []soft []convex []prominent []R larger []L larger LF1 (MSLF1 creates> than LF1) PRIMITIVO (upper lip anterior) to TVL []retruded []normal []protruded []Straight MX sulcus []Lip: thin thick LF1 11 torque change Lip thickness change Upper lip support []weak []normal []strong Support: []air []teeth []gingiva LF1 11 torque change Orthodontics 1 []age []extractions []headgear []elastics []RPE []Functional LF1 11 torque change Flatten occlusal plane Orthodontics 2 []age []extractions []headgear []elastics []RPE []Functional LF1 11 torque change Flatten occlusal plane Nasal projection []long []normal []short Tip: []up []down Dorsal: []hump []saddle LF1 (MSLF1 shortens more than LF1) rhinoplasty Nasal base mirror 4 5 6 7 8 9 10 mm forward 2 3 4 5 6 7 8 9 10 mm ala forward Desired move .mm could need Upper lip mirror 4 5 6 7 8 9 10 mm forward 2 3 4 5 6 7 8 9 10 mm lip forward Desired move .mm couldneed Ceph UL thickness []Thin []thick mm (F 10.8-14.4, M 13.4-16.2) Injections VY closure UL to TVL []Upright []protruded 3..mm (F 2.5-4.9, M 1.6-5.0) LF1 adv 11 torque change VY closure injections Lip to nose balance []Retruded []protruded mm (F 11.0-13.6, M 13.0-16.4) LF1 adv 11 torque change VY closure injections Upper lip angle []Open []closed degrees (F 7.0-17.2, M 2.9-13.7) LF1 adv 11 torque change VY closure injections Lower lip to TVL: 5 mm positive 3 Mandibular projection Patient Ways to normalize lip and chin projection LLA to TVL 5 mm []retruded []normal []protruded []11 defection Labiomental fold: []Accent []flat Mx 11 torque change LF1 adv Md 11 torque change BSSO [place] or flatten occlusal plane Chin augmentation or reduction Pog' to TVL []retruded []normal []protruded Pog' relative to: lower lip []protruded []retruded Mx 11 torque change LF1 adv Md 11 torque change BSSO [place] or flatten occlusal plane Chin augmentation or reduction Throat length []short []normal []long Chin line sag Mx 11 torque change LF1 adv Md 11 torque change BSSO [place] or flatten occlusal plane Chin augmentation or reduction Submental lipectomy overjet ..mm Does not indicate source of malocclusion orthodontics LF1 BSSO Right clinical examination Left clinical examination TMJ sound []pop []click []multiple clicks []crepitation TMJ sound []pop []click []multiple clicks []crepitation Splint3 and /or medical therapy1 TMJ pain []opening []palpation []biting []yawning TMJ pain []opening []palpation []biting []yawningSplint3 and /or medical therapy1 Muscle pain []masseter []temporalis []Medial pterygoid []neck Muscle pain []masseter []temporalis []Medial pterygoid []neck Splint3, amitriptyline, anti-inflammatory Right CBCT Left CBCT Condyle position []central []anterior []posterior []inferior Condyle position []central []anterior []posterior []inferior Diagnostic splint2 Condyle shape []head bulge []finger []flat surface []indistinct Condyle shape []head bulge []finger[]flat surface []indistinct Splint3 and /or medical therapy1 Condyle cortex []corticated []decorticated []hypercorticated []beak Condyle cortex []corticated []decorticated []hypercorticated []beak Splint3 and /or medical therapy1 Collyer []normal []steep []shallow []flat surface Collyer []normal []steep []shallow []flat surface Splint3 and /or medical therapy1 1 Feldene 50-100 mg every day or Voixx 25-50 mg every day or Celebrex 50-100 mg every day (antiinflammatory), amitriptyline 5-10 mg hs (antibruxism, skeletal muscle relaxant), vitamin C 500 mg and E 400 unit(s) every day, doxycycline 50- 100 mg every day (stabilize connective tissue and bone) 2 splint designed to seat condyle in centric relationship (uppermost), must not be designed to overseat and compress joint 3 full coverage, acrilyc, centric relationship, excursive guidance, usually on maxilla, on mandiblewith large open bites, designed to heal joints by decreasing the intra-articular pressure RED: pathognomonic for total condyle remodeling UNDERLINED:pathognomonic for osteoarthritis GREEN: normal Group/Measurement Value Norm Std Dev DevNorm Skeletal SNA ( ) 79.5 82.0 3.5 -0.7 SNB ( ) 81.2 80.9 3.4 0.1 ANB ( ) -1.7 1.6 1.5 -2.2 Wits Appraisal (mm) -4.7 -1.0 1.0 -3.7 Skeletal Angular MP - SN ( ) 29.9 33.0 6.0 -0.5 Cranio-Mx Base/SN-Palatal Plane ( ) 8.2 7.3 3.5 0.3 Palatal-Jamil Angle (PP-MP) ( ) 21.7 25.0 6.0 -0.6 Gonial/Jaw Angle (Ar-Go-Me) ( ) 119.8 122.9 6.7 -0.5 Lower Gonial Angle (Na-Go-Me) ( ) 69.4 71.2 6.0 -0.3 Upper Gonial Angle (Ar-Go-Na) ( ) 50.4 52.0 7.0 -0.2 Skeletal Linear S-N (mm) 82.1 75.0 3.0 2.4 PNS-A (mm) 35.4 49.3 3.5 -4.0 Mandibular Body Length (Go-Me) (mm) 61.1 71.0 5.0 -2.0 Dental L1 - NB (mm) 4.6 4.0 1.8 0.3 U1 - NA (mm) 4.0 4.3 2.7 -0.1 L1 - Occ Plane ( ) 72.8 72.0 5.0 0.2 L1 - GoGn ( ) 93.9 90.0 6.0 0.7 U1 - Occ Plane ( ) 59.1 57.5 7.0 0.2 U1 - Palatal Plane ( ) 115.4 110.0 5.0 1.1 U1 - SN ( ) 107.2 102.8 5.5 0.8 Skeletal Vertical UFH:LFH, Lower (ANS-Gn/N-Gn) (%) 58.5 55.0 1.0 3.5 UFH:LFH, Upper (N-ANS/N-Gn) (%) 41.5 45.0 1.0 -3.5 P-A Face Height (S-Go/N-Me) (%) 64.3 65.0 4.0 -0.2 Upper Face Height (N-ANS) (mm) 46.6 50.0 2.5 -1.4 * Lower Face Height (ANS-Me) (mm) 63.7 65.0 4.5 -0.3 Anterior Face Height (NaMe) (mm) 110.0 128.5 5.0 -3.7 Posterior Face Height (SGo) (mm) 70.7 82.5 5.0 -2.4 Soft Tissue Facial Convexity (G'-Sn-Po') ( ) -177.3 154.0 5.6 -59.2 Nasolabial Angle (Col-Sn-UL) ( ) 105.8 102.0 8.0 0.5 Subnasale to H-Line (mm) 3.7 4.2 2.0 -0.3 st FH RATIO (G'-Sn/Sn-Me')(%) 105.7 100.0 8.0 0.7 UL % of LFH (Sn-Stm:Sn-Me') (%) 30.7 30.0 3.0 0.2 Upper Facial Height (G - SN) (mm) 68.4 62.5 2.5 2.3 Lower Facial Height (SN - Me) (mm) 64.7 62.5 2.5 0.9 Upper Lip Length (SN - ST) (mm) 19.9 19.5 1.5 0.3 Lower Lip Length (ST - Me) (mm) 44.8 39.0 3.0 1.9 * SUMMARY ANALYSIS Skeletal Class III (Wits) Class I Molar Relationship Skeletal Class III (A-Po) Skeletal Class III (ANB) Protrusive Mandible (Pg-N) Open Bite Anterior Crossbite A/P: Class III malocclusion and myofascial pain -Discussed with patient that facial pain and breathing may improve after surgery due to correction of occlusion and skeletal balance, but joint popping may not improve as this can be a result of a disc problem or condyle dislocation which is not addressed during surgery -Upper and lower jaw surgery discussed with patient, reviewed expected pre and post-op course 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 Jean Baptiste via email Patient will start orthodontic preparation and follow up when she is ready for surgery for dental impressions. Answered patient and mother's questions. PLAN: [place] three piece; BSSO; Genioplasty Patient to return following orthodontic preparation PLAN move anterior/posterior move to right/left move up/down Max incisors midline []Anterior []Posterior .........mm []Right []Left .........mm []Up []Down .........mm max canines []Right []Up []Down .........mm []Left []Up []Down .........mm pogonion []Anterior []Posterior .........mm []Right []Left .........mm []Up []Down .........mm The patient is seen and examined by Dr. Jean Baptiste and the following reflects his/her service. Scribedby Fidelia Sumner RN I agree with the Chief Complaint, ROS, and Past Histories independently gathered by the clinical academic support assistant/resident and the remaining scribed note accurately describes my personal service to the patient. 25 minutes of the total visit were spent face to face with patient. Greater than 50% of the time was spent for counseling and coordination of care, discussing treatment options and recommendations. Janeth Marion MD May 12, 2024 1:27 PM This note was generated with voice recognition software and may contain errors, including spelling,grammar, syntax and misrecognition of what was dictated, that are not fully corrected. documented in [facility] NoteHNO ID: [id number] Author: JANETH COYLE MD Service: ? Author Type: Physician Type: Progress Notes Filed: 05/12/2024 13:28 Note Text: Plastic Surgery Note Virtual Visit I have communicated my name and active licensure. The patient's identity and physical location were verified at the time of this visit. Either the patient or their legal claim service representative has been informed of the risks and benefits of -- and alternatives to -- treatment through a remote evaluation and consents to proceed with the evaluation remotely. HPI: Joan is a 18 year old female who presents today for evaluation of her jaw. Patient has had braces 3 times. Does not currently have braces on. She has been approved for double jaw surgery and genioplasty. CT scan done. Surgical Attendant name: Dr. Tobar (taking over for Dr. Penaloza since she left the practice) Surgical Attendant phone: [phone] (email: [email or web address] Chief complaint: [x]Chewing []Eating []Swallowing []Speaking []Breathing [x]TMJ pain [x]TMJ popping/clicking Overall PAIN Now 0[] 1[] 2[x] 3[] 4[] 5[] 6[] 7[] 8[] 9[] 10[] Average 0[] 1[] 2[] 3[] 4[] 5[x] 6[] 7[] 8[] 9[] 10[] Rest 0[] 1[] 2[x] 3[] 4[] 5[] 6[] 7[] 8[] 9[] 10[] Function 0[] 1[] 2[] 3[] 4[] 5[] 6[] 7[] 8[x] 9[] 10[] Quality [x]sharp []dull [x]aching []sore []taut []pulled []torsion [x]shooting []pricking []pressing []lacerating []pinching []squeezing []drilling []spasm [] throbbing []burning []cramping []cutting []heavy []itchy []radiating [] electrical []stinging Systemic inflammatory diseases yes [] no [x] []RA []Gout []Other........... Connective tissue disease yes [] no [x] []Marfan []Scleroderma []Lupus []Other........... Extraction Maxillary third molars yes [x] no [] September 2022 Extraction Mandibular third molars yes [x] no [] September 2022 History of snoring: yes [] no [x] History of grinding: yes [] no [x] Sleep study: yes [] no [x] AHI:..... STOP BANG Questionnaire 3 or more is considered high pretest probability with 90% and 93% sensitivity/specificity to correlated with AHI > 15 (moderate range MARIUSZ or higher) on a sleep study. Yes/No with Yes = 1 and No = 0 S - Snoring loudly: [] T - Tired, fatigue or sleepy : [x] O - Observed apnea - stopping to breath/choking gasping: [] P - High BP or on medications: [] B - BMI > 35: [] A - Age > 50: [] N - Neck size > 16 in. for females/17 in. for males: [] G - Gender male: [] No results found for: HBA1C No data found for this vital: BP No data to display No data to display YES NO Smoking, vaping, nicotine, cannabis [] [x] Cigarettes/ day.... ? Hormone replacement (contraceptive, post menopause hormone treatment) [x] [] Medication....Depot shots every 3 months Diabetes [] [x] []Type 1? []Type 2 ?Last A1c:..... Systemic inflammatory diseases [] [x] []RA []Gout []Other... Hypertension [] [x] Meds:....... Heart disease or pacemaker [] [x] ............ Family history blood clots [] [x] Personal history blood clots [] [x] Anticoagulation (aspirin, coumadin, xarelto,etc) [] [x] What........... Reason:........... Immunosuppressants (steroid, biologic meds infusion, etc) [] [x] What........... Reason:........... Pt AGAINST blood transfusion? [] [x] ROS: All negative except for: GENERAL: []weight loss []malaise []fevers HEENT: []frequent or significant headaches []changes in hearing []change in vision []nose bleeds []other nasal problems NECK: []lumps []goiter []pain and significant neck swelling RESPIRATORY: []cough []hemoptysis []wheezing []COPD []dyspnea []shortness of breath CARDIOVASCULAR: []chest pain []leg swelling []hypertension []CHF []palpitations GI: []nausea []vomiting []diarrhea MUSCULOSKELETAL: see HPI SKIN: [] skin lesions []rash []itching PSYCH: []sleep disturbance []mood disorder []recent psychosocial stressors HEMATOLOGY/LYMPHOLOGY: []prolonged bleeding []bruising easily []swollen nodes ENDOCRINE: []cold intolerance []heat intolerance []polyuria []polydipsia []goiter Objective: There were no vitals taken for this visit. No past medical history on file. No past surgical history on file. Current Outpatient Medications Medication Sig Dispense Refill omeprazole (PRILOSEC) 40 mg capsule medroxyPROGESTERone (DEPO-PROVERA) 150 mg/mL MULTI-VITAMIN ORAL Take 1 tablet by mouth once daily. albuterol HFA (PROAIR HFA) 90 mcg/Actuation INHALATION inhaler Inhale 2 Puffs as instructed every 6 hours as needed. 0 beclomethasone (QVAR) 40 mcg/Actuation INHALATION inhaler Inhale 2 Puffs as instructed twice daily. 0 No current facility-administered medications for this visit. ALLERGIES No Known Allergies PE: Alert, awake in NAD Mandibular angle more prominent EXAM: OCCLUSION CLASS RIGHT FIRST MOLAR 1[] 2[] 3[x] CANINE 1[] 2[] 3[] LEFT FIRST MOLAR 1[] 2[] 3[x] CANINE 1[] 2[] 3[] Skeletal class 3 (R) [x]CROSSBITE (L) []CROSSBITE OPEN BITE (more content not included)... [facility]02-13-2025 History of Present illness Narrative* Sheryl Pantoja RT(Raúl) - 03/20/2024 8:20 AM EST Radiology Service Progress Note PATIENT NAME: Joan Moore DATE OF SERVICE: March 20, 2024 TIME: 12:43 PM PATIENT IDENTITY VERIFICATION COMPLETED USING TWO (2) IDENTIFIERS: Name and Date of confirmedby patient verbally. FALL SCREENING: Has the patient had 2 falls in the last year or 1 fall with injury or currently using an Ambulatory Assistive Device (Walker, Cane, Wheelchair, Crutches, etc.)? No PATIENT GENDER DATA: Assigned female at . status: : No status:NO. PATIENT RELEVANT IMPLANT DATA REVIEWED: Yes PATIENT PRESENTS WITH AN IMPLANTABLE OR ATTACHED WOOL BATTING WORKER: No RADIOLOGY DEPARTMENT: CT; Exam(s) Completed: Face/Mandible PERIPHERAL IV DATA: Not applicable SIGNED BY: ALBA Suazo) March 20, 2024 12:43 PM documented in this encounterOhiohealth02-13-2025 NoteHNO ID: [id number] Author: SHERYL PANTOJA RT(R) Service: ? Author Type: [employer]ous Materials Waste Technician Type: Progress Notes Filed: 03/20/2024 12:43 Note Text: Radiology Service Progress Note PATIENT NAME: Joan Moore DATE OF SERVICE: March 20, 2024 TIME: 12:43 PM PATIENT IDENTITY VERIFICATION COMPLETED USING TWO (2) IDENTIFIERS: Name and Date of confirmed by patient verbally. FALL SCREENING: Has the patient had 2 falls in the last year or 1 fall with injury or currently using an Ambulatory Assistive Device (Walker, Cane, Wheelchair, Crutches, etc.)? No PATIENT GENDER DATA: Assigned female at . status: : No status: NO. PATIENT RELEVANT IMPLANT DATA REVIEWED: Yes PATIENT PRESENTS WITH AN IMPLANTABLE OR ATTACHED WOOL BATTING WORKER: No RADIOLOGY DEPARTMENT: CT; Exam(s) Completed: Face/Mandible PERIPHERAL IV DATA: Not applicable SIGNED BY: Sheryl Calloway RT(R) March 20, 2024 12:43 [facility]02-03-2025 Evaluation note* Diagnosis Onset Date Resolution Status Admit Date S/P cholecystectomy acute u 2024 12:49pm Chronic diarrhea chronic March 10, 2024 12:49pm Abnormal uterine bleeding acute May 13, 2024 1:09pm Contraception management acute May 13, 2024 1:09pm Possible exposure to STD noneactive May 13, 2024 1:09pm Encounter for routine gynecological examination noneactive May 13, 2024 1:09pm Abdominal discomfort acute Apri l 2024 12:45pm Chronic diarrhea chronic May 12:45pm [facility] Work Phone: 1(808) 778-688302-03-2025 Evaluation note* Diagnosis Onset Date Resolution Status Admit Date S/P cholecystectomy acute u 2024 12:49pm Chronic diarrhea chronic March 10, 2024 12:49pm Abnormal uterine bleeding acute May 13, 2024 1:09pm Contraception management acute May 13, 2024 1:09pm Possible exposure to STD noneactive May 13, 2024 1:09pm Encounter for routine gynecological examination noneactive May 13, 2024 1:09pm Abdominal discomfort acute Apri l 2024 12:45pm Chronic diarrhea chronic May 12:45pm Abdominal discomfort acute June 20, 2024 1:08pm Bile reflux gastritis acute June 20, 2024 1:08pm [facility] Work Phone: 1(927) 838-775702-03-2025 Evaluation note* Diagnosis Onset Date Resolution Status Admit Date S/P cholecystectomy acute u 2024 12:49pm Chronic diarrhea chronic March 10, 2024 12:49pm Abnormal uterine bleeding acute May 13, 2024 1:09pm Contraception management acute May 13, 2024 1:09pm Possible exposure to STD noneactive May 13, 2024 1:09pm Encounter for routine gynecological examination noneactive May 13, 2024 1:09pm Abdominal discomfort acute Apri 2024 12:45pm Chronic diarrhea chronic May 12:45pm Abdominal discomfort acute June 20, 2024 1:08pm Bile reflux gastritis acute June 20, 2024 1:08pm Abdominal discomfort acute July 04, 2024 8:40am Bile reflux gastritis acute July 04, 2024 8:40am Chronic diarrhea chronic June 8:40am Bile reflux gastritis acute Jul 10:53am Irritable bowel syndrome wit h diarrhea acute July 08, 2024 1 0:53am Abdominal pain inactive July 08, 2024 10:53am Irritable bowel syndrome noneactive July 08, 2024 10:53am [facility] Work Phone: [phone]) 632-257901-20-2025 [facility] Medical Records Department [address] [place] [id number] History Physical Exam 02/25/24 1143 MR#: [id number] Acct: [id number] Name: JOAN MOORE Rep #: [id number] : 2005 18 From: Norma Buckley MD PCP: Dr. Tapan Menjivar, Status:[facility] Location: [place] [address] History and Physical Date of Admission: 02/25/24 Date of Service: 02/14/24 MR#: [id number] Acct: [id number] Name: JOAN MOORE Rep #: [id number] : 2005 Provider: Dr. Norma Buckley MD Age/Sex: 18/F Location: [facility] [address] Status: Signed Intake Vital Signs 02/04/2408:36 02/14/2508:57 Height 5 ft 7 in 5 ft 7 in Weight: 120 lb 4 oz BMI 18.8 BP 103/71 Blood Pressure Location Rt brachial Position Sitting Respiration 18 Pulse 76 Pulse Source Monitor Pulse Oximetry (%) 100 Oxygen Delivery Method room air Intake Visit Reasons: ABNORMAL HIDA Chief Complaint: Chronic diarrhea/biliary dyskinesia Stroboroma Operator Required: No Accompanied by: Mother Is patient in pain?: No Allergies No Known Allergies Allergy (Verified 02/14/24 09:59) Medications ???Medication ???Instructions ???Recorded ???Confirmed ???Type albuterol sulfate 90 mcg/actuation 2 inh inhalation Q4H PRN shortness 03/12/23 02/14/24 History aerosol inhaler of breath or wheezing medroxyprogesterone 150 mg/mL 150 mg IM [id number] #1 mL 03/28/23 02/14/24 Rx intramuscular suspension (Depo-Provera) ondansetron 4 mg disintegrating 4 mg PO Q6H PRN PRN Nausea #15 tabs 02/04/24 02/14/24 Rx tablet omeprazole 40 mg capsule,delayed 40 mg PO QDAY #30 caps 02/14/24 02/14/24 Rx release PFSH Medical History (Updated 02/14/24 @ 10:[address] Norma Buckley MD) Anxiety Chronic diarrhea Migraine Asthma Contraception management Abnormal uterine bleeding Biliary dyskinesia Spider bite COVID-19 Surgical History History of tonsillectomy and adenoidectomy Family History Mother Rheumatoid arthritis Heart palpitationsFather Hemochromatosis Hypertension Social History household members: family housing: house current occupational exposures/hazards: No pets and animals: Yes pets and animals: cat(s), dog(s) and fish sexually active: Yes Smoking Status: Never smoker alcohol intake: never substance use type: does not use and tranquilizers caffeine: Yes seatbelt use: always HPI HPI HPI: 18-year-old female presents due to abnormal HIDA scan less than 5% consistent with biliary dyskinesia. Patient also had a gastric emptying study which was normal. Patient has been having issues with diarrhea bloating and abdominal cramping for about 2 years has gotten worse more recently. Patient has not been able to really gain weight but has not lost weight either for the last several years. Patient did states she tried omeprazole for about 2 to 3 weeks and did state it cut her diarrhea down from 4 times a day to about 2 times a day. Patient is currently off omeprazole. Patient does have nausea does not vomit. Patient has been more cramping and bloating abdominal pain near her umbilicus not really right upper quadrant. Patient is in school starting February 17 that most of her classes are remote except for 1. ROS General General: Yes weight change and fatigue; No appetite, colon cancer or breast cancer HEENT HEENT: No difficulty swallowing, eye injury, eye surgery, swollen glands or hoarseness Endo Endocrine: No thyroid disease, diabetes mellitus, thyroid cancer, Hair loss, heat intolerance or cold intolerance Skin Skin: No rash or changing moles Musc Musculoskeletal: Yes back problems; No arthritis, rheumatoid arthritis, gout or joint pain Cardio Cardiovascular: No murmur, pacemaker, heart disease, atrial fibrillation, high blood pressure, heart attack, heart stent, palpitations, shortness of breat with exertion or chest pain Psych Psychiatric: Yes anxiety; No depression or hearing voices Resp Respiratory: No shortness of breath, No sleep apnea, No cough, No COPD, Yes asthma, No emphysema and No wheezing Gastro Gastrointestinal: Yes abdominal pain, Yes nausea or vomiting, Yes diarrhea, Yes constipation, No blood in stool, No acid reflux, Yes hemorrhoids, No ulcers, No gallbladder problem and No black,tarry stools Merrick Hematologic: No blood thinners, No blood disorders, No bleeding, No anemia and No blood clots Neuro Neurologic: No numbness and No tingling Exam Const General: cooperative, healthy appearing, comfortable and no ac (more content not included)...[facility]01-13-2025 NoteHNO ID: [id number] Author: AWAIS CANALES ST Service: ? Author Type: Ribber Type: Progress Notes Filed: 02/18/2024 10:57 Note Text: DATE OF PHOTOS: 02/18/2024 Body Part: Full Face and Oral ST Jose February 18, 2024 10:56 [facility]01-13-2025 History of Present illness Narrative* Awais Canales ST - 02/18/2024 10:56 AM EST DATE OF PHOTOS: 02/18/2024 Body Part: Full Face and Oral ST Jose February 18, 2024 10:56 AM documented in this encounterOhiohealth01-13-2025 Instructions* Patient Instructions* Fidelia Sumner RN - 02/18/2024 10:[address] scan: To schedule please call Appointment Center 28/08 at [phone] documented in this encounterOhiohealth01-13-2025 History of Present illness Narrative* Janeth Coyle MD - 02/18/2024 10:00 AM EST Images from the original note were not included. Plastic Surgery Note HPI: Joan is a 18 year old female who presents today for evaluation of her jaw. Patient has had braces 3 times. Does not currently have braces on. Surgical Attendant name: Masha Penaloza DMD, MS Surgical Attendant phone: [phone] (email: [email or web address] Chief complaint: [x]Chewing []Eating []Swallowing []Speaking []Breathing [x]TMJ pain [x]TMJ popping/clicking Overall PAIN Now 0[] 1[] 2[x] 3[] 4[] 5[] 6[] 7[] 8[] 9[] 10[] Average 0[] 1[] 2[] 3[] 4[] 5[x] 6[] 7[] 8[] 9[] 10[] Rest 0[] 1[] 2[x] 3[] 4[] 5[] 6[] 7[] 8[] 9[] 10[] Function 0[] 1[] 2[] 3[] 4[] 5[] 6[] 7[] 8[x] 9[] 10[] Quality [x]sharp []dull [x]aching []sore []taut []pulled []torsion [x]shooting []pricking []pressing []lacerating []pinching []squeezing []drilling []spasm [] throbbing []burning []cramping []cutting []heavy []itchy []radiating [] electrical []stinging Systemic inflammatory diseases yes [] no [x] []RA []Gout []Other........... Connective tissue disease yes [] no [x] []Marfan []Scleroderma []Lupus []Other........... Extraction Maxillary third molars yes [x] no [] September 2022 Extraction Mandibular third molars yes [x] no [] September 2022 History of snoring: yes [] no [x] History of grinding: yes [] no [x] Sleep study: yes [] no [x] AHI:..... STOP BANG Questionnaire 3 or more is considered high pretest probability with 90% and 93% sensitivity/specificity to correlated with AHI > 15 (moderate range MARIUSZ or higher) on a sleep study. Yes/No with Yes = 1 and No = 0 S - Snoring loudly: [] T - Tired, fatigue or sleepy : [x] O - Observed apnea - stopping to breath/choking gasping: [] P - High BP or on medications: [] B - BMI > 35: [] A - Age > 50: [] N - Neck size > 16 in. for females/17 in. for males: [] G - Gender male: [] No results found for: HBA1C No data found for this vital: BP No data to display No data to display YES NO Smoking, vaping, nicotine, cannabis [] [x] Cigarettes/ day.... ? Hormone replacement (contraceptive, post menopause hormone treatment) [x] [] Medication....Depot shots every 3 months Diabetes [] [x] []Type 1? []Type 2 ?Last A1c:..... Systemic inflammatory diseases [] [x] []RA []Gout []Other... Hypertension [] [x] Meds:....... Heart disease or pacemaker [] [x] ............ Family history blood clots [] [x] Personal history blood clots [] [x] Anticoagulation (aspirin, coumadin, xarelto,etc) [] [x] What........... Reason:........... Immunosuppressants (steroid, biologic meds infusion, etc) [] [x] What........... Reason:........... Pt AGAINST blood transfusion? [] [x] ROS: All negative except for: GENERAL: []weight loss []malaise []fevers HEENT: []frequent or significant headaches []changes in hearing []change in vision []nose bleeds []other nasal problems NECK: []lumps []goiter []pain and significant neck swelling RESPIRATORY: []cough []hemoptysis []wheezing []COPD []dyspnea []shortness of breath CARDIOVASCULAR: []chest pain []leg swelling []hypertension []CHF []palpitations GI: []nausea []vomiting []diarrhea MUSCULOSKELETAL: see HPI SKIN: [] skin lesions []rash []itching PSYCH: []sleep disturbance []mood disorder []recent psychosocial stressors HEMATOLOGY/LYMPHOLOGY: []prolonged bleeding []bruising easily []swollen nodes ENDOCRINE: []cold intolerance []heat intolerance []polyuria []polydipsia []goiter Objective: BP 99/65 Pulse 81 Ht 170.2 cm (5' 7) Wt 53.1 kg (117 lb) BMI 18.32 kg/m No past medical history on file. No past surgical history on file. Current Outpatient Medications Medication Sig Dispense Refill omeprazole (PRILOSEC) 40 mg capsule medroxyPROGESTERone (DEPO-PROVERA) 150 mg/mL MULTI-VITAMIN ORAL Take 1 tablet by mouth once daily. albuterol HFA (PROAIR HFA) 90 mcg/Actuation INHALATION inhaler Inhale 2 Puffs as instructed every 6hours as needed. 0 beclomethasone (QVAR) 40 mcg/Actuation INHALATION inhaler Inhale 2 Puffs as instructed twice daily.0 No current facility-administered medications for this visit. ALLERGIES No Known Allergies PE: Alert, awake in NAD Mandibular angle more prominent EXAM: OCCLUSION CLASS RIGHT FIRST MOLAR 1[] 2[] 3[x] CANINE 1[] 2[] 3[] LEFT FIRST MOLAR 1[] 2[] 3[x] CANINE 1[] 2[] 3[] Skeletal class 3 (R) [x]CROSSBITE (L) []CROSSBITE OPEN BITE []ANTERIOR []POSTERIOR []RIGHT LATERAL []LEFT LATERAL Anterior cross bite UPPER INCISOR SHOW AT REST .....3......MM UPPER INCISOR SHOW AT HIGHSMILE .....7.......MM OVERBITE.....-3........MM OVERJET.......-2.......MM MAXILLARY MIDLINE.....midline, maybe 1 mm to the left......... MANDIBULAR MIDLINE....1 mm to the left of the maxillary midline......... MAXILLARY CANT (CANINE LEVEL) []RIGHT SIDE UP [x]LEFT SIDE UP .....1......mm MANDIBULAR CANT (CANINE LEVEL) []RIGHT SIDE UP [x]LEFT SIDE UP .....1......mm MENTALIS STRAIN []no [x]yes Glabella to True vertical line (through subnasale): .....2-3........mm Pogonion to TVL: ...5 mm... Maxillary yaw deformity [x]no []yes Mandibular yaw deformity [x]no []yes TMJ: MAXIMUM INTERINCISAL OPENING........44........MM MAXIMUM INTERINCISAL OPENING WITHOUT PAIN......40.....MM (R) LATERAL EXCURSION ......12.........MM (L) LATERAL EXCURSION.........14.......MM PROTRUSION........9-10........MM DEVIATION ON OPENING []no [x]Yes to the left JOINT NOISE OPENING POP (R)[]no [x]yes (L)[]no [x]yes CLOSING POP (R)[]no [x]yes (L)[]no [x]yes CREPITATION (R)[]no []yes (L)[]no []yes Tenderness to palpation TMJ ? (R)[]no [x]yes ? (L)[]no [x]yes R>L MASSETER ? (R)[]no [x]yes ? (L)[]no [x]yes TEMPORALIS ? (R)[x]no []yes ? (L)[x]no []yes MEDIAL PTERYGOID ? (R)[]no [x]yes ? (L)[x]no []yes LATERAL PTERYGOID ? (R)[x]no []yes ? (L)[x]no []yes ANTERIOR NECK ? (R)[x]no []yes ? (L)[x]no []yes STERNOCLEIDOMASTOID ? (R)[x]no []yes ? (L)[x]no []yes POSTERIOR NECK ? (R)[x]no []yes ? (L)[x]no []yes Periodontal status (gross examination): [x]Good []Fair []Poor FRONTAL VIEW 1 Vertical Range Patient Possible ways to normalize vertical Overbite 3 mm LF1 BSSO [place] length change Orthodontics crown torque change Upper lip height 19-22 mm Lip length surgery Interlabial gap 1-5 mm LF1 BSSO Overbite correction Lip posture change Lip length surgery Lower lip height 42-48 mm LF1 BSSO Overbite correction Lip posture change Chin osteotomy Lower 1/3 height 60-68 mm LF1 BSSO Overbite correction Submental lipectomy Chin osteotomy Mx incision exposure (relaxed) 1-5 mm LF1 [place] length change Lip length surgery crown torque change Mx incision exposure (smile) 8 crown to 2 gingiva LF1 Full Partial [place] length change Lip length surgery gingivectomy Closed lip Strainless touch []Strain []Redudancy LF1 BSSO Overbite correction Mx height change Lip length surgery Mx incisor height 9.5- 11.5 mm [place] length change gingivectomy Upper vermilio 6-9 mm Lip reconstruction procedure Lower vermilion 8-12 mm Lip reconstruction procedure Middle 1/3 60-68 mm 2 Vertical planning Mx 1 plan-relaxed lip Current relaxed exposure .+/- desired change =goal (> 5mm advan anticipated? increase impaction) Mx 1 plan-smile lip Current smile exposure .+/- desired change =goal (> 5mm advan anticipated? increase impaction) Anterior facial plan +/- Mx1 height change +/- overbite change ..+/-chin height change ..=net ..ok outline-interlabial gap 3 Midlines Patient Possible ways to normalize facial midlines Nasal tip []to right []Midline []to left LF1 LF1 shorten septum Isolated septoplasty Philtrum []to right []Midline []to left Soft tissue midline which dental midlines are measured to Mx 11 []to right []Midline []to left LF1 orthodontics Canine cant change Md 11 []to right []Midline []to left BSSO Orthodontics Canine cant change Chin []to right []Midline []to left BSSO Chin osteotomy Canine cant change 4 Facial levels Patient Possible ways to normalize facial levels Eyes []R down []same []L down None Mx canine []R down []same []L down LF1 Orthodontics Md canine []R down []same []L down BSSO Orthodontics Md body level []R down []same []L down BSSO Heat treated GARCIA augmentation Chin level []R down []same []L down BSSO Chin osteotomy 5 outline Patient Possible ways to normalize outline General []Round []wide []narrow []long []short []normal LF1 BSSO Overbite change Chin osteotomy- change height Buccal or submental lipectomy Zygomatic arch R []Larger []wide []normal []narrow L []larger []wide []normal []narrow GARCIA augmentation Reduction osteoplasty Md angle R [x]larger []wide []normal []narrow L []larger []wide []normal []narrow BSSO Midline rotation Canine cant correction Cold cure GARCIA graft Md body R [x]Larger []wide []normal []narrow L []larger []wide []normal []narrow BSSO Midline rotation Canine cant correction Cold cure GARCIA graft Buccal lipectomy Chin [x]Wide []normal []narrow []Flat []angular []Short []long Posture change Chin osteotomy Cold cure GARCIA Buccal lipectomy Alar base width Alar base width....mm intercanthal width....mm Alar base cinch Surgical narrowing 6 other options Patient Treatment Occlusal plane []Steep []normal []flat []CCW []maintain []CW LF1 []Mx expansion []Mx lengthening []Mx advancement LF1 []1-piece []2-piece []3-piece []4-piece GARCIA cheekbones []Flat asymmetric: larger []R []L []Small []medium []large Larger []R []L Chin Iliac crest Fat Tooth anatomy PROFILE 1 High midface projection Patient Ways to normalize midface projection Glabella []retruded []normal []protruded osteoplasty Orbital rim []flat []soft []normal []prominent []R larger []L larger Heat cured GARCIA augmentation Cheekbone []flat []soft []normal []prominent []R larger []L larger Heat cured GARCIA augmentation Reduction osteoplasty Subpupil []flat []soft []normal []prominent []R larger []L larger LF1 (MSLF1 advances more than LF1) Heat cured GARCIA 2 Maxillary projection Patient Ways to normalize soft tissue nasal base- upper lip projection Nasal base []concave []flat []soft []convex []prominent []R larger []L larger LF1 (MSLF1 creates> than LF1) PRIMITIVO (upper lip anterior) to TVL []retruded []normal []protruded []Straight MX sulcus []Lip: thin thick LF1 11 torque change Lip thickness change Upper lip support []weak []normal []strong Support: []air []teeth []gingiva LF1 11 torque change Orthodontics 1 []age []extractions []headgear []elastics []RPE []Functional LF1 11 torque change Flatten occlusal plane Orthodontics 2 []age []extractions []headgear []elastics []RPE []Functional LF1 11 torque change Flatten occlusal plane Nasal projection []long []normal []short Tip: []up []down Dorsal: []hump []saddle LF1 (MSLF1 shortens more than LF1) rhinoplasty Nasal base mirror 4 5 6 7 8 9 10 mm forward 2 3 4 5 6 7 8 9 10 mm ala forward Desired move .mm could need Upper lip mirror 4 5 6 7 8 9 10 mm forward 2 3 4 5 6 7 8 9 10 mm lip forward Desired move .mm couldneed Ceph UL thickness []Thin []thick mm (F 10.8-14.4, M 13.4-16.2) Injections VY closure UL to TVL []Upright []protruded 3..mm (F 2.5-4.9, M 1.6-5.0) LF1 adv 11 torque change VY closure injections Lip to nose balance []Retruded []protruded mm (F 11.0-13.6, M 13.0-16.4) LF1 adv 11 torque change VY closure injections Upper lip angle []Open []closed degrees (F 7.0-17.2, M 2.9-13.7) LF1 adv 11 torque change VY closure injections Lower lip to TVL: 5 mm positive 3 Mandibular projection Patient Ways to normalize lip and chin projection LLA to TVL 5 mm []retruded []normal []protruded []11 defection Labiomental fold: []Accent []flat Mx 11 torque change LF1 adv Md 11 torque change BSSO Steepen or flatten occlusal plane Chin augmentation or reduction Pog' to TVL []retruded []normal []protruded Pog' relative to: lower lip []protruded []retruded Mx 11 torque change LF1 adv Md 11 torque change BSSO Steepen or flatten occlusal plane Chin augmentation or reduction Throat length []short []normal []long Chin line sag Mx 11 torque change LF1 adv Md 11 torque change BSSO Steepen or flatten occlusal plane Chin augmentation or reduction Submental lipectomy overjet ..mm Does not indicate source of malocclusion orthodontics LF1 BSSO Right clinical examination Left clinical examination TMJ sound []pop []click []multiple clicks []crepitation TMJ sound []pop []click []multiple clicks []crepitation Splint3 and /or medical therapy1 TMJ pain []opening []palpation []biting []yawning TMJ pain []opening []palpation []biting []yawningSplint3 and /or medical therapy1 Muscle pain []masseter []temporalis []Medial pterygoid []neck Muscle pain []masseter []temporalis []Medial pterygoid []neck Splint3, amitriptyline, anti-inflammatory Right CBCT Left CBCT Condyle position []central []anterior []posterior []inferior Condyle position []central []anterior []posterior []inferior Diagnostic splint2 Condyle shape []head bulge []finger []flat surface []indistinct Condyle shape []head bulge []finger[]flat surface []indistinct Splint3 and /or medical therapy1 Condyle cortex []corticated []decorticated []hypercorticated []beak Condyle cortex []corticated []decorticated []hypercorticated []beak Splint3 and /or medical therapy1 Collyer []normal []steep []shallow []flat surface Collyer []normal []steep []shallow []flat surface Splint3 and /or medical therapy1 1 Feldene 50-100 mg every day or Voixx 25-50 mg every day or Celebrex 50-100 mg every day (antiinflammatory), amitriptyline 5-10 mg hs (antibruxism, skeletal muscle relaxant), vitamin C 500 mg and E 400 unit(s) every day, doxycycline 50- 100 mg every day (stabilize connective tissue and bone) 2 splint designed to seat condyle in centric relationship (uppermost), must not be designed to overseat and compress joint 3 full coverage, acrilyc, centric relationship, excursive guidance, usually on maxilla, on mandiblewith large open bites, designed to heal joints by decreasing the intra-articular pressure RED: pathognomonic for total condyle remodeling UNDERLINED:pathognomonic for osteoarthritis GREEN: normal A/P: Class III malocclusion and myofascial pain -Dental impressions done today (medium trays used for upper and lower) -CT facial scan with orthognathic views ordered for surgical planning -Discussed with patient and mother that facial pain and breathing may improve after surgery due to correction of occlusion and skeletal balance, but joint popping may not improve as this can be a result of a disc problem or condyle dislocation which is not addressed during surgery -Upper and lower jaw surgery discussed with patient, reviewed expected pre and post-op course -Photos today and photo form signed -Will decide on surgical plans after CT scan and then can submit to insurance PLAN move anterior/posterior move to right/left move up/down Max incisors midline []Anterior []Posterior .........mm []Right []Left .........mm []Up []Down .........mm max canines []Right []Up []Down .........mm []Left []Up []Down .........mm pogonion []Anterior []Posterior .........mm []Right []Left .........mm []Up []Down .........mm The patient is seen and examined by Dr. Jean Baptiste and the following reflects his/her service. Scribedby Fidelia Sumner RN and Anshul Enriquez MD (resident) I agree with the Chief Complaint, ROS, and Past Histories independently gathered by the clinical academic support assistant/resident and the remaining scribed note accurately describes my personal service to the patient. 45 minutes of the total visit were spent face to face with patient. Greater than 50% of the time was spent for counseling and coordination of care, discussing treatment options and recommendations. Janeth Marion MD February 18, 2024 1:22 PM This note was generated with voice recognition software and may contain errors, including spelling,grammar, syntax and misrecognition of what was dictated, that are not fully corrected. [facility] NoteHNO ID: [id number] Author: JANETH COYLE MD Service: ? Author Type: Physician Type: Progress Notes Filed: 04/02/2024 15:28 Note Text: Plastic Surgery Note HPI: Joan is a 18 year old female who presents today for evaluation of her jaw. Patient has had braces 3 times. Does not currently have braces on. Surgical Attendant name: Masha Penaloza DMD, MS Surgical Attendant phone: [phone] (email: [email or web address] Chief complaint: [x]Chewing []Eating []Swallowing []Speaking []Breathing [x]TMJ pain [x]TMJ popping/clicking Overall PAIN Now 0[] 1[] 2[x] 3[] 4[] 5[] 6[] 7[] 8[] 9[] 10[] Average 0[] 1[] 2[] 3[] 4[] 5[x] 6[] 7[] 8[] 9[] 10[] Rest 0[] 1[] 2[x] 3[] 4[] 5[] 6[] 7[] 8[] 9[] 10[] Function 0[] 1[] 2[] 3[] 4[] 5[] 6[] 7[] 8[x] 9[] 10[] Quality [x]sharp []dull [x]aching []sore []taut []pulled []torsion [x]shooting []pricking []pressing []lacerating []pinching []squeezing []drilling []spasm [] throbbing []burning []cramping []cutting []heavy []itchy []radiating [] electrical []stinging Systemic inflammatory diseases yes [] no [x] []RA []Gout []Other........... Connective tissue disease yes [] no [x] []Marfan []Scleroderma []Lupus []Other........... Extraction Maxillary third molars yes [x] no [] September 2022 Extraction Mandibular third molars yes [x] no [] September 2022 History of snoring: yes [] no [x] History of grinding: yes [] no [x] Sleep study: yes [] no [x] AHI:..... STOP BANG Questionnaire 3 or more is considered high pretest probability with 90% and 93% sensitivity/specificity to correlated with AHI > 15 (moderate range MARIUSZ or higher) on a sleep study. Yes/No with Yes = 1 and No = 0 S - Snoring loudly: [] T - Tired, fatigue or sleepy : [x] O - Observed apnea - stopping to breath/choking gasping: [] P - High BP or on medications: [] B - BMI > 35: [] A - Age > 50: [] N - Neck size > 16 in. for females/17 in. for males: [] G - Gender male: [] No results found for: HBA1C No data found for this vital: BP No data to display No data to display YES NO Smoking, vaping, nicotine, cannabis [] [x] Cigarettes/ day.... ? Hormone replacement (contraceptive, post menopause hormone treatment) [x] [] Medication....Depot shots every 3 months Diabetes [] [x] []Type 1? []Type 2 ?Last A1c:..... Systemic inflammatory diseases [] [x] []RA []Gout []Other... Hypertension [] [x] Meds:....... Heart disease or pacemaker [] [x] ............ Family history blood clots [] [x] Personal history blood clots [] [x] Anticoagulation (aspirin, coumadin, xarelto,etc) [] [x] What........... Reason:........... Immunosuppressants (steroid, biologic meds infusion, etc) [] [x] What........... Reason:........... Pt AGAINST blood transfusion? [] [x] ROS: All negative except for: GENERAL: []weight loss []malaise []fevers HEENT: []frequent or significant headaches []changes in hearing []change in vision []nose bleeds []other nasal problems NECK: []lumps []goiter []pain and significant neck swelling RESPIRATORY: []cough []hemoptysis []wheezing []COPD []dyspnea []shortness of breath CARDIOVASCULAR: []chest pain []leg swelling []hypertension []CHF []palpitations GI: []nausea []vomiting []diarrhea MUSCULOSKELETAL: see HPI SKIN: [] skin lesions []rash []itching PSYCH: []sleep disturbance []mood disorder []recent psychosocial stressors HEMATOLOGY/LYMPHOLOGY: []prolonged bleeding []bruising easily []swollen nodes ENDOCRINE: []cold intolerance []heat intolerance []polyuria []polydipsia []goiter Objective: BP 99/65 Pulse 81 Ht 170.2 cm (5' 7) Wt 53.1 kg (117 lb) BMI 18.32 kg/m? No past medical history on file. No past surgical history on file. Current Outpatient Medications Medication Sig Dispense Refill omeprazole (PRILOSEC) 40 mg capsule medroxyPROGESTERone (DEPO-PROVERA) 150 mg/mL MULTI-VITAMIN ORAL Take 1 tablet by mouth once daily. albuterol HFA (PROAIR HFA) 90 mcg/Actuation INHALATION inhaler Inhale 2 Puffs as instructed every 6 hours as needed. 0 beclomethasone (QVAR) 40 mcg/Actuation INHALATION inhaler Inhale 2 Puffs as instructed twice daily. 0 No current facility-administered medications for this visit. ALLERGIES No Known Allergies PE: Alert, awake in NAD Mandibular angle more prominent EXAM: OCCLUSION CLASS RIGHT FIRST MOLAR 1[] 2[] 3[x] CANINE 1[] 2[] 3[] LEFT FIRST MOLAR 1[] 2[] 3[x] CANINE 1[] 2[] 3[] Skeletal class 3 (R) [x]CROSSBITE (L) []CROSSBITE OPEN BITE []ANTERIOR []POSTERIOR []RIGHT LATERAL []LEFT LATERAL Anterior cross bite UPPER INCISOR SHOW AT REST .....3......MM UPPER INCISOR SHOW AT HIGHSMILE .....7.......MM OVERBITE.....-3........MM OVERJET.......-2.......MM MAXILLARY MIDLINE.....midline, maybe 1 mm to the left......... MANDIBULAR MIDLINE....1 mm to the left of the maxillary midline......... MAXILLARY CANT (CANINE LEVEL) []RIGHT SIDE UP [x]LEFT SIDE UP .....1......mm JAMIL (more content not included)...[facility]01-09-2025 Evaluation note* Diagnosis Onset Date Resolution Status Admit Date Biliary dyskinesia acute Januar y 2024 9:33am Chronic diarrhea chronic February 14, 2024 9:33am Bloating symptom resolved February 14, 2024 9:33am S/P cholecystectomy acute Febru francia 2024 12:49pm Chronic diarrhea chronic March 10, 2024 12:49pm Abnormal uterine bleeding acute May 13, 2024 1:09pm Contraception management acute May 13, 2024 1:09pm Possible exposure to STD noneactive May 13, 2024 1:09pm Encounter for routine gynecological examination noneactive May 13, 2024 1:09pm Abdominal discomfort acute Apri l 2024 12:45pm Chronic diarrhea chronic May 12:45pm [facility] Work Phone: 1(741) 705-581311-21-2023 Hospital Discharge instructions Additional Instructions If new or worsening symptoms or concerns in the next 24 hours please return to the emergency department I would recommend Motrin 600 mg every 6-8 hours as needed for pain.[facility] Work Phone: Evaluation + Plan note No data available for this section [facility] Evaluation note* Diagnosis Abdominal pain, generalized [facility] Diagnosis Onset Date Resolution Status Contraception management acu te Contraception management acu te [facility] Work Phone: Evaluation note* Diagnosis Onset Date Resolution Status Gastroenteritis acute [facility] Work Phone: evaluation note* Diagnosis Onset Date Resolution Status Abnormal uterine bleeding ac rod Contraception management acu te [facility] Work Phone: Evaluation note* Diagnosis Onset Date Resolution Status Abnormal uterine bleeding ac rod Contraception management acu te Possible exposure to STD non eactive [facility] Work Phone: Evaluation note* Diagnosis Malocclusion- Primary Malocclusion, unspecified Atypical facial pain Atypical face pain [facility]* Diagnosis Atypical facial pain Atypical face pain documented in this encounter [facility] note* Diagnosis Malocclusion- Primary Malocclusion, unspecified [facility] Dis[facility] instructions No data available for this section [facility] Hospital Discharge instructionsAmbulatory Orders* Gastroenterology Location: None [facility] Work Phone: Progress note No data available for this section [facility] Reason for referral (narrative)No reason for referral information availableWCenterville Work Phone: Summary Purpose Family History No Family History Records Found Relationship Condition Age at Onset Recorded Date/T hyacinth mother Rheumatoid arthritis Unknown Palpitations Unknown father Hemochromatosis Unknown Hypertension Unknown Advance Directives No Advanced Directives Records Found Advance Directive Response Recorded Date/ Time Advance Directives No August 31 8:28am Living Will No September 01, 2015 8:28am Power of Shoe Polisher No August 31 6 8:28am Advance Directive Response Recorded Date/ Time Advance Directives No December 9:28am Living Will No December 26, 2 023 5:41pm Power of Shoe Polisher No December 26, 2022 5:41pm Advance Directive Response Recorded Date/ Time Advance Directives No December 9:28am Living Will No March 12 11:55am Power of Shoe Polisher No March 12, 2023 11:55am Advance Directive Response Recorded Date/ Time Advance Directives No December 10:28am Living Will No March 12 12:55pm Power of Shoe Polisher No March 12, 2023 12:55pm Advance Directive Response Recorded Date/ Time Living Will No February 03, 2 024 10:13am Do you have a Healthcare Power of Shoe Polisher? No February 04, 2024 10:13am Living Will No February 20 3:51pm Do you have a Healthcare Power of Shoe Polisher? No February 21, 2024 3:51pm Advance Directives No December 10:28am Advance Directive Response Recorded Date/ Time Living Will No February 20 3:51pm Do you have a Healthcare Power of Shoe Polisher? No February 21, 2024 3:51pm Do you have a Healthcare Power of Shoe Polisher? No June 03, 2024 1:32pm Advance Directives No December 10:28am Advance Directive Response Recorded Date/ Time Do you have a Healthcare Power of Shoe Polisher? No Linda 29th, 2025 1:32pm Advance Directives No December 10:28am Chief Complaint and Reason for Visit Chief Complaint BC consult, establis h care nexplanon insertion Diarrhea, unspecified Reason for Visit Contraception manage ment Contraception management Chief Complaint FEVER, BODY ACHES, Reason for Visit Gastroenteritis Chief Complaint FEVER, BODY ACHES, abd pain Reason for Visit Gastroenteritis Chief Complaint abd pain nexplanon removal only, wants ocp VAG BLEED Reason for Visit Abnormal uterine ble eding Contraception management Chief Complaint VAG BLEED iud consult / insertion? Reason for Visit Abnormal uterine ble eding Contraception management Possible exposure to STD Chief Complaint Admit Date DIARRHEA, GALL BLADDER DYSFUNCTION Decem edith 2023 10:15am DIARRHEA, GALL BLADDER DYSFUNCTION Decem edith 2023 12:55pm abd, n/v/d February 04, 2024 8:35am ABNORMAL HIDA February 14, 2024 9: 33am Laparoscopic, Cholecystectomy with IOC J anuary 2024 11:29am Laparoscopic, Cholecystectomy with IOC J anuary 2024 11:43am PREOP February 25, 2024 1 1:50am LAP GRETTA -March 10, 2024 1 2:49pm Annual (IRON CARRIER) May 13, 2024 1:09 pm RECALL DISCUSS UPPER AND LOWER SCOPE Apr 2024 12:45pm Reason for Visit Admit Date Biliary dyskinesia February 14, 2024 9: 33am Chronic diarrhea February 14, 2024 9: 33am Bloating symptom February 14, 2024 9: 33am S/P cholecystectomy March 10, 2024 1 2:49pm Chronic diarrhea March 10, 2024 1 2:49pm Abnormal uterine bleeding May 13 1:09pm Contraception management May 13, 2024 1:09pm Possible exposure to STD May 13, 2024 1:09pm Encounter for routine gynecological exam ination May 13, 2024 1:09pm Abdominal discomfort May 14, 2024 12: 45pm Chronic diarrhea May 14, 2024 12:4 5pm Chief Complaint Admit Date Laparoscopic, Cholecystectomy with IOC J anuary 2024 11:29am Laparoscopic, Cholecystectomy with IOC J anuary 2024 11:43am PREOP February 25, 2024 1 1:50am LAP GRETTA -March 10, 2024 1 2:49pm Annual (IRON CARRIER) May 13, 2024 1:09 pm RECALL DISCUSS UPPER AND LOWER SCOPE Apr wv 2024 12:45pm MED CHECK S/P SCOPES June 20, 2024 1:08 pm Reason for Visit Admit Date S/P cholecystectomy March 10, 2024 1 2:49pm Chronic diarrhea March 10, 2024 1 2:49pm Abnormal uterine bleeding May 13 1:09pm Contraception management May 13, 2024 1:09pm Possible exposure to STD May 13, 2024 1:09pm Encounter for routine gynecological exam ination May 13, 2024 1:09pm Abdominal discomfort May 14, 2024 12: 45pm Chronic diarrhea May 14, 2024 12:4 5pm Chief Complaint Admit Date LAP GRETTA -March 10, 2024 1 2:49pm Annual (IRON CARRIER) May 13, 2024 1:09 pm RECALL DISCUSS UPPER AND LOWER SCOPE Apr wv 2024 12:45pm MED CHECK S/P SCOPES June 20, 2024 1:08 pm MED CHECK S/P SCOPES July 04, 2024 8:40 am Reason for Visit Admit Date S/P cholecystectomy March 10, 2024 1 2:49pm Chronic diarrhea March 10, 2024 1 2:49pm Abnormal uterine bleeding May 13 1:09pm Contraception management May 13, 2024 1:09pm Possible exposure to STD May 13, 2024 1:09pm Encounter for routine gynecological exam ination May 13, 2024 1:09pm Abdominal discomfort May 14, 2024 12: 45pm Chronic diarrhea May 14, 2024 12:4 5pm Abdominal discomfort June 20, 2024 1:08 pm 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, 2024 1:0 8pm Chief Complaint Admit Date Annual (IRON CARRIER) May 13, 2024 1:09 pm RECALL DISCUSS UPPER AND LOWER SCOPE Apr wv 2024 12:45pm MED CHECK S/P SCOPES June 20, 2024 1:08 pm MED CHECK S/P SCOPES July 04, 2024 8:40 am Irritable bowel syndrome July 08, 2024 10:53am INT LAB ORDERS July 08, 2024 11:52 am Reason for Visit Admit Date Abnormal uterine bleeding May 13 1:09pm Contraception management May 13, 2024 1:09pm Possible exposure to STD May 13, 2024 1:09pm Encounter for routine gynecological exam ination May 13, 2024 1:09pm Abdominal discomfort May 14, 2024 12: 45pm Chronic diarrhea May 14, 2024 12:4 5pm Abdominal discomfort June 20, 2024 1:08 pm 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, 2024 1:0 8pm Abdominal discomfort July 04, 2024 8:40 am Bile reflux gastritis July 04, 2024 8:4 0am Chronic diarrhea July 04, 2024 8:40a m Bile reflux gastritis July 08, 2024 10: 53am Irritable bowel syndrome with diarrhea J une 2024 10:53am Abdominal pain July 08, 2024 10:53 am Irritable bowel syndrome July 08, 2024 10:53am Chief Complaint Admit Date Annual (IRON CARRIER) May 13, 2024 1:09 pm RECALL DISCUSS UPPER AND LOWER SCOPE May 12:45pm MED CHECK S/P SCOPES June 20, 2024 1:08 pm MED CHECK S/P SCOPES July 04, 2024 8:40 am Irritable bowel syndrome July 08, 2024 10:53am INT LAB ORDERS July 08, 2024 11:52 am abdominal pain July 15, 2024 8:43 am Rash July 17, 2024 1:05 pm Reason for Visit Admit Date Abnormal uterine bleeding May 13 1:09pm Contraception management May 13, 2024 1:09pm Possible exposure to STD May 13, 2024 1:09pm Encounter for routine gynecological exam ination May 13, 2024 1:09pm Abdominal discomfort May 14, 2024 12: 45pm Chronic diarrhea May 14, 2024 12:4 5pm Abdominal discomfort June 20, 2024 1:08 pm 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, 2024 1:0 8pm Abdominal discomfort July 04, 2024 8:40 am Bile reflux gastritis July 04, 2024 8:4 0am Chronic diarrhea July 04, 2024 8:40a m Bile reflux gastritis July 08, 2024 10: 53am Irritable bowel syndrome with diarrhea J une 2024 10:53am Abdominal pain July 08, 2024 10:53 am Irritable bowel syndrome July 08, 2024 10:53am Rash July 17, 2024 1:05 pm Chief Complaint Admit Date LAP GRETTA 1-March 10, 2024 1 2:49pm Annual (IRON CARRIER) May 13, 2024 1:09 pm RECALL DISCUSS UPPER AND LOWER SCOPE Apr wv 2024 12:45pm MED CHECK S/P SCOPES June 20, 2024 1:08 pm MED CHECK S/P SCOPES July 04, 2024 8:40 am Irritable bowel syndrome July 08, 2024 10:53am Reason for Visit Admit Date S/P cholecystectomy March 10, 2024 1 2:49pm Chronic diarrhea March 10, 2024 1 2:49pm Abnormal uterine bleeding May 13 1:09pm Contraception management May 13, 2024 1:09pm Possible exposure to STD May 13, 2024 1:09pm Encounter for routine gynecological exam ination May 13, 2024 1:09pm Abdominal discomfort May 14, 2024 12: 45pm Chronic diarrhea May 14, 2024 12:4 5pm Abdominal discomfort June 20, 2024 1:08 pm 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, 2024 1:0 8pm Abdominal discomfort July 04, 2024 8:40 am Bile reflux gastritis July 04, 2024 8:4 0am Chronic diarrhea July 04, 2024 8:40a m Bile reflux gastritis July 08, 2024 10: 53am Irritable bowel syndrome with diarrhea J [facility] 2024 10:53am Abdominal pain July 08, 2024 10:53 am Irritable bowel syndrome July 08, 2024 10:53am Chief Complaint Admit Date Annual (IRON CARRIER) May 13, 2024 1:09 pm RECALL DISCUSS UPPER AND LOWER SCOPE Apr wv 2024 12:45pm MED CHECK S/P SCOPES June 20, 2024 1:08 pm MED CHECK S/P SCOPES July 04, 2024 8:40 am Irritable bowel syndrome July 08, 2024 10:53am INT LAB ORDERS July 08, 2024 11:52 am abdominal pain July 15, 2024 8:43 am Rash July 17, 2024 1:05 pm 2 W FU July 22, 2024 11:2 4am Reason for Visit Admit Date Abnormal uterine bleeding May 13 1:09pm Contraception management May 13, 2024 1:09pm Possible exposure to STD May 13, 2024 1:09pm Encounter for routine gynecological exam ination May 13, 2024 1:09pm Abdominal discomfort May 14, 2024 12: 45pm Chronic diarrhea May 14, 2024 12:4 5pm Abdominal discomfort June 20, 2024 1:08 pm 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, 2024 1:0 8pm Abdominal discomfort July 04, 2024 8:40 am Bile reflux gastritis July 04, 2024 8:4 0am Chronic diarrhea July 04, 2024 8:40a m Bile reflux gastritis July 08, 2024 10: 53am Irritable bowel syndrome with diarrhea J [facility] 2024 10:53am Abdominal pain July 08, 2024 10:53 am Irritable bowel syndrome July 08, 2024 10:53am Rash July 17, 2024 1:05 pm Irritable bowel syndrome with diarrhea J [facility] 2024 11:24am Chief Complaint Admit Date MED CHECK S/P SCOPES June 20, 2024 1:08 pm MED CHECK S/P SCOPES July 04, 2024 8:40 am Irritable bowel syndrome July 08, 2024 10:53am INT LAB ORDERS July 08, 2024 11:52 am abdominal pain July 15, 2024 8:43 am Rash July 17, 2024 1:05 pm 2 W FU July 22, 2024 11:2 4am MEDICATION NEXT STEPS September 16, 2024 8:28am Reason for Visit Admit Date Abdominal discomfort June 20, 2024 1:08 pm 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, 2024 1:0 8pm Abdominal discomfort July 04, 2024 8:40 am Bile reflux gastritis July 04, 2024 8:4 0am Chronic diarrhea July 04, 2024 8:40a m Bile reflux gastritis July 08, 2024 10: 53am Irritable bowel syndrome with diarrhea J [facility] 2024 10:53am Abdominal pain July 08, 2024 10:53 am Irritable bowel syndrome July 08, 2024 10:53am Rash July 17, 2024 1:05 pm Irritable bowel syndrome with diarrhea J [facility] 2024 11:24am Weight loss September 16, 2024 8: 28am Bloating symptom September 16, 2024 8: 28am Abdominal pain September 16, 2024 8: 28am Chief Complaint Admit Date MED CHECK S/P SCOPES June 20, 2024 1:08 pm MED CHECK S/P SCOPES July 04, 2024 8:40 am Irritable bowel syndrome July 08, 2024 10:53am INT LAB ORDERS July 08, 2024 11:52 am abdominal pain July 15, 2024 8:43 am Rash July 17, 2024 1:05 pm 2 W FU July 22, 2024 11:2 4am MEDICATION NEXT STEPS September 16, 2024 8:28am INT ORDER FOR STOOL DROP OFF September 3:00pm E ORDERS September 22, 2024 11 :30am Reason for Referral Specialty Diagnoses / Procedures Referred By Contac t Referred To Contact CT IMAGING Diagnoses Atypical facial pain Procedures CT FACIAL BONE/JAMIL WO IVCON CT MAXILLOFACIAL W/O CONTRAST MATERIAL Janeth Coyle MD [address] [place] [address] [place] [address] Referral ID Status Reason Start Date Expiration Date Visits Requested Visits Authorized [id number] New Request Auto-Generat ed Referral 02/18/2024 03/19/2025 1 1 Additional Source Comments Care Teams (unrecognized sec tion and content) Fish And Wildlife Biologist Relationship Specialty Start Date End Date Josefina Miranda DO [address] [place], [place] [address] PCP - General Pediatrics 03/01/22 Team Status: Active Member Role Status Dates Dr. Ashlee Hogue MD Family Provider Active Dr. Nya Alfred MD Primary Care Provider Active Team Status: Inactive Member Role Status Dates Dr. Josefina Miranda DO Referring Provider Active Jossy Hoover CNM Attending Provider Active Dr. Nya Alfred MD Primary Care Provider Active Team Status: Inactive Member Role Status Dates Dr. Nya Alfred MD Primary Care Provider, Referring Provider Active Dr. Gayatri Ramires DO Attending Provider Activ e Team Status: Inactive Member Role Status Dates Dr. Nya Alfred MD Primary Care Provider Active Darlin Puckett NP-C Attending Provider, Referring Prov ider Active Team Status: Active Member Role Status Dates Dr. Ashlee Hogue MD Family Provider Active Dr. Oliva Ball DO Primary Care Provider Active Team Status: Inactive Member Role Status Dates Dr. Nya Alfred MD Primary Care Provider, Referring Provider Active Trevor GILES, PA Attending Provider Active Team Status: Inactive Member Role Status Dates Dr. Oliva Ball DO Primary Care Provide r, Attending Provider, Referring Provider Active Team Status: Inactive Member Role Status Dates Dr. Oliva Ball DO Primary Care Provider Active Dr. Madan Drummond , DO Emergency Provider Active Team Status: Inactive Member Role Status Dates Dr. Oliva Ball DO Primary Care Provider, Referring P rovider Active Dr. Gayatri Ramires , DO Attending Provider Activ e Team Status: Inactive Member Role Status Dates Dr. Oliva Ball DO Primary Care Provider Active Dr. Madan Drummond , DO Attending Provider, Emergency P rovider Active Team Status: Inactive Member Role Status Dates Dr. Oliva Ball DO Primary Care Provider Active Dr. Brennan Fox , DO Emergency Provider Active Team Status: Active Member Role Status Dates Dr. Ashlee Hogue MD Family Provider Active Dr. Tapan Menjivar DO Primary Care Provider Active Team Status: Inactive Member Role Status Dates Dr. Oliva Ball DO Primary Care Provider, Referring P rovider Active Margareth Patel PRICING SPECIALIST, PRICING SPECIALIST-C Attending Provider Active Team Status: Inactive Member Role Status Dates Dr. Oliva Ball DO Primary Care Provider Active Dr. Brennan Fox , DO Attending Provider, Emergency Provider Active Team Status: Inactive Member Role Status Dates Dr. Oliva Ball DO Primary Care Provider Active Margareth Patel PRICING SPECIALIST, PRICING SPECIALIST-C Attending Provider Active Team Status: Inactive Member Role Status Dates Dr. Tapan Menjivar DO Primary Care Provider, Attendin g Provider Active Team Status: Active Member Role Status Dates Dr. Tapan Menjivar DO Primary Care Provider Active Team Status: Inactive Member Role Status Dates Dr. Tapan Menjivar DO Primary Care Provider Active Start: January 29, 2024 End: January 29, 2024 Dr. Oliva Ball DO Attending Provider Active St art: January 29, 2024 End: January 29, 2024 Dr. Oliva Ball DO Referring Provider Active St art: January 29, 2024 End: January 29, 2024 Team Status: Inactive Member Role Status Dates Dr. Tapan Menjivar DO Primary Care Provider Active Start: January 31, 2024 End: January 31, 2024 Dr. Oliva Ball DO Attending Provider Active St art: January 31, 2024 End: January 31, 2024 Dr. Oliva Ball DO Referring Provider Active St art: January 31, 2024 End: January 31, 2024 Team Status: Inactive Member Role Status Dates Dr. Tapan Menjivar DO Primary Care Provider Active Start: February 04, 2024 End: February 04, 2024 Dr. Madan Drummond DO Attending Provider Active Start: February 04, 2024 End: February 04, 2024 Dr. Madan Drummond DO Emergency Provider Active Start: February 04, 2024 End: February 04, 2024 Team Status: Inactive Member Role Status Dates Dr. Tapan Menjivar DO Primary Care Provider Active Start: February 14, 2024 End: February 14, 2024 Dr. Tapan Menjivar DO Referring Provider Active Start: February 14, 2024 End: February 14, 2024 Dr. Norma Buckley MD Attending Provider Active Start: February 14, 2024 End: February 14, 2024 Team Status: Inactive Member Role Status Dates Dr. Tapan Menjivar DO Primary Care Provider Active Start: February 25, 2024 End: February 25, 2024 Dr. Norma Buckley MD Attending Provider Active Start: February 25, 2024 End: February 25, 2024 Dr. Norma Buckley MD Referring Provider Active Start: February 25, 2024 End: February 25, 2024 Team Status: Active Member Role Status Dates Dr. Tapan Menjivar DO Primary Care Provider Active Start: February 25, 2024 Dr. Norma Buckley MD Attending Provider Active Start: February 25, 2024 Dr. Norma Buckley MD Referring Provider Active Start: February 25, 2024 Dr. Norma Buckley MD Other Provider Active S tart: February 25, 2024 Team Status: Active Member Role Status Dates Dr. Tapan Menjivar DO Primary Care Provider Active Start: February 25, 2024 End: February 25, 2024 Dr. Reese Humphreys MD Attending Provider Activ e Start: February 25, 2024 End: February 25, 2024 Dr. Robi Onofre MD Referring Provider Active St art: February 25, 2024 End: February 25, 2024 Team Status: Inactive Member Role Status Dates Dr. Tapan Menjivar DO Primary Care Provider Active Start: March 10, 2024 End: March 10, 2024 Dr. Tapan Menjivar DO Referring Provider Active Start: March 10, 2024 End: March 10, 2024 Josefina GILES PA-C Attending Provider Active Start: March 10, 2024 End: March 10, 2024 Team Status: Inactive Member Role Status Dates Dr. Tapan Menjivar DO Primary Care Provider Active Start: May 13, 2024 End: May 13, 2024 Dr. Tapan Menjivar DO Referring Provider Active Start: May 13, 2024 End: May 13, 2024 Margareth Patel PRICING SPECIALIST, PRICING SPECIALIST-C Attending Provider Active Start: May 13, 2024 End: May 13, 2024 Team Status: Inactive Member Role Status Dates Dr. Tapan Menjivar DO Primary Care Provider Active Start: May 13, 2024 End: May 13, 2024 Margareth Patel PRICING SPECIALIST, PRICING SPECIALIST-C Attending Provider Active Start: May 13, 2024 End: May 13, 2024 Margareth Patel PRICING SPECIALIST, PRICING SPECIALIST-C Referring Provider Active Start: May 13, 2024 End: May 13, 2024 Team Status: Inactive Member Role Status Dates Dr. Tapan Menjivar DO Primary Care Provider Active Start: May 14, 2024 End: May 14, 2024 Dr. Tapan Menjivar DO Referring Provider Active Start: May 14, 2024 End: May 14, 2024 Dr. Norma Buckley MD Attending Provider Active Start: May 14, 2024 End: May 14, 2024 Team Status: Active Member Role Status Dates Dr. Tapan Menjivar DO Primary Care Provider Active Start: May 15, 2024 Dr. Oliva Ball DO Attending Provider Active St art: May 15, 2024 Team Status: Inactive Member Role Status Dates Dr. Tapan Menjivar DO Primary Care Provider Active Start: May 15, 2024 End: May 15, 2024 Dr. Oliva Ball DO Attending Provider Active St art: May 15, 2024 End: May 15, 2024 Team Status: Inactive Member Role Status Dates Dr. Tapan Menjivar DO Primary Care Provider Active Start: June 09, 2024 End: June 09, 2024 Dr. Tapan Menjivar DO Referring Provider Active Start: June 09, 2024 End: June 09, 2024 Dr. Norma Buckley MD Attending Provider Active Start: June 09, 2024 End: June 09, 2024 Team Status: Active Member Role Status Dates Dr. Tapan Menjivar DO Primary Care Provider Active Start: June 09, 2024 Dr. Tapan Menjivar DO Referring Provider Active Start: June 09, 2024 Dr. Norma Buckley MD Attending Provider Active Start: June 09, 2024 Dr. Norma Buckley MD Other Provider Active S tart: June 09, 2024 Team Status: Inactive Member Role Status Dates Dr. Tapan Menjivar DO Primary Care Provider Active Start: June 20, 2024 End: June 20, 2024 Dr. Tapan Menjivar DO Referring Provider Active Start: June 20, 2024 End: June 20, 2024 Dr. Norma Buckley MD Attending Provider Active Start: June 20, 2024 End: June 20, 2024 Team Status: Inactive Member Role Status Dates Dr. Tapan Menjivar DO Primary Care Provider Active Start: July 04, 2024 End: July 04, 2024 Dr. Tapan Menjivar DO Referring Provider Active Start: July 04, 2024 End: July 04, 2024 Dr. Norma Buckley MD Attending Provider Active Start: July 04, 2024 End: July 04, 2024 Team Status: Active Member Role Status Dates Dr. Oliva Ball DO Primary Care Provider Active Team Status: Inactive Member Role Status Dates Dr. Tapan Menjivar DO Primary Care Provider Active Start: July 08, 2024 End: July 08, 2024 Dr. Tapan Menjivar DO Referring Provider Active Start: July 08, 2024 End: July 08, 2024 Gayatri Merrill NP-C Attending Provider Active Start: July 08, 2024 End: July 08, 2024 Team Status: Inactive Member Role Status Dates Dr. Tapan Menjivar DO Primary Care Provider Active Start: July 08, 2024 End: July 08, 2024 Gayatri Merrill NP-C Attending Provider Active Start: July 08, 2024 End: July 08, 2024 Gayatri Merrill NP-C Referring Provider Active Start: July 08, 2024 End: July 08, 2024 Team Status: Active Member Role Status Dates SHANIKA ValderramaC Attending Provider Active Start: July 15, 2024 SHANIKA ValderramaC Referring Provider Active Start: July 15, 2024 Dr. Oliva Ball DO Primary Care Provider Active Start: July 15, 2024 Team Status: Inactive Member Role Status Dates Dr. Oliva Ball DO Primary Care Provider Active Start: July 17, 2024 End: July 17, 2024 Dr. Oliva Ball DO Referring Provider Active St art: July 17, 2024 End: July 17, 2024 Trevor GILES PA Attending Provider Active Sta rt: July 17, 2024 End: July 17, 2024 Team Status: Inactive Member Role Status Dates Dr. Tapan Menjivar DO Referring Provider Active Start: July 22, 2024 End: July 22, 2024 SHANIKA ValderramaC Attending Provider Active Start: July 22, 2024 End: July 22, 2024 Dr. Oliva Ball DO Primary Care Provider Active Start: July 22, 2024 End: July 22, 2024 Team Status: Inactive Member Role Status Dates SHANIKA ValderramaC Attending Provider Active Start: July 15, 2024 End: July 15, 2024 Gayatri Merrill NP-C Referring Provider Active Start: July 15, 2024 End: July 15, 2024 Dr. Oliva Ball DO Primary Care Provider Active Start: July 15, 2024 End: July 15, 2024 Team Status: Active Member Role/Relationship Status Dates Dr. Oliva Ball DO Primary Care Provider Active Team Status: Inactive Member Role/Relationship Status Dates Dr. Tapan Menjivar DO Primary Care Provider Active Start: June 09, 2024 End: June 09, 2024 Dr. Tapan Menjivar DO Referring Provider Active Start: June 09, 2024 End: June 09, 2024 Dr. Norma Buckley MD Attending Provider Active Start: June 09, 2024 End: June 09, 2024 Team Status: Active Member Role/Relationship Status Dates Dr. Tapan Menjivar DO Primary Care Provider Active Start: June 09, 2024 Dr. Tapan Menijvar DO Referring Provider Active Start: June 09, 2024 Dr. Norma Buckley MD Attending Provider Active Start: June 09, 2024 Dr. Norma Buckley MD Other Provider Active S tart: June 09, 2024 Team Status: Inactive Member Role/Relationship Status Dates Dr. Tapan Menjivar DO Primary Care Provider Active Start: June 20, 2024 End: June 20, 2024 Dr. Tapan Menjivar DO Referring Provider Active Start: June 20, 2024 End: June 20, 2024 Dr. Norma Buckley MD Attending Provider Active Start: June 20, 2024 End: June 20, 2024 Team Status: Inactive Member Role/Relationship Status Dates Dr. Tapan Menjivar DO Primary Care Provider Active Start: July 04, 2024 End: July 04, 2024 Dr. Tapan Menjivar DO Referring Provider Active Start: July 04, 2024 End: July 04, 2024 Dr. Norma Buckley MD Attending Provider Active Start: July 04, 2024 End: July 04, 2024 Team Status: Inactive Member Role/Relationship Status Dates Dr. Tapan Menjivar DO Primary Care Provider Active Start: July 08, 2024 End: July 08, 2024 Dr. Tapan Menjivar DO Referring Provider Active Start: July 08, 2024 End: July 08, 2024 Gayatri Merrill , PRICING SPECIALIST-C Attending Provider Active Start: July 08, 2024 End: July 08, 2024 Team Status: Inactive Member Role/Relationship Status Dates Dr. Tapan Menjivar DO Primary Care Provider Active Start: July 08, 2024 End: July 08, 2024 Gayatri Garfield , PRICING SPECIALIST-C Attending Provider Active Start: July 08, 2024 End: July 08, 2024 Gayatribirdie Merrill , PRICING SPECIALIST-C Referring Provider Active Start: July 08, 2024 End: July 08, 2024 Team Status: Inactive Member Role/Relationship Status Dates Gayatri Merrill , PRICING SPECIALIST-C Attending Provider Active Start: July 15, 2024 End: July 15, 2024 Gayatri Merrill , PRICING SPECIALIST-C Referring Provider Active Start: July 15, 2024 End: July 15, 2024 Dr. Oliva Ball DO Primary Care Provider Active Start: July 15, 2024 End: July 15, 2024 Team Status: Inactive Member Role/Relationship Status Dates Dr. Oliva Ball DO Primary Care Provider Active Start: July 17, 2024 End: July 17, 2024 Dr. Oliva Ball DO Referring Provider Active St art: July 17, 2024 End: July 17, 2024 Trevor GILES, [place] Attending Provider Active Sta rt: July 17, 2024 End: July 17, 2024 Team Status: Inactive Member Role/Relationship Status Dates Dr. Tapan Menjivar DO Referring Provider Active Start: July 22, 2024 End: July 22, 2024 Gayatri Merrill PRICING SPECIALIST-C Attending Provider Active Start: July 22, 2024 End: July 22, 2024 Dr. Oliva Ball DO Primary Care Provider Active Start: July 22, 2024 End: July 22, 2024 Team Status: Inactive Member Role/Relationship Status Dates Dr. Oliva Ball DO Primary Care Provider Active Start: September 16, 2024 End: September 16, 2024 Dr. Oliva Ball DO Referring Provider Active St art: September 16, 2024 End: September 16, 2024 Gayatri Merrill , PRICING SPECIALIST-C Attending Provider Active Start: September 16, 2024 End: September 16, 2024 Team Status: Inactive Member Role/Relationship Status Dates Dr. Oliva Ball DO Primary Care Provider Active Start: September 18, 2024 End: September 18, 2024 Gayatri Merrill , PRICING SPECIALIST-C Attending Provider Active Start: September 18, 2024 End: September 18, 2024 Gayatri Merrill , PRICING SPECIALIST-C Referring Provider Active Start: September 18, 2024 End: September 18, 2024 Team Status: Active Member Role/Relationship Status Dates Dr. Oliva Ball DO Primary Care Provider Active Start: September 22, 2024 Gayatri Merrill , PRICING SPECIALIST-C Attending Provider Active Start: September 22, 2024 Gayatri Merrill , PRICING SPECIALIST-C Referring Provider Active Start: September 22, 2024 Team Status: Inactive Member Role/Relationship Status Dates Dr. Oliva Ball DO Primary Care Provider Active Start: September 22, 2024 End: September 22, 2024 Gayatri Merrill , PRICING SPECIALIST-C Attending Provider Active Start: September 22, 2024 End: September 22, 2024 Gayatri Merrill , PRICING SPECIALIST-C Referring Provider Active Start: September 22, 2024 End: September 22, 2024 INFORMATION SOURCE (unrecogn ized section and content) DATE CREATED AUTHOR 04/19/2022 [facility] DATE CREATED AUTHOR AUTHOR'S LEONA ATION 05/12/2023 [facility] ([place]) DATE CREATED AUTHOR AUTHOR'S ORGANIZ ATION 05/13/2024 [facility] DATE CREATED AUTHOR AUTHOR'S ORGANIZ ATION 09/25/2024 [facility] Goals (unrecognized section and content) Goals may be documented in a n alternate sectionGoals may be documented in an alternate sectionGoals may be documented in an alternate sectionGoals may be documented in an alternate section No data available for this sectionGoals may be documented in an alternate section Source Comments (unrecognize d section and content) In the event this informatio n is protected by the Federal Confidentiality of Alcohol and Drug Abuse Patient Records regulations: The Federal rules restrict any use of the information to criminally investigate or prosecute any alcohol or drug abuse patient.[place]healthIn the event this information is protected by the Federal Confidentiality of Alcohol and Drug Abuse Patient Records regulations: The Federal rules restrict any use of the information to criminally investigate or prosecute any alcohol or drug abuse patient.[place]healthIn the event this information is protected by the Federal Confidentiality of Alcohol and Drug Abuse Patient Records regulations: The Federal rules restrict any use of the information to criminally investigate or prosecute any alcohol or drug abuse patient.[place]healthIn the event this information is protected by the Federal Confidentiality of Alcohol and Drug Abuse Patient Records regulations: The Federal rules restrict any use of the information to criminally investigate or prosecute any alcohol or drug abuse patient.[facility] Reason for Visit (unrecogniz ed section and content) Reason Comments PHOTOS TAKEN Reason Comments Consult Reason Comments Radiology CT Specialty Diagnoses / Procedures Referred By Yazmin t Referred To Contact CT IMAGING Diagnoses Atypical facial pain Procedures CT FACIAL BONE/JAMIL WO IVCON CT MAXILLOFACIAL W/O CONTRAST MATERIAL Janeth Coyle MD [address] [place] [address] Phone: tel: fax: [facility] [place] [phone] Referral ID Status Reason Start Date Expiration Date V isits Requested Visits Authorized [id number] Closed Auto-Generate d Referral 03/05/2024 06/03/2024 1 1 Reason Comments Established Patient Follow-Up FOR RECORDS PERTAINING TO PATIENTS WHO ARE [...] BE BASED ON THE PRIMARY CLINICAL RECORDS. [employer] provides no warranty or guarantee of the accuracy or completeness of information in this document.
== END | disposition home or self-care (01) ==
LOC: CT 06:13
PROVIDERS: PCP Family Medicine; Referring Provider Nurse Practitioner Acute Care; Visit Provider Nurse Practitioner Acute Care
DX: R10.13 Epigastric pain (principal); R14.0 Abdominal distension (gaseous); R63.4 Abnormal weight loss
CPT/HCPCS: 74177; Q9967

== ENCOUNTER → 2024-12-27 | Outpatient (CLI) | payer OTHER, MEDICAID, SELFPAY | END | disposition home or self-care (01) | LOC: LABSPEC 12-29 09:58 | PROVIDERS: PCP Family Medicine; Visit Provider Physician Assistant | DX: R39.15 Urgency of urination (principal) | CPT/HCPCS: 87086 ==